=== PATIENT | female | born 1970 | race Caucasian/White ===

== ENCOUNTER 2019-05-17 04:58 | Emergency (ER) | payer OTHER ==
--- NOTE | 2019-05-17 05:00 | ED ---
Trauma HPI - General Stated Complaint: IHS injury Time Seen by Provider: 05/17/19 05:00 - History of Present Illness Initial Comments: Kristyn is a previously healthy 48-year-old female who presents to the emergency department today for required evaluation after possible injury at work. 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 During that transport vision became agitated and began fighting, he is able to stand and the stair chair lifted, the handle SIRS chair was between the patient's legs and she was lifted off the ground. Patient reports she's been fine since that time, she hasn't noticed any bruising or swelling in the groin or the genitalia. She is able to urinate she is able to ambulate. She denies any particular injury however because this was witnessed her transportation supervisor advised that she had to come to the emergency department for evaluation and IHS testing for on duty injury. Review of Systems ROS Statement: Those systems with pertinent positive or pertinent negative responses have been documented in the HPI. ROS Other: All systems not noted in ROS Statement are negative. General Exam - General Exam Comments Initial Comments: Physical Exam GENERAL: Patient is well-developed and well-nourished. Patient is nontoxic and well-hydrated and is in no distress. HENT: Normocephalic, Atraumatic. EYES: PERRL, EOMI PULMONARY: Unlabored respirations. CARDIOVASCULAR: RRR Warm and well perfused extremities ABDOMEN: Non-distended SKIN: No rashes or bruising : Deferred - patient declined NEUROLOGIC: Alert and oriented Normal speech Normal gait MUSCULOSKELETAL: Moving all extremities with no apparent injury PSYCHIATRIC: No SI/HI Course Vital Signs 05/17/19 05:16 Temperature 98.0 F Pulse Rate 83 Respiratory 18 Rate Blood Pressure 102/74 O2 Sat by Pulse 96 Oximetry Medical Decision Making - Medical Decision Making The patient was seen and evaluated history is obtained from the patient as well as EMS who were on scene, patient denies any injuries and declines any external genitalia exam or pelvic Physical exam is otherwise unremarkable Patient's ambulating without difficulty no apparent discomfort able to urinate. At this time the patient declining physical exam she is medically cleared for discharge and return to work. IHS testing was obtained per protocol. Disposition Clinical Impression: Injury of groin Disposition: HOME SELF-CARE Condition: Stable Instructions (If sedation given, give patient instructions): Contusion in Adults (ED) Is patient prescribed a controlled substance at d/c from ED?: No Referrals: Guevara George MD [Primary Care Provider] - 1-2 days
[2019-05-17 05:25] VITALS: BP 102/74; PULSE 83; RESP 18; TEMP 98
== END 2019-05-17 06:00 | disposition home or self-care (01) ==
LOC: EC 04:58
DX: S39.91XA Unspecified injury of abdomen, initial encounter (principal); F17.200 Nicotine dependence, unspecified, uncomplicated; W22.03XA Walked into furniture, initial encounter; Y93.F2 Activity, caregiving, lifting; Y92.69 Other specified industrial and construction area as the place of occurrence of the external cause; Y99.0 Civilian activity done for income or pay; Z53.20 Procedure and treatment not carried out because of patient's decision for unspecified reasons
CPT/HCPCS: 99283

== ENCOUNTER 2020-03-15 14:38 | Inpatient (IN) | payer BC, OTHER ==
[2020-03-15] MEDS ORDERED: PANTOPRAZOLE 40 MG/10 ML VIAL IVP STA (15:21)
[2020-03-15] MEDS ORDERED: SODIUM CHLORIDE 0.9% 500 ML 500 ML IV STA (15:21)
[2020-03-15 15:51] LABS: Partial Thromboplastin Time 22.4 sec (22.0-30.0); Prothrombin Time 10.3 sec (9.0-12.0)
[2020-03-15 15:55] LABS: ALT 7 U/L (4-34); AST 22 U/L (14-36); African American GFR (CKD) >90 (>60 ml/min/1.73 sqM); Albumin 2.4 g/dL (3.5-5.0); Alkaline Phosphatase 45 U/L (38-126); Anion Gap 4 mmol/L; Blood Urea Nitrogen 28 mg/dL (7-17); Calcium 7.6 mg/dL (8.4-10.2); Carbon Dioxide 20 mmol/L (22-30); Chloride 109 mmol/L (98-107); Glucose 114 mg/dL (74-99); Magnesium 1.7 mg/dL (1.6-2.3); Non-African American GFR(CKD) >90 (>60 ml/min/1.73 sqM); Potassium 4.3 mmol/L (3.5-5.1); Sodium 133 mmol/L (137-145); Total Bilirubin 0.2 mg/dL (0.2-1.3); Total Protein 4.3 g/dL (6.3-8.2)
[2020-03-15 16:11] LABS: Basophils % (A) 0 %; Eosinophils % (A) 0 %; HCT 26.3 % (34.0-46.0); HGB 8.2 gm/dL (11.4-16.0); Lymphocytes # (A) 1.3 k/uL (1.0-4.8); Lymphocytes % (A) 16 %; MCH 31.6 pg (25.0-35.0); MCHC 31.1 g/dL (31.0-37.0); MCV 101.5 fL (80.0-100.0); Mean Platelet Volume 7.9; Monocytes # (A) 0.4 k/uL (0-1.0); Monocytes % (A) 5 %; Neutrophils # (A) 6.1 k/uL (1.3-7.7); Neutrophils % (A) 77 %; Platelet Count 277 k/uL (150-450); RBC 2.59 m/uL (3.80-5.40); RDW 12.6 % (11.5-15.5); WBC 7.8 k/uL (3.8-10.6)
[2020-03-15] MEDS ORDERED: NALOXONE 0.4 MG/ML 1 ML VIAL IV PRN (16:43)
--- NOTE | 2020-03-15 16:43 | ED ---
GI Bleed HPI - General Chief complaint: GI Bleed Stated complaint: GI Bleed Time Seen by Provider: 03/15/20 14:55 Source: patient, EMS Mode of arrival: EMS Limitations: no limitations - History of Present Illness Initial comments: Patient is a 49-year-old previously healthy female who presents to emergency room with reported bright red blood and dark tarry blood per rectum. Patient states that last week she began having epigastric pain. She was concern for peptic ulcer disease as she does drink an average of 2 alcoholic drinks daily, takes Excedrin occasionally for headaches and has a significant amount of stress in her life. 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 She saw her primary care physician who placed her on Pepcid. States that she was taking medications as directed and had imp rovement in her pain. She awoke this morning with an upset stomach. Went to the bathroom and passed a moderate amount of dark stool into the toilet. She then wiped and noted bright red blood on the toilet paper. Attempted to go back to sleep however reports that she had 6 episodes total of bloody bowel movements. Called EMS to bring her to the emergency department. Patient received a liter bolus of normal saline by EMS. She arrives with a blood pressure around 90 systolic. Reports to feeling dizzy when she stands. Has never been scoped before. No history of ulcer disease in the past. No vomiting or hematemesis. Denies fevers or chills. No current abdominal pain. No other alleviating, precipitating or modifying factors - Related Data Home Medications Medication Instructions Recorded Confirmed Acetaminophen [Tylenol] 1,000 - 2,000 mg PO DAILY PRN 03/15/20 03/15/20 Vyypvzq-[id number] [id number] 2 tab PO DAILY PRN 03/15/20 03/15/20 [Excedrin] Famotidine [Pepcid] 20 mg PO DAILY PRN 03/15/20 03/15/20 Allergies Allergy/AdvReac Type Severity Reaction Status Date / Time No Known Allergies Allergy Verified 03/15/20 19:05 Review of Systems ROS Statement: Those systems with pertinent positive or pertinent negative responses have been documented in the HPI. ROS Other: All systems not noted in ROS Statement are negative. Past Medical History Past Medical History: GERD/Reflux History of Any Multi-Drug Resistant Organisms: None Reported Past Surgical History: Tubal Ligation Additional Past Surgical History / Comment(s): tubal ligation 2009, rhinoplasty Past Psychological History: Anxiety Smoking Status: Current every day smoker Past Alcohol Use History: Daily Past Drug Use History: None Reported - Past Family History Mother Family Medical History: Hypertension Additional Family Medical History / Comment(s): Aortic aneurysm Father Additional Family Medical History / Comment(s): no significant hx General Exam Limitations: no limitations General appearance: alert, in no apparent distress Head exam: Present: atraumatic, normocephalic, normal inspection Eye exam: Present: normal appearance, PERRL, EOMI. Absent: scleral icterus, conjunctival injection, periorbital swelling ENT exam: Present: normal exam, mucous membranes moist Neck exam: Present: normal inspection. Absent: tenderness, meningismus, lymphadenopathy Respiratory exam: Present: normal lung sounds bilaterally. Absent: respiratory distress, wheezes, rales, rhonchi, stridor Cardiovascular Exam: Present: normal rhythm, tachycardia, normal heart sounds. Absent: systolic murmur, diastolic murmur, rubs, gallop, clicks GI/Abdominal exam: Present: soft, normal bowel sounds. Absent: distended, tenderness, guarding, rebound, rigid Rectal exam: Present: heme (+) stool, black stool (few red-black flecks of stool obtained on rectal ), mass (large condyloma ) Extremities exam: Present: normal inspection, full ROM, normal capillary refill. Absent: tenderness, pedal edema, joint swelling, calf tenderness Back exam: Present: normal inspection Neurological exam: Present: alert, oriented X3, CN II-XII intact Psychiatric exam: Present: normal affect, normal mood Skin exam: Present: warm, dry, intact, diaphoretic, pallor. Absent: rash Course Vital Signs 03/15/20 03/15/20 03/15/20 14:54 15:13 15:38 Temperature 98 F Pulse Rate 93 99 93 Respiratory 18 18 18 Rate Blood Pressure 132/84 94/57 94/57 O2 Sat by Pulse 99 99 99 Oximetry 03/15/20 03/15/20 03/15/20 16:47 17:04 17:50 Temperature 97.7 F Pulse Rate 91 79 Respiratory 16 18 Rate Blood Pressure 91/55 84/55 O2 Sat by Pulse 99 100 Oximetry 03/15/20 03/15/20 03/15/20 18:00 18:10 18:15 Temperature 97.4 F L 97.7 F 97.7 F Pulse Rate 81 63 66 Respiratory 16 16 16 Rate Blood Pressure 82/47 75/44 76/46 O2 Sat by Pulse 100 100 99 Oximetry 03/15/20 03/15/20 18:19 18:22 Temperature Pulse Rate 76 Respiratory 18 Rate Blood Pressure 83/50 108/40 O2 Sat by Pulse 99 98 Oximetry - Reevaluation(s) Reevaluation #1: Spoke with Dr. Welch regarding patients care 03/15/20 18:24 Medical Decision Making - Medical Decision Making Upon arrival the patient is placed into room 2. A thorough history and physical exam is performed. Rectal exam is performed and demonstrates a few flecks of dark brown. Peripheral IV was established. Laboratory studies were conducted. Patient's hemoglobin is 8.2. She is occult blood positive. Patient has no pain at this time. She is made nothing by mouth. Repetitive blood checks demonstrates that the patient's blood pressure remains around 90 systolic. Heart rate around 100. Because the patient's low blood pressure I did request a transfused with 1 unit of blood for which she did agree to. I called and discussed the case with Dr. De La Cruz who agreed to admission. Requested an additional liter of saline to be given. I will consult GI - spoke with Dr. Welch in regards to the patients hypotension and blood transfusion. Discussed case with Dr. Madrid who accepted admission into the ICU. Patient remained in stable condition awaiting a bed - Lab Data Result diagrams: 03/19/20 04:38 03/19/20 04:38 Lab Results 03/15/20 03/15/20 03/15/20 Range/Units 15:33 15:33 15:33 WBC 7.8 (3.8-10.6) k/uL RBC 2.59 L (3.80-5.40) m/uL Hgb 8.2 L (11.4-16.0) gm/dL Hct 26.3 L (34.0-46.0) % MCV 101.5 H (80.0-100.0) fL MCH 31.6 (25.0-35.0) pg MCHC 31.1 (31.0-37.0) g/dL RDW 12.6 (11.5-15.5) % Plt Count 277 (150-450) k/uL Neutrophils % 77 % Lymphocytes % 16 % Monocytes % 5 % Eosinophils % 0 % Basophils % 0 % Neutrophils # 6.1 (1.3-7.7) k/uL Lymphocytes # 1.3 (1.0-4.8) k/uL Monocytes # 0.4 (0-1.0) k/uL Eosinophils # 0.0 (0-0.7) k/uL Basophils # 0.0 (0-0.2) k/uL PT 10.3 (9.0-12.0) sec INR 1.0 (<1.2) APTT 22.4 (22.0-30.0) sec Sodium (137-145) mmol/L Potassium (3.5-5.1) mmol/L Chloride (98-107) mmol/L Carbon Dioxide (22-30) mmol/L Anion Gap mmol/L BUN (7-17) mg/dL Creatinine (0.52-1.04) mg/dL Est GFR (CKD-EPI)AfAm (>60 ml/min/1.73 sqM) Est GFR (CKD-EPI)NonAf (>60 ml/min/1.73 sqM) Glucose (74-99) mg/dL Plasma Lactic Acid Ap (0.7-2.0) mmol/L Calcium (8.4-10.2) mg/dL Magnesium (1.6-2.3) mg/dL Total Bilirubin (0.2-1.3) mg/dL AST (14-36) U/L ALT (4-34) U/L Alkaline Phosphatase (38-126) U/L Troponin I (0.000-0.034) ng/mL Total Protein (6.3-8.2) g/dL Albumin (3.5-5.0) g/dL Lipase (23-300) U/L Stool Occult Blood Positive H (Negative) Blood Type Blood Type Recheck Bld Type Recheck Status Antibody Screen Crossmatch Spec Expiration Date 03/15/20 03/15/20 03/15/20 Range/Units 15:33 15:33 15:33 WBC (3.8-10.6) k/uL RBC (3.80-5.40) m/uL Hgb (11.4-16.0) gm/dL Hct (34.0-46.0) % MCV (80.0-100.0) fL MCH (25.0-35.0) pg MCHC (31.0-37.0) g/dL RDW (11.5-15.5) % Plt Count (150-450) k/uL Neutrophils % % Lymphocytes % % Monocytes % % Eosinophils % % Basophils % % Neutrophils # (1.3-7.7) k/uL Lymphocytes # (1.0-4.8) k/uL Monocytes # (0-1.0) k/uL Eosinophils # (0-0.7) k/uL Basophils # (0-0.2) k/uL PT (9.0-12.0) sec INR (<1.2) APTT (22.0-30.0) sec Sodium 133 L (137-145) mmol/L Potassium 4.3 (3.5-5.1) mmol/L Chloride 109 H (98-107) mmol/L Carbon Dioxide 20 L (22-30) mmol/L Anion Gap 4 mmol/L BUN 28 H (7-17) mg/dL Creatinine 0.40 L (0.52-1.04) mg/dL Est GFR (CKD-EPI)AfAm >90 (>60 ml/min/1.73 sqM) Est GFR (CKD-EPI)NonAf >90 (>60 ml/min/1.73 sqM) Glucose 114 H (74-99) mg/dL Plasma Lactic Acid Ap 1.0 (0.7-2.0) mmol/L Calcium 7.6 L (8.4-10.2) mg/dL Magnesium 1.7 (1.6-2.3) mg/dL Total Bilirubin 0.2 (0.2-1.3) mg/dL AST 22 (14-36) U/L ALT 7 (4-34) U/L Alkaline Phosphatase 45 (38-126) U/L Troponin I <0.012 (0.000-0.034) ng/mL Total Protein 4.3 L (6.3-8.2) g/dL Albumin 2.4 L (3.5-5.0) g/dL Lipase 80 (23-300) U/L Stool Occult Blood (Negative) Blood Type Blood Type Recheck Bld Type Recheck Status Antibody Screen Crossmatch Spec Expiration Date 03/15/20 Range/Units 15:33 WBC (3.8-10.6) k/uL RBC (3.80-5.40) m/uL Hgb (11.4-16.0) gm/dL Hct (34.0-46.0) % MCV (80.0-100.0) fL MCH (25.0-35.0) pg MCHC (31.0-37.0) g/dL RDW (11.5-15.5) % Plt Count (150-450) k/uL Neutrophils % % Lymphocytes % % Monocytes % % Eosinophils % % Basophils % % Neutrophils # (1.3-7.7) k/uL Lymphocytes # (1.0-4.8) k/uL Monocytes # (0-1.0) k/uL Eosinophils # (0-0.7) k/uL Basophils # (0-0.2) k/uL PT (9.0-12.0) sec INR (<1.2) APTT (22.0-30.0) sec Sodium (137-145) mmol/L Potassium (3.5-5.1) mmol/L Chloride (98-107) mmol/L Carbon Dioxide (22-30) mmol/L Anion Gap mmol/L BUN (7-17) mg/dL Creatinine (0.52-1.04) mg/dL Est GFR (CKD-EPI)AfAm (>60 ml/min/1.73 sqM) Est GFR (CKD-EPI)NonAf (>60 ml/min/1.73 sqM) Glucose (74-99) mg/dL Plasma Lactic Acid Ap (0.7-2.0) mmol/L Calcium (8.4-10.2) mg/dL Magnesium (1.6-2.3) mg/dL Total Bilirubin (0.2-1.3) mg/dL AST (14-36) U/L ALT (4-34) U/L Alkaline Phosphatase (38-126) U/L Troponin I (0.000-0.034) ng/mL Total Protein (6.3-8.2) g/dL Albumin (3.5-5.0) g/dL Lipase (23-300) U/L Stool Occult Blood (Negative) Blood Type A Positive Blood Type Recheck No Previous Record Bld Type Recheck Status CABO Indicated Antibody Screen NEGATIVE Crossmatch See Detail Spec Expiration Date 03/18/2020 - 9925 - EKG Data EKG Comments: EKG demonstrates a normal sinus rhythm with a ventricular rate of 89. CT interval 146. QRS 78. QTC of 435. No acute ST segment elevations or depressions concerning for ischemic changes Critical Care Time Critical Care Time: Yes Critical Care Time: 40 minutes Disposition Clinical Impression: Hematochezia, Anemia, Upper GI bleed, Hypotension Disposition: ADMITTED IP TO THIS [facility] Condition: Serious Is patient prescribed a controlled substance at d/c from ED?: No Decision to Admit Reason: Admit from EC Decision Date: 03/15/20 Decision Time: 16:41
[2020-03-15] MEDS ORDERED: SODIUM CHLORIDE 0.9% 1,000 ML IV ONE (17:29)
[2020-03-15] MEDS: SODIUM CHLORIDE 0.9% 1,000 ML IV SCH (18:10)
[2020-03-15 18:44] LABS: Glucose,Whole Blood 93 mg/dL (75-99)
[2020-03-15] MEDS: NICOTINE 14MG/24HR PATCH TRANSDERM SCH (19:47)
[2020-03-15 21:26] LABS: HCT 24.9 % (34.0-46.0); HGB 7.7 gm/dL (11.4-16.0); Hypochromasia Slight; MCH 30.4 pg (25.0-35.0); MCHC 30.8 g/dL (31.0-37.0); MCV 98.7 fL (80.0-100.0); Mean Platelet Volume 7.5; Platelet Count 208 k/uL (150-450); RBC 2.53 m/uL (3.80-5.40); RDW 14.5 % (11.5-15.5); WBC 5.9 k/uL (3.8-10.6)
[2020-03-16 02:19] LABS: HCT 29.3 % (34.0-46.0); Hypochromasia Slight; MCH 30.3 pg (25.0-35.0); MCHC 30.7 g/dL (31.0-37.0); MCV 98.7 fL (80.0-100.0); Mean Platelet Volume 7.4; Platelet Count 170 k/uL (150-450); RBC 2.96 m/uL (3.80-5.40); RDW 14.6 % (11.5-15.5); WBC 6.3 k/uL (3.8-10.6)
[2020-03-16] MEDS: SODIUM CHLORIDE 0.9% 1,000 ML IV SCH ×2 (04:30→15:51)
[2020-03-16] MEDS: ONDANSETRON 4 MG/2 ML VIAL IVP PRN (04:31)
[2020-03-16 04:33] LABS: Basophils % (A) 0 %; Eosinophils # (A) 0.1 k/uL (0-0.7); Eosinophils % (A) 1 %; HGB 9.9 gm/dL (11.4-16.0); Hypochromasia Marked; Lymphocytes # (A) 2.4 k/uL (1.0-4.8); Lymphocytes % (A) 33 %; MCH 31.3 pg (25.0-35.0); MCV 100.8 fL (80.0-100.0); Macrocytosis Slight; Mean Platelet Volume 7.5; Monocytes # (A) 0.4 k/uL (0-1.0); Monocytes % (A) 5 %; Neutrophils # (A) 4.2 k/uL (1.3-7.7); Neutrophils % (A) 59 %; Platelet Count 182 k/uL (150-450); RBC 3.18 m/uL (3.80-5.40); RDW 14.7 % (11.5-15.5); WBC 7.2 k/uL (3.8-10.6)
[2020-03-16 04:42] LABS: African American GFR (CKD) >90 (>60 ml/min/1.73 sqM); Anion Gap 2 mmol/L; Blood Urea Nitrogen 19 mg/dL (7-17); Calcium 7.9 mg/dL (8.4-10.2); Carbon Dioxide 19 mmol/L (22-30); Chloride 115 mmol/L (98-107); Glucose 79 mg/dL (74-99); Non-African American GFR(CKD) >90 (>60 ml/min/1.73 sqM); Potassium 3.9 mmol/L (3.5-5.1); Sodium 136 mmol/L (137-145)
[2020-03-16 05:00] LABS: Glucose,Whole Blood 149 mg/dL (75-99)
[2020-03-16 05:11] LABS: Basophils % (A) 0 %; Eosinophils # (A) 0.1 k/uL (0-0.7); Eosinophils % (A) 1 %; HCT 23.4 % (34.0-46.0); Hypochromasia Moderate; Lymphocytes # (A) 2.6 k/uL (1.0-4.8); Lymphocytes % (A) 31 %; MCH 31.1 pg (25.0-35.0); MCHC 31.4 g/dL (31.0-37.0); MCV 98.8 fL (80.0-100.0); Macrocytosis Slight; Mean Platelet Volume 7.4; Monocytes # (A) 0.7 k/uL (0-1.0); Monocytes % (A) 8 %; Neutrophils # (A) 5.1 k/uL (1.3-7.7); Neutrophils % (A) 59 %; Platelet Count 203 k/uL (150-450); RBC 2.37 m/uL (3.80-5.40); RDW 14.9 % (11.5-15.5); WBC 8.6 k/uL (3.8-10.6)
[2020-03-16 05:17] LABS: HGB 7.4 gm/dL (11.4-16.0)
[2020-03-16] MEDS ORDERED: SODIUM CHLORIDE 0.9% 1,000 ML IV ONE ×4 (05:34→11:45)
[2020-03-16] MEDS ORDERED: METOCLOPRAMIDE 5 MG/ML 2 ML VIAL IVP STA (07:52)
[2020-03-16 07:56] LABS: INR 1.1 (<1.2); Prothrombin Time 11.6 sec (9.0-12.0)
[2020-03-16 07:57] LABS: Partial Thromboplastin Time 25.3 sec (22.0-30.0)
[2020-03-16 07:58] LABS: HCT 24.7 % (34.0-46.0); Hypochromasia Slight; MCH 30.8 pg (25.0-35.0); MCHC 32.3 g/dL (31.0-37.0); MCV 95.3 fL (80.0-100.0); Mean Platelet Volume 7.9; Platelet Count 119 k/uL (150-450); RBC 2.59 m/uL (3.80-5.40); RDW 14.2 % (11.5-15.5); WBC 8.6 k/uL (3.8-10.6)
[2020-03-16] MEDS ORDERED: NOREPINEPHRIN 4 MG-0.9% NS PMX 4 MG/250 ML ML IV ONE (08:06)
[2020-03-16] MEDS ORDERED: FUROSEMIDE 10 MG/ML 2 ML VIAL ONE (08:31)
[2020-03-16] MEDS ORDERED: PANTOPRAZOLE 40 MG/10 ML VIAL IV SCH (09:00)
--- NOTE | 2020-03-16 09:19 | P.CONS ---
History of Present Illness - Reason for Consult Consult date: 03/16/20 GI bleed Requesting physician: Chaka Mora - Chief Complaint GI bleed - History of Present Illness 49-year-old female who denies any significant past medical history who presented to the hospital due to complaints of bleeding per rectum. The patient reports episodes of dark tarry bowel movements occurring over the past few days. She had associated epigastric pain during this time. The patient denies any history of GI bleed. She denies any nausea or vomiting. Patient reports that over the past 1 year she has drank approximately 3 alcoholic beverages per day but denies any heavy alcohol use outside of this. She also reports occasional use of Excedrin approximately one time per week. Patient had associated weakness and dizziness with her symptoms. On presentation to the hospital she was found to have a hemoglobin of 9.0 but because of her symptoms and continue GI bleed she was transfused 2 units of PRBCs. Patient admitted to the ICU where she elizabeth nued to pass blood per rectum. The patient was transfused an additional 1 unit of PRBCs. Review of Systems REVIEW OF SYSTEMS: CONSTITUTIONAL: Denies any fevers, chills, weight change but she does report fatigue and weakness CARDIOVASCULAR: Denies any chest pain, palpitations high or low blood pressures at baseline but has been hypotensive after presentation RESPIRATORY: Denies any shortness of breath, hemoptysis or cough. GENITOURINARY: No dysuria or hematuria. MUSCULOSKELETAL: No weakness reported. SKIN: Denies any new rashes or lesions, jaundice or pallor. PSYCHIATRIC: Denies any depression or anxiety. NEUROLOGY: Denies headache, denies any new focal deficits. EARS/NOSE/THROAT: No recent hearing change, congestion, nasal discharge or sore throat. EYES: No pain in eyes, discharge or change in vision. GASTROINTESTINAL: As per HPI. Past Medical History Past Medical History: GERD/Reflux History of Any Multi-Drug Resistant Organisms: None Reported Past Surgical History: Tubal Ligation Additional Past Surgical History / Comment(s): tubal ligation 2008, rhinoplasty Past Anesthesia/Blood Transfusion Reactions: No Reported Reaction Smoking Status: Current every day smoker - Past Family History Mother Family Medical History: Hypertension Additional Family Medical History / Comment(s): Aortic aneurysm Father Additional Family Medical History / Comment(s): no significant hx Medications and Allergies Home Medications Medication Instructions Recorded Confirmed Type Acetaminophen [Tylenol] 1,000 - 2,000 mg PO DAILY PRN 03/15/20 03/15/20 History Fwykhag-Xjlu-Nhyk [id number] 2 tab PO DAILY PRN 03/15/20 03/15/20 History [Excedrin] Famotidine [Pepcid] 20 mg PO DAILY PRN 03/15/20 03/15/20 History Allergies Allergy/AdvReac Type Severity Reaction Status Date / Time No Known Allergies Allergy Verified 03/15/20 19:05 Physical Exam Vitals: Vital Signs Temp Pulse Resp BP Pulse Ox 03/16/20 08:55 97.6 F 103 H 12 96/61 100 03/16/20 08:45 97.5 F L 80 10 L 112/57 100 03/16/20 08:44 97.5 F L 85 16 116/60 03/16/20 08:37 98.1 F 79 19 94/49 100 03/16/20 08:36 98.1 F 81 18 95/47 100 03/16/20 08:30 85 12 68/33 100 03/16/20 08:23 98 F 85 19 91/44 100 03/16/20 08:15 74 14 68/33 97 03/16/20 08:13 97 F L 76 16 68/33 98 03/16/20 08:00 86 17 88/74 98 03/16/20 07:45 80 9 L 98/83 97 03/16/20 07:30 73 18 72/45 100 03/16/20 07:15 88 16 67/45 99 03/16/20 07:00 106 H 14 83/49 99 03/16/20 06:45 98 15 90/60 98 03/16/20 06:30 83 15 83/47 99 03/16/20 06:15 89 16 84/55 99 03/16/20 06:00 98 F 69 15 79/47 100 03/16/20 05:57 98.2 F 71 16 79/47 100 03/16/20 05:47 98 F 76 18 89/55 99 03/16/20 05:45 85 17 83/49 98 03/16/20 05:37 71 16 87/44 98 03/16/20 05:35 72 16 80/44 97 03/16/20 05:30 98 F 74 16 78/39 99 03/16/20 05:15 81 16 89/44 98 03/16/20 05:00 89 15 87/47 95 03/16/20 04:45 99 21 93/59 96 03/16/20 04:30 94 16 98 03/16/20 04:15 84 16 115/74 99 03/16/20 04:00 98 F 80 16 100/65 98 03/16/20 03:00 66 16 106/62 98 03/16/20 02:00 66 16 101/63 98 03/16/20 01:00 63 18 100/60 99 03/16/20 00:20 98.6 F 60 15 99/65 100 03/16/20 00:00 98.9 F 57 L 16 93/52 98 03/15/20 23:10 98 F 62 16 81/56 99 03/15/20 23:00 63 20 96/55 98 03/15/20 22:40 98.5 F 64 16 96/55 100 03/15/20 22:30 98.6 F 66 18 88/52 99 03/15/20 22:00 76 20 90/56 98 03/15/20 21:00 76 18 111/94 99 03/15/20 20:00 99.3 F 80 16 96/58 100 03/15/20 19:30 97.5 F L 79 17 100/48 100 03/15/20 19:00 91 15 100/48 100 03/15/20 18:57 98.4 F 03/15/20 18:45 97.6 F 72 18 89/40 99 03/15/20 18:42 86 107/60 98 03/15/20 18:22 76 18 108/40 98 03/15/20 18:19 83/50 99 03/15/20 18:15 97.7 F 66 16 76/46 99 03/15/20 18:10 97.7 F 63 16 75/44 100 03/15/20 18:00 97.4 F L 81 16 82/47 100 03/15/20 17:50 97.7 F 79 18 100 03/15/20 17:04 84/55 03/15/20 16:47 91 16 91/55 99 03/15/20 15:38 93 18 94/57 99 03/15/20 15:13 99 18 94/57 99 03/15/20 14:54 98 F 93 18 132/84 99 Intake and Output 03/15/20 03/16/20 03/16/20 22:59 06:59 14:59 Intake Total 685 1455 2695 Output Total 200 1750 385 Balance 485 -295 2310 Intake: IV 244 096 1191 Sodium Chloride 0.9% 1, 375 525 75 000 ml @ 75 mls/hr IV . [id number] ALEKSANDRA Rx#:[id number] Sodium Chloride 0.9% 1, 1000 000 ml @ 999 mls/hr IV . Q1H1M ONE Rx#:[id number] Sodium Chloride 0.9% 1, 1000 000 ml @ 999 mls/hr IV . Q1H1M ONE Rx#:[id number] Blood Product 310 930 620 Rc As-1 Unit 310 [id number] Rc As-1 Unit 0 310 [id number] Rc As-1 Unit 310 [id number] Rc As-1 Unit 0 [id number] Rc As-1 Unit 310 [id number] Rc As-1 Unit 310 [id number] Rc As-1 Unit 310 [id number] Output: Urine 200 450 85 Stool 1100 300 Emesis 200 Other: Voiding Method Toilet Toilet Indwelling Catheter # Voids 1 # Bowel Movements 2 Weight 48.534 kg 54.5 kg ABP, PAP, CO, CI - Last 8 Hours Arterial Blood Pressure 112/56 Arterial Blood Pressure 86/48 On physical examination, patient appears comfortable in no apparent distress. HEAD: Normocephalic, atraumatic. EYES: No scleral icterus. No conjunctival injection. MOUTH: No lesions, tongue midline. NECK: Trachea midline, no gross abnormalities. CHEST: Clear to auscultation with no wheezing or rhonchi appreciated. HEART: Regular rate and rhythm. ABDOMEN: Soft, thin and mildly tender. Bowel sounds are positive. No or ganomegaly. No guarding or rigidity. EXTREMITIES: No pedal edema. SKIN: No rashes, no jaundice. NEUROLOGIC: Alert and oriented x3. No focal deficits. Results CBC & Chem 7: 03/16/20 07:25 03/16/20 04:12 Labs: Abnormal Lab Results - Last 24 Hours (Table) 03/15/20 03/15/2020 Range/Units 15:33 15:33 15:33 RBC 2.59 L (3.80-5.40) m/uL Hgb 8.2 L (11.4-16.0) gm/dL Hct 26.3 L (34.0-46.0) % MCV 101.5 H (80.0-100.0) fL MCHC (31.0-37.0) g/dL Plt Count (150-450) k/uL Sodium 133 L (137-145) mmol/L Chloride 109 H (98-107) mmol/L Carbon Dioxide 20 L (22-30) mmol/L BUN 28 H (7-17) mg/dL Creatinine 0.40 L (0.52-1.04) mg/dL Glucose 114 H (74-99) mg/dL POC Glucose (mg/dL) (75-99) mg/dL Calcium 7.6 L (8.4-10.2) mg/dL Total Protein 4.3 L (6.3-8.2) g/dL Albumin 2.4 L (3.5-5.0) g/dL Stool Occult Blood Positive H (Negative) Crossmatch 03/15/20 03/15/20 03/16/20 Range/Units 15:33 21:10 01:56 RBC 2.53 L 2.96 L (3.80-5.40) m/uL Hgb 7.7 L 9.0 L (11.4-16.0) gm/dL Hct 24.9 L 29.3 L (34.0-46.0) % MCV (80.0-100.0) fL MCHC 30.8 L 30.7 L (31.0-37.0) g/dL Plt Count (150-450) k/uL Sodium (137-145) mmol/L Chloride (98-107) mmol/L Carbon Dioxide (22-30) mmol/L BUN (7-17) mg/dL Creatinine (0.52-1.04) mg/dL Glucose (74-99) mg/dL POC Glucose (mg/dL) (75-99) mg/dL Calcium (8.4-10.2) mg/dL Total Protein (6.3-8.2) g/dL Albumin (3.5-5.0) g/dL Stool Occult Blood (Negative) Crossmatch See Detail 03/16/20 03/16/20 03/16/20 Range/Units 04:12 04:12 04:58 RBC 3.18 L (3.80-5.40) m/uL Hgb 9.9 L (11.4-16.0) gm/dL Hct 32.0 L (34.0-46.0) % MCV 100.8 H (80.0-100.0) fL MCHC (31.0-37.0) g/dL Plt Count (150-450) k/uL Sodium 136 L (137-145) mmol/L Chloride 115 H (98-107) mmol/L Carbon Dioxide 19 L (22-30) mmol/L BUN 19 H (7-17) mg/dL Creatinine 0.46 L (0.52-1.04) mg/dL Glucose (74-99) mg/dL POC Glucose (mg/dL) 149 H (75-99) mg/dL Calcium 7.9 L (8.4-10.2) mg/dL Total Protein (6.3-8.2) g/dL Albumin (3.5-5.0) g/dL Stool Occult Blood (Negative) Crossmatch 03/16/20 03/16/20 Range/Units 05:01 07:25 RBC 2.37 L 2.59 L (3.80-5.40) m/uL Hgb 7.4 L D 8.0 L (11.4-16.0) gm/dL Hct 23.4 L 24.7 L (34.0-46.0) % MCV (80.0-100.0) fL MCHC (31.0-37.0) g/dL Plt Count 119 L (150-450) k/uL Sodium (137-145) mmol/L Chloride (98-107) mmol/L Carbon Dioxide (22-30) mmol/L BUN (7-17) mg/dL Creatinine (0.52-1.04) mg/dL Glucose (74-99) mg/dL POC Glucose (mg/dL) (75-99) mg/dL Calcium (8.4-10.2) mg/dL Total Protein (6.3-8.2) g/dL Albumin (3.5-5.0) g/dL Stool Occult Blood (Negative) Crossmatch Assessment and Plan (1) Anemia associated with acute blood loss Narrative/Plan: 49-year-old female presenting with acute symptomatic anemia secondary to acute blood loss. Denies any prior history. Denies heavy alcohol use in the past but does report drinking 3 alcoholic beverages daily over the past year. Denies any history of GI bleed. She is been having multiple melanotic bowel movements over the past week. Found to have a hemoglobin of 9.0 on presentation. She is continued to have GI bleeding and was admitted to the ICU. Unknown etiology, differential includes peptic ulcer disease, Dieulafoy lesion, AVM, or other etiology. Current Visit: Yes Status: Acute Code(s): D62 - ACUTE POSTHEMORRHAGIC ANEMIA SNOMED Code(s): 609230538 (2) Melena Current Visit: Yes Status: Acute Code(s): K92.1 - MELENA SNOMED Code(s): 9489010 Plan: Supportive care Nothing by mouth Patient transfused 3 units of packed red blood cells Continue IV Protonix therapy Continue to monitor hemoglobin and hematocrit and transfuse as needed Continue ICU care Plan for EGD today for further evaluation Avoid NSAID use Avoid anticoagulation therapy at this time Thank you for allowing us to participate in the care of the patient
[2020-03-16] MEDS ORDERED: IV FLUID CONTINUATION 200 ML IV ONE (09:20)
[2020-03-16] MEDS ORDERED: LIDOCAINE 1% INJ 10MG/ML (20 ML MDV) ONE (09:30)
[2020-03-16] MEDS ORDERED: SUCCINYLCHOLINE CHLORIDE 100 MG/5 ML SYR IV ONE (09:30)
[2020-03-16] MEDS ORDERED: fentaNYL (PF) 50 MCG/ML 2 ML AMP ONE ×2 (09:30→11:24)
[2020-03-16] MEDS ORDERED: ETOMIDATE 2 MG/ML 10 ML VIAL ONE (09:30)
[2020-03-16] MEDS ORDERED: PROPOFOL 10 MG/ML 20 ML VIAL IV ONE (09:30)
[2020-03-16] MEDS: NOREPINEPHRINE 32 MG in SODIUM CHLORIDE 0.9% 218 ML IV SCH (10:05)
[2020-03-16] MEDS ORDERED: EPINEPHrine 10 ML SYRINGE (0.1 MG/ML) ONE (10:09)
[2020-03-16] MEDS ORDERED: EPINEPHrine 1 MG/ML 1 ML AMP INTRATRACH ONE (10:24)
[2020-03-16] MEDS ORDERED: propofoL 100 ML IV ONE (10:39)
--- NOTE | 2020-03-16 10:50 | P.PCN ---
Date of Procedure: 03/16/20 Description of Procedure: BRIEF HISTORY: 49-year-old female who denies any significant past medical history who presented to the hospital due to complaints of bleeding per rectum. The patient reports episodes of dark tarry bowel movements occurring over the past few days. She had associated epigastric pain during this time. The patient denies any history of GI bleed. She denies any nausea or vomiting. Patient reports that over the past 1 year she has drank approximately 3 alcoholic beverages per day but denies any heavy alcohol use outside of this. She also reports occasional use of Excedrin approximately one time per week. Patient had associated weakness and dizziness with her symptoms. On presentation to the hospital she was found to have a hemoglobin of 9.0 but because of her symptoms and continue GI bleed she was transfused 2 units of PRBCs. Patient admitted to the ICU where she continued to pass blood per rectum. The patient continued to pass blood per rectum and required a total of 7 units of PRBCs. PROCEDURE PERFORMED: Esophagogastroduodenoscopy with epinephrine injection. PREOPERATIVE DIAGNOSIS: Anemia acute blood loss, upper GI bleed. ESTIMATED BLOOD LOSS: Minimal. IV sedation per anesthesia. PROCEDURE: After informed consent was obtained, the patient was brought into the endoscopy unit. IV sedation was administered by Anesthesia under continuous monitoring. Initially the Olympus GIF-190 video endoscope was inserted into the mouth. Esophagus intubated without any difficulty. It was gradually advanced into the stomach and duodenum and carefully examined. The duodenum was significant for a large amount of fresh red blood and a large clot covering cratered 2.5 cm ulcer with active bleeding. Extensive lavage as well as injection of 30 mL of epinephrine injected in a circumferential manner around the ulcer as well as placement of 2 endoclips with continued bleeding from this site. The scope at this time was withdrawn to the stomach, adequately insufflated with air, and upon careful examination, mucosa of the antrum, body, cardia and the fundus appeared normal, except for fresh blood and clots noted from the bleeding duodenal ulcer. The scope was then withdrawn into the esophagus. The GE junction was located at 39 cm from the incisors. The esophagus appeared normal. There were no erosions or ulcerations seen and the patient tolerated the procedure well. IMPRESSION: 1. Large actively bleeding duodenal ulcer treated with epinephrine injection and Endo Clip placement with continued bleeding from the ulcer site. 2. Large amount of old blood and clots in the stomach. RECOMMENDATIONS: The findings of this examination were discussed with the patients father as per her last. Case discussed with the surgical service and plan is for definitive surgical intervention. We'll defer further management to their service. Continue ICU care.
--- NOTE | 2020-03-16 11:12 | P.GSCN ---
History of Present Illness Consult date: 03/16/20 History of present illness: CHIEF COMPLAINT: This is a 49-year-old female with a known history of GERD. She also has a history of drinking 3 alcoholic beverages per day over the past year. Patient presented to the emergency room with complaints of bleeding per rectum. She also is having dark tarry bowel movements over the last few days. She is complaining of epigastric abdominal pain. She was seen by GI service and underwent EGD which revealed a large actively bleeding duodenal ulcer treated with epinephrine injection and Endo Clip placement with continued bleeding from the ulcer site. Large amount of old blood and clots in the stomach. Patient is currently in the ICU and intubated. Dr. Rosales was notified and patient will be going to the OR for emergent repair of blood in the ulcer. Patient has received 9 units of packed red blood cells. And is scheduled for platelet transfusion. Patient denies any fever, chills or sweats. HISTORY OF PRESENT ILLNESS: PAST MEDICAL HISTORY: See list. PAST SURGICAL HISTORY: See list. MEDICATIONS: See list. ALLERGIES: See list. SOCIAL HISTORY: No illicit drug use. REVIEW OF SYSTEMS: CONSTITUTIONAL: Denies fever or chills. HEENT: Denies blurred vision, vision changes, or eye pain. Denies hemoptysis CARDIOVASCULAR: Denies chest pain or pressure. RESPIRATORY: No shortness of breath. GASTROINTESTINAL: See HPI for pertinent findings HEMATOLOGIC: Denies bleeding disorders. GENITOURINARY: Denies any blood in urine or increased urinary frequency. SKIN: Denies pruitis. Denies rash. PHYSICAL EXAM: VITAL SIGNS: Reviewed GENERAL: Well-developed in no acute distress. HEENT: No sclera icterus. Extraocular movements grossly intact. Moist buccal mucosa. Head is atraumatic, normocephalic. No nasal drainage. ABDOMEN: Soft. Epigastric tenderness nondistended NEUROLOGIC: Alert and oriented. Cranial nerves II through XII grossly intact. LABORATORY DATA: WBC 8.6 hemoglobin on admission 9 down to 7.4 and is now at 8.0 platelets 119 fecal occult blood positive IMAGING: ASSESSMENT: 1. Large duodenal ulcer with active bleeding status post EGD with epinephrine injection and Endo Clip placement. Even after intervention patient is still having bleeding at the ulcer site 2. Acute blood loss anemia secondary to acute GI bleed from the bleeding duodenal ulcer PLAN: -Patient is scheduled for emergent repair of duodenal ulcer with Dr. Rosales Physician Operations Label Clerk note has been reviewed by physician. Signing provider agrees with the documented findings, assessment, and plan of care. Past Medical History Past Medical History: GERD/Reflux History of Any Multi-Drug Resistant Organisms: None Reported Past Surgical History: Tubal Ligation Additional Past Surgical History / Comment(s): tubal ligation 2008, rhinoplasty Past Anesthesia/Blood Transfusion Reactions: No Reported Reaction Smoking Status: Current every day smoker - Past Family History Mother Family Medical History: Hypertension Additional Family Medical History / Comment(s): Aortic aneurysm Father Additional Family Medical History / Comment(s): no significant hx Medications and Allergies Home Medications Medication Instructions Recorded Confirmed Type Acetaminophen [Tylenol] 1,000 - 2,000 mg PO DAILY PRN 03/15/20 03/15/20 History Ahepkya-Dtjy-Hgym [id number] 2 tab PO DAILY PRN 03/15/20 03/15/20 History [Excedrin] Famotidine [Pepcid] 20 mg PO DAILY PRN 03/15/20 03/15/20 History Allergies Allergy/AdvReac Type Severity Reaction Status Date / Time No Known Allergies Allergy Verified 03/15/20 19:05 Surgical - Exam Vital Signs Temp Pulse Resp BP Pulse Ox 98 F 93 18 132/84 99 03/15/20 14:54 03/15/20 14:54 03/15/20 14:54 03/15/20 14:54 03/15/20 14:54 Results - Labs 03/16/20 07:25 03/16/20 04:12 Abnormal Lab Results - Last 24 Hours (Table) 03/15/20 03/15/20 03/15/20 Range/Units 15:33 15:33 15:33 RBC 2.59 L (3.80-5.40) m/uL Hgb 8.2 L (11.4-16.0) gm/dL Hct 26.3 L (34.0-46.0) % MCV 101.5 H (80.0-100.0) fL MCHC (31.0-37.0) g/dL Plt Count (150-450) k/uL Sodium 133 L (137-145) mmol/L Chloride 109 H (98-107) mmol/L Carbon Dioxide 20 L (22-30) mmol/L BUN 28 H (7-17) mg/dL Creatinine 0.40 L (0.52-1.04) mg/dL Glucose 114 H (74-99) mg/dL POC Glucose (mg/dL) (75-99) mg/dL Calcium 7.6 L (8.4-10.2) mg/dL Total Protein 4.3 L (6.3-8.2) g/dL Albumin 2.4 L (3.5-5.0) g/dL Stool Occult Blood Positive H (Negative) Crossmatch 03/15/20 03/15/20 03/16/20 Range/Units 15:33 21:10 01:56 RBC 2.53 L 2.96 L (3.80-5.40) m/uL Hgb 7.7 L 9.0 L (11.4-16.0) gm/dL Hct 24.9 L 29.3 L (34.0-46.0) % MCV (80.0-100.0) fL MCHC 30.8 L 30.7 L (31.0-37.0) g/dL Plt Count (150-450) k/uL Sodium (137-145) mmol/L Chloride (98-107) mmol/L Carbon Dioxide (22-30) mmol/L BUN (7-17) mg/dL Creatinine (0.52-1.04) mg/dL Glucose (74-99) mg/dL POC Glucose (mg/dL) (75-99) mg/dL Calcium (8.4-10.2) mg/dL Total Protein (6.3-8.2) g/dL Albumin (3.5-5.0) g/dL Stool Occult Blood (Negative) Crossmatch See Detail 03/16/20 03/16/20 03/16/20 Range/Units 04:12 04:12 04:58 RBC 3.18 L (3.80-5.40) m/uL Hgb 9.9 L (11.4-16.0) gm/dL Hct 32.0 L (34.0-46.0) % MCV 100.8 H (80.0-100.0) fL MCHC (31.0-37.0) g/dL Plt Count (150-450) k/uL Sodium 136 L (137-145) mmol/L Chloride 115 H (98-107) mmol/L Carbon Dioxide 19 L (22-30) mmol/L BUN 19 H (7-17) mg/dL Creatinine 0.46 L (0.52-1.04) mg/dL Glucose (74-99) mg/dL POC Glucose (mg/dL) 149 H (75-99) mg/dL Calcium 7.9 L (8.4-10.2) mg/dL Total Protein (6.3-8.2) g/dL Albumin (3.5-5.0) g/dL Stool Occult Blood (Negative) Crossmatch 03/16/20 03/16/20 Range/Units 05:01 07:25 RBC 2.37 L 2.59 L (3.80-5.40) m/uL Hgb 7.4 L D 8.0 L (11.4-16.0) gm/dL Hct 23.4 L 24.7 L (34.0-46.0) % MCV (80.0-100.0) fL MCHC (31.0-37.0) g/dL Plt Count 119 L (150-450) k/uL Sodium (137-145) mmol/L Chloride (98-107) mmol/L Carbon Dioxide (22-30) mmol/L BUN (7-17) mg/dL Creatinine (0.52-1.04) mg/dL Glucose (74-99) mg/dL POC Glucose (mg/dL) (75-99) mg/dL Calcium (8.4-10.2) mg/dL Total Protein (6.3-8.2) g/dL Albumin (3.5-5.0) g/dL Stool Occult Blood (Negative) Crossmatch Diabetes panel 03/15/20 03/16/20 Range/Units 15:33 04:12 Sodium 133 L 136 L (137-145) mmol/L Potassium 4.3 3.9 (3.5-5.1) mmol/L Chloride 109 H 115 H (98-107) mmol/L Carbon Dioxide 20 L 19 L (22-30) mmol/L BUN 28 H 19 H (7-17) mg/dL Creatinine 0.40 L 0.46 L (0.52-1.04) mg/dL Glucose 114 H 79 (74-99) mg/dL Calcium 7.6 L 7.9 L (8.4-10.2) mg/dL AST 22 (14-36) U/L ALT 7 (4-34) U/L Alkaline Phosphatase 45 (38-126) U/L Total Protein 4.3 L (6.3-8.2) g/dL Albumin 2.4 L (3.5-5.0) g/dL Calcium panel 03/15/20 03/16/20 Range/Units 15:33 04:12 Calcium 7.6 L 7.9 L (8.4-10.2) mg/dL Albumin 2.4 L (3.5-5.0) g/dL Pituitary panel 03/15/20 03/16/20 Range/Units 15:33 04:12 Sodium 133 L 136 L (137-145) mmol/L Potassium 4.3 3.9 (3.5-5.1) mmol/L Chloride 109 H 115 H (98-107) mmol/L Carbon Dioxide 20 L 19 L (22-30) mmol/L BUN 28 H 19 H (7-17) mg/dL Creatinine 0.40 L 0.46 L (0.52-1.04) mg/dL Glucose 114 H 79 (74-99) mg/dL Calcium 7.6 L 7.9 L (8.4-10.2) mg/dL Adrenal panel 03/15/20 03/16/20 Range/Units 15:33 04:12 Sodium 133 L 136 L (137-145) mmol/L Potassium 4.3 3.9 (3.5-5.1) mmol/L Chloride 109 H 115 H (98-107) mmol/L Carbon Dioxide 20 L 19 L (22-30) mmol/L BUN 28 H 19 H (7-17) mg/dL Creatinine 0.40 L 0.46 L (0.52-1.04) mg/dL Glucose 114 H 79 (74-99) mg/dL Calcium 7.6 L 7.9 L (8.4-10.2) mg/dL Total Bilirubin 0.2 (0.2-1.3) mg/dL AST 22 (14-36) U/L ALT 7 (4-34) U/L Alkaline Phosphatase 45 (38-126) U/L Total Protein 4.3 L (6.3-8.2) g/dL Albumin 2.4 L (3.5-5.0) g/dL
[2020-03-16] MEDS ORDERED: ROCURONIUM BROMIDE 10 MG/ML 5 ML VIAL IV ONE (11:24)
[2020-03-16] MEDS ORDERED: SODIUM CHLORIDE 0.9% 50 ML with ceFAZolin 2,000 MG IV ONE ×2 (11:30)
[2020-03-16] MEDS ORDERED: NALOXONE 0.4 MG/ML 1 ML VIAL IV PRN (12:35)
[2020-03-16] MEDS ORDERED: LACTATED RINGERS 1,000 ML IV ONE (12:35)
[2020-03-16] MEDS ORDERED: ONDANSETRON 4 MG/2 ML VIAL IVP PRN (12:35)
[2020-03-16] MEDS: PANTOPRAZOLE 40 MG/10 ML VIAL IV SCH ×2 (13:22→20:19)
[2020-03-16] MEDS: NICOTINE 14MG/24HR PATCH TRANSDERM SCH (13:22)
--- NOTE | 2020-03-16 13:22 | P.CNPUL ---
History of Present Illness Consult date: 03/16/20 Requesting physician: Frankie De La Cruz Reason for consult: other (GI bleeding) Chief complaint: Bleeding per rectum History of present illness: This is a 49-year-old female, history of alcohol abuse, drinks on the average of 3 alcoholic beverages per day. Patient uses occasional Excedrin roughly on the average a 1 time per week, no previous history of GI bleeding no history of peptic ulcer disease. No history of diverticular disease or colitis. Patient presented to the hospital with a few days' history of intermittent episodes of epigastric discomfort, nausea, and has been noticing black tarry stools. Patient was also complaining of generalized weakness, lightheadedness, and upon her early evaluation in the ER, her hemoglobin was noted to be 9.0. Since presentation to the hospital, patient had multiple episodes of black tarry stools and she required at least 4 units of packed RBCs before I even evaluated the patient. I walked into the ICU, patient was noted to have significant rectal bleeding she was hypotensive in spite of fluids and blood products. She had one peripheral IV access and I placed a right femoral triple-lumen catheter. Also placed a left radial arterial line. Recommended immediate surgical consultation and GI consultation. And ordered more blood transfusions. I believe the patient received a total of 9 units of packed RBCs, she underwent EGD, and she was found to have a bleeding was an ulcer. Surgery evaluated the patient immediately, and she was found to have perforated duodenal ulcer and bleeding cystic artery. I was updated on her condition by Dr. Rosales/general surgeon on the case, and the patient is presently in the operating room. Review of Systems CONSTITUTIONAL: No fever no chills no weight loss. CARDIOVASCULAR: No chest pain or orthopnea palpitations. RESPIRATORY: No cough no wheezing no shortness of breath GENITOURINARY: No dysuria frequency urgency or hematuria. MUSCULOSKELETAL: No deformities no muscle weakness. SKIN: No rashes, no jaundice. PSYCHIATRIC: Denies symptoms of anxiety or depression. NEUROLOGY: Denies headache or blurred vision or dizziness. EARS/NOSE/THROAT: Denies earache or sore throat. EYES: Denies blurred vision. GASTROINTESTINAL: As noted in the HPI, mostly some epigastric discomfort, nausea, and black tarry stools. Past Medical History Past Medical History: GERD/Reflux History of Any Multi-Drug Resistant Organisms: None Reported Past Surgical History: Tubal Ligation Additional Past Surgical History / Comment(s): tubal ligation 2009, rhinoplasty Past Anesthesia/Blood Transfusion Reactions: No Reported Reaction Smoking Status: Current every day smoker - Past Family History Mother Family Medical History: Hypertension Additional Family Medical History / Comment(s): Aortic aneurysm Father Additional Family Medical History / Comment(s): no significant hx Medications and Allergies Home Medications Medication Instructions Recorded Confirmed Type Acetaminophen [Tylenol] 1,000 - 2,000 mg PO DAILY PRN 03/15/20 03/15/20 History Okhdyud-Kjah-Xgyz [id number] 2 tab PO DAILY PRN 03/15/20 03/15/20 History [Excedrin] Famotidine [Pepcid] 20 mg PO DAILY PRN 03/15/20 03/15/20 History Allergies Allergy/AdvReac Type Severity Reaction Status Date / Time No Known Allergies Allergy Verified 03/15/20 19:05 Physical Exam Vitals: Vital Signs Temp Pulse Resp BP Pulse Ox 03/16/20 11:14 97.6 F 81 20 98/60 100 03/16/20 11:04 97.6 F 82 20 112/63 100 03/16/20 11:00 97.6 F 83 21 113/65 100 03/16/20 10:31 97.8 F 84 20 116/65 100 03/16/20 10:30 75 15 100 03/16/20 10:27 97.8 F 86 14 115/64 100 03/16/20 10:13 97.6 F 97 18 84/53 100 03/16/20 10:00 108 H 11 L 100 03/16/20 09:30 107 H 13 100 03/16/20 09:15 97.5 F L 96 12 91/56 100 03/16/20 09:00 104 H 13 99 03/16/20 08:55 97.6 F 103 H 12 96/61 100 03/16/20 08:45 97.5 F L 80 10 L 112/57 100 03/16/20 08:44 97.5 F L 85 16 116/60 03/16/20 08:37 98.1 F 79 19 94/49 100 03/16/20 08:36 98.1 F 81 18 95/47 100 03/16/20 08:30 85 12 68/33 100 03/16/20 08:23 98 F 85 19 91/44 100 03/16/20 08:15 74 14 68/33 97 03/16/20 08:13 97 F L 76 16 68/33 98 03/16/20 08:00 86 17 88/74 98 03/16/20 07:45 80 9 L 98/83 97 03/16/20 07:30 73 18 72/45 100 03/16/20 07:15 88 16 67/45 99 03/16/20 07:00 106 H 14 83/49 99 03/16/20 06:45 98 15 90/60 98 03/16/20 06:30 83 15 83/47 99 03/16/20 06:15 89 16 84/55 99 03/16/20 06:00 98 F 69 15 79/47 100 03/16/20 05:57 98.2 F 71 16 79/47 100 03/16/20 05:47 98 F 76 18 89/55 99 03/16/20 05:45 85 17 83/49 98 03/16/20 05:37 71 16 87/44 98 03/16/20 05:35 72 16 80/44 97 03/16/20 05:30 98 F 74 16 78/39 99 03/16/20 05:15 81 16 89/44 98 03/16/20 05:00 89 15 87/47 95 03/16/20 04:45 99 21 93/59 96 03/16/20 04:30 94 16 98 03/16/20 04:15 84 16 115/74 99 03/16/20 04:00 98 F 80 16 100/65 98 03/16/20 03:00 66 16 106/62 98 03/16/20 02:00 66 16 101/63 98 03/16/20 01:00 63 18 100/60 99 03/16/20 00:20 98.6 F 60 15 99/65 100 03/16/20 00:00 98.9 F 57 L 16 93/52 98 03/15/20 23:10 98 F 62 16 81/56 99 03/15/20 23:00 63 20 96/55 98 03/15/20 22:40 98.5 F 64 16 96/55 100 03/15/20 22:30 98.6 F 66 18 88/52 99 03/15/20 22:00 76 20 90/56 98 03/15/20 21:00 76 18 111/94 99 03/15/20 20:00 99.3 F 80 16 96/58 100 03/15/20 19:30 97.5 F L 79 17 100/48 100 03/15/20 19:00 91 15 100/48 100 03/15/20 18:57 98.4 F 03/15/20 18:45 97.6 F 72 18 89/40 99 03/15/20 18:42 86 107/60 98 03/15/20 18:22 76 18 108/40 98 03/15/20 18:19 83/50 99 03/15/20 18:15 97.7 F 66 16 76/46 99 03/15/20 18:10 97.7 F 63 16 75/44 100 03/15/20 18:00 97.4 F L 81 16 82/47 100 03/15/20 17:50 97.7 F 79 18 100 03/15/20 17:04 84/55 03/15/20 16:47 91 16 91/55 99 03/15/20 15:38 93 18 94/57 99 03/15/20 15:13 99 18 94/57 99 03/15/20 14:54 98 F 93 18 132/84 99 Intake and Output 03/15/20 03/16/20 03/16/20 22:59 06:59 14:59 Intake Total 685 1455 4625 Output Total 200 1750 2895 Balance 485 -295 1730 Intake: IV 017 101 8123 Sodium Chloride 0.9% 1, 375 525 225 000 ml @ 75 mls/hr IV . [id number] [facility] Rx#:[id number] Sodium Chloride 0.9% 1, 1000 000 ml @ 999 mls/hr IV . Q1H1M ONE Rx#:[id number] Sodium Chloride 0.9% 1, 1000 000 ml @ 999 mls/hr IV . Q1H1M ONE Rx#:[id number] Blood Product 187 435 6145 Rc As-1 Unit 310 [id number] Rc As-1 Unit 0 310 [id number] Rc As-1 Unit 310 [id number] Rc As-1 Unit 310 [id number] Rc As-1 Unit 310 [id number] Rc As-1 Unit 310 [id number] Rc As-1 Unit 310 [id number] Rc As-1 Unit 0 [id number] Rc As-1 Unit 310 [id number] Rc As-1 Unit 310 [id number] Output: Urine 829 178 1400 Stool 1100 300 Emesis 200 Estimated Blood Loss 1410 Other: Voiding Method Toilet Toilet Indwelling Catheter # Voids 1 # Bowel Movements 2 Weight 48.534 kg 54.5 kg 54.5 kg ABP, PAP, CO, CI - Last 8 Hours Arterial Blood Pressure 107/51 Arterial Blood Pressure 118/63 Arterial Blood Pressure 81/56 Arterial Blood Pressure 81/50 Arterial Blood Pressure 98/62 Arterial Blood Pressure 112/56 Arterial Blood Pressure 86/48 Physical Exam: Revealed 49-year-old female pale looking, generally weak, in no form of respiratory distress. Head: Atraumatic, normocephalic. HEENT: Pale conjunctiva his, no icterus, [Neck is supple.] [No neck masses.] [No thyromegaly.] [No JVD.] Chest: [Symmetrical chest expansion, diminished at the bases, no rhonchi no wheezes. Cardiac Exam: [Normal S1 and S2, no S3 gallop, no murmur.] Abdomen: [Soft, nontender, no megaly, no rebound, no guarding, normal bowel sounds.] Extremities: [No clubbing, no edema, no cyanosis.] Neurological Exam: [No focal neurologic deficit.] Alert and oriented 3. Skin: No rashes. However there is poor skin turgor, and the patient looks extremely pale. No jaundice. Psychiatric: Normal mood, affect and normal mental status examination. Musculoskeletal: No deformities noted limitation in range of motion. Results - Laboratory Findings CBC and BMP: 03/16/20 07:25 03/16/20 04:12 PT/INR, D-dimer PT 11.6 sec (9.0-12.0) 03/16/20 07:25 INR 1.1 (<1.2) 03/16/20 07:25 Abnormal lab findings: Abnormal Labs 03/15/20 03/15/20 03/15/20 15:33 15:33 15:33 RBC 2.59 L Hgb 8.2 L Hct 26.3 L MCV 101.5 H MCHC Plt Count Sodium 133 L Chloride 109 H Carbon Dioxide 20 L BUN 28 H Creatinine 0.40 L Glucose 114 H POC Glucose (mg/dL) Calcium 7.6 L Total Protein 4.3 L Albumin 2.4 L Stool Occult Blood Positive H Crossmatch 03/15/20 03/15/20 03/16/20 15:33 21:10 01:56 RBC 2.53 L 2.96 L Hgb 7.7 L 9.0 L Hct 24.9 L 29.3 L MCV MCHC 30.8 L 30.7 L Plt Count Sodium Chloride Carbon Dioxide BUN Creatinine Glucose POC Glucose (mg/dL) Calcium Total Protein Albumin Stool Occult Blood Crossmatch See Detail 03/16/20 03/16/20 03/16/20 04:12 04:12 04:58 RBC 3.18 L Hgb 9.9 L Hct 32.0 L MCV 100.8 H MCHC Plt Count Sodium 136 L Chloride 115 H Carbon Dioxide 19 L BUN 19 H Creatinine 0.46 L Glucose POC Glucose (mg/dL) 149 H Calcium 7.9 L Total Protein Albumin Stool Occult Blood Crossmatch 03/16/20 03/16/20 05:01 07:25 RBC 2.37 L 2.59 L Hgb 7.4 L D 8.0 L Hct 23.4 L 24.7 L MCV MCHC Plt Count 119 L Sodium Chloride Carbon Dioxide BUN Creatinine Glucose POC Glucose (mg/dL) Calcium Total Protein Albumin Stool Occult Blood Crossmatch Assessment and Plan Assessment: Impression: Acute upper GI bleeding secondary to duodenal ulcer Status post EGD and endoclips application, but persistent active bleeding. History of alcohol abuse. Hypotension secondary to massive upper GI bleeding. Recommendation: Stat surgical consultation was obtained as soon as the patient was evaluated. Patient was seen by surgery and underwent exploratory laparotomy, and repair of duodenal ulcer as well as cholecystectomy. Continue hemodynamic support. And transfuse accordingly until hemoglobin remains stable above 7. Ventilatory support if necessary especially the patient comes back intubated and mechanically ventilated from the operating room. Continue Protonix. Alcohol withdrawal protocol. We'll continue to follow closely in the ICU. Discussed her condition with multiple consultants. Patient is considered critically ill at this point. Time with Patient: Greater than 30
--- NOTE | 2020-03-16 13:42 | P.HPIM ---
<Ana Luisa Herron A - Last Filed: 03/17/20 14:14> History of Present Illness H&P Date: 03/16/20 Chief Complaint: Rectal bleeding HISTORY OF PRESENT ILLNESS This is a 49-year-old female patient of Dr. Chaka Mora with past medical history of gastric esophageal reflux disease, tobacco use. Patient presented to [facility] emergency center due to bright red blood and dark tarry stools per rectum. She began having epigastric pain last week and was drinking an average of 2 alcoholic drinks per day as well as taking Excedrin for headaches. 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 She was seen by her PCP and placed on Pepcid but did not have any improvement of her pain. Yesterday morning she woke up and passed moderate amount of dark stool in the toilet and also noted bright red blood on the toilet paper when she wiped. She had 6 episodes total and called EMS and she was brought in the hospital. Initially blood pressure was 132/84 and heart rate 93. Initial hemoglobin was 8.2. Patient continued to have rectal bleeding and was transfused initially 4 units packed RBCs and was admitted into intensive care unit. She did have a syncopal episode while getting to the bathroom and continued to be hypotensive despite IV fluids and blood products. She has had a right femoral triple-lumen catheter, left radial arterial line placed. She has currently been transfused a total of 9 units of packed RBCs and ordered for 1 unit of platelets. She was seen by GI and underwent EGD that found large actively bleeding duodenal ulcer treated with epinephrine injection and Endo Clip placement with continued bleeding from the ulcer site. Large amount of old blood and clots in the stomach. She was found to also have bleeding cystic artery. General surgery was thus involved in the OR.she is currently on Levaquin at 20 mics and status post 8 L of IV fluid. She is intubated and on mechanical ventilation with tidal volume 500, FiO2 40, PEEP 5. REVIEW OF SYSTEMS Unable to be obtained due to intubation. Social history Patient lives at home with her who was diagnosed with cancer presently one year ago. She started drinking alcohol at that time at 2-3 glasses of wine per day. Patient is a smoker one pack per day and started in 1995. 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 Family history Mother is alive with history of abdominal aortic aneurysm with repair. No history of cancers or diabetes. Father is alive with no major medical problems. Patient has 1 brother and 1 sister with no major medical problems. Patient does not have any children. PHYSICAL EXAMINATION Gen: This is a 49-year-old female. She is intubated and on mechanical ventilation. HEENT: Head is atraumatic, normocephalic. Pupils equal, round. Sclerae is anicteric. Conjunctiva pale. NECK: Supple. No JVD. No lymphadenopathy. No thyromegaly. LUNGS: Clear to auscultation. No wheezes or rhonchi. No intercostal retractions. HEART: Regular rate and rhythm. No murmur. ABDOMEN: Soft. Bowel sounds are present. No masses. No tenderness. Dressing in place over central abdominal surgical wound and MARLEY drain was serosanguineous fluid. EXTREMITIES: No pedal edema. No calf tenderness. Dotson catheter in place. NEUROLOGICAL: Patient is intubated and sedated. ASSESSMENT AND PLAN 1. Acute blood loss anemia with acute GI bleed secondary to duodenal ulcer status post EGD, endoclips with persistent active bleedingsecondary to bleeding cystic artery. Patient is status post total of 9 units packed RBCs, continue to monitor hemoglobin closely and transfuse as necessary. Continue Protonix 40 mg IV twice daily. 2. Acute GI bleed secondary to duodenal ulcer and bleeding cystic artery status post repair of bleeding duodenal ulcer, cholecystectomy, repair of incisional hernia. 3. History of gastroesophageal reflux disease 4. Hemorrhagic shock requiring massive blood transfusion, IV fluid resuscitation and vasopressor. Continue management per Dr. Simpson. 5. Acute hypoxic respiratory failure secondary to shock. Patient is currently intubated and on mechanical ventilation, managed by annealing operator. 6. Thrombocytopenia secondary to shock. Continue to monitor. Patient is ordered for 1 unit of platelets. 7. Massive transfusion. MonitorCBC, CMP, fibrinogen, ionized calcium, PTT, PT and INR daily. 8. Severe metabolic acidosis status post 2 A of bicarb. 9. DVT prophylaxis. Lovenox subcu. 10. Tobacco use and dependence. Continue nicotine patch. 11. GI prophylaxis. Protonix. Patient will be admitted to the hospital for a minimum of 2 night stay. Discharge plan: most likely home Impression and plan of care have been directed as dictated by the signing physician. Ana Luisa Herron nurse practitioner acting as scribe for signing physician. Past Medical History Past Medical History: GERD/Reflux History of Any Multi-Drug Resistant Organisms: None Reported Past Surgical History: Tubal Ligation Additional Past Surgical History / Comment(s): tubal ligation 2009, rhinoplasty Past Anesthesia/Blood Transfusion Reactions: No Reported Reaction Smoking Status: Current every day smoker - Past Family History Mother Family Medical History: Hypertension Additional Family Medical History / Comment(s): Aortic aneurysm Father Additional Family Medical History / Comment(s): no significant hx Medications and Allergies Home Medications Medication Instructions Recorded Confirmed Type Acetaminophen [Tylenol] 1,000 - 2,000 mg PO DAILY PRN 03/15/20 03/15/20 History [id number] 2 tab PO DAILY PRN 03/15/20 03/15/20 History [Excedrin] Famotidine [Pepcid] 20 mg PO DAILY PRN 03/15/20 03/15/20 History Allergies Allergy/AdvReac Type Severity Reaction Status Date / Time No Known Allergies Allergy Verified 03/15/20 19:05 Physical Exam Vitals: Vital Signs Temp Pulse Resp BP Pulse Ox 03/16/20 11:14 97.6 F 81 20 98/60 100 03/16/20 11:04 97.6 F 82 20 112/63 100 03/16/20 11:00 97.6 F 84 20 113/65 100 03/16/20 10:31 97.8 F 84 20 116/65 100 03/16/20 10:27 97.8 F 86 14 115/64 100 03/16/20 10:13 97.6 F 97 18 84/53 100 03/16/20 09:15 97.5 F L 96 12 91/56 100 03/16/20 08:55 97.6 F 103 H 12 96/61 100 03/16/20 08:45 97.5 F L 80 10 L 112/57 100 03/16/20 08:44 97.5 F L 85 16 116/60 03/16/20 08:37 98.1 F 79 19 94/49 100 03/16/20 08:36 98.1 F 81 18 95/47 100 03/16/20 08:30 85 12 68/33 100 08/31/20 08:23 98 F 85 19 91/44 100 03/16/20 08:15 74 14 68/33 97 03/16/20 08:13 97 F L 76 16 68/33 98 03/16/20 08:00 86 17 88/74 98 03/16/20 07:45 80 9 L 98/83 97 03/16/20 07:30 73 18 72/45 100 03/16/20 07:15 88 16 67/45 99 03/16/20 07:00 106 H 14 83/49 99 03/16/20 06:45 98 15 90/60 98 03/16/20 06:30 83 15 83/47 99 03/16/20 06:15 89 16 84/55 99 03/16/20 06:00 98 F 69 15 79/47 100 03/16/20 05:57 98.2 F 71 16 79/47 100 03/16/20 05:47 98 F 76 18 89/55 99 03/16/20 05:45 85 17 83/49 98 03/16/20 05:37 71 16 87/44 98 03/16/20 05:35 72 16 80/44 97 03/16/20 05:30 98 F 74 16 78/39 99 03/16/20 05:15 81 16 89/44 98 03/16/20 05:00 89 15 87/47 95 03/16/20 04:45 99 21 93/59 96 03/16/20 04:30 94 16 98 03/16/20 04:15 84 16 115/74 99 03/16/20 04:00 98 F 80 16 100/65 98 03/16/20 03:00 66 16 106/62 98 03/16/20 02:00 66 16 101/63 98 03/16/20 01:00 63 18 100/60 99 03/16/20 00:20 98.6 F 60 15 99/65 100 03/16/20 00:00 98.9 F 57 L 16 93/52 98 03/15/20 23:10 98 F 62 16 81/56 99 03/15/20 23:00 63 20 96/55 98 03/15/20 22:40 98.5 F 64 16 96/55 100 03/15/20 22:30 98.6 F 66 18 88/52 99 03/15/20 22:00 76 20 90/56 98 03/15/20 21:00 76 18 111/94 99 03/15/20 20:00 99.3 F 80 16 96/58 100 03/15/20 19:30 97.5 F L 79 17 100/48 100 03/15/20 19:00 91 15 100/48 100 03/15/20 18:57 98.4 F 03/15/20 18:45 97.6 F 72 18 89/40 99 03/15/20 18:42 86 107/60 98 03/15/20 18:22 76 18 108/40 98 03/15/20 18:19 83/50 99 03/15/20 18:15 97.7 F 66 16 76/46 99 03/15/20 18:10 97.7 F 63 16 75/44 100 03/15/20 18:00 97.4 F L 81 16 82/47 100 03/15/20 17:50 97.7 F 79 18 100 03/15/20 17:04 84/55 03/15/20 16:47 91 16 91/55 99 03/15/20 15:38 93 18 94/57 99 03/15/20 15:13 99 18 94/57 99 03/15/20 14:54 98 F 93 18 132/84 99 Intake and Output 03/15/20 03/16/20 03/16/20 22:59 06:59 14:59 Intake Total 685 1455 3675 Output Total 200 1750 1785 Balance 485 -295 1890 Intake: IV 343 641 3851 Sodium Chloride 0.9% 1, 375 525 75 000 ml @ 75 mls/hr IV . [id number] [facility] Rx#:[id number] Sodium Chloride 0.9% 1, 1000 000 ml @ 999 mls/hr IV . Q1H1M ONE Rx#:[id number] Sodium Chloride 0.9% 1, 1000 000 ml @ 999 mls/hr IV . Q1H1M ONE Rx#:[id number] Blood Product 835 451 1959 Rc As-1 Unit 310 [id number] Rc As-1 Unit 0 310 [id number] Rc As-1 Unit 310 [id number] Rc As-1 Unit 310 [id number] Rc As-1 Unit 310 [id number] Rc As-1 Unit 310 [id number] Rc As-1 Unit 310 [id number] Rc As-1 Unit 0 [id number] Rc As-1 Unit 310 [id number] Rc As-1 Unit 310 [id number] Output: Urine 200 450 85 Stool 1100 300 Emesis 200 Estimated Blood Loss 1400 Other: Voiding Method Toilet Toilet Indwelling Catheter # Voids 1 # Bowel Movements 2 Weight 48.534 kg 54.5 kg 54.5 kg ABP, PAP, CO, CI - Last 8 Hours Arterial Blood Pressure 112/56 Arterial Blood Pressure 86/48 Results CBC & Chem 7: 03/17/20 04:10 03/17/20 04:10 Labs: Abnormal Lab Results - Last 24 Hours (Table) 03/15/20 03/15/20 03/15/20 Range/Units 15:33 15:33 15:33 RBC 2.59 L (3.80-5.40) m/uL Hgb 8.2 L (11.4-16.0) gm/dL Hct 26.3 L (34.0-46.0) % MCV 101.5 H (80.0-100.0) fL MCHC (31.0-37.0) g/dL Plt Count (150-450) k/uL Sodium 133 L (137-145) mmol/L Chloride 109 H (98-107) mmol/L Carbon Dioxide 20 L (22-30) mmol/L BUN 28 H (7-17) mg/dL Creatinine 0.40 L (0.52-1.04) mg/dL Glucose 114 H (74-99) mg/dL POC Glucose (mg/dL) (75-99) mg/dL Calcium 7.6 L (8.4-10.2) mg/dL Total Protein 4.3 L (6.3-8.2) g/dL Albumin 2.4 L (3.5-5.0) g/dL Stool Occult Blood Positive H (Negative) Crossmatch 03/15/20 03/15/20 03/16/20 Range/Units 15:33 21:10 01:56 RBC 2.53 L 2.96 L (3.80-5.40) m/uL Hgb 7.7 L 9.0 L (11.4-16.0) gm/dL Hct 24.9 L 29.3 L (34.0-46.0) % MCV (80.0-100.0) fL MCHC 30.8 L 30.7 L (31.0-37.0) g/dL Plt Count (150-450) k/uL Sodium (137-145) mmol/L Chloride (98-107) mmol/L Carbon Dioxide (22-30) mmol/L BUN (7-17) mg/dL Creatinine (0.52-1.04) mg/dL Glucose (74-99) mg/dL POC Glucose (mg/dL) (75-99) mg/dL Calcium (8.4-10.2) mg/dL Total Protein (6.3-8.2) g/dL Albumin (3.5-5.0) g/dL Stool Occult Blood (Negative) Crossmatch See Detail 03/16/20 03/16/20 03/16/20 Range/Units 04:12 04:12 04:58 RBC 3.18 L (3.80-5.40) m/uL Hgb 9.9 L (11.4-16.0) gm/dL Hct 32.0 L (34.0-46.0) % MCV 100.8 H (80.0-100.0) fL MCHC (31.0-37.0) g/dL Plt Count (150-450) k/uL Sodium 136 L (137-145) mmol/L Chloride 115 H (98-107) mmol/L Carbon Dioxide 19 L (22-30) mmol/L BUN 19 H (7-17) mg/dL Creatinine 0.46 L (0.52-1.04) mg/dL Glucose (74-99) mg/dL POC Glucose (mg/dL) 149 H (75-99) mg/dL Calcium 7.9 L (8.4-10.2) mg/dL Total Protein (6.3-8.2) g/dL Albumin (3.5-5.0) g/dL Stool Occult Blood (Negative) Crossmatch 03/16/20 03/16/20 Range/Units 05:01 07:25 RBC 2.37 L 2.59 L (3.80-5.40) m/uL Hgb 7.4 L D 8.0 L (11.4-16.0) gm/dL Hct 23.4 L 24.7 L (34.0-46.0) % MCV (80.0-100.0) fL MCHC (31.0-37.0) g/dL Plt Count 119 L (150-450) k/uL Sodium (137-145) mmol/L Chloride (98-107) mmol/L Carbon Dioxide (22-30) mmol/L BUN (7-17) mg/dL Creatinine (0.52-1.04) mg/dL Glucose (74-99) mg/dL POC Glucose (mg/dL) (75-99) mg/dL Calcium (8.4-10.2) mg/dL Total Protein (6.3-8.2) g/dL Albumin (3.5-5.0) g/dL Stool Occult Blood (Negative) Crossmatch Thrombosis Risk Factor Assmnt - Choose All That Apply Any of the Below Risk Factors Present?: Yes Each Factor Represents 1 point: Age 41-60 years Other Risk Factors: No Other congenital or acquired thrombophilia - If yes, enter type in comment: No Thrombosis Risk Factor Assessment Total Risk Factor Score: 1 Thrombosis Risk Factor Assessment Level: Low Risk <Frankie De La Cruz - Last Filed: 03/17/20 14:56> History of Present Illness 12. Hypocalcemia likely sec to citrate from massive transfusion. calcium gluconate given , repeat ionised calcium pending. Physical Exam Vitals: Vital Signs Temp Pulse Resp BP Pulse Ox 03/17/20 13:00 95 32 H 105/66 99 03/17/20 12:30 99 28 H 102/64 98 03/17/20 12:00 99.8 F H 99 20 105/73 99 03/17/20 11:30 102 H 16 102/75 98 03/17/20 11:00 101 H 8 L 98 03/17/20 10:30 104 H 25 H 98 03/17/20 10:00 108 H 22 97 03/17/20 09:30 112 H 25 H 97 03/17/20 09:00 111 H 26 H 98 03/17/20 08:30 109 H 31 H 98 03/17/20 08:00 99.8 F H 112 H 29 H 98 03/17/20 07:30 116 H 21 97 03/17/20 07:00 116 H 22 98 03/17/20 06:30 116 H 22 97 03/17/20 06:00 117 H 22 102/75 98 03/17/20 05:30 122 H 29 H 99 03/17/20 05:00 117 H 22 98 03/17/20 04:30 116 H 21 98 03/17/20 04:00 99.4 F 121 H 20 99 03/17/20 03:30 117 H 25 H 99 03/17/20 03:00 120 H 30 H 99 03/17/20 02:30 110 H 28 H 99 03/17/20 02:00 113 H 29 H 89/60 99 03/17/20 01:30 114 H 25 H 89/60 99 03/17/20 01:00 116 H 20 89/60 99 03/17/20 00:30 112 H 23 100 03/17/20 00:01 117 H 25 H 99 03/17/20 00:00 99.0 F 117 H 24 99 03/16/20 23:30 99.0 F 118 H 22 99 03/16/20 23:00 117 H 20 99 03/16/20 22:30 121 H 21 99 03/16/20 22:00 120 H 20 99 03/16/20 21:30 121 H 20 100 03/16/20 21:00 121 H 20 100 03/16/20 20:30 112 H 20 100 03/16/20 20:00 99.2 F 113 H 21 100 03/16/20 19:30 114 H 21 100 03/16/20 19:00 112 H 24 100 03/16/20 18:30 109 H 24 100 03/16/20 18:00 107 H 24 100 03/16/20 17:30 105 H 25 H 100 03/16/20 17:00 100 21 99 03/16/20 16:30 102 H 27 H 99 03/16/20 16:00 98.1 F 103 H 27 H 97 03/16/20 15:30 109 H 36 H 97 03/16/20 15:00 104 H 38 H Intake and Output 03/16/20 03/17/20 03/17/20 22:59 06:59 14:59 Intake Total 547.838 1017.147 529.670 Output Total 230 245 445 Balance 637.118 864.147 84.670 Intake: IV 700 800 475 0.9 NS 200 Dextrose 5% in Water 1, 700 800 200 000 ml @ 100 mls/hr IV . [id number] [facility] with Sodium Bicarb (1 Meq/ml) 150 ml Rx#:[id number] Dextrose 5%-0.9% NaCl 1, 75 000 ml @ 75 mls/hr IV . [id number] [facility] Rx#:[id number] Intake, IV Titration 167.118 309.147 54.670 Amount Norepinephrine 32 mg In 73.658 132.029 6.919 Sodium Chloride 0.9% 218 ml @ 0.05 MCG/KG/MIN 1. 277 mls/hr IV .Q24H [facility] Rx#:[id number] propofoL 1,000 mg In 93.460 177.118 47.751 Empty Bag 1 bag @ Titrate IV .Q0M [facility] Rx#: [id number] Output: Drainage 50 Left Abdomen 50 Urine 230 245 395 Other: Voiding Method Indwelling Catheter Indwelling Catheter Indwelling Catheter Weight 60.1 kg ABP, PAP, CO, CI - Last 8 Hours Arterial Blood Pressure 105/72 Arterial Blood Pressure 98/59 Arterial Blood Pressure 123/69 Arterial Blood Pressure 109/61 Arterial Blood Pressure 90/52 Arterial Blood Pressure 122/67 Arterial Blood Pressure 104/56 Arterial Blood Pressure 109/63 Arterial Blood Pressure 99/65 Arterial Blood Pressure 114/67 Results CBC & Chem 7: 03/17/20 04:10 03/17/20 04:10 Labs: Abnormal Lab Results - Last 24 Hours (Table) 03/16/20 03/16/20 03/16/20 Range/Units 14:15 14:15 14:27 WBC 28.7 H (3.8-10.6) k/uL Hct 48.6 H (34.0-46.0) % Plt Count 73 L (150-450) k/uL Neutrophils # 23.3 H (1.3-7.7) k/uL Monocytes # 3.0 H (0-1.0) k/uL Basophils # 0.3 H (0-0.2) k/uL PT 13.3 H (9.0-12.0) sec INR 1.3 H (<1.2) Fibrinogen 100 L (200-500) mg/dL ABG pH (7.35-7.45) ABG pO2 (83-108) mmHg ABG HCO3 (21-25) mmol/L ABG Total CO2 (19-24) mmol/L ABG O2 Saturation (94-97) % Chloride (98-107) mmol/L BUN (7-17) mg/dL Glucose (74-99) mg/dL POC Glucose (mg/dL) (75-99) mg/dL Calcium (8.4-10.2) mg/dL Ionized Calcium Robbie 3.8 L (4.5-5.3) mg/dL AST (14-36) U/L Alkaline Phosphatase (38-126) U/L Total Protein (6.3-8.2) g/dL Albumin (3.5-5.0) g/dL 03/16/20 03/16/20 03/17/20 Range/Units 15:35 23:37 04:10 WBC 20.2 H (3.8-10.6) k/uL Hct (34.0-46.0) % Plt Count 117 L D (150-450) k/uL Neutrophils # 16.6 H (1.3-7.7) k/uL Monocytes # 1.5 H (0-1.0) k/uL Basophils # (0-0.2) k/uL PT (9.0-12.0) sec INR (<1.2) Fibrinogen (200-500) mg/dL ABG pH 7.30 L (7.35-7.45) ABG pO2 (83-108) mmHg ABG HCO3 18 L (21-25) mmol/L ABG Total CO2 (19-24) mmol/L ABG O2 Saturation 97.9 H (94-97) % Chloride (98-107) mmol/L BUN (7-17) mg/dL Glucose (74-99) mg/dL POC Glucose (mg/dL) 197 H (75-99) mg/dL Calcium (8.4-10.2) mg/dL Ionized Calcium Robbie (4.5-5.3) mg/dL AST (14-36) U/L Alkaline Phosphatase (38-126) U/L Total Protein (6.3-8.2) g/dL Albumin (3.5-5.0) g/dL 03/17/20 03/17/20 03/17/20 Range/Units 04:10 07:48 11:35 WBC (3.8-10.6) k/uL Hct (34.0-46.0) % Plt Count (150-450) k/uL Neutrophils # (1.3-7.7) k/uL Monocytes # (0-1.0) k/uL Basophils # (0-0.2) k/uL PT (9.0-12.0) sec INR (<1.2) Fibrinogen (200-500) mg/dL ABG pH (7.35-7.45) ABG pO2 113 H (83-108) mmHg ABG HCO3 26 H 26 H (21-25) mmol/L ABG Total CO2 27 H 27 H (19-24) mmol/L ABG O2 Saturation 98.4 H 98.2 H (94-97) % Chloride 114 H (98-107) mmol/L BUN 19 H (7-17) mg/dL Glucose 239 H (74-99) mg/dL POC Glucose (mg/dL) (75-99) mg/dL Calcium 5.9 L* (8.4-10.2) mg/dL Ionized Calcium Robbie (4.5-5.3) mg/dL AST 38 H (14-36) U/L Alkaline Phosphatase 26 L (38-126) U/L Total Protein 2.9 L (6.3-8.2) g/dL Albumin 1.5 L (3.5-5.0) g/dL Microbiology - Last 24 Hours (Table) 03/16/20 17:00 Gram Stain - Preliminary Sputum Sputum Culture - Preliminary
[2020-03-16 13:50] LABS: ABG Base Excess -17.7 mmol/L; ABG HCO3 12 mmol/L (21-25); ABG Oxygen Saturation 99.3 % (94-97); ABG PCO2 43 mmHg (35-45); ABG PO2 >400 mmHg (83-108); ABG TCO2 14 mmol/L (19-24)
[2020-03-16 13:53] LABS: ABG PH 7.07 (7.35-7.45); Allen Test Performed? no
[2020-03-16] MEDS ORDERED: SODIUM BICARB 8.4% 50 ML SYR (1 MEQ/ML) IV STA (13:55)
--- NOTE | 2020-03-16 14:11 | P.OP ---
Date of Procedure: 03/16/20 Preoperative Diagnosis: Bleeding duodenal ulcer Postoperative Diagnosis: Bleeding duodenal ulcer with penetration into the cystic artery Incisional hernia Procedure(s) Performed: Repair of bleeding duodenal ulcer Cholecystectomy Repair of incisional hernia Anesthesia: DEO Surgeon: Christian Rosales Pathology: other (Gallbladder) Condition: stable Disposition: PACU Description of Procedure: The patient's placed on the operative table in the supine position. She received general anesthesia. Her abdomen was prepped and draped in sterile fashion. The abdomen was entered through a midline incision. A small incisional hernias located just above the umbilicus. There was some incarcerated omentum within the hernia. The abdomen was then entered and then the Bookwalter tract with wound. There was some ascites in the pleural cavities was aspirated. The stomach was evaluated and the duodenum was seen. There appeared to be evidence of significant inflammatory changes against the first part of the duodenum and the gallbladder. It was decided perform a pyloroplasty the pylorus was opened longitudinally. And the ulcer area was examined. The gallbladder was dissected off the duodenum in the ulcer. It penetrated the gallbladder and the cystic artery was the bleeding vessel. This had been clipped by the endoscopist. At this point decided perform a cholecystectomy. The gallbladder was taken down in a dome down technique. Using left cautery the gallbladder was dissected off the liver bed and then the cystic artery was ligated with 0 silk ties and then the cystic duct artery was clipped and divided. The pyloroplasty was performed by cutting the area the pylorus longitudinally and then closing it transversely. A 3-0 Vicryl sutures used to close the mucosa and submucosal layer. A 3-0 Prolene was used to close the peritoneal layer a MARLEY drain was closed placed over top the repair brought through separate stab incision. The fascia was closed with looped #1 PDS suture. Skin was closed it's. Patient was sent to the ICU in critical condition on the ventilator.
--- NOTE | 2020-03-16 14:11 | XR ---
EXAMINATION TYPE: XR chest 1V portable DATE OF EXAM: 03/16/2020 COMPARISON: NONE HISTORY: Intubated TECHNIQUE: Single frontal view of the chest is obtained. FINDINGS: Endotracheal tube is overlying the tracheal air column, patient is rotated. NG tube is ove rlying the esophagus, distal tip is not included on exam. There is no evident pneumothorax or pleural effusion. Old left-sided rib fracture at the sixth rib appears healed, possible healed rib fractures on the right at the 6 and seventh ribs. Heart is within normal limits. IMPRESSION: No evident complication status post intubation.
[2020-03-16 14:33] LABS: Basophils # (A) 0.3 k/uL (0-0.2); Basophils % (A) 1 %; Eosinophils # (A) 0.1 k/uL (0-0.7); Eosinophils % (A) 0 %; HCT 48.6 % (34.0-46.0); Lymphocytes # (A) 1.7 k/uL (1.0-4.8); Lymphocytes % (A) 6 %; MCH 29.8 pg (25.0-35.0); MCHC 32.8 g/dL (31.0-37.0); MCV 90.8 fL (80.0-100.0); Mean Platelet Volume 7.8; Monocytes % (A) 11 %; Neutrophils # (A) 23.3 k/uL (1.3-7.7); Neutrophils % (A) 81 %; RBC 5.36 m/uL (3.80-5.40); RDW 13.9 % (11.5-15.5); WBC 28.7 k/uL (3.8-10.6)
[2020-03-16 14:35] LABS: Ionized Calcium 3.8 mg/dL (4.5-5.3)
[2020-03-16 14:37] LABS: HGB 15.9 gm/dL (11.4-16.0)
[2020-03-16 14:42] LABS: ALT 16 U/L (4-34); AST 66 U/L (14-36); African American GFR (CKD) >90 (>60 ml/min/1.73 sqM); Albumin 1.1 g/dL (3.5-5.0); Alkaline Phosphatase 21 U/L (38-126); Anion Gap -2 mmol/L; Blood Urea Nitrogen 15 mg/dL (7-17); Carbon Dioxide 25 mmol/L (22-30); Chloride 120 mmol/L (98-107); Glucose 196 mg/dL (74-99); Non-African American GFR(CKD) >90 (>60 ml/min/1.73 sqM); Sodium 143 mmol/L (137-145); Total Bilirubin 0.3 mg/dL (0.2-1.3)
[2020-03-16] MEDS: DEXTROSE 5% IN WATER 1,000 ML with SODIUM BICARB (1 MEQ/ML) 150 ML IV SCH (14:43)
[2020-03-16] MEDS ORDERED: SODIUM BICARB 8.4% 50 ML SYR (1 MEQ/ML) ONE (14:48)
[2020-03-16 15:05] LABS: Platelet Count 73 k/uL (150-450)
[2020-03-16 15:33] LABS: INR 1.3 (<1.2); Partial Thromboplastin Time 26.6 sec (22.0-30.0); Prothrombin Time 13.3 sec (9.0-12.0)
[2020-03-16 15:37] LABS: ABG Base Excess -8.5 mmol/L; ABG HCO3 18 mmol/L (21-25); ABG Oxygen Saturation 97.9 % (94-97); ABG PCO2 37 mmHg (35-45); ABG PO2 99 mmHg (83-108); ABG TCO2 19 mmol/L (19-24); Allen Test Performed? Yes
[2020-03-16] MEDS: MORPHINE SULFATE 2 MG/ML SYRINGE IVP PRN ×2 (16:34→20:20)
[2020-03-16] MEDS ORDERED: FUROSEMIDE 10 MG/ML 4 ML VIAL IV STA (20:05)
[2020-03-16] MEDS: CHLORHEXIDINE GLUCONATE 15 ML CUP MUCOUS MEM SCH (20:19)
--- NOTE | 2020-03-16 23:14 | PCN ---
PROCEDURE NOTE OPERATIVE REPORT: Placement of a right femoral triple-lumen catheter. PREOPERATIVE DIAGNOSIS: Acute massive gastrointestinal bleeding and hypotension. POSTOPERATIVE DIAGNOSIS: Acute massive gastrointestinal bleeding and hypotension. ANESTHESIA USED: 2 mL of 1% lidocaine. PROCEDURE: The patient was placed in a supine position. The right groin was prepared in a sterile fashion and drapes were applied. The area was locally anesthetized with lidocaine. Then the right femoral vein was easily cannulated, and guidewire was placed. A triple- lumen catheter was inserted over the guidewire, and the guidewire was removed. Good blood flow noted in the 3 different ports of the triple-lumen catheter. The line was secured using 3.0 silk sutures. There was no evidence of any immediate complications. MMODL / IJN: [id number] /
[2020-03-16 23:39] LABS: Glucose,Whole Blood 197 mg/dL (75-99)
--- NOTE | 2020-03-17 00:05 | PCN ---
PROCEDURE NOTE OPERATIVE REPORT: Placement of the left radial arterial line. PREOPERATIVE DIAGNOSIS: Acute massive gastrointestinal bleeding and hypotension. POSTOPERATIVE DIAGNOSIS: Acute massive gastrointestinal bleeding and hypotension. ANESTHESIA USED: None deployed. PROCEDURE: The left wrist was prepared in a sterile fashion and drapes were applied. The left radial artery was palpated, cannulated, and a guidewire was placed. A Cook catheter was inserted over the guidewire and the line was secured using 3.0 silk sutures. Good blood flow, good waveform noted, no evidence of any immediate complications. MMODL / IJN: [id number] /
[2020-03-17] MEDS: DEXTROSE 5% IN WATER 1,000 ML with SODIUM BICARB (1 MEQ/ML) 150 ML IV SCH (00:55)
[2020-03-17] MEDS: MORPHINE SULFATE 2 MG/ML SYRINGE IVP PRN ×6 (04:23→23:04)
[2020-03-17 04:24] LABS: Basophils # (A) 0.2 k/uL (0-0.2); Basophils % (A) 1 %; Eosinophils # (A) 0.1 k/uL (0-0.7); Eosinophils % (A) 0 %; HCT 45.6 % (34.0-46.0); HGB 15.1 gm/dL (11.4-16.0); Lymphocytes # (A) 1.6 k/uL (1.0-4.8); Lymphocytes % (A) 8 %; MCH 29.7 pg (25.0-35.0); MCHC 33.1 g/dL (31.0-37.0); MCV 89.8 fL (80.0-100.0); Mean Platelet Volume 8.3; Monocytes # (A) 1.5 k/uL (0-1.0); Monocytes % (A) 7 %; Neutrophils # (A) 16.6 k/uL (1.3-7.7); Neutrophils % (A) 82 %; RBC 5.07 m/uL (3.80-5.40); RDW 14.6 % (11.5-15.5); WBC 20.2 k/uL (3.8-10.6)
[2020-03-17 04:27] LABS: Platelet Count 117 k/uL (150-450)
[2020-03-17 04:32] LABS: Potassium 3.7 mmol/L (3.5-5.1); Total Protein 2.9 g/dL (6.3-8.2)
[2020-03-17 04:33] LABS: Albumin 1.5 g/dL (3.5-5.0); Total Bilirubin 0.2 mg/dL (0.2-1.3)
[2020-03-17 04:41] LABS: Calcium 5.9 mg/dL (8.4-10.2)
[2020-03-17] MEDS ORDERED: FUROSEMIDE 10 MG/ML 4 ML VIAL IV STA (05:11)
[2020-03-17] MEDS: NOREPINEPHRINE 32 MG in SODIUM CHLORIDE 0.9% 218 ML IV SCH (06:37)
--- NOTE | 2020-03-17 07:41 | XR ---
EXAMINATION TYPE: XR chest 1V portable DATE OF EXAM: 03/17/2020 CLINICAL HISTORY: Tube placement TECHNIQUE: Portable upright view of the chest obtained COMPARISON: 03/16/2020 chest radiograph FINDINGS: Endotracheal tube distal to the level of the clavicular heads. Enteric tube with nonvisual ization of the distal tip. The cardiomediastinal silhouette is within normal limits for size. Pulmona ry vasculature is normal. There is no focal air space opacity, pleural effusion, or pneumothorax seen . Rib fracture deformities redemonstrated. IMPRESSION: Endotracheal tube distal tip at the level of the clavicular heads. No focal airspace opa city.
[2020-03-17 07:50] LABS: ABG HCO3 26 mmol/L (21-25); ABG Oxygen Saturation 98.4 % (94-97); ABG PCO2 39 mmHg (35-45); ABG PH 7.42 (7.35-7.45); ABG PO2 113 mmHg (83-108); ABG TCO2 27 mmol/L (19-24); Allen Test Performed? Yes
[2020-03-17] MEDS: PIPERACILLIN-TAZOBACTAM 3.375 GM in SODIUM CHLORIDE 0.9% 100 ML IVPB SCH ×3 (09:06→23:03)
[2020-03-17] MEDS: NICOTINE 14MG/24HR PATCH TRANSDERM SCH (09:08)
[2020-03-17] MEDS: ENOXAPARIN 40 MG/0.4 ML SYRINGE SQ SCH (09:08)
[2020-03-17] MEDS: PANTOPRAZOLE 40 MG/10 ML VIAL IV SCH ×2 (09:08→20:07)
[2020-03-17] MEDS: CHLORHEXIDINE GLUCONATE 15 ML CUP MUCOUS MEM SCH ×2 (09:08→20:03)
[2020-03-17] MEDS: SODIUM CHLORIDE 0.9% 1,000 ML IV SCH ×2 (09:08→23:01)
--- NOTE | 2020-03-17 09:28 | P.PN ---
Subjective Progress Note Date: 03/17/20 CHIEF COMPLAINT: Rectal bleeding HISTORY OF PRESENT ILLNESS: This is a 49-year-old female with a bleeding duodenal ulcer noted on EGD. She underwent repair of bleeding duodenal ulcer, cholecystectomy and repair of incisional hernia with Dr. Rosales yesterday. Patient is currently in the ICU and intubated. She is undergoing weaning trial today. She is on a small amount of Levophed. Hemoglobin is up to 15.1 white count 28.7. PHYSICAL EXAM: VITAL SIGNS: Reviewed. GENERAL: Well-developed in no acute distress. HEENT: No sclera icterus. Extraocular movements grossly intact. Moist buccal mucosa. Head is atraumatic, normocephalic. ABDOMEN: Soft. Nondistended. Nontender. NEUROLOGIC: Alert and oriented. Cranial nerves II through XII grossly intact. ASSESSMENT: 1. Bleeding duodenal ulcer 2. Status post Repair of bleeding duodenal ulcer, Cholecystectomy and Repair of incisional hernia POD #1 3. Acute GI bleed secondary to bleeding duodenal ulcer 4. Acute blood loss anemia secondary to bleeding duodenal ulcer PLAN: -Continue IV antibiotics -Continue IV Protonix -Continue ICU management Physician Podiatry Assistant note has been reviewed by physician. Signing provider agrees with the documented findings, assessment, and plan of care. Objective - Vital Signs Vital signs: Vital Signs Temp 99.8 F H 03/17/20 08:00 Pulse 112 H 03/17/20 08:00 Resp 29 H 03/17/20 08:00 BP 102/75 03/17/20 06:00 Pulse Ox 98 03/17/20 08:00 Intake & Output 03/16/20 03/17/20 03/17/20 18:59 06:59 18:59 Intake Total 5658.658 1509.147 254.670 Output Total 3025 390 225 Balance 2633.658 1119.147 29.670 Weight 54.5 kg 60.1 kg Intake: IV 3625 1200 200 Dextrose 5% in Water 1, 400 1200 200 000 ml @ 100 mls/hr IV . [id number] [facility] with Sodium Bicarb (1 Meq/ml) 150 ml Rx#:[id number] Sodium Chloride 0.9% 1, 375 000 ml @ 75 mls/hr IV . [id number] [facility] Rx#:[id number] Sodium Chloride 0.9% 1, 1000 000 ml @ 999 mls/hr IV . Q1H1M ONE Rx#:[id number] Sodium Chloride 0.9% 1, 1000 000 ml @ 999 mls/hr IV . Q1H1M ONE Rx#:[id number] Intake, IV Titration 173.658 309.147 54.670 Amount Norepinephrine 32 mg In 73.658 132.029 6.919 Sodium Chloride 0.9% 218 ml @ 0.05 MCG/KG/MIN 1. 277 mls/hr IV .Q24H [facility] Rx#:[id number] propofoL 1,000 mg In 100.000 177.118 47.751 Empty Bag 1 bag @ Titrate IV .Q0M [facility] Rx#: [id number] Blood Product 1860 Rc As-1 Unit 310 [id number] Rc As-1 Unit 310 [id number] Rc As-1 Unit 310 [id number] Rc As-1 Unit 310 [id number] Rc As-1 Unit 310 [id number] Rc As-1 Unit 310 [id number] Output: Drainage 50 Left Abdomen 50 Urine 1315 390 175 Stool 300 Estimated Blood Loss 1410 Other: Voiding Method Indwelling Catheter Indwelling Catheter ABP, PAP, CO, CI - Last Documented Arterial Blood Pressure 109/63 - Labs CBC & Chem 7: 03/17/20 04:10 03/17/20 04:10 Labs: Abnormal Lab Results - Last 24 Hours (Table) 03/15/20 03/16/20 03/16/20 Range/Units 15:33 13:43 14:15 WBC 28.7 H (3.8-10.6) k/uL Hct 48.6 H (34.0-46.0) % Plt Count 73 L (150-450) k/uL Neutrophils # 23.3 H (1.3-7.7) k/uL Monocytes # 3.0 H (0-1.0) k/uL Basophils # 0.3 H (0-0.2) k/uL PT (9.0-12.0) sec INR (<1.2) Fibrinogen (200-500) mg/dL ABG pH 7.07 L* (7.35-7.45) ABG pO2 >400 H (83-108) mmHg ABG HCO3 12 L (21-25) mmol/L ABG Total CO2 14 L (19-24) mmol/L ABG O2 Saturation 99.3 H (94-97) % Chloride (98-107) mmol/L BUN (7-17) mg/dL Creatinine (0.52-1.04) mg/dL Glucose (74-99) mg/dL POC Glucose (mg/dL) (75-99) mg/dL Calcium (8.4-10.2) mg/dL Ionized Calcium Robbie (4.5-5.3) mg/dL AST (14-36) U/L Alkaline Phosphatase (38-126) U/L Total Protein (6.3-8.2) g/dL Albumin (3.5-5.0) g/dL Crossmatch See Detail 03/16/20 03/16/20 03/16/20 Range/Units 14:15 14:27 15:35 WBC (3.8-10.6) k/uL Hct (34.0-46.0) % Plt Count (150-450) k/uL Neutrophils # (1.3-7.7) k/uL Monocytes # (0-1.0) k/uL Basophils # (0-0.2) k/uL PT 13.3 H (9.0-12.0) sec INR 1.3 H (<1.2) Fibrinogen 100 L (200-500) mg/dL ABG pH 7.30 L (7.35-7.45) ABG pO2 (83-108) mmHg ABG HCO3 18 L (21-25) mmol/L ABG Total CO2 (19-24) mmol/L ABG O2 Saturation 97.9 H (94-97) % Chloride 120 H (98-107) mmol/L BUN (7-17) mg/dL Creatinine 0.42 L (0.52-1.04) mg/dL Glucose 196 H (74-99) mg/dL POC Glucose (mg/dL) (75-99) mg/dL Calcium 5.0 L* (8.4-10.2) mg/dL Ionized Calcium Robbie 3.8 L (4.5-5.3) mg/dL AST 66 H (14-36) U/L Alkaline Phosphatase 21 L (38-126) U/L Total Protein 2.0 L (6.3-8.2) g/dL Albumin 1.1 L (3.5-5.0) g/dL Crossmatch 03/16/20 03/17/20 03/17/20 Range/Units 23:37 04:10 04:10 WBC 20.2 H (3.8-10.6) k/uL Hct (34.0-46.0) % Plt Count 117 L D (150-450) k/uL Neutrophils # 16.6 H (1.3-7.7) k/uL Monocytes # 1.5 H (0-1.0) k/uL Basophils # (0-0.2) k/uL PT (9.0-12.0) sec INR (<1.2) Fibrinogen (200-500) mg/dL ABG pH (7.35-7.45) ABG pO2 (83-108) mmHg ABG HCO3 (21-25) mmol/L ABG Total CO2 (19-24) mmol/L ABG O2 Saturation (94-97) % Chloride 114 H (98-107) mmol/L BUN 19 H (7-17) mg/dL Creatinine (0.52-1.04) mg/dL Glucose 239 H (74-99) mg/dL POC Glucose (mg/dL) 197 H (75-99) mg/dL Calcium 5.9 L* (8.4-10.2) mg/dL Ionized Calcium Robbie (4.5-5.3) mg/dL AST 38 H (14-36) U/L Alkaline Phosphatase 26 L (38-126) U/L Total Protein 2.9 L (6.3-8.2) g/dL Albumin 1.5 L (3.5-5.0) g/dL Crossmatch 03/17/20 Range/Units 07:48 WBC (3.8-10.6) k/uL Hct (34.0-46.0) % Plt Count (150-450) k/uL Neutrophils # (1.3-7.7) k/uL Monocytes # (0-1.0) k/uL Basophils # (0-0.2) k/uL PT (9.0-12.0) sec INR (<1.2) Fibrinogen (200-500) mg/dL ABG pH (7.35-7.45) ABG pO2 113 H (83-108) mmHg ABG HCO3 26 H (21-25) mmol/L ABG Total CO2 27 H (19-24) mmol/L ABG O2 Saturation 98.4 H (94-97) % Chloride (98-107) mmol/L BUN (7-17) mg/dL Creatinine (0.52-1.04) mg/dL Glucose (74-99) mg/dL POC Glucose (mg/dL) (75-99) mg/dL Calcium (8.4-10.2) mg/dL Ionized Calcium Robbie (4.5-5.3) mg/dL AST (14-36) U/L Alkaline Phosphatase (38-126) U/L Total Protein (6.3-8.2) g/dL Albumin (3.5-5.0) g/dL Crossmatch Microbiology - Last 24 Hours (Table) 03/16/20 17:00 Gram Stain - Preliminary Sputum Sputum Culture - Preliminary
[2020-03-17] MEDS ORDERED: CALCIUM GLUCONATE 1 GM in SODIUM CHLORIDE 0.9% 100 ML IVPB ONE ×2 (09:30→12:24)
[2020-03-17 11:44] LABS: ABG Base Excess 1.7 mmol/L; ABG HCO3 26 mmol/L (21-25); ABG Oxygen Saturation 98.2 % (94-97); ABG PCO2 39 mmHg (35-45); ABG PH 7.43 (7.35-7.45); ABG PO2 104 mmHg (83-108); ABG TCO2 27 mmol/L (19-24); Allen Test Performed? Yes
--- NOTE | 2020-03-17 11:45 | P.PN ---
Subjective Progress Note Date: 03/17/20 Principal diagnosis: Acute massive upper GI bleeding secondary to duodenal ulcer. This is a 49-year-old female, history of alcohol abuse, drinks on the average of 3 alcoholic beverages per day. Patient uses occasional Excedrin roughly on the average a 1 time per week, no previous history of GI bleeding no history of peptic ulcer disease. No history of diverticular disease or colitis. Patient presented to the hospital with a few days' history of intermittent episodes of epigastric discomfort, nausea, and has been noticing black tarry stools. Patient was also complaining of generalized weakness, lightheadedness, and upon her early evaluation in the ER, her hemoglobin was noted to be 9.0. Since presentation to the hospital, patient had multiple episodes of black tarry stools and she required at least 4 units of packed RBCs before I even evaluated the patient. I walked into the ICU, patient was noted to have significant rectal bleeding she was hypotensive in spite of fluids and blood products. She had one peripheral IV access and I placed a right femoral triple-lumen catheter. Also placed a left radial arterial line. Recommended immediate surgical consultation and GI consultation. And ordered more blood transfusions. I believe the patient received a total of 9 units of packed RBCs, she underwent EGD, and she was found to have a bleeding was an ulcer. Surgery evaluated the patient immediately, and she was found to have perforated duodenal ulcer and bleeding cystic artery. I was updated on her condition by Dr. Rosales/general surgeon on the case, and the patient is presently in the operating room. Patient was reevaluated today on 03/17/20, remains in the ICU, intubated and mechanically ventilated. Her ventilator settings are assist control rate of 28 tidal volume of 350 FiO2 40% and PEEP of 5. Patient is on propofol 50 mcg/kg/m, norepinephrine at 0.11 mcg/kg/m, and on bicarb drip which I have discontinued. Patient is hemodynamically stable and she is on a minimal dose of norepinephrine. And this would likely be discontinued once the patient is off propofol. Patient is arousable while on propofol, waking up and following very simple instructions. She is in sinus tachycardia with a rate of 108. Today I have discontinued her bicarb and added Zosyn. And I plan to give the patient is sedation holiday, and likely switch the patient to a pressure support of 8 and CPAP, and given a weaning trial. WBC count is 20.2 hemoglobin is 15.1. ABG showed a pO2 of 113 pCO2 of 39 pH of 7.42 and this is a 40% FiO2. Bicarb is 26 and I have discontinued her bicarb. Basic metabolic profile is normal and he profile is normal. Calcium is a bit low, the patient to receive 1 amp of calcium gluconate. Objective - Vital Signs Vital signs: Vital Signs Temp 99.8 F H 03/17/20 08:00 Pulse 101 H 03/17/20 11:00 Resp 8 L 03/17/20 11:00 BP 102/75 03/17/20 06:00 Pulse Ox 98 03/17/20 11:00 Intake & Output 03/16/20 03/17/20 03/17/20 18:59 06:59 18:59 Intake Total 5658.658 1509.147 404.670 Output Total 3025 390 365 Balance 2633.658 1119.147 39.670 Weight 54.5 kg 60.1 kg Intake: IV 3625 1200 350 0.9 NS 150 Dextrose 5% in Water 1, 400 1200 200 000 ml @ 100 mls/hr IV . [id number] [facility] with Sodium Bicarb (1 Meq/ml) 150 ml Rx#:[id number] Sodium Chloride 0.9% 1, 375 000 ml @ 75 mls/hr IV . [id number] [facility] Rx#:[id number] Sodium Chloride 0.9% 1, 1000 000 ml @ 999 mls/hr IV . Q1H1M [facility] Rx#:[id number] Sodium Chloride 0.9% 1, 1000 000 ml @ 999 mls/hr IV . Q1H1M [facility] Rx#:[id number] Intake, IV Titration 173.658 309.147 54.670 Amount Norepinephrine 32 mg In 73.658 132.029 6.919 Sodium Chloride 0.9% 218 ml @ 0.05 MCG/KG/MIN 1. 277 mls/hr IV .Q24H [facility] Rx#:[id number] propofoL 1,000 mg In 100.000 177.118 47.751 Empty Bag 1 bag @ Titrate IV .Q0M [facility] Rx#: [id number] Blood Product 1860 Rc As-1 Unit 310 [id number] Rc As-1 Unit 310 [id number] Rc As-1 Unit 310 [id number] As-1 Unit 310 [id number] As-1 Unit 310 [id number] Rc As-1 Unit 310 [id number] Output: Drainage 50 Left Abdomen 50 Urine 1315 390 315 Stool 300 Estimated Blood Loss 1410 Other: Voiding Method Indwelling Catheter Indwelling Catheter Indwelling Catheter ABP, PAP, CO, CI - Last Documented Arterial Blood Pressure 98/59 - Exam Physical Exam: Revealed 49-year-old female on mechanical ventilation, sedated, but arousable, and follows simple instructions even on propofol. Head: Atraumatic, normocephalic. HEENT: Pale conjunctiva his, no icterus, [Neck is supple.] [No neck masses.] [No thyromegaly.] [No JVD.] Endotracheal tube and orogastric tubes are intact. Chest: [Symmetrical chest expansion, diminished at the bases, no rhonchi no wheezes. Cardiac Exam: [Normal S1 and S2, no S3 gallop, no murmur.] Abdomen: Postsurgical, dressing is clean and dry. [Soft, nontender, no megaly, no rebound, no guarding, diminished bowel sounds.] Extremities: [No clubbing, no edema, no cyanosis.] Neurological Exam: On propofol, arousable, and follows simple instructions.. Skin: No rashes. Psychiatric: Could not be fully assessed. Musculoskeletal: No deformities noted moves all extremities, follows simple instructions - Labs CBC & Chem 7: 03/17/20 04:10 03/17/20 04:10 Labs: Abnormal Lab Results - Last 24 Hours (Table) 03/15/20 03/16/20 03/16/20 Range/Units 15:33 13:43 14:15 WBC 28.7 H (3.8-10.6) k/uL Hct 48.6 H (34.0-46.0) % Plt Count 73 L (150-450) k/uL Neutrophils # 23.3 H (1.3-7.7) k/uL Monocytes # 3.0 H (0-1.0) k/uL Basophils # 0.3 H (0-0.2) k/uL PT (9.0-12.0) sec INR (<1.2) Fibrinogen (200-500) mg/dL ABG pH 7.07 L* (7.35-7.45) ABG pO2 >400 H (83-108) mmHg ABG HCO3 12 L (21-25) mmol/L ABG Total CO2 14 L (19-24) mmol/L ABG O2 Saturation 99.3 H (94-97) % Chloride (98-107) mmol/L BUN (7-17) mg/dL Creatinine (0.52-1.04) mg/dL Glucose (74-99) mg/dL POC Glucose (mg/dL) (75-99) mg/dL Calcium (8.4-10.2) mg/dL Ionized Calcium Robbie (4.5-5.3) mg/dL AST (14-36) U/L Alkaline Phosphatase (38-126) U/L Total Protein (6.3-8.2) g/dL Albumin (3.5-5.0) g/dL Crossmatch See Detail 03/16/20 03/16/20 03/16/20 Range/Units 14:15 14:27 15:35 WBC (3.8-10.6) k/uL Hct (34.0-46.0) % Plt Count (150-450) k/uL Neutrophils # (1.3-7.7) k/uL Monocytes # (0-1.0) k/uL Basophils # (0-0.2) k/uL PT 13.3 H (9.0-12.0) sec INR 1.3 H (<1.2) Fibrinogen 100 L (200-500) mg/dL ABG pH 7.30 L (7.35-7.45) ABG pO2 (83-108) mmHg ABG HCO3 18 L (21-25) mmol/L ABG Total CO2 (19-24) mmol/L ABG O2 Saturation 97.9 H (94-97) % Chloride 120 H (98-107) mmol/L BUN (7-17) mg/dL Creatinine 0.42 L (0.52-1.04) mg/dL Glucose 196 H (74-99) mg/dL POC Glucose (mg/dL) (75-99) mg/dL Calcium 5.0 L* (8.4-10.2) mg/dL Ionized Calcium Robbie 3.8 L (4.5-5.3) mg/dL AST 66 H (14-36) U/L Alkaline Phosphatase 21 L (38-126) U/L Total Protein 2.0 L (6.3-8.2) g/dL Albumin 1.1 L (3.5-5.0) g/dL Crossmatch 03/16/20 03/17/20 03/17/20 Range/Units 23:37 04:10 04:10 WBC 20.2 H (3.8-10.6) k/uL Hct (34.0-46.0) % Plt Count 117 L D (150-450) k/uL Neutrophils # 16.6 H (1.3-7.7) k/uL Monocytes # 1.5 H (0-1.0) k/uL Basophils # (0-0.2) k/uL PT (9.0-12.0) sec INR (<1.2) Fibrinogen (200-500) mg/dL ABG pH (7.35-7.45) ABG pO2 (83-108) mmHg ABG HCO3 (21-25) mmol/L ABG Total CO2 (19-24) mmol/L ABG O2 Saturation (94-97) % Chloride 114 H (98-107) mmol/L BUN 19 H (7-17) mg/dL Creatinine (0.52-1.04) mg/dL Glucose 239 H (74-99) mg/dL POC Glucose (mg/dL) 197 H (75-99) mg/dL Calcium 5.9 L* (8.4-10.2) mg/dL Ionized Calcium Robbie (4.5-5.3) mg/dL AST 38 H (14-36) U/L Alkaline Phosphatase 26 L (38-126) U/L Total Protein 2.9 L (6.3-8.2) g/dL Albumin 1.5 L (3.5-5.0) g/dL Crossmatch 03/17/20 Range/Units 07:48 WBC (3.8-10.6) k/uL Hct (34.0-46.0) % Plt Count (150-450) k/uL Neutrophils # (1.3-7.7) k/uL Monocytes # (0-1.0) k/uL Basophils # (0-0.2) k/uL PT (9.0-12.0) sec INR (<1.2) Fibrinogen (200-500) mg/dL ABG pH (7.35-7.45) ABG pO2 113 H (83-108) mmHg ABG HCO3 26 H (21-25) mmol/L ABG Total CO2 27 H (19-24) mmol/L ABG O2 Saturation 98.4 H (94-97) % Chloride (98-107) mmol/L BUN (7-17) mg/dL Creatinine (0.52-1.04) mg/dL Glucose (74-99) mg/dL POC Glucose (mg/dL) (75-99) mg/dL Calcium (8.4-10.2) mg/dL Ionized Calcium Robbie (4.5-5.3) mg/dL AST (14-36) U/L Alkaline Phosphatase (38-126) U/L Total Protein (6.3-8.2) g/dL Albumin (3.5-5.0) g/dL Crossmatch Microbiology - Last 24 Hours (Table) 03/16/20 17:00 Gram Stain - Preliminary Sputum Sputum Culture - Preliminary Assessment and Plan Assessment: Impression: Status post exploratory laparotomy and repair of bleeding duodenal ulcer, cholecystectomy and repair of incisional hernia postoperative day #1. Acute upper GI bleeding secondary to duodenal ulcer Status post EGD and endoclips application, but persistent active bleeding. History of alcohol abuse. Hypovolemic shock on presentation secondary to GI bleeding/hemorrhagic shock Recommendation: Continue ventilatory support. Hold sedation and assess patient for possible weaning today. Taper and discontinue norepinephrine. One amp of calcium gluconate given for low calcium. Continue Protonix. Alcohol withdrawal protocol. Consider placing the patient on pressure support and CPAP , assuming the patient has good weaning parameters once of sedation. Discussed her condition with general surgery on the case. Prognosis remains guarded. Patient remains critically ill. We'll continue to follow, critical care time is 34 minutes. Time with Patient: Greater than 30
[2020-03-17] MEDS ORDERED: LORazepam 2 MG/ML INJ IV PRN ×3 (12:29)
[2020-03-17] MEDS: DEXTROSE 5%-0.9% NACL 1,000 ML IV SCH (12:31)
--- NOTE | 2020-03-17 14:14 | P.PN ---
Subjective Progress Note Date: 03/17/20 HISTORY OF PRESENT ILLNESS This is a 49-year-old female patient of Dr. Chaka Mora with past medical history of gastric esophageal reflux disease, tobacco use. Patient presented to [facility] emergency center due to bright red blood and dark tarry stools per rectum. She began having epigastric pain last week and was drinking an average of 2 alcoholic drinks per day as well as taking Excedrin for headaches. 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 She was seen by her PCP and placed on Pepcid but did not have any improvement of her pain. Yesterday morning she woke up and passed moderate amount of dark stool in the toilet and also noted bright red blood on the toilet paper when she wiped. She had 6 episodes total and called EMS and she was brought in the hospital. Initially blood pressure was 132/84 and heart rate 93. Initial hemoglobin was 8.2. Patient continued to have rectal bleeding and was transfused initially 4 units packed RBCs and was admitted into intensive care unit. She did have a syncopal episode while getting to the bathroom and continued to be hypotensive despite IV fluids and blood products. She has had a right femoral triple-lumen catheter, left radial arterial line placed. She has currently been transfused a total of 9 units of packed RBCs and ordered for 1 unit of platelets. She was seen by GI and underwent EGD that found large actively bleeding duodenal ulcer treated with epinephrine injection and Endo Clip placement with continued bleeding from the ulcer site. Large amount of old blood and clots in the stomach. She was found to also have bleeding cystic artery. General surgery was thus involved in the OR.she is currently on Levaquin at 20 mics and status post 8 L of IV fluid. She is intubated and on mechanical ventilation with tidal volume 500, FiO2 40, PEEP 5. /: Patient remains in the intensive care unit, intubated and on mechanical ventilation with tidal volume 350, FiO2 40, PEEP of 5 and successfully extubated. She is complaining of aching in her abdomen. She is not passing any gas. She has a very low dose of levothyroid. She did have low urine output during the night and received 2 doses of Lasix has been running at least 50 mL per hour. Patient received 1 g of calcium and we will repeat a second gram today.Patient has been afebrile, heart rate in the low 100s, respiratory rate 25, blood pressure 90/52, child monitor sinus tachycardia. Blood work this morning reveals WBC 20.2, hemoglobin 15.1, platelet count 117. Sodium 138, potassium 3.7, chloride 114, CO2 22, BUN 19 and creatinine 0.93. Blood sugar 239. Calcium 5.9, AST 38, ALT 13, alkaline phosphatase 26, albumin 1.5. Sputum for Gram stain and culture has been obtained. Patient has been transfused a total of 10 units of packed RBCs. Chest x-ray this morning reveals endotracheal tube distal tip at the level of the clavicle heads. No focal airspace opacities. Patient's has been updated. Patient has history that she has been drinking 2-3 glasses of wine daily for the past 1 year. REVIEW OF SYSTEMS Constitutional: No fever, no chills. Reports generalized weakness. Reports d aytime sleepiness. EENT: No headache. No blurred vision or double vision, no loss of vision. No dizziness. No nasal drainage or congestion. No epistaxis. Lungs: No shortness of breath, cough, no sputum production. No wheezing. Cardiovascular: No chest pain, no lower extremity edema. No palpitations. No paroxysmal nocturnal dyspnea. No orthopnea. No lightheadedness or dizziness. No syncopal episodes. Abdominal: Reports epigastric and upper quadrants abdominal pain. Reports nausea denies vomiting. No diarrhea. Reports no bowel movement. Reports no flatulence. Genitourinary: No dysuria, increased frequency, urgency. No urinary retention. Musculoskeletal: No myalgias. No muscle weakness, no gait dysfunction, no frequent falls. No back pain. No neck pain. Integumentary: No wounds, no lesions. No rash or pruritus. No unusual bruising. No change in hair or nails. Neurologic: No aphasia. No facial droop. No change in mentation. No head injury. No headache. No paralysis. No paresthesia. Psychiatric: No depression. No anxiety. No mood swings. Endocrine: No abnormal blood sugars. No weight change. No excessive sweating or thirst. No cold intolerance. PHYSICAL EXAMINATION Gen: This is a 49-year-old female. She is intubated and on mechanical ventilation. HEENT: Head is atraumatic, normocephalic. Pupils equal, round. Sclerae is anicteric. Conjunctiva pale. NECK: Supple. No JVD. No lymphadenopathy. No thyromegaly. LUNGS: Clear to auscultation. No wheezes or rhonchi. No intercostal retractions. HEART: Regular rate and rhythm. No murmur. ABDOMEN: Soft. Bowel sounds are hypoactive No masses. Mild epigastric tenderness. Dressing in place over central abdominal surgical wound and MARLEY drain was serosanguineous fluid. EXTREMITIES: No pedal edema. No calf tenderness. Dotson catheter in place draining clear luis miguel urine. NEUROLOGICAL: Patient is awake and alert, moving all extremities, answering questions appropriately but slow, follow simple commands. ASSESSMENT AND PLAN 1. Acute blood loss anemia with acute GI bleed secondary to duodenal ulcer status post EGD, endoclips with persistent active bleeding secondary to bleeding cystic artery. Patient is status post total of 10 units packed RBCs, continue to monitor hemoglobin closely and transfuse as necessary. Continue Protonix 40 mg IV twice daily. Continue Zosyn. 2. Acute GI bleed secondary to duodenal ulcer and bleeding cystic artery status post repair of bleeding duodenal ulcer, cholecystectomy, repair of incisional hernia. 3. History of gastroesophageal reflux disease 4. Hemorrhagic shock requiring massive blood transfusion, IV fluid resuscitation and vasopressor. Continue management per Dr. Simpson. 5. Acute hypoxic respiratory failure secondary to shock, successfully extubated. Managed by taker off. 6. Thrombocytopenia secondary to shock. Continue to monitor. Patient is ordered for 1 unit of platelets. 7. Massive transfusion. Monitor CBC, CMP, fibrinogen, ionized calcium, PTT, PT and INR daily. 8. Severe metabolic acidosis status post 2 A of bicarb. 9. DVT prophylaxis. Lovenox subcu. 10. Tobacco use and dependence. Continue nicotine patch. 11. GI prophylaxis. Protonix. 12. Hypocalcemia. Replacement. Continue to monitor. 13. Hyperchloremia. IV fluids changed to D5 with normal saline at 75 mL per hour. 14. History of alcohol abuse. Patient started on CIWA protocol. Discharge plan: most likely home Impression and plan of care have been directed as dictated by the signing physician. Ana Luisa Herron nurse practitioner acting as scribe for signing physician. Objective - Vital Signs Vital signs: Vital Signs Temp 99.8 F H 03/17/20 08:00 Pulse 112 H 03/17/20 09:30 Resp 25 H 03/17/20 09:30 BP 102/75 03/17/20 06:00 Pulse Ox 97 03/17/20 09:30 Intake & Output 03/16/20 03/17/20 03/17/20 18:59 06:59 18:59 Intake Total 5658.658 1509.147 254.670 Output Total 3025 390 225 Balance 2633.658 1119.147 29.670 Weight 54.5 kg 60.1 kg Intake: IV 3625 1200 200 Dextrose 5% in Water 1, 400 1200 200 000 ml @ 100 mls/hr IV . [id number] [facility] with Sodium Bicarb (1 Meq/ml) 150 ml Rx#:[id number] Sodium Chloride 0.9% 1, 375 000 ml @ 75 mls/hr IV . [id number] [facility] Rx#:[id number] Sodium Chloride 0.9% 1, 1000 000 ml @ 999 mls/hr IV . Q1H1M ONE Rx#:[id number] Sodium Chloride 0.9% 1, 1000 000 ml @ 999 mls/hr IV . Q1H1M ONE Rx#:[id number] Intake, IV Titration 173.658 309.147 54.670 Amount Norepinephrine 32 mg In 73.658 132.029 6.919 Sodium Chloride 0.9% 218 ml @ 0.05 MCG/KG/MIN 1. 277 mls/hr IV .Q24H [facility] Rx#:[id number] propofoL 1,000 mg In 100.000 177.118 47.751 Empty Bag 1 bag @ Titrate IV .[facility]0M [facility] Rx#: [id number] Blood Product 1860 Rc As-1 Unit 310 [id number] Rc As-1 Unit 310 [id number] Rc As-1 Unit 310 [id number] Rc As-1 Unit 310 [id number] Rc As-1 Unit 310 [id number] Rc As-1 Unit 310 [id number] Output: Drainage 50 Left Abdomen 50 Urine 1315 390 175 Stool 300 Estimated Blood Loss 1410 Other: Voiding Method Indwelling Catheter Indwelling Catheter Indwelling Catheter ABP, PAP, CO, CI - Last Documented Arterial Blood Pressure 90/52 - Labs CBC & Chem 7: 03/17/20 04:10 03/17/20 04:10 Labs: Abnormal Lab Results - Last 24 Hours (Table) 03/15/20 03/16/20 03/16/20 Range/Units 15:33 13:43 14:15 WBC 28.7 H (3.8-10.6) k/uL Hct 48.6 H (34.0-46.0) % Plt Count 73 L (150-450) k/uL Neutrophils # 23.3 H (1.3-7.7) k/uL Monocytes # 3.0 H (0-1.0) k/uL Basophils # 0.3 H (0-0.2) k/uL PT (9.0-12.0) sec INR (<1.2) Fibrinogen (200-500) mg/dL ABG pH 7.07 L* (7.35-7.45) ABG pO2 >400 H (83-108) mmHg ABG HCO3 12 L (21-25) mmol/L ABG Total CO2 14 L (19-24) mmol/L ABG O2 Saturation 99.3 H (94-97) % Chloride (98-107) mmol/L BUN (7-17) mg/dL Creatinine (0.52-1.04) mg/dL Glucose (74-99) mg/dL POC Glucose (mg/dL) (75-99) mg/dL Calcium (8.4-10.2) mg/dL Ionized Calcium Robbie (4.5-5.3) mg/dL AST (14-36) U/L Alkaline Phosphatase (38-126) U/L Total Protein (6.3-8.2) g/dL Albumin (3.5-5.0) g/dL Crossmatch See Detail 03/16/20 03/16/20 03/16/20 Range/Units 14:15 14:27 15:35 WBC (3.8-10.6) k/uL Hct (34.0-46.0) % Plt Count (150-450) k/uL Neutrophils # (1.3-7.7) k/uL Monocytes # (0-1.0) k/uL Basophils # (0-0.2) k/uL PT 13.3 H (9.0-12.0) sec INR 1.3 H (<1.2) Fibrinogen 100 L (200-500) mg/dL ABG pH 7.30 L (7.35-7.45) ABG pO2 (83-108) mmHg ABG HCO3 18 L (21-25) mmol/L ABG Total CO2 (19-24) mmol/L ABG O2 Saturation 97.9 H (94-97) % Chloride 120 H (98-107) mmol/L BUN (7-17) mg/dL Creatinine 0.42 L (0.52-1.04) mg/dL Glucose 196 H (74-99) mg/dL POC Glucose (mg/dL) (75-99) mg/dL Calcium 5.0 L* (8.4-10.2) mg/dL Ionized Calcium Robbie 3.8 L (4.5-5.3) mg/dL AST 66 H (14-36) U/L Alkaline Phosphatase 21 L (38-126) U/L Total Protein 2.0 L (6.3-8.2) g/dL Albumin 1.1 L (3.5-5.0) g/dL Crossmatch 03/16/20 03/17/20 03/17/20 Range/Units 23:37 04:10 04:10 WBC 20.2 H (3.8-10.6) k/uL Hct (34.0-46.0) % Plt Count 117 L D (150-450) k/uL Neutrophils # 16.6 H (1.3-7.7) k/uL Monocytes # 1.5 H (0-1.0) k/uL Basophils # (0-0.2) k/uL PT (9.0-12.0) sec INR (<1.2) Fibrinogen (200-500) mg/dL ABG pH (7.35-7.45) ABG pO2 (83-108) mmHg ABG HCO3 (21-25) mmol/L ABG Total CO2 (19-24) mmol/L ABG O2 Saturation (94-97) % Chloride 114 H (98-107) mmol/L BUN 19 H (7-17) mg/dL Creatinine (0.52-1.04) mg/dL Glucose 239 H (74-99) mg/dL POC Glucose (mg/dL) 197 H (75-99) mg/dL Calcium 5.9 L* (8.4-10.2) mg/dL Ionized Calcium Robbie (4.5-5.3) mg/dL AST 38 H (14-36) U/L Alkaline Phosphatase 26 L (38-126) U/L Total Protein 2.9 L (6.3-8.2) g/dL Albumin 1.5 L (3.5-5.0) g/dL Crossmatch 03/17/20 Range/Units 07:48 WBC (3.8-10.6) k/uL Hct (34.0-46.0) % Plt Count (150-450) k/uL Neutrophils # (1.3-7.7) k/uL Monocytes # (0-1.0) k/uL Basophils # (0-0.2) k/uL PT (9.0-12.0) sec INR (<1.2) Fibrinogen (200-500) mg/dL ABG pH (7.35-7.45) ABG pO2 113 H (83-108) mmHg ABG HCO3 26 H (21-25) mmol/L ABG Total CO2 27 H (19-24) mmol/L ABG O2 Saturation 98.4 H (94-97) % Chloride (98-107) mmol/L BUN (7-17) mg/dL Creatinine (0.52-1.04) mg/dL Glucose (74-99) mg/dL POC Glucose (mg/dL) (75-99) mg/dL Calcium (8.4-10.2) mg/dL Ionized Calcium Robbie (4.5-5.3) mg/dL AST (14-36) U/L Alkaline Phosphatase (38-126) U/L Total Protein (6.3-8.2) g/dL Albumin (3.5-5.0) g/dL Crossmatch Microbiology - Last 24 Hours (Table) 03/16/20 17:00 Gram Stain - Preliminary Sputum Sputum Culture - Preliminary
[2020-03-17] MEDS: THIAMINE 100 MG TAB PO SCH (15:52)
[2020-03-17] MEDS: ONDANSETRON 4 MG/2 ML VIAL IVP PRN ×2 (17:26→23:04)
[2020-03-18] MEDS: DEXTROSE 5%-0.9% NACL 1,000 ML IV SCH ×2 (01:18→15:27)
[2020-03-18 05:03] LABS: Basophils % (A) 0 %; Eosinophils # (A) 0.1 k/uL (0-0.7); Eosinophils % (A) 1 %; HCT 31.8 % (34.0-46.0); Lymphocytes # (A) 1.1 k/uL (1.0-4.8); Lymphocytes % (A) 10 %; MCH 30.4 pg (25.0-35.0); MCHC 33.3 g/dL (31.0-37.0); MCV 91.4 fL (80.0-100.0); Monocytes # (A) 0.9 k/uL (0-1.0); Monocytes % (A) 8 %; Neutrophils # (A) 8.8 k/uL (1.3-7.7); Neutrophils % (A) 79 %; Platelet Count 110 k/uL (150-450); RBC 3.48 m/uL (3.80-5.40); WBC 11.1 k/uL (3.8-10.6)
[2020-03-18 05:07] LABS: African American GFR (CKD) >90 (>60 ml/min/1.73 sqM); Anion Gap -4 mmol/L; Blood Urea Nitrogen 19 mg/dL (7-17); Calcium 6.6 mg/dL (8.4-10.2); Carbon Dioxide 30 mmol/L (22-30); Chloride 114 mmol/L (98-107); Glucose 123 mg/dL (74-99); Non-African American GFR(CKD) >90 (>60 ml/min/1.73 sqM); Phosphorus 2.7 mg/dL (2.5-4.5); Potassium 3.1 mmol/L (3.5-5.1); Sodium 140 mmol/L (137-145)
[2020-03-18 05:12] LABS: Ionized Calcium 4.7 mg/dL (4.5-5.3)
[2020-03-18 05:17] LABS: HGB 10.6 gm/dL (11.4-16.0)
[2020-03-18] MEDS: POTASSIUM CHLORIDE ER 20 MEQ TAB.ER PO SCH ×2 (05:29→06:25)
[2020-03-18] MEDS: THIAMINE 100 MG TAB PO SCH (05:29)
[2020-03-18 06:10] LABS: INR 0.9 (<1.2); Partial Thromboplastin Time 27.9 sec (22.0-30.0); Prothrombin Time 9.4 sec (9.0-12.0)
--- NOTE | 2020-03-18 08:11 | P.PN ---
Subjective Progress Note Date: 03/17/20 Principal diagnosis: GI bleed This is a 49-year-old male who was seen and examined in the ICU, she is intubated and sedated. She is status post EGD yesterday with a large actively bleeding duodenal ulcer treated with epinephrine injection and Endo clip placment with continuation of bleeding. General surgery was then consulted and the patient was taken to the operating room which they performed a repair of a bleeding duodenal ulcer with penetration into the cystic artery, c holecystectomy, and repair of incisional hernia. The patient is status post 10 units of packed red cells. Her hemoglobin is stable this morning at 15.1, WBC 20.2. She does have an NG tube with intermittent suction for maroon colored drainage. Objective - Vital Signs Vital signs: Vital Signs Temp 99.8 F H 03/17/20 12:00 Pulse 95 03/17/20 13:00 Resp 32 H 03/17/20 13:00 BP 105/66 03/17/20 13:00 Pulse Ox 99 03/17/20 13:00 Intake & Output 03/16/20 03/17/20 03/17/20 18:59 06:59 18:59 Intake Total 5658.658 1509.147 529.670 Output Total 3025 390 445 Balance 2633.658 1119.147 84.670 Weight 54.5 kg 60.1 kg Intake: IV 3625 1200 475 0.9 NS 200 Dextrose 5% in Water 1, 400 1200 200 000 ml @ 100 mls/hr IV . [id number] [facility] with Sodium Bicarb (1 Meq/ml) 150 ml Rx#:[id number] Dextrose 5%-0.9% NaCl 1, 75 000 ml @ 75 mls/hr IV . [id number] [facility] Rx#:[id number] Sodium Chloride 0.9% 1, 375 000 ml @ 75 mls/hr IV . [id number] [facility] Rx#:[id number] Sodium Chloride 0.9% 1, 1000 000 ml @ 999 mls/hr IV . Q1H1M ONE Rx#:[id number] Sodium Chloride 0.9% 1, 1000 000 ml @ 999 mls/hr IV . Q1H1M ONE Rx#:[id number] Intake, IV Titration 173.658 309.147 54.670 Amount Norepinephrine 32 mg In 73.658 132.029 6.919 Sodium Chloride 0.9% 218 ml @ 0.05 MCG/KG/MIN 1. 277 mls/hr IV .Q24H [facility] Rx#:[id number] propofoL 1,000 mg In 100.000 177.118 47.751 Empty Bag 1 bag @ Titrate IV .Q0M [facility] Rx#: [id number] Blood Product 1860 Rc As-1 Unit 310 [id number] Rc As-1 Unit 310 [id number] Rc As-1 Unit 310 [id number] Rc As-1 Unit 310 [id number] Rc As-1 Unit 310 [id number] Rc As-1 Unit 310 [id number] Output: Drainage 50 Left Abdomen 50 Urine 1315 390 395 Stool 300 Estimated Blood Loss 1410 Other: Voiding Method Indwelling Catheter Indwelling Catheter Indwelling Catheter ABP, PAP, CO, CI - Last Documented Arterial Blood Pressure 105/72 - Exam General appearance: Intubated and sedated. HET: Head is normocephalic and atraumatic. Neck: Supple Heart: S1 S2. Regular rate and rhythm. Lungs: No crackles or wheezes are heard. Abdomen: Soft, nondistended with bowel sounds. No peritoneal signs. No palpable organomegaly or masses. Extremities: Normal skin color and turgor. Neurological: intubated and sedated. - Labs CBC & Chem 7: 03/18/20 04:30 03/18/20 04:30 Labs: Abnormal Lab Results - Last 24 Hours (Table) 03/16/20 03/16/20 03/16/20 Range/Units 13:43 14:15 14:15 WBC 28.7 H (3.8-10.6) k/uL Hct 48.6 H (34.0-46.0) % Plt Count 73 L (150-450) k/uL Neutrophils # 23.3 H (1.3-7.7) k/uL Monocytes # 3.0 H (0-1.0) k/uL Basophils # 0.3 H (0-0.2) k/uL PT (9.0-12.0) sec INR (<1.2) Fibrinogen (200-500) mg/dL ABG pH 7.07 L* (7.35-7.45) ABG pO2 >400 H (83-108) mmHg ABG HCO3 12 L (21-25) mmol/L ABG Total CO2 14 L (19-24) mmol/L ABG O2 Saturation 99.3 H (94-97) % Chloride 120 H (98-107) mmol/L BUN (7-17) mg/dL Creatinine 0.42 L (0.52-1.04) mg/dL Glucose 196 H (74-99) mg/dL POC Glucose (mg/dL) (75-99) mg/dL Calcium 5.0 L* (8.4-10.2) mg/dL Ionized Calcium Robbie 3.8 L (4.5-5.3) mg/dL AST 66 H (14-36) U/L Alkaline Phosphatase 21 L (38-126) U/L Total Protein 2.0 L (6.3-8.2) g/dL Albumin 1.1 L (3.5-5.0) g/dL 03/16/20 03/16/20 03/16/20 Range/Units 14:27 15:35 23:37 WBC (3.8-10.6) k/uL Hct (34.0-46.0) % Plt Count (150-450) k/uL Neutrophils # (1.3-7.7) k/uL Monocytes # (0-1.0) k/uL Basophils # (0-0.2) k/uL PT 13.3 H (9.0-12.0) sec INR 1.3 H (<1.2) Fibrinogen 100 L (200-500) mg/dL ABG pH 7.30 L (7.35-7.45) ABG pO2 (83-108) mmHg ABG HCO3 18 L (21-25) mmol/L ABG Total CO2 (19-24) mmol/L ABG O2 Saturation 97.9 H (94-97) % Chloride (98-107) mmol/L BUN (7-17) mg/dL Creatinine (0.52-1.04) mg/dL Glucose (74-99) mg/dL POC Glucose (mg/dL) 197 H (75-99) mg/dL Calcium (8.4-10.2) mg/dL Ionized Calcium Robbie (4.5-5.3) mg/dL AST (14-36) U/L Alkaline Phosphatase (38-126) U/L Total Protein (6.3-8.2) g/dL Albumin (3.5-5.0) g/dL 03/17/20 03/17/20 03/17/20 Range/Units 04:10 04:10 07:48 WBC 20.2 H (3.8-10.6) k/uL Hct (34.0-46.0) % Plt Count 117 L D (150-450) k/uL Neutrophils # 16.6 H (1.3-7.7) k/uL Monocytes # 1.5 H (0-1.0) k/uL Basophils # (0-0.2) k/uL PT (9.0-12.0) sec INR (<1.2) Fibrinogen (200-500) mg/dL ABG pH (7.35-7.45) ABG pO2 113 H (83-108) mmHg ABG HCO3 26 H (21-25) mmol/L ABG Total CO2 27 H (19-24) mmol/L ABG O2 Saturation 98.4 H (94-97) % Chloride 114 H (98-107) mmol/L BUN 19 H (7-17) mg/dL Creatinine (0.52-1.04) mg/dL Glucose 239 H (74-99) mg/dL POC Glucose (mg/dL) (75-99) mg/dL Calcium 5.9 L* (8.4-10.2) mg/dL Ionized Calcium Robbie (4.5-5.3) mg/dL AST 38 H (14-36) U/L Alkaline Phosphatase 26 L (38-126) U/L Total Protein 2.9 L (6.3-8.2) g/dL Albumin 1.5 L (3.5-5.0) g/dL 03/17/20 Range/Units 11:35 WBC (3.8-10.6) k/uL Hct (34.0-46.0) % Plt Count (150-450) k/uL Neutrophils # (1.3-7.7) k/uL Monocytes # (0-1.0) k/uL Basophils # (0-0.2) k/uL PT (9.0-12.0) sec INR (<1.2) Fibrinogen (200-500) mg/dL ABG pH (7.35-7.45) ABG pO2 (83-108) mmHg ABG HCO3 26 H (21-25) mmol/L ABG Total CO2 27 H (19-24) mmol/L ABG O2 Saturation 98.2 H (94-97) % Chloride (98-107) mmol/L BUN (7-17) mg/dL Creatinine (0.52-1.04) mg/dL Glucose (74-99) mg/dL POC Glucose (mg/dL) (75-99) mg/dL Calcium (8.4-10.2) mg/dL Ionized Calcium Robbie (4.5-5.3) mg/dL AST (14-36) U/L Alkaline Phosphatase (38-126) U/L Total Protein (6.3-8.2) g/dL Albumin (3.5-5.0) g/dL Microbiology - Last 24 Hours (Table) 03/16/20 17:00 Gram Stain - Preliminary Sputum Sputum Culture - Preliminary Assessment and Plan Assessment: (1) Anemia associated with acute blood loss Narrative/Plan: 49-year-old female presenting with acute symptomatic anemia secondary to acute blood loss. Denies any prior history. Denies heavy alcohol use in the past but does report drinking 3 alcoholic beverages daily over the past year. Denies any history of GI bleed. She is been having multiple melanotic bowel movements over the past week. Found to have a hemoglobin of 9.0 on presentation. She is continued to have GI bleeding and was admitted to the ICU. Unknown etiology, differential includes peptic ulcer disease, Dieulafoy lesion, AVM, or other etiology. Current Visit: Yes Status: Acute Code(s): D62 - ACUTE POSTHEMORRHAGIC ANEMIA SNOMED Code(s): 227866014 (2) Melena Current Visit: Yes Status: Acute Code(s): K92.1 - MELENA SNOMED Code(s): 8860828 (1) Duodenal ulcer Narrative/Plan: The patient underwent EGD yesterday and was found to have a large actively bleeding duodenal ulcer that was treated with epinephrine injection and Endo Clip placement with continued bleeding from the ulcer site. There was noted to be large amounts of old blood and clots in the stomach. Gen. surgery was subsequently consult and the patient was taken to the operating room which they found a bleeding duodenal ulcer with penetration into the cystic artery which was repaired, also a cholecystectomy and repair of an incisional hernia was completed. Current Visit: Yes Status: Acute Code(s): K26.9 - DUODENAL ULCER, UNSP ACUTE OR CHRONIC, W/O HEMOR OR PERF SNOMED Code(s): 65074608 Plan: Plan: Supportive care Patient is status post EGD the large actively bleeding duodenal ulcer treated with epinephrine injection and Endo Clip with continuation of bleeding Patient is status post repair of bleeding duodenal ulcer with penetration into the cystic artery and cholecystectomy as well as repair of incisional hernia. Patient transfused 10 units of packed red blood cells Continue IV Protonix therapy Continue to monitor hemoglobin and hematocrit and transfuse as needed Continue ICU care Avoid NSAID use Avoid anticoagulation therapy at this time Continue with surgical recommendations Thank you for allowing us to participate in the care of the patient The impression and plan of care has been dictated as directed. Dr. Laz Calloway I performed a history and examination of this patient, discussed the same with the dictator. I agree with the dictator's note ,documented as a scribe. Any additional findings or plans will be noted.
[2020-03-18] MEDS: ENOXAPARIN 40 MG/0.4 ML SYRINGE SQ SCH (08:47)
[2020-03-18] MEDS: NICOTINE 14MG/24HR PATCH TRANSDERM SCH (08:47)
[2020-03-18] MEDS: PIPERACILLIN-TAZOBACTAM 3.375 GM in SODIUM CHLORIDE 0.9% 100 ML IVPB SCH ×2 (08:47→15:27)
[2020-03-18] MEDS: MORPHINE SULFATE 2 MG/ML SYRINGE IVP PRN ×3 (08:48→16:47)
[2020-03-18] MEDS: PANTOPRAZOLE 40 MG/10 ML VIAL IV SCH ×2 (08:48→21:03)
--- NOTE | 2020-03-18 10:40 | XR ---
EXAMINATION TYPE: XR chest 1V portable DATE OF EXAM: 03/18/2020 CLINICAL HISTORY: Tube placement TECHNIQUE: Semiupright portable view of the chest obtained COMPARISON: 03/17/2020 chest radiograph FINDINGS: Interval removal of endotracheal tube and enteric tube. The cardiomediastinal silhouette i s within normal limits for size. Pulmonary vasculature is normal. There is haziness of the bilateral lung bases and silhouetting of the left hemidiaphragm. No pneumothorax. Redemonstrated rib fracture d eformities. IMPRESSION: 1. Interval removal of endotracheal tube and enteric tube. 2. Bibasilar airspace opacities and haziness of the left hemidiaphragm may represent atelectasis vers us developing airspace disease.
[2020-03-18] MEDS: ONDANSETRON 4 MG/2 ML VIAL IVP PRN (11:55)
--- NOTE | 2020-03-18 12:21 | P.PN ---
Subjective Progress Note Date: 03/18/20 CHIEF COMPLAINT: Rectal bleeding HISTORY OF PRESENT ILLNESS: This is a 49-year-old female with a bleeding duodenal ulcer noted on EGD. She underwent repair of bleeding duodenal ulcer, cholecystectomy and repair of incisional hernia with Dr. Rosales. Patient is extubated today. She is allowed to have oral swabs. Gallbladder pathology showed chronic cholecystitis with subserosal abscess fibrosis and inflammatory fat necrosis. WBC is 11.1 hemoglobin 10.6 potassium 3.1 PHYSICAL EXAM: VITAL SIGNS: Reviewed. GENERAL: Well-developed in no acute distress. HEENT: No sclera icterus. Extraocular movements grossly intact. Moist buccal mucosa. Head is atraumatic, normocephalic. ABDOMEN: Soft. Nondistended. Nontender. NEUROLOGIC: Alert and oriented. Cranial nerves II through XII grossly intact. ASSESSMENT: 1. Bleeding duodenal ulcer 2. Status post Repair of bleeding duodenal ulcer, Cholecystectomy and Repair of incisional hernia POD #2 3. Acute GI bleed secondary to bleeding duodenal ulcer 4. Acute blood loss anemia secondary to bleeding duodenal ulcer 5. Hypokalemia PLAN: -Continue IV antibiotics -Continue IV Protonix -Continue ICU management -Oral swabs only. Keep patient nothing by mouth -Switch oral thiamine to IV -Supplement potassium Physician Sport Intern note has been reviewed by physician. Signing provider agrees with the documented findings, assessment, and plan of care. Objective - Vital Signs Vital signs: Vital Signs Temp 99.0 F 03/18/20 04:00 Pulse 80 03/18/20 09:00 Resp 20 03/18/20 09:00 BP 97/51 03/18/20 09:00 Pulse Ox 99 03/18/20 09:00 Intake & Output 03/17/20 03/18/20 03/18/20 18:59 06:59 18:59 Intake Total 5196.531 0863 150 Output Total 735 550 105 Balance 292.091 450 45 Weight 63 kg Intake: IV 850 900 150 0.9 NS 200 Dextrose 5% in Water 1, 200 000 ml @ 100 mls/hr IV . [id number] [facility] with Sodium Bicarb (1 Meq/ml) 150 ml Rx#:[id number] Dextrose 5%-0.9% NaCl 1, 450 900 150 000 ml @ 75 mls/hr IV . [id number] [facility] Rx#:[id number] Intake, IV Titration 177.091 100 Amount Norepinephrine 32 mg In 29.340 Sodium Chloride 0.9% 218 ml @ 0.05 MCG/KG/MIN 1. 277 mls/hr IV .Q24H [facility] Rx#:[id number] Piperacillin-Tazobactam 3 100 100 .375 gm In Sodium Chloride 0.9% 100 ml @ 25 mls/hr IVPB Q8HR [facility] Rx# :[id number] propofoL 1,000 mg In 47.751 Empty Bag 1 bag @ Titrate IV .Q0M [facility] Rx#: [id number] Output: Drainage 50 Left Abdomen 50 Urine 685 550 105 Other: Voiding Method Indwelling Catheter Indwelling Catheter Indwelling Catheter ABP, PAP, CO, CI - Last Documented Arterial Blood Pressure 105/72 - Labs CBC & Chem 7: 03/18/20 04:30 03/18/20 04:30 Labs: Abnormal Lab Results - Last 24 Hours (Table) 03/17/20 03/18/20 03/18/20 Range/Units 11:35 04:30 04:30 WBC 11.1 H (3.8-10.6) k/uL RBC 3.48 L (3.80-5.40) m/uL Hgb 10.6 L D (11.4-16.0) gm/dL Hct 31.8 L (34.0-46.0) % Plt Count 110 L (150-450) k/uL Neutrophils # 8.8 H (1.3-7.7) k/uL ABG HCO3 26 H (21-25) mmol/L ABG Total CO2 27 H (19-24) mmol/L ABG O2 Saturation 98.2 H (94-97) % Potassium 3.1 L (3.5-5.1) mmol/L Chloride 114 H (98-107) mmol/L BUN 19 H (7-17) mg/dL Glucose 123 H (74-99) mg/dL Calcium 6.6 L (8.4-10.2) mg/dL
--- NOTE | 2020-03-18 13:02 | P.PN ---
Subjective Progress Note Date: 03/18/20 Principal diagnosis: Acute massive upper GI bleeding secondary to duodenal ulcer. This is a 49-year-old female, history of alcohol abuse, drinks on the average of 3 alcoholic beverages per day. Patient uses occasional Excedrin roughly on the average a 1 time per week, no previous history of GI bleeding no history of peptic ulcer disease. No history of diverticular disease or colitis. Patient presented to the hospital with a few days' history of intermittent episodes of epigastric discomfort, nausea, and has been noticing black tarry stools. Patient was also complaining of generalized weakness, lightheadedness, and upon her early evaluation in the ER, her hemoglobin was noted to be 9.0. Since presentation to the hospital, patient had multiple episodes of black tarry stools and she required at least 4 units of packed RBCs before I even evaluated the patient. I walked into the ICU, patient was noted to have significant rectal bleeding she was hypotensive in spite of fluids and blood products. She had one peripheral IV access and I placed a right femoral triple-lumen catheter. Also placed a left radial arterial line. Recommended immediate surgical consultation and GI consultation. And ordered more blood transfusions. I believe the patient received a total of 9 units of packed RBCs, she underwent EGD, and she was found to have a bleeding was an ulcer. Surgery evaluated the patient immediately, and she was found to have perforated duodenal ulcer and bleeding cystic artery. I was updated on her condition by Dr. Rosales/general surgeon on the case, and the patient is presently in the operating room. Patient was reevaluated today on 03/17/20, remains in the ICU, intubated and mechanically ventilated. Her ventilator settings are assist control rate of 28 tidal volume of 350 FiO2 40% and PEEP of 5. Patient is on propofol 50 mcg/kg/m, norepinephrine at 0.11 mcg/kg/m, and on bicarb drip which I have discontinued. Patient is hemodynamically stable and she is on a minimal dose of norepinephrine. And this would likely be discontinued once the patient is off propofol. Patient is arousable while on propofol, waking up and following very simple instructions. She is in sinus tachycardia with a rate of 108. Today I have discontinued her bicarb and added Zosyn. And I plan to give the patient is sedation holiday, and likely switch the patient to a pressure support of 8 and CPAP, and given a weaning trial. WBC count is 20.2 hemoglobin is 15.1. ABG showed a pO2 of 113 pCO2 of 39 pH of 7.42 and this is a 40% FiO2. Bicarb is 26 and I have discontinued her bicarb. Basic metabolic profile is normal and he profile is normal. Calcium is a bit low, the patient to receive 1 amp of calcium gluconate. Patient was reevaluated today on 03/18/20, patient tolerated the extubation well. Presently on few liters nasal cannula, and she is doing great. Hemodynamically stable, in no distress. Hemoglobin today is 10.6. WBC count is 11.1. *Normal except for low potassium being corrected as per protocol. Remains nothing by mouth. And there is no gastric tube in place Objective - Vital Signs Vital signs: Vital Signs Temp 99.0 F 03/18/20 04:00 Pulse 78 03/18/20 12:00 Resp 19 03/18/20 12:00 BP 94/52 03/18/20 12:00 Pulse Ox 94 L 03/18/20 12:00 Intake & Output 03/17/20 03/18/20 03/18/20 18:59 06:59 18:59 Intake Total 3874.199 9063 150 Output Total 735 550 205 Balance 292.091 450 -55 Weight 63 kg Intake: IV 850 900 150 0.9 NS 200 Dextrose 5% in Water 1, 200 000 ml @ 100 mls/hr IV . [id number] ALEKSANDRA with Sodium Bicarb (1 Meq/ml) 150 ml Rx#:[id number] Dextrose 5%-0.9% NaCl 1, 450 900 150 000 ml @ 75 mls/hr IV . [id number] ALEKSANDRA Rx#:[id number] Intake, IV Titration 177.091 100 Amount Norepinephrine 32 mg In 29.340 Sodium Chloride 0.9% 218 ml @ 0.05 MCG/KG/MIN 1. 277 mls/hr IV .Q24H ALEKSANDRA Rx#:[id number] Piperacillin-Tazobactam 3 100 100 .375 gm In Sodium Chloride 0.9% 100 ml @ 25 mls/hr IVPB Q8HR ALEKSANDRA Rx# :[id number] propofoL 1,000 mg In 47.751 Empty Bag 1 bag @ Titrate IV .Q0M ALEKSANDRA Rx#: [id number] Output: Drainage 50 100 Left Abdomen 50 100 Urine 685 550 105 Other: Voiding Method Indwelling Catheter Indwelling Catheter Indwelling Catheter ABP, PAP, CO, CI - Last Documented Arterial Blood Pressure 105/72 - Exam Physical Exam: Revealed 49-year-old female awake, alert, in no distress, on few liters nasal cannula. Head: Atraumatic, normocephalic. HEENT: [Neck is supple.] [No neck masses.] [No thyromegaly.] [No JVD.] Chest: [Symmetrical chest expansion, diminished at the bases, no rhonchi no wheezes. Cardiac Exam: [Normal S1 and S2, no S3 gallop, no murmur.] Abdomen: Postsurgical, dressing is clean and dry. [Soft, slightly tender., no megaly, no rebound, no guarding, diminished bowel sounds.] Extremities: [No clubbing, no edema, no cyanosis.] Neurological Exam: Alert and oriented 3 focal deficits. Skin: No rashes. Psychiatric: Normal mood, affect and normal mental status examination Musculoskeletal: No limitations in range of motion and no deformities - Labs CBC & Chem 7: 03/18/20 04:30 03/18/20 04:30 Labs: Abnormal Lab Results - Last 24 Hours (Table) 03/18/20 03/18/20 Range/Units 04:30 04:30 WBC 11.1 H (3.8-10.6) k/uL RBC 3.48 L (3.80-5.40) m/uL Hgb 10.6 L D (11.4-16.0) gm/dL Hct 31.8 L (34.0-46.0) % Plt Count 110 L (150-450) k/uL Neutrophils # 8.8 H (1.3-7.7) k/uL Potassium 3.1 L (3.5-5.1) mmol/L Chloride 114 H (98-107) mmol/L BUN 19 H (7-17) mg/dL Glucose 123 H (74-99) mg/dL Calcium 6.6 L (8.4-10.2) mg/dL Assessment and Plan Assessment: Impression: Status post exploratory laparotomy and repair of bleeding duodenal ulcer, cholecystectomy and repair of incisional hernia postoperative day #2 Acute upper GI bleeding secondary to duodenal ulcer Status post EGD and endoclips application, but persistent active bleeding. History of alcohol abuse. Hypovolemic shock on presentation secondary to GI bleeding/hemorrhagic shock, resolved. Recommendation: Patient tolerated extubation in the last 24 hours, and she seems to be doing very well. Continue pain control. Continue Protonix. Alcohol withdrawal protocol. Continue incentive spirometry. Early ambulation. Continue GI and DVT prophylaxis. Transfer possibly to a regular medical floor today. Discussed her condition with surgery on the case Time with Patient: Less than 30
--- NOTE | 2020-03-18 14:18 | P.PN ---
Subjective Progress Note Date: 03/18/20 HISTORY OF PRESENT ILLNESS This is a 49-year-old female patient of Dr. Chaka Mora with past medical history of gastric esophageal reflux disease, tobacco use. Patient presented to [facility] emergency center due to bright red blood and dark tarry stools per rectum. She began having epigastric pain last week and was drinking an average of 2 alcoholic drinks per day as well as taking Excedrin for headaches. 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 She was seen by her PCP and placed on Pepcid but did not have any improvement of her pain. Yesterday morning she woke up and passed moderate amount of dark stool in the toilet and also noted bright red blood on the toilet paper when she wiped. She had 6 episodes total and called EMS and she was brought in the hospital. Initially blood pressure was 132/84 and heart rate 93. Initial hemoglobin was 8.2. Patient continued to have rectal bleeding and was transfused initially 4 units packed RBCs and was admitted into intensive care unit. She did have a syncopal episode while getting to the bathroom and continued to be hypotensive despite IV fluids and blood products. She has had a right femoral triple-lumen catheter, left radial arterial line placed. She has currently been transfused a total of 9 units of packed RBCs and ordered for 1 unit of platelets. She was seen by GI and underwent EGD that found large actively bleeding duodenal ulcer treated with epinephrine injection and Endo Clip placement with continued bleeding from the ulcer site. Large amount of old blood and clots in the stomach. She was found to also have bleeding cystic artery. General surgery was thus involved in the OR.she is currently on Levaquin at 20 mics and status post 8 L of IV fluid. She is intubated and on mechanical ventilation with tidal volume 500, FiO2 40, PEEP 5. /: Patient remains in the intensive care unit, intubated and on mechanical ventilation with tidal volume 350, FiO2 40, PEEP of 5 and successfully extubated. She is complaining of aching in her abdomen. She is not passing any gas. She has a very low dose of levothyroid. She did have low urine output during the night and received 2 doses of Lasix has been running at least 50 mL per hour. 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 Blood work this morning reveals WBC 20.2, hemoglobin 15.1, platelet count 117. Sodium 138, potassium 3.7, chloride 114, CO2 22, BUN 19 and creatinine 0.93. Blood sugar 239. Calcium 5.9, AST 38, ALT 13, alkaline phosphatase 26, albumin 1.5. Sputum for Gram stain and culture has been obtained. Patient has been transfused a total of 10 units of packed RBCs. Chest x-ray this morning reveals endotracheal tube distal tip at the level of the clavicle heads. No focal airspace opacities. Patient's has been updated. Patient has history that she has been drinking 2-3 glasses of wine daily for the past 1 year. 03/18: Patient remains in the intensive care unit, she is pulse ox 93-98% on room air. Blood pressure 102/59, heart rate 84, afebrile. She is off norepinephrine. Repeat blood work reveals WBC 11.1, hemoglobin 10.6, platelet count 110. PT 9.4, INR 0.9, PTT 27.9, fibrinogen 404. Sodium 140, potassium 3.1 replaced, chloride 114, CO2 UN 19 and creatinine 0.59. Blood sugar 123. Calcium 6.6, ionized calcium 4.7, phosphorus 2.7. Sputum cultures in progress. Repeat chest x-ray reveals bibasilar airspace opacities and haziness of the left hemidiaphragm may represent atelectasis versus developing airspace disease. Ga llbladder pathology report reveals chronic cholecystitis with subserosal abscess, fibrosis, inflammation and fat necrosis. Patient complains of right upper quadrant abdominal pain. She states she slept off and on but there was a loud patient on the unit and kept her awake. She denies having any shortness of breath. She feels she has gas in her abdomen but not passing any gas no bowel movement. She denies having any nausea. She denies having any hallucinations and mental status is improving. She states she is reaching a 1000 mL on incentive spirometry and utilizing every other hour. Brother is at bedside. Patient is planning for outpatient physical therapy. REVIEW OF SYSTEMS Constitutional: No fever, no chills. Reports generalized weakness. Reports daytime sleepiness. EENT: No headache. No blurred vision or double vision, no loss of vision. No dizziness. No nasal drainage or congestion. No epistaxis. Lungs: No shortness of breath, cough, no sputum production. No wheezing. Cardiovascular: No chest pain, no lower extremity edema. No palpitations. No paroxysmal nocturnal dyspnea. No orthopnea. No lightheadedness or dizziness. No syncopal episodes. Abdominal: Reports epigastric and upper quadrants abdominal pain. Denies nausea denies vomiting. No diarrhea. Reports no bowel movement. Reports no flatulence. Genitourinary: No dysuria, increased frequency, urgency. No urinary retention. Musculoskeletal: No myalgias. No muscle weakness, no gait dysfunction, no frequent falls. No back pain. No neck pain. Integumentary: No wounds, no lesions. No rash or pruritus. No unusual bruising. No change in hair or nails. Neurologic: No aphasia. No facial droop. No change in mentation. No head injury. No headache. No paralysis. No paresthesia. Psychiatric: No depression. No anxiety. No mood swings. Endocrine: No abnormal blood sugars. No weight change. No excessive sweating or thirst. No cold intolerance. PHYSICAL EXAMINATION Gen: This is a 49-year-old female. She is intubated and on mechanical ventilation. HEENT: Head is atraumatic, normocephalic. Pupils equal, round. Sclerae is an icteric. Conjunctiva pale. NECK: Supple. No JVD. No lymphadenopathy. No thyromegaly. LUNGS: Clear to auscultation. No wheezes or rhonchi. No intercostal retractions. HEART: Regular rate and rhythm. No murmur. ABDOMEN: Soft. Bowel sounds are hypoactive No masses. Right upper quadrant tenderness. Dressing in place over central abdominal surgical wound and MARLEY drain was serosanguineous fluid. EXTREMITIES: No pedal edema. No calf tenderness. Dotson catheter in place draining clear luis miguel urine. NEUROLOGICAL: Patient is awake and alert, moving all extremities, answering questions appropriately but slow, follow simple commands. ASSESSMENT AND PLAN 1. Acute blood loss anemia with acute GI bleed secondary to duodenal ulcer status post EGD, endoclips with persistent active bleeding secondary to bleeding cystic artery. Patient is status post total of 10 units packed RBCs, continue to monitor hemoglobin closely and transfuse as necessary. Continue Protonix 40 mg IV twice daily. Continue Zosyn. 2. Acute GI bleed secondary to duodenal ulcer and bleeding cystic artery status post repair of bleeding duodenal ulcer, cholecystectomy, repair of incisional hernia. 3. History of gastroesophageal reflux disease 4. Hemorrhagic shock requiring massive blood transfusion, IV fluid resuscitation and vasopressor. Continue management per Dr. Simpson. Patient is off vasopressor. 5. Acute hypoxic respiratory failure secondary to shock, successfully extubated. Managed by jack tamp operator. 6. Thrombocytopenia secondary to shock. Continue to monitor. Patient did not receive platelets. 7. Massive transfusion. Monitor CBC, CMP, ionized calcium daily. 8. Severe metabolic acidosis status post 2 A of bicarb. 9. DVT prophylaxis. Lovenox subcu. 10. Tobacco use and dependence. Continue nicotine patch. 11. GI prophylaxis. Protonix. 12. Hypocalcemia. Replacement. Continue to monitor. 13. Hyperchloremia. IV fluids changed to D5 with normal saline at 75 mL per hour. 14. History of alcohol abuse. Patient started on CIWA protocol. 15. Coagulopathy secondary to massive GI bleed and transfusion, stable Discharge plan: most likely home with outpatient physical therapy Impression and plan of care have been directed as dictated by the signing physician. Ana Luisa Herron nurse practitioner acting as scribe for signing physician. Objective - Vital Signs Vital signs: Vital Signs Temp 99.0 F 03/18/20 04:00 Pulse 84 03/18/20 07:00 Resp 15 03/18/20 07:00 BP 102/59 03/18/20 07:00 Pulse Ox 93 L 03/18/20 07:00 Intake & Output 03/17/20 03/18/20 03/18/20 18:59 06:59 18:59 Intake Total 2402.465 1600 75 Output Total 735 550 50 Balance 292.091 450 25 Weight 63 kg Intake: IV 850 900 75 0.9 NS 200 Dextrose 5% in Water 1, 200 000 ml @ 100 mls/hr IV . [id number] ALEKSANDRA with Sodium Bicarb (1 Meq/ml) 150 ml Rx#:[id number] Dextrose 5%-0.9% NaCl 1, 450 900 75 000 ml @ 75 mls/hr IV . [id number] ALEKSANDRA Rx#:[id number] Intake, IV Titration 177.091 100 Amount Norepinephrine 32 mg In 29.340 Sodium Chloride 0.9% 218 ml @ 0.05 MCG/KG/MIN 1. 277 mls/hr IV .Q24H ALEKSANDRA Rx#:[id number] Piperacillin-Tazobactam 3 100 100 .375 gm In Sodium Chloride 0.9% 100 ml @ 25 mls/hr IVPB Q8HR ALEKSANDRA Rx# :[id number] propofoL 1,000 mg In 47.751 Empty Bag 1 bag @ Titrate IV .Q0M ALEKSANDRA Rx#: [id number] Output: Drainage 50 Left Abdomen 50 Urine 685 550 50 Other: Voiding Method Indwelling Catheter Indwelling Catheter ABP, PAP, CO, CI - Last Documented Arterial Blood Pressure 105/72 - Labs CBC & Chem 7: 03/18/20 04:30 03/18/20 04:30 Labs: Abnormal Lab Results - Last 24 Hours (Table) 03/17/20 03/18/20 03/18/20 Range/Units 11:35 04:30 04:30 WBC 11.1 H (3.8-10.6) k/uL RBC 3.48 L (3.80-5.40) m/uL Hgb 10.6 L D (11.4-16.0) gm/dL Hct 31.8 L (34.0-46.0) % Plt Count 110 L (150-450) k/uL Neutrophils # 8.8 H (1.3-7.7) k/uL ABG HCO3 26 H (21-25) mmol/L ABG Total CO2 27 H (19-24) mmol/L ABG O2 Saturation 98.2 H (94-97) % Potassium 3.1 L (3.5-5.1) mmol/L Chloride 114 H (98-107) mmol/L BUN 19 H (7-17) mg/dL Glucose 123 H (74-99) mg/dL Calcium 6.6 L (8.4-10.2) mg/dL
[2020-03-18] MEDS: POTASSIUM CHLORIDE 20 MEQ in WATER FOR INJECTION 1 100ML.BAG IVPB SCH ×2 (15:23→15:28)
--- NOTE | 2020-03-18 15:31 | P.PN ---
Subjective Progress Note Date: 03/18/20 Principal diagnosis: GI bleed This is a 49-year-old male who was seen and examined in the ICU. She is status post EGD with a large actively bleeding duodenal ulcer treated with epinephrine injection and Endo clip placment with continuation of bleeding. General surgery was then consulted and the patient was taken to the operating room which they performed a repair of a bleeding duodenal ulcer with penetration into the cystic artery, cholecystectomy, and repair of incisional hernia. The patient is status post 10 units of packed red cells. Her hemoglobin is stable this morning is 10.6, WBC 11.1. She was extubated yesterday and is doing well. NG tube has been discontinued. Levophed has been discontinued. Patient denies any signs of GI bleed. She denies any bowel movement. She states she has incisional abdominal pain. She denies any nausea or vomiting. Objective - Vital Signs Vital signs: Vital Signs Temp 99.0 F 03/18/20 04:00 Pulse 78 03/18/20 12:00 Resp 19 03/18/20 12:00 BP 94/52 03/18/20 12:00 Pulse Ox 94 L 03/18/20 12:00 Intake & Output 03/17/20 03/18/20 03/18/20 18:59 06:59 18:59 Intake Total 6313.781 6588 150 Output Total 735 550 205 Balance 292.091 450 -55 Weight 63 kg Intake: IV 850 900 150 0.9 NS 200 Dextrose 5% in Water 1, 200 000 ml @ 100 mls/hr IV . [id number] ALEKSANDRA with Sodium Bicarb (1 Meq/ml) 150 ml Rx#:[id number] Dextrose 5%-0.9% NaCl 1, 450 900 150 000 ml @ 75 mls/hr IV . [id number] ALEKSANDRA Rx#:[id number] Intake, IV Titration 177.091 100 Amount Norepinephrine 32 mg In 29.340 Sodium Chloride 0.9% 218 ml @ 0.05 MCG/KG/MIN 1. 277 mls/hr IV .Q24H ALEKSANDRA Rx#:[id number] Piperacillin-Tazobactam 3 100 100 .375 gm In Sodium Chloride 0.9% 100 ml @ 25 mls/hr IVPB Q8HR ALEKSANDRA Rx# :[id number] propofoL 1,000 mg In 47.751 Empty Bag 1 bag @ Titrate IV .Q0M [facility] Rx#: [id number] Output: Drainage 50 100 Left Abdomen 50 100 Urine 685 550 105 Other: Voiding Method Indwelling Catheter Indwelling Catheter Indwelling Catheter ABP, PAP, CO, CI - Last Documented Arterial Blood Pressure 105/72 - Exam General appearance: Alert, oriented, in no acute distress. HET: Head is normocephalic and atraumatic. Neck: Supple Heart: S1 S2. Regular rate and rhythm. Lungs: No crackles or wheezes are heard. Abdomen: Soft, nondistended with bowel sounds. No peritoneal signs. No palpable organomegaly or masses. Extremities: Normal skin color and turgor. Neurological: Alert and oriented 3. No focal deficits. - Labs CBC & Chem 7: 03/18/20 04:30 03/18/20 04:30 Labs: Abnormal Lab Results - Last 24 Hours (Table) 03/18/20 03/18/20 Range/Units 04:30 04:30 WBC 11.1 H (3.8-10.6) k/uL RBC 3.48 L (3.80-5.40) m/uL Hgb 10.6 L D (11.4-16.0) gm/dL Hct 31.8 L (34.0-46.0) % Plt Count 110 L (150-450) k/uL Neutrophils # 8.8 H (1.3-7.7) k/uL Potassium 3.1 L (3.5-5.1) mmol/L Chloride 114 H (98-107) mmol/L BUN 19 H (7-17) mg/dL Glucose 123 H (74-99) mg/dL Calcium 6.6 L (8.4-10.2) mg/dL Assessment and Plan Assessment: (1) Anemia associated with acute blood loss Narrative/Plan: 49-year-old female presenting with acute symptomatic anemia secondary to acute blood loss. Denies any prior history. Denies heavy alcohol use in the past but does report drinking 3 alcoholic beverages daily over the past year. Denies any history of GI bleed. She is been having multiple melanotic bowel movements over the past week. Found to have a hemoglobin of 9.0 on presentation. She is continued to have GI bleeding and was admitted to the ICU. Unknown etiology, differential includes peptic ulcer disease, Dieulafoy lesion, AVM, or other etiology. Current Visit: Yes Status: Acute Code(s): D62 - ACUTE POSTHEMORRHAGIC ANEMIA SNOMED Code(s): 949018767 (2) Melena Current Visit: Yes Status: Acute Code(s): K92.1 - MELENA SNOMED Code(s): 7259230 (1) Duodenal ulcer Narrative/Plan: The patient underwent EGD yesterday and was found to have a large actively bleeding duodenal ulcer that was treated with epinephrine injection and Endo Clip placement with continued bleeding from the ulcer site. There was noted to be large amounts of old blood and clots in the stomach. Gen. surgery was subsequently consult and the patient was taken to the operating room which they found a bleeding duodenal ulcer with penetration into the cystic artery which was repaired, also a cholecystectomy and repair of an incisional hernia was completed. Current Visit: Yes Status: Acute Code(s): K26.9 - DUODENAL ULCER, UNSP ACUTE OR CHRONIC, W/O HEMOR OR PERF SNOMED Code(s): 75505663 Plan: Supportive care Patient is status post EGD the large actively bleeding duodenal ulcer treated with epinephrine injection and Endo Clip with continuation of bleeding Patient is status post repair of bleeding duodenal ulcer with penetration into the cystic artery and cholecystectomy as well as repair of incisional hernia. Patient transfused 10 units of packed red blood cells Continue IV Protonix therapy Continue to monitor hemoglobin and hematocrit and transfuse as needed Continue ICU care Avoid NSAID use Avoid anticoagulation therapy at this time Continue with surgical recommendations Thank you for allowing us to participate in the care of the patient. We will be on standby at this time, please do not hesitate to call us with any questions or concerns. The impression and plan of care has been dictated as directed. Dr. Laz Calloway I performed a history and examination of this patient, discussed the same with the dictator. I agree with the dictator's note ,documented as a scribe. Any additional findings or plans will be noted.
[2020-03-18] MEDS: THIAMINE 100 MG in SODIUM CHLORIDE 0.9% 50 ML IVPB SCH (21:03)
[2020-03-19] MEDS: MORPHINE SULFATE 2 MG/ML SYRINGE IVP PRN ×5 (00:05→20:06)
[2020-03-19] MEDS: PIPERACILLIN-TAZOBACTAM 3.375 GM in SODIUM CHLORIDE 0.9% 100 ML IVPB SCH ×3 (00:07→17:19)
[2020-03-19] MEDS: DEXTROSE 5%-0.9% NACL 1,000 ML IV SCH ×2 (04:12→18:40)
[2020-03-19 05:16] LABS: HCT 30.6 % (34.0-46.0); MCH 30.6 pg (25.0-35.0); MCHC 32.8 g/dL (31.0-37.0); MCV 93.3 fL (80.0-100.0); Mean Platelet Volume 7.7; RBC 3.28 m/uL (3.80-5.40); WBC 7.5 k/uL (3.8-10.6)
[2020-03-19 05:19] LABS: Platelet Count 171 k/uL (150-450)
[2020-03-19 06:06] LABS: ALT 10 U/L (4-34); AST 35 U/L (14-36); African American GFR (CKD) >90 (>60 ml/min/1.73 sqM); Albumin 1.6 g/dL (3.5-5.0); Alkaline Phosphatase 40 U/L (38-126); Anion Gap 0 mmol/L; Blood Urea Nitrogen 13 mg/dL (7-17); Calcium 7.2 mg/dL (8.4-10.2); Carbon Dioxide 29 mmol/L (22-30); Chloride 114 mmol/L (98-107); Glucose 94 mg/dL (74-99); Non-African American GFR(CKD) >90 (>60 ml/min/1.73 sqM); Potassium 3.1 mmol/L (3.5-5.1); Sodium 143 mmol/L (137-145); Total Bilirubin 0.6 mg/dL (0.2-1.3); Total Protein 3.2 g/dL (6.3-8.2)
[2020-03-19] MEDS: POTASSIUM CHLORIDE 10 MEQ in WATER FOR INJECTION 1 100ML.BAG IVPB SCH ×4 (06:27→11:10)
--- NOTE | 2020-03-19 07:34 | XR ---
EXAMINATION TYPE: XR chest 1V portable DATE OF EXAM: 03/19/2020 COMPARISON: Prior chest x-ray 03/18/2020 HISTORY: Abnormal chest x-ray TECHNIQUE: Single frontal view of the chest is obtained. FINDINGS: Bibasilar increased attenuation again noted. No evident pneumothorax. Patient is rotated. Heart is stable. Pulmonary vascularity and renato are unchanged. No significant interval change. IMPRESSION: Stable findings. Correlate for pneumonia, atelectasis, possible effusions
[2020-03-19] MEDS: PANTOPRAZOLE 40 MG/10 ML VIAL IV SCH ×2 (08:53→20:06)
[2020-03-19] MEDS: NICOTINE 14MG/24HR PATCH TRANSDERM SCH (08:54)
[2020-03-19] MEDS: THIAMINE 100 MG in SODIUM CHLORIDE 0.9% 50 ML IVPB SCH (09:15)
[2020-03-19] MEDS: ENOXAPARIN 40 MG/0.4 ML SYRINGE SQ SCH (09:18)
[2020-03-19 11:15] VITALS: BMI 23.5
--- NOTE | 2020-03-19 11:37 | P.PN ---
Subjective Progress Note Date: 03/19/20 Principal diagnosis: Acute massive upper GI bleeding secondary to duodenal ulcer. This is a 49-year-old female, history of alcohol abuse, drinks on the average of 3 alcoholic beverages per day. Patient uses occasional Excedrin roughly on the average a 1 time per week, no previous history of GI bleeding no history of peptic ulcer disease. No history of diverticular disease or colitis. Patient presented to the hospital with a few days' history of intermittent episodes of epigastric discomfort, nausea, and has been noticing black tarry stools. Patient was also complaining of generalized weakness, lightheadedness, and upon her early evaluation in the ER, her hemoglobin was noted to be 9.0. Since presentation to the hospital, patient had multiple episodes of black tarry stools and she required at least 4 units of packed RBCs before I even evaluated the patient. I walked into the ICU, patient was noted to have significant rectal bleeding she was hypotensive in spite of fluids and blood products. She had one peripheral IV access and I placed a right femoral triple-lumen catheter. Also placed a left radial arterial line. Recommended immediate surgical consultation and GI consultation. And ordered more blood transfusions. I believe the patient received a total of 9 units of packed RBCs, she underwent EGD, and she was found to have a bleeding was an ulcer. Surgery evaluated the patient immediately, and she was found to have perforated duodenal ulcer and bleeding cystic artery. I was updated on her condition by Dr. Rosales/general surgeon on the case, and the patient is presently in the operating room. Patient was reevaluated today on 03/17/20, remains in the ICU, intubated and mechanically ventilated. Her ventilator settings are assist control rate of 28 tidal volume of 350 FiO2 40% and PEEP of 5. Patient is on propofol 50 mcg/kg/m, norepinephrine at 0.11 mcg/kg/m, and on bicarb drip which I have discontinued. Patient is hemodynamically stable and she is on a minimal dose of norepinephrine. And this would likely be discontinued once the patient is off propofol. Patient is arousable while on propofol, waking up and following very simple instructions. She is in sinus tachycardia with a rate of 108. Today I have discontinued her bicarb and added Zosyn. And I plan to give the patient is sedation holiday, and likely switch the patient to a pressure support of 8 and CPAP, and given a weaning trial. WBC count is 20.2 hemoglobin is 15.1. ABG showed a pO2 of 113 pCO2 of 39 pH of 7.42 and this is a 40% FiO2. Bicarb is 26 and I have discontinued her bicarb. Basic metabolic profile is normal and he profile is normal. Calcium is a bit low, the patient to receive 1 amp of calcium gluconate. Patient was reevaluated today on 03/18/20, patient tolerated the extubation well. Presently on few liters nasal cannula, and she is doing great. Hemodynamically stable, in no distress. Hemoglobin today is 10.6. WBC count is 11.1. *Normal except for low potassium being corrected as per protocol. Remains nothing by mouth. And there is no gastric tube in place Reevaluated today on 03/19/20, patient remains in the ICU as an overflow. Patient has no further episodes of GI bleeding, she is now on room air, her hemoglobin is 10. Remains nothing by mouth, no bowel movements so far. Continues to have tender abdomen. But overall the patient is doing much better and she is hemodynamically stable. Still doing poorly with incentive spirometry. Chest x- ray is basically unremarkable. WBC count is 7.5 hemoglobin is 10 Sub-normal except for low potassium 3.1 being corrected as per protocol. Objective - Vital Signs Vital signs: Vital Signs Temp 98.1 F 03/19/20 04:00 Pulse 71 03/19/20 08:00 Resp 18 03/19/20 08:00 BP 105/63 03/19/20 08:00 Pulse Ox 96 03/19/20 08:00 Intake & Output 03/18/20 03/19/20 03/19/20 18:59 06:59 18:59 Intake Total 600 1050 Output Total 875 890 Balance -275 160 Weight 64.1 kg 64.1 kg Intake: IV 500 1050 Dextrose 5%-0.9% NaCl 1, 500 900 000 ml @ 75 mls/hr IV . [id number] ALE[facility]ANDR[facility] Rx#:[id number] Piperacillin-Tazobactam 3 100 .375 gm In Sodium Chloride 0.9% 100 ml @ 25 mls/hr IVPB Q8HR [facility] Rx# :[id number] Thiamine 100 mg In Sodium 50 Chloride 0.9% 50 ml @ 100 mls/hr IVPB Q12HR [facility] Rx#:[id number] Intake, IV Titration 100 Amount Potassium Chloride 20 meq 100 In Water For Injection 1 100ml.bag @ 50 mls/hr IVPB Q2H [facility] Rx#: [id number] Output: Drainage 170 340 Left Abdomen 170 340 Urine 705 550 Other: Voiding Method Indwelling Catheter Indwelling Catheter Indwelling Catheter ABP, PAP, CO, CI - Last Documented Arterial Blood Pressure 105/72 - Exam Physical Exam: Revealed 49-year-old female awake, alert, in no distress, on room air. Head: Atraumatic, normocephalic. HEENT: [Neck is supple.] [No neck masses.] [No thyromegaly.] [No JVD.] Chest: [Symmetrical chest expansion, diminished at the bases, no rhonchi no wheezes. Cardiac Exam: [Normal S1 and S2, no S3 gallop, no murmur.] Abdomen: Postsurgical, dressing is clean and dry. [Soft, slightly tender., no megaly, no rebound, no guarding, diminished bowel sounds.] MARYELLEN drain is noted. Serosanguineous drainage noted in the maryellen drain. Extremities: [No clubbing, no edema, no cyanosis.] Neurological Exam: Alert and oriented 3 focal deficits. Skin: No rashes. Psychiatric: Normal mood, affect and normal mental status examination Musculoskeletal: No limitations in range of motion and no deformities - Labs CBC & Chem 7: 03/19/20 04:38 03/19/20 04:38 Labs: Abnormal Lab Results - Last 24 Hours (Table) 03/19/20 03/19/20 Range/Units 04:38 04:38 RBC 3.28 L (3.80-5.40) m/uL Hgb 10.0 L (11.4-16.0) gm/dL Hct 30.6 L (34.0-46.0) % Potassium 3.1 L (3.5-5.1) mmol/L Chloride 114 H (98-107) mmol/L Creatinine 0.48 L (0.52-1.04) mg/dL Calcium 7.2 L (8.4-10.2) mg/dL Total Protein 3.2 L (6.3-8.2) g/dL Albumin 1.6 L (3.5-5.0) g/dL Microbiology - Last 24 Hours (Table) 03/16/20 17:00 Gram Stain - Final Sputum Sputum Culture - Final Assessment and Plan Assessment: Impression: Status post exploratory laparotomy and repair of bleeding duodenal ulcer, cholecystectomy and repair of incisional hernia postoperative day #3 Acute upper GI bleeding secondary to duodenal ulcer Status post EGD and endoclips application, but persistent active bleeding. History of alcohol abuse. Hypovolemic shock on presentation secondary to GI bleeding/hemorrhagic shock, resolved. Recommendation: Continue Protonix. Continue Alcohol withdrawal protocol. Continue incentive spirometry. Continue nothing by mouth, until cleared by surgery for starting enteral feeding or diet. Ambulate as tolerated. Continue GI and DVT prophylaxis. We'll continue to follow. Time with Patient: Less than 30
[2020-03-19 12:10] LABS: Magnesium 1.7 mg/dL (1.6-2.3); Phosphorus 2.2 mg/dL (2.5-4.5)
[2020-03-19] MEDS: MAGNESIUM SULFATE-D5W PMX 1 GM in DEXTROSE/WATER 1 100ML.BAG IVPB SCH ×2 (13:33→15:11)
[2020-03-19] MEDS ORDERED: MVI, ADULT NO.4 WITH VIT K 10 ML, TRACE (CONC-1ML/DOSE) 1 ML in AMINO ACID 4.25%-D10W+L... IV ONE ×3 (14:00)
[2020-03-19] MEDS ORDERED: SODIUM PHOSPHATE 10 MMOL in SODIUM CHLORIDE 0.9% 250 ML IVPB ONE (14:00)
--- NOTE | 2020-03-19 14:11 | P.PN ---
Subjective Progress Note Date: 03/19/20 HISTORY OF PRESENT ILLNESS This is a 49-year-old female patient of Dr. Chaka Mora with past medical history of gastric esophageal reflux disease, tobacco use. Patient presented to [facility] emergency center due to bright red blood and dark tarry stools per rectum. She began having epigastric pain last week and was drinking an average of 2 alcoholic drinks per day as well as taking Excedrin for headaches. 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 She was seen by her PCP and placed on Pepcid but did not have any improvement of her pain. Yesterday morning she woke up and passed moderate amount of dark stool in the toilet and also noted bright red blood on the toilet paper when she wiped. She had 6 episodes total and called EMS and she was brought in the hospital. Initially blood pressure was 132/84 and heart rate 93. Initial hemoglobin was 8.2. Patient continued to have rectal bleeding and was transfused initially 4 units packed RBCs and was admitted into intensive care unit. She did have a syncopal episode while getting to the bathroom and continued to be hypotensive despite IV fluids and blood products. She has had a right femoral triple-lumen catheter, left radial arterial line placed. She has currently been transfused a total of 9 units of packed RBCs and ordered for 1 unit of platelets. She was seen by GI and underwent EGD that found large actively bleeding duodenal ulcer treated with epinephrine injection and Endo Clip placement with continued bleeding from the ulcer site. Large amount of old blood and clots in the stomach. She was found to also have bleeding cystic artery. General surgery was thus involved in the OR.she is currently on Levaquin at 20 mics and status post 8 L of IV fluid. She is intubated and on mechanical ventilation with tidal volume 500, FiO2 40, PEEP 5. /: Patient remains in the intensive care unit, intubated and on mechanical ventilation with tidal volume 350, FiO2 40, PEEP of 5 and successfully extubated. She is complaining of aching in her abdomen. She is not passing any gas. She has a very low dose of levothyroid. She did have low urine output during the night and received 2 doses of Lasix has been running at least 50 mL per hour. Patient received 1 g of calcium and we will repeat a second gram today.Patient has been afebrile, heart rate in the low 100s, respiratory rate 25, blood pressure 90/52, practice physician sinus tachycardia. Blood work this morning reveals WBC 20.2, hemoglobin 15.1, platelet count 117. Sodium 138, potassium 3.7, chloride 114, CO2 22, BUN 19 and creatinine 0.93. Blood sugar 239. Calcium 5.9, AST 38, ALT 13, alkaline phosphatase 26, albumin 1.5. Sputum for Gram stain and culture has been obtained. Patient has been transfused a total of 10 units of packed RBCs. Chest x-ray this morning reveals endotracheal tube distal tip at the level of the clavicle heads. No focal airspace opacities. Patient's has been updated. Patient has history that she has been drinking 2-3 glasses of wine daily for the past 1 year. 03/18: Patient remains in the intensive care unit, she is pulse ox 93-98% on room air. Blood pressure 102/59, heart rate 84, afebrile. She is off norepinephrine. Repeat blood work reveals WBC 11.1, hemoglobin 10.6, platelet count 110. PT 9.4, INR 0.9, PTT 27.9, fibrinogen 404. Sodium 140, potassium 3.1 replaced, chloride 114, CO2 UN 19 and creatinine 0.59. Blood sugar 123. Calcium 6.6, ionized calcium 4.7, phosphorus 2.7. Sputum cultures in progress. Repeat chest x-ray reveals bibasilar airspace opacities and haziness of the left hemidiaphragm may represent atelectasis versus developing airspace disease. Ga llbladder pathology report reveals chronic cholecystitis with subserosal abscess, fibrosis, inflammation and fat necrosis. Patient complains of right upper quadrant abdominal pain. She states she slept off and on but there was a loud patient on the unit and kept her awake. She denies having any shortness of breath. She feels she has gas in her abdomen but not passing any gas no bowel movement. She denies having any nausea. She denies having any hallucinations and mental status is improving. She states she is reaching a 1000 mL on incentive spirometry and utilizing every other hour. Brother is at bedside. Patient is planning for outpatient physical therapy. 03/19: Patient is waiting for a [facility] bed without telemetry and remains in the intensive care unit. She has been afebrile, heart rate 71, blood pressure 105/63, pulse ox 96% on room air. Hemoglobin this morning is at 10.0. Potassium 3.1 and was replaced, chloride 114. Ionized calcium 5.0. Albumin 1.6. Sputum culture finalized with normal respiratory srinath. Chest x-ray reveals stable findings. Correlate for pneumonia, atelectasis, possible effusions. Patient continues to have abdominal pain. The incision site to the right running between 4-6. MARLEY drain remains intact with serosanguineous drainage. She is using incentive spirometry up to 1500 ML's. Dotson catheter removed. She has not had a bowel movement yet. Patient states that she is feeling tired. She does complain of pain with coughing. She states she has belching with minimal flatulence. REVIEW OF SYSTEMS Constitutional: No fever, no chills. Reports generalized weakness. Denies daytime sleepiness. EENT: No headache. No blurred vision or double vision, no loss of vision. No dizziness. No nasal drainage or congestion. No epistaxis. Lungs: No shortness of breath, cough, no sputum production. No wheezing. Cardiovascular: No chest pain, no lower extremity edema. No palpitations. No paroxysmal nocturnal dyspnea. No orthopnea. No lightheadedness or dizziness. No syncopal episodes. Abdominal: Reports epigastric and upper quadrants abdominal pain. Denies nausea denies vomiting. No diarrhea. Reports no bowel movement. Reports no flatulence. Genitourinary: No dysuria, increased frequency, urgency. No urinary retention. Musculoskeletal: No myalgias. No muscle weakness, no gait dysfunction, no f requent falls. No back pain. No neck pain. Integumentary: No wounds, no lesions. No rash or pruritus. No unusual bruising. No change in hair or nails. Neurologic: No aphasia. No facial droop. No change in mentation. No head injury. No headache. No paralysis. No paresthesia. Psychiatric: No depression. No anxiety. No mood swings. Endocrine: No abnormal blood sugars. No weight change. No excessive sweating or thirst. No cold intolerance. PHYSICAL EXAMINATION Gen: This is a 49-year-old female. She is awake and alert, speech is clear. HEENT: Head is atraumatic, normocephalic. Pupils equal, round. Sclerae is anicteric. Conjunctiva pale. NECK: Supple. No JVD. No lymphadenopathy. No thyromegaly. LUNGS: Clear to auscultation. No wheezes or rhonchi. No intercostal retractions. HEART: Regular rate and rhythm. No murmur. ABDOMEN: Soft. Bowel sounds are hypoactive. No masses. Right upper quadrant tenderness. Dressing in place over central abdominal surgical wound and MARLEY drain was serosanguineous fluid. EXTREMITIES: No pedal edema. No calf tenderness. NEUROLOGICAL: Patient is awake and alert, moving all extremities, answering questions appropriately but slow, follow simple commands. ASSESSMENT AND PLAN 1. Acute blood loss anemia with acute GI bleed secondary to duodenal ulcer status post EGD, endoclips with persistent active bleeding secondary to bleeding cystic artery. Patient is status post total of 10 units packed RBCs, continue to monitor hemoglobin closely and transfuse as necessary. Continue Protonix 40 mg IV twice daily. 2. Acute GI bleed secondary to duodenal ulcer and bleeding cystic artery status post repair of bleeding duodenal ulcer, cholecystectomy, repair of incisional hernia. 3. History of gastroesophageal reflux disease 4. Hemorrhagic shock requiring massive blood transfusion, IV fluid resuscitation and vasopressor. Continue management per Dr. Simpson. Patient is off vasopressor. 5. Acute hypoxic respiratory failure secondary to shock, successfully extubated. Managed by thoracic medicine specialist. 6. Thrombocytopenia secondary to shock. Continue to monitor. Patient did not receive platelets. 7. Massive transfusion. Monitor CBC, CMP, ionized calcium daily. 8. Severe metabolic acidosis status post 2 A of bicarb. 9. DVT prophylaxis. Lovenox subcu. 10. Tobacco use and dependence. Continue nicotine patch. 11. GI prophylaxis. Protonix. 12. Hypocalcemia. Replacement. Continue to monitor. 13. Hyperchloremia. IV fluids changed to D5 with normal saline at 75 mL per hour. 14. History of alcohol abuse. Patient started on CIWA protocol. 15. Coagulopathy secondary to massive GI bleed and transfusion, stable 16. Possible aspiration pneumonitis. Patient is on Zosyn per pulmonary medicine. Discharge plan: most likely home with outpatient physical therapy Impression and plan of care have been directed as dictated by the signing physician. Ana Luisa Herron nurse practitioner acting as scribe for signing physician. Objective - Vital Signs Vital signs: Vital Signs Temp 98.1 F 03/19/20 04:00 Pulse 71 03/19/20 08:00 Resp 18 03/19/20 08:00 BP 105/63 03/19/20 08:00 Pulse Ox 96 03/19/20 08:00 Intake & Output 03/18/20 03/19/20 03/19/20 18:59 06:59 18:59 Intake Total 600 1050 Output Total 875 890 Balance -275 160 Weight 64.1 kg Intake: IV 500 1050 Dextrose 5%-0.9% NaCl 1, 500 900 000 ml @ 75 mls/hr IV . [id number] ALEKSANDRA Rx#:[id number] Piperacillin-Tazobactam 3 100 .375 gm In Sodium Chloride 0.9% 100 ml @ 25 mls/hr IVPB Q8HR ALEKSANDRA Rx# :[id number] Thiamine 100 mg In Sodium 50 Chloride 0.9% 50 ml @ 100 mls/hr IVPB Q12HR ALEKSANDRA Rx#:[id number] Intake, IV Titration 100 Amount Potassium Chloride 20 meq 100 In Water For Injection 1 100ml.bag @ 50 mls/hr IVPB Q2H ALEKSANDRA Rx#: [id number] Output: Drainage 170 340 Left Abdomen 170 340 Urine 705 550 Other: Voiding Method Indwelling Catheter Indwelling Catheter ABP, PAP, CO, CI - Last Documented Arterial Blood Pressure 105/72 - Labs CBC & Chem 7: 03/19/20 04:38 03/19/20 13:14 Labs: Abnormal Lab Results - Last 24 Hours (Table) 03/19/20 03/19/20 Range/Units 04:38 04:38 RBC 3.28 L (3.80-5.40) m/uL Hgb 10.0 L (11.4-16.0) gm/dL Hct 30.6 L (34.0-46.0) % Potassium 3.1 L (3.5-5.1) mmol/L Chloride 114 H (98-107) mmol/L Creatinine 0.48 L (0.52-1.04) mg/dL Calcium 7.2 L (8.4-10.2) mg/dL Total Protein 3.2 L (6.3-8.2) g/dL Albumin 1.6 L (3.5-5.0) g/dL Microbiology - Last 24 Hours (Table) 03/16/20 17:00 Gram Stain - Final Sputum Sputum Culture - Final
--- NOTE | 2020-03-19 14:41 | P.PN ---
Subjective Progress Note Date: 03/19/20 CHIEF COMPLAINT: Rectal bleeding HISTORY OF PRESENT ILLNESS: This is a 49-year-old female with a bleeding duodenal ulcer noted on EGD. She underwent repair of bleeding duodenal ulcer, cholecystectomy and repair of incisional hernia with Dr. Rosales. Patient remains in the ICU. She's sitting in bedside chair. She is currently nothing by mouth. She is afebrile. WBC is 7.5 hemoglobin 10 potassium 3.1 and being replaced PHYSICAL EXAM: VITAL SIGNS: Reviewed. GENERAL: Well-developed in no acute distress. HEENT: No sclera icterus. Extraocular movements grossly intact. Moist buccal mucosa. Head is atraumatic, normocephalic. ABDOMEN: Soft. Nondistended. Nontender. NEUROLOGIC: Alert and oriented. Cranial nerves II through XII grossly intact. ASSESSMENT: 1. Bleeding duodenal ulcer 2. Status post Repair of bleeding duodenal ulcer, Cholecystectomy and Repair of incisional hernia POD #2 3. Acute GI bleed secondary to bleeding duodenal ulcer 4. Acute blood loss anemia secondary to bleeding duodenal ulcer 5. Hypokalemia PLAN: -Consult dietitian and start PPN -Continue IV antibiotics -Continue IV Protonix -Continue ICU management -Oral swabs only. Keep patient nothing by mouth -DVT prophylaxis Lovenox Physician Systems Navigator note has been reviewed by physician. Signing provider agrees with the documented findings, assessment, and plan of care. Objective - Vital Signs Vital signs: Vital Signs Temp 98.4 F 03/19/20 12:00 Pulse 73 03/19/20 12:00 Resp 23 03/19/20 12:00 BP 110/62 03/19/20 12:00 Pulse Ox 95 03/19/20 12:00 Intake & Output 03/18/20 03/19/20 03/19/20 18:59 06:59 18:59 Intake Total 600 1050 550 Output Total 875 890 Balance -275 160 550 Weight 64.1 kg 64.1 kg Intake: IV 500 1050 550 Dextrose 5%-0.9% NaCl 1, 500 900 300 000 ml @ 75 mls/hr IV . [id number] ALEKSANDRA Rx#:[id number] Piperacillin-Tazobactam 3 100 100 .375 gm In Sodium Chloride 0.9% 100 ml @ 25 mls/hr IVPB Q8HR ALEKSANDRA Rx# :[id number] Potassium Chloride 10 meq 100 In Water For Injection 1 100ml.bag @ 100 mls/hr IVPB Q1HR [facility] Rx#: [id number] Thiamine 100 mg In Sodium 50 50 Chloride 0.9% 50 ml @ 100 mls/hr IVPB Q12HR [facility] Rx#:[id number] Intake, IV Titration 100 Amount Potassium Chloride 20 meq 100 In Water For Injection 1 100ml.bag @ 50 mls/hr IVPB Q2H ALEKSANDRA Rx#: [id number] Output: Drainage 170 340 Left Abdomen 170 340 Urine 705 550 Other: Voiding Method Indwelling Catheter Indwelling Catheter Indwelling Catheter ABP, PAP, CO, CI - Last Documented Arterial Blood Pressure 105/72 - Labs CBC & Chem 7: 03/19/20 04:38 03/19/20 13:14 Labs: Abnormal Lab Results - Last 24 Hours (Table) 03/19/20 03/19/20 03/19/20 Range/Units 04:38 04:38 04:38 RBC 3.28 L (3.80-5.40) m/uL Hgb 10.0 L (11.4-16.0) gm/dL Hct 30.6 L (34.0-46.0) % Potassium 3.1 L (3.5-5.1) mmol/L Chloride 114 H (98-107) mmol/L Creatinine 0.48 L (0.52-1.04) mg/dL Calcium 7.2 L (8.4-10.2) mg/dL Phosphorus 2.2 L (2.5-4.5) mg/dL Total Protein 3.2 L (6.3-8.2) g/dL Albumin 1.6 L (3.5-5.0) g/dL Microbiology - Last 24 Hours (Table) 03/16/20 17:00 Gram Stain - Final Sputum Sputum Culture - Final
--- NOTE | 2020-03-19 15:34 | PN ---
PROGRESS NOTE DATE OF SERVICE: 03/19/2020 Patient is a 49-year-old pleasant white female, remains in the intensive care unit, doing well. Remains n.p.o. Complains of some abdominal pain. No bleeding. No bowel movements. PHYSICAL EXAMINATION: Appears comfortable. Vital signs are stable, blood pressure 110/62, pulse rate 73, temperature 98.4. HEENT: Examination unremarkable. Conjunctivae are pink. Sclerae nonicteric. Oral cavity no lesions. NECK: No JVD. CHEST: Clear to auscultation. HEART: Regular rate and rhythm. ABDOMEN: Slightly distended at the site of recent scar from surgical scar. No organomegaly. EXTREMITIES: No pedal edema. NEURO: She is awake, oriented to name and place. LABS: WBC 7.5, hemoglobin 10, platelets 171. BUN and creatinine normal at 13 and 0.48 respectively. IMPRESSION: 1. Acute upper gastrointestinal bleed secondary to large duodenal ulcer, status post EGD by Dr. Welch 3 days ago, followed by exploratory laparotomy by Dr. Rosales for controlling of bleeding. Patient doing well. Currently, no further bleeding. Hemoglobin stable at 10.10 g/dL. She received a total of 10 units of PRBC transfusion during this hospitalization. 2. Anemia. Hemoglobin is stable. RECOMMENDATION: 1. Continue with Protonix 40 mg twice daily. 2. Continue broad-spectrum antibiotics. 3. Continue with . 4. Keep her n.p.o. for now as per surgical recommendations. 5. Will follow with you closely. Thank you for this consultation. MMODL / IJN: [id number] /
[2020-03-19] MEDS: FAT EMULSION 20% 250 ML in EMPTY BAG 1 BAG IV SCH (17:19)
[2020-03-19 18:07] LABS: Glucose,Whole Blood 116 mg/dL (75-99)
[2020-03-20] MEDS: THIAMINE 100 MG in SODIUM CHLORIDE 0.9% 50 ML IVPB SCH ×3 (01:18→14:14)
[2020-03-20] MEDS: PIPERACILLIN-TAZOBACTAM 3.375 GM in SODIUM CHLORIDE 0.9% 100 ML IVPB SCH ×4 (01:18→23:51)
[2020-03-20 01:37] LABS: Glucose,Whole Blood 113 mg/dL (75-99)
[2020-03-20] MEDS: MORPHINE SULFATE 2 MG/ML SYRINGE IVP PRN ×6 (02:53→23:52)
[2020-03-20 05:58] LABS: Ionized Calcium 4.8 mg/dL (4.5-5.3)
[2020-03-20 06:10] LABS: ALT 31 U/L (4-34); AST 115 U/L (14-36); African American GFR (CKD) >90 (>60 ml/min/1.73 sqM); Albumin 1.9 g/dL (3.5-5.0); Alkaline Phosphatase 67 U/L (38-126); Anion Gap 2 mmol/L; Blood Urea Nitrogen 10 mg/dL (7-17); Calcium 7.6 mg/dL (8.4-10.2); Carbon Dioxide 26 mmol/L (22-30); Chloride 112 mmol/L (98-107); Glucose 114 mg/dL (74-99); Magnesium 2.1 mg/dL (1.6-2.3); Non-African American GFR(CKD) >90 (>60 ml/min/1.73 sqM); Phosphorus 2.9 mg/dL (2.5-4.5); Sodium 140 mmol/L (137-145); Total Bilirubin 0.8 mg/dL (0.2-1.3)
[2020-03-20 06:16] LABS: HCT 34.1 % (34.0-46.0); HGB 11.2 gm/dL (11.4-16.0); MCH 30.6 pg (25.0-35.0); MCHC 32.8 g/dL (31.0-37.0); MCV 93.5 fL (80.0-100.0); Mean Platelet Volume 7.9; Platelet Count 257 k/uL (150-450); RBC 3.65 m/uL (3.80-5.40); RDW 14.6 % (11.5-15.5)
[2020-03-20 06:36] LABS: Potassium 3.2 mmol/L (3.5-5.1)
[2020-03-20 06:53] LABS: Glucose,Whole Blood 136 mg/dL (75-99)
--- NOTE | 2020-03-20 08:33 | XR ---
EXAMINATION TYPE: XR chest 1V portable DATE OF EXAM: 03/20/2020 COMPARISON: Prior chest x-ray 03/19/2020 HISTORY: Abnormal chest x-ray TECHNIQUE: Single frontal view of the chest is obtained. FINDINGS: Bibasilar increased attenuation is noted which obscures the hemidiaphragms. No evident pne umothorax. Heart size is stable. Old healed left-sided posterior left sixth rib fracture is stable. P ulmonary vascularity and renato are unchanged. IMPRESSION: Correlate for basilar atelectasis, pneumonia, edema and effusions.
[2020-03-20] MEDS: POTASSIUM CHLORIDE 10 MEQ in WATER FOR INJECTION 1 100ML.BAG IVPB SCH ×6 (08:56→22:46)
[2020-03-20] MEDS: PANTOPRAZOLE 40 MG/10 ML VIAL IV SCH ×2 (08:59→20:13)
[2020-03-20] MEDS: ENOXAPARIN 40 MG/0.4 ML SYRINGE SQ SCH (08:59)
[2020-03-20] MEDS: NICOTINE 14MG/24HR PATCH TRANSDERM SCH (08:59)
[2020-03-20] MEDS: SODIUM CHLORIDE 0.9% 1,000 ML IV SCH (10:06)
--- NOTE | 2020-03-20 11:31 | P.PN ---
Subjective Progress Note Date: 03/20/20 HISTORY OF PRESENT ILLNESS This is a 49-year-old female patient of Dr. Chaka Mora with past medical history of gastric esophageal reflux disease, tobacco use. Patient presented to [facility] emergency center due to bright red blood and dark tarry stools per rectum. She began having epigastric pain last week and was drinking an average of 2 alcoholic drinks per day as well as taking Excedrin for headaches. 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 She was seen by her PCP and placed on Pepcid but did not have any improvement of her pain. Yesterday morning she woke up and passed moderate amount of dark stool in the toilet and also noted bright red blood on the toilet paper when she wiped. She had 6 episodes total and called EMS and she was brought in the hospital. Initially blood pressure was 132/84 and heart rate 93. Initial hemoglobin was 8.2. Patient continued to have rectal bleeding and was transfused initially 4 units packed RBCs and was admitted into intensive care unit. She did have a syncopal episode while getting to the bathroom and continued to be hypotensive despite IV fluids and blood products. She has had a right femoral triple-lumen catheter, left radial arterial line placed. She has currently been transfused a total of 9 units of packed RBCs and ordered for 1 unit of platelets. She was seen by GI and underwent EGD that found large actively bleeding duodenal ulcer treated with epinephrine injection and Endo Clip placement with continued bleeding from the ulcer site. Large amount of old blood and clots in the stomach. She was found to also have bleeding cystic artery. General surgery was thus involved in the OR.she is currently on Levaquin at 20 mics and status post 8 L of IV fluid. She is intubated and on mechanical ventilation with tidal volume 500, FiO2 40, PEEP 5. /: Patient remains in the intensive care unit, intubated and on mechanical ventilation with tidal volume 350, FiO2 40, PEEP of 5 and successfully extubated. She is complaining of aching in her abdomen. She is not passing any gas. She has a very low dose of levothyroid. She did have low urine output during the night and received 2 doses of Lasix has been running at least 50 mL per hour. Patient received 1 g of calcium and we will repeat a second gram today.Patient has been afebrile, heart rate in the low 100s, respiratory rate 25, blood pressure 90/52, surveillance system monitor sinus tachycardia. Blood work this morning reveals WBC 20.2, hemoglobin 15.1, platelet count 117. Sodium 138, potassium 3.7, chloride 114, CO2 22, BUN 19 and creatinine 0.93. Blood sugar 239. Calcium 5.9, AST 38, ALT 13, alkaline phosphatase 26, albumin 1.5. Sputum for Gram stain and culture has been obtained. Patient has been transfused a total of 10 units of packed RBCs. Chest x-ray this morning reveals endotracheal tube distal tip at the level of the clavicle heads. No focal airspace opacities. Patient's has been updated. Patient has history that she has been drinking 2-3 glasses of wine daily for the past 1 year. 03/18: Patient remains in the intensive care unit, she is pulse ox 93-98% on room air. Blood pressure 102/59, heart rate 84, afebrile. She is off norepinephrine. Repeat blood work reveals WBC 11.1, hemoglobin 10.6, platelet count 110. PT 9.4, INR 0.9, PTT 27.9, fibrinogen 404. Sodium 140, potassium 3.1 replaced, chloride 114, CO2 UN 19 and creatinine 0.59. Blood sugar 123. Calcium 6.6, ionized calcium 4.7, phosphorus 2.7. Sputum cultures in progress. Repeat chest x-ray reveals bibasilar airspace opacities and haziness of the left hemidiaphragm may represent atelectasis versus developing airspace disease. Ga llbladder pathology report reveals chronic cholecystitis with subserosal abscess, fibrosis, inflammation and fat necrosis. Patient complains of right upper quadrant abdominal pain. She states she slept off and on but there was a loud patient on the unit and kept her awake. She denies having any shortness of breath. She feels she has gas in her abdomen but not passing any gas no bowel movement. She denies having any nausea. She denies having any hallucinations and mental status is improving. She states she is reaching a 1000 mL on incentive spirometry and utilizing every other hour. Brother is at bedside. Patient is planning for outpatient physical therapy. 03/19: Patient is waiting for a [facility] bed without telemetry and remains in the intensive care unit. She has been afebrile, heart rate 71, blood pressure 105/63, pulse ox 96% on room air. Hemoglobin this morning is at 10.0. Potassium 3.1 and was replaced, chloride 114. Ionized calcium 5.0. Albumin 1.6. Sputum culture finalized with normal respiratory srinath. Chest x-ray reveals stable findings. Correlate for pneumonia, atelectasis, possible effusions. Patient continues to have abdominal pain. The incision site to the right running between 4-6. MARLEY drain remains intact with serosanguineous drainage. She is using incentive spirometry up to 1500 ML's. Dotson catheter removed. She has not had a bowel movement yet. Patient states that she is feeling tired. She does complain of pain with coughing. She states she has belching with minimal flatulence. 03/20: Patient remains in intensive care unit waiting for a [facility] bed. Her hemoglobin today is 11.2. WBC 7.0. Sodium 140, potassium 3.2 and replaced, ch loride 112, CO2 26, BUN 10 and creatinine 0.41. Calcium 7.6 and ionized calcium 4.8. AST 115. Albumin 1.9. She states she had a small amount of stool output yesterday and passing gas. She states she is using incentive spirometry and getting up in a chair and a regular basis. She has occasional cough with sputum production. MARLEY drain remains in place serosanguineous drainage minimal. Patient has been afebrile, heart rate 83, blood pressure 123/76, pulse ox 97% on room air. She remains nothing by mouth. Await surgical input regarding advancement of diet. REVIEW OF SYSTEMS Constitutional: No fever, no chills. Reports generalized weakness. Denies daytime sleepiness. EENT: No headache. No blurred vision or double vision, no loss of vision. No dizziness. No nasal drainage or congestion. No epistaxis. Lungs: No shortness of breath, reports cough, reports sputum production. No wheezing. Cardiovascular: No chest pain, no lower extremity edema. No palpitations. No paroxysmal nocturnal dyspnea. No orthopnea. No lightheadedness or dizziness. No syncopal episodes. Abdominal: Reports abdominal pain. Denies nausea denies vomiting. No diarrhea. Reports small bowel movement. Reports flatulence. Genitourinary: No dysuria, increased frequency, urgency. No urinary retention. Musculoskeletal: No myalgias. No muscle weakness, no gait dysfunction, no frequent falls. No back pain. No neck pain. Integumentary: No wounds, no lesions. No rash or pruritus. No unusual bruising. No change in hair or nails. Neurologic: No aphasia. No facial droop. No change in mentation. No head injury. No headache. No paralysis. No paresthesia. Psychiatric: No depression. No anxiety. No mood swings. Endocrine: No abnormal blood sugars. No weight change. No excessive sweating or thirst. No cold intolerance. PHYSICAL EXAMINATION Gen: This is a 49-year-old female. She is awake and alert, speech is clear. She is resting in ICU bed. HEENT: Head is atraumatic, normocephalic. Pupils equal, round. Sclerae is anict aidan. Conjunctiva pale. NECK: Supple. No JVD. No lymphadenopathy. No thyromegaly. LUNGS: Clear to auscultation. No wheezes or rhonchi. No intercostal retractions. HEART: Regular rate and rhythm. No murmur. ABDOMEN: Soft. Bowel sounds are hypoactive. No masses. Right upper quadrant tenderness along dressing. Dressing in place over central abdominal surgical wound and MARLEY drain with minimal serosanguineous fluid. EXTREMITIES: No pedal edema. No calf tenderness. Dorsalis pedis +2 bilaterally . NEUROLOGICAL: Patient is awake and alert, moving all extremities, answering questions appropriately but slow, follow simple commands. ASSESSMENT AND PLAN 1. Acute blood loss anemia with acute GI bleed secondary to duodenal ulcer status post EGD, endoclips with persistent active bleeding secondary to bleeding cystic artery. Patient is status post total of 10 units packed RBCs, continue to monitor hemoglobin closely and transfuse as necessary. Continue Protonix 40 mg IV twice daily. 2. Acute GI bleed secondary to duodenal ulcer and bleeding cystic artery status post repair of bleeding duodenal ulcer, cholecystectomy, repair of incisional hernia. Patient is currently nothing by mouth. 3. History of gastroesophageal reflux disease 4. Hemorrhagic shock requiring massive blood transfusion, IV fluid resuscitation and vasopressor. Continue management per Dr. Simpson. Patient is off vasopressor. 5. Acute hypoxic respiratory failure secondary to shock, successfully extubated. Managed by powerplant operator. 6. Thrombocytopenia secondary to shock. Continue to monitor. Patient did not receive platelets. 7. Massive transfusion. 8. Severe metabolic acidosis status post 2 A of bicarb. 9. DVT prophylaxis. Lovenox subcu. 10. Tobacco use and dependence. Continue nicotine patch. 11. GI prophylaxis. Protonix. 12. Hypocalcemia. Replacement. Continue to monitor. 13. Hyperchloremia. 14. History of alcohol abuse. Patient started on CIWA protocol. 15. Coagulopathy secondary to massive GI bleed and transfusion, stable 16. Possible aspiration pneumonitis. Patient is on Zosyn per pulmonary medicine. Discharge plan: home with outpatient physical therapy (prescription for outpatient physical therapy on patient's chart). Impression and plan of care have been directed as dictated by the signing physician. Ana Luisa Herron nurse practitioner acting as scribe for signing physician. Objective - Vital Signs Vital signs: Vital Signs Temp 98.2 F 03/20/20 07:00 Pulse 83 03/20/20 07:00 Resp 21 03/20/20 07:00 BP 123/76 03/20/20 07:00 Pulse Ox 97 03/20/20 07:00 Intake & Output 03/19/20 03/20/20 03/20/20 18:59 06:59 18:59 Intake Total 1507 1020 866.667 Output Total 75 21 Balance 1432 999 866.667 Weight 64.1 kg Intake: IV 865 310 Dextrose 5%-0.9% NaCl 1, 415 260 000 ml @ 75 mls/hr IV . [id number] [facility] Rx#:[id number] Piperacillin-Tazobactam 3 100 .375 gm In Sodium Chloride 0.9% 100 ml @ 25 mls/hr IVPB Q8HR [facility] Rx# :[id number] Potassium Chloride 10 meq 300 In Water For Injection 1 100ml.bag @ 100 mls/hr IVPB Q1HR [facility] Rx#: [id number] Thiamine 100 mg In Sodium 50 50 Chloride 0.9% 50 ml @ 100 mls/hr IVPB Q12HR [facility] Rx#:[id number] Intake, IV Titration 642 710 866.667 Amount Fat Emulsion 20% 250 ml 42 210 In Empty Bag 1 bag @ 21 mls/hr IV Q24H [facility] Rx#: [id number] Magnesium Sulfate-D5w Pmx 200 1 gm In Dextrose/Water 1 100ml.bag @ 100 mls/hr IVPB Q1H [facility] Rx#: [id number] Mvi, Adult No.4 with Vit 150 500 866.667 K 10 ml Trace (Conc-1Ml/ Dose) 1 ml In Amino Acid 4.25%-D10w+Lytes*E* 1,000 ml @ 50 mls/hr IV . [id number] [facility] Rx#:[id number] Sodium Phosphate 10 mmol 250 In Sodium Chloride 0.9% 250 ml @ 125 mls/hr IVPB ONCE ONE Rx#:[id number] Output: Drainage 75 20 Left Abdomen 75 20 Urine 0 1 Other: Voiding Method Indwelling Catheter # Voids 1 2 # Bowel Movements 1 ABP, PAP, CO, CI - Last Documented Arterial Blood Pressure 105/72 - Labs CBC & Chem 7: 03/20/20 05:24 03/20/20 05:24 Labs: Abnormal Lab Results - Last 24 Hours (Table) 03/19/20 03/19/20 03/20/20 Range/Units 04:38 18:04 01:35 RBC (3.80-5.40) m/uL Hgb (11.4-16.0) gm/dL Potassium (3.5-5.1) mmol/L Chloride (98-107) mmol/L Creatinine (0.52-1.04) mg/dL Glucose (74-99) mg/dL POC Glucose (mg/dL) 116 H 113 H (75-99) mg/dL Calcium (8.4-10.2) mg/dL Phosphorus 2.2 L (2.5-4.5) mg/dL AST (14-36) U/L Total Protein (6.3-8.2) g/dL Albumin (3.5-5.0) g/dL 03/20/20 03/20/20 03/20/20 Range/Units 05:24 05:24 06:52 RBC 3.65 L (3.80-5.40) m/uL Hgb 11.2 L (11.4-16.0) gm/dL Potassium 3.2 L (3.5-5.1) mmol/L Chloride 112 H (98-107) mmol/L Creatinine 0.41 L (0.52-1.04) mg/dL Glucose 114 H (74-99) mg/dL POC Glucose (mg/dL) 136 H (75-99) mg/dL Calcium 7.6 L (8.4-10.2) mg/dL Phosphorus (2.5-4.5) mg/dL AST 115 H (14-36) U/L Total Protein 4.0 L (6.3-8.2) g/dL Albumin 1.9 L (3.5-5.0) g/dL Microbiology - Last 24 Hours (Table) 03/16/20 17:00 Gram Stain - Final Sputum Sputum Culture - Final
[2020-03-20] MEDS: 1: MVI, ADULT NO.4 WITH VIT K 10 ML, TRACE (CONC-1ML/DOSE) 1 ML in AMINO ACID 4.25%-D10W IV SCH ×6 (11:34→23:52)
--- NOTE | 2020-03-20 12:16 | P.PN ---
Subjective Progress Note Date: 03/20/20 Principal diagnosis: Acute massive upper GI bleeding secondary to duodenal ulcer. This is a 49-year-old female, history of alcohol abuse, drinks on the average of 3 alcoholic beverages per day. Patient uses occasional Excedrin roughly on the average a 1 time per week, no previous history of GI bleeding no history of peptic ulcer disease. No history of diverticular disease or colitis. Patient presented to the hospital with a few days' history of intermittent episodes of epigastric discomfort, nausea, and has been noticing black tarry stools. Patient was also complaining of generalized weakness, lightheadedness, and upon her early evaluation in the ER, her hemoglobin was noted to be 9.0. Since presentation to the hospital, patient had multiple episodes of black tarry stools and she required at least 4 units of packed RBCs before I even evaluated the patient. I walked into the ICU, patient was noted to have significant rectal bleeding she was hypotensive in spite of fluids and blood products. She had one peripheral IV access and I placed a right femoral triple-lumen catheter. Also placed a left radial arterial line. Recommended immediate surgical consultation and GI consultation. And ordered more blood transfusions. I believe the patient received a total of 9 units of packed RBCs, she underwent EGD, and she was found to have a bleeding was an ulcer. Surgery evaluated the patient immediately, and she was found to have perforated duodenal ulcer and bleeding cystic artery. I was updated on her condition by Dr. Rosales/general surgeon on the case, and the patient is presently in the operating room. Patient was reevaluated today on 03/17/20, remains in the ICU, intubated and mechanically ventilated. Her ventilator settings are assist control rate of 28 tidal volume of 350 FiO2 40% and PEEP of 5. Patient is on propofol 50 mcg/kg/m, norepinephrine at 0.11 mcg/kg/m, and on bicarb drip which I have discontinued. Patient is hemodynamically stable and she is on a minimal dose of norepinephrine. And this would likely be discontinued once the patient is off propofol. Patient is arousable while on propofol, waking up and following very simple instructions. She is in sinus tachycardia with a rate of 108. Today I have discontinued her bicarb and added Zosyn. And I plan to give the patient is sedation holiday, and likely switch the patient to a pressure support of 8 and CPAP, and given a weaning trial. WBC count is 20.2 hemoglobin is 15.1. ABG showed a pO2 of 113 pCO2 of 39 pH of 7.42 and this is a 40% FiO2. Bicarb is 26 and I have discontinued her bicarb. Basic metabolic profile is normal and he profile is normal. Calcium is a bit low, the patient to receive 1 amp of calcium gluconate. Patient was reevaluated today on 03/18/20, patient tolerated the extubation well. Presently on few liters nasal cannula, and she is doing great. Hemodynamically stable, in no distress. Hemoglobin today is 10.6. WBC count is 11.1. *Normal except for low potassium being corrected as per protocol. Remains nothing by mouth. And there is no gastric tube in place Reevaluated today on 03/19/20, patient remains in the ICU as an overflow. Patient has no further episodes of GI bleeding, she is now on room air, her hemoglobin is 10. Remains nothing by mouth, no bowel movements so far. Continues to have tender abdomen. But overall the patient is doing much better and she is hemodynamically stable. Still doing poorly with incentive spirometry. Chest x- ray is basically unremarkable. WBC count is 7.5 hemoglobin is 10 Sub-normal except for low potassium 3.1 being corrected as per protocol. Reevaluated today on 03/20/20, patient remains in the ICU waiting for a medical surgical bed. Patient is doing well except for some vague abdominal pain and discomfort. She had small bowel movement yesterday and she is passing gas. Patient is doing well with incentive spirometry, she does have occasional cough, MARYELLEN drain remains in place, with minimal drainage. Patient is afebrile, vital signs are stable, and she is to be seen by surgery regarding her abdominal discomfort. Objective - Vital Signs Vital signs: Vital Signs Temp 98.2 F 03/20/20 07:00 Pulse 83 03/20/20 07:00 Resp 21 03/20/20 07:00 BP 123/76 03/20/20 07:00 Pulse Ox 97 03/20/20 07:00 Intake & Output 03/19/20 03/20/20 03/20/20 18:59 06:59 18:59 Intake Total 1507 1020 866.667 Output Total 75 21 40 Balance 1432 999 826.667 Weight 64.1 kg 64.1 kg Intake: IV 865 310 Dextrose 5%-0.9% NaCl 1, 415 260 000 ml @ 75 mls/hr IV . [id number] [facility] Rx#:[id number] Piperacillin-Tazobactam 3 100 .375 gm In Sodium Chloride 0.9% 100 ml @ 25 mls/hr IVPB Q8HR [facility] Rx# :[id number] Potassium Chloride 10 meq 300 In Water For Injection 1 100ml.bag @ 100 mls/hr IVPB Q1HR [facility] Rx#: [id number] Thiamine 100 mg In Sodium 50 50 Chloride 0.9% 50 ml @ 100 mls/hr IVPB Q12HR [facility] Rx#:[id number] Intake, IV Titration 642 710 866.667 Amount Fat Emulsion 20% 250 ml 42 210 In Empty Bag 1 bag @ 21 mls/hr IV Q24H [facility] Rx#: [id number] Magnesium Sulfate-D5w Pmx 200 1 gm In Dextrose/Water 1 100ml.bag @ 100 mls/hr IVPB Q1H [facility] Rx#: [id number] Mvi, Adult No.4 with Vit 150 500 866.667 K 10 ml Trace (Conc-1Ml/ Dose) 1 ml In Amino Acid 4.25%-D10w+Lytes*E* 1,000 ml @ 50 mls/hr IV . [id number] [facility] Rx#:[id number] Sodium Phosphate 10 mmol 250 In Sodium Chloride 0.9% 250 ml @ 125 mls/hr IVPB ONCE [facility] Rx#:[id number] Output: Drainage 75 20 40 Left Abdomen 75 20 40 Urine 0 1 Other: Voiding Method Indwelling Catheter # Voids 1 2 # Bowel Movements 1 ABP, PAP, CO, CI - Last Documented Arterial Blood Pressure 105/72 - Exam Physical Exam: Revealed 49-year-old female awake, alert, in no distress, on room air. Head: Atraumatic, normocephalic. HEENT: [Neck is supple.] [No neck masses.] [No thyromegaly.] [No JVD.] Chest: [Symmetrical chest expansion, diminished at the bases, no rhonchi no wheezes. Cardiac Exam: [Normal S1 and S2, no S3 gallop, no murmur.] Abdomen: Postsurgical, dressing is clean and dry. [Soft, slightly tender., no megaly, no rebound, no guarding, diminished bowel sounds.] MARYELLEN drain is noted. Serosanguineous drainage noted in the maryellen drain. Extremities: [No clubbing, no edema, no cyanosis.] Neurological Exam: Alert and oriented 3 focal deficits. Skin: No rashes. Psychiatric: Normal mood, affect and normal mental status examination Musculoskeletal: No limitations in range of motion and no deformities - Labs CBC & Chem 7: 03/20/20 05:24 03/20/20 05:24 Labs: Abnormal Lab Results - Last 24 Hours (Table) 03/19/20 03/19/20 03/20/20 Range/Units 04:38 18:04 01:35 RBC (3.80-5.40) m/uL Hgb (11.4-16.0) gm/dL Potassium (3.5-5.1) mmol/L Chloride (98-107) mmol/L Creatinine (0.52-1.04) mg/dL Glucose (74-99) mg/dL POC Glucose (mg/dL) 116 H 113 H (75-99) mg/dL Calcium (8.4-10.2) mg/dL Phosphorus 2.2 L (2.5-4.5) mg/dL AST (14-36) U/L Total Protein (6.3-8.2) g/dL Albumin (3.5-5.0) g/dL 03/20/20 03/20/20 03/20/20 Range/Units 05:24 05:24 06:52 RBC 3.65 L (3.80-5.40) m/uL Hgb 11.2 L (11.4-16.0) gm/dL Potassium 3.2 L (3.5-5.1) mmol/L Chloride 112 H (98-107) mmol/L Creatinine 0.41 L (0.52-1.04) mg/dL Glucose 114 H (74-99) mg/dL POC Glucose (mg/dL) 136 H (75-99) mg/dL Calcium 7.6 L (8.4-10.2) mg/dL Phosphorus (2.5-4.5) mg/dL AST 115 H (14-36) U/L Total Protein 4.0 L (6.3-8.2) g/dL Albumin 1.9 L (3.5-5.0) g/dL Microbiology - Last 24 Hours (Table) 03/16/20 17:00 Gram Stain - Final Sputum Sputum Culture - Final Assessment and Plan Assessment: Impression: Status post exploratory laparotomy and repair of bleeding duodenal ulcer, cholecystectomy and repair of incisional hernia postoperative day #4 Acute upper GI bleeding secondary to duodenal ulcer Status post EGD and endoclips application, but persistent active bleeding. History of alcohol abuse. Hypovolemic shock on presentation secondary to GI bleeding/hemorrhagic shock, resolved. Postoperative abdominal pain. Expected. Recommendation: Continue Protonix. Continue Alcohol withdrawal protocol. Continue incentive spirometry. Surgery to decide on oral intake if any. Ambulate as tolerated. Continue GI and DVT prophylaxis. Pain control and surgery to assess her abdominal pain today. We'll continue to follow. Time with Patient: Less than 30
[2020-03-20 12:19] LABS: Glucose,Whole Blood 108 mg/dL (75-99)
--- NOTE | 2020-03-20 15:29 | P.PN ---
Subjective Progress Note Date: 03/20/20 CHIEF COMPLAINT: Rectal bleeding HISTORY OF PRESENT ILLNESS: This is a 49-year-old female with a bleeding duodenal ulcer noted on EGD. She underwent repair of bleeding duodenal ulcer, cholecystectomy and repair of incisional hernia with Dr. Rosales. Patient remains in the ICU. She's sitting in bedside chair. She is currently nothing by mouth. She is afebrile. WBC is 7.0 hemoglobin 11.2 potassium 3.2 and being replaced. Mg2.0 PHYSICAL EXAM: VITAL SIGNS: Reviewed. GENERAL: Well-developed in no acute distress. HEENT: No sclera icterus. Extraocular movements grossly intact. Moist buccal mucosa. Head is atraumatic, normocephalic. ABDOMEN: Soft. Nondistended. Nontender. NEUROLOGIC: Alert and oriented. Cranial nerves II through XII grossly intact. ASSESSMENT: 1. Bleeding duodenal ulcer 2. Status post Repair of bleeding duodenal ulcer, Cholecystectomy and Repair of incisional hernia POD #3 3. Acute GI bleed secondary to bleeding duodenal ulcer 4. Acute blood loss anemia secondary to bleeding duodenal ulcer 5. Hypokalemia PLAN: -Start patient on diet with sips of clears -Continue PPN -Continue IV antibiotics -Continue IV Protonix -Continue ICU management -DVT prophylaxis Lovenox Physician Electric Engine Mechanic note has been reviewed by physician. Signing provider agrees with the documented findings, assessment, and plan of care. Objective - Vital Signs Vital signs: Vital Signs Temp 98.2 F 03/20/20 07:00 Pulse 83 03/20/20 07:00 Resp 21 03/20/20 07:00 BP 123/76 03/20/20 07:00 Pulse Ox 97 03/20/20 07:00 Intake & Output 03/19/20 03/20/20 03/20/20 18:59 06:59 18:59 Intake Total 1507 1020 1686.667 Output Total 75 21 40 Balance 0019 338 6703.667 Weight 64.1 kg 64.1 kg Intake: IV 865 310 820 Dextrose 5%-0.9% NaCl 1, 415 260 000 ml @ 20 mls/hr IV . Q24H [facility] Rx#:[id number] Mvi, Adult No.4 with Vit 720 K 10 ml Trace (Conc-1Ml/ Dose) 1 ml In Amino Acid 4.25%-D10w+Lytes*E* 1,000 ml @ 90 mls/hr IV .BY DURATION [facility] Rx#: [id number] Piperacillin-Tazobactam 3 100 100 .375 gm In Sodium Chloride 0.9% 100 ml @ 25 mls/hr IVPB Q8HR [facility] Rx# :[id number] Potassium Chloride 10 meq 300 In Water For Injection 1 100ml.bag @ 100 mls/hr IVPB Q1HR [facility] Rx#: [id number] Thiamine 100 mg In Sodium 50 50 Chloride 0.9% 50 ml @ 100 mls/hr IVPB Q12HR [facility] Rx#:[id number] Intake, IV Titration 642 710 866.667 Amount Fat Emulsion 20% 250 ml 42 210 In Empty Bag 1 bag @ 21 mls/hr IV Q24H [facility] Rx#: [id number] Magnesium Sulfate-D5w Pmx 200 1 gm In Dextrose/Water 1 100ml.bag @ 100 mls/hr IVPB Q1H [facility] Rx#: [id number] Mvi, Adult No.4 with Vit 150 500 866.667 K 10 ml Trace (Conc-1Ml/ Dose) 1 ml In Amino Acid 4.25%-D10w+Lytes*E* 1,000 ml @ 50 mls/hr IV . [id number] [facility] Rx#:[id number] Sodium Phosphate 10 mmol 250 In Sodium Chloride 0.9% 250 ml @ 125 mls/hr IVPB ONCE [facility] Rx#:[id number] Output: Drainage 75 20 40 Left Abdomen 75 20 40 Urine 0 1 Other: Voiding Method Indwelling Catheter Toilet # Voids 1 2 3 # Bowel Movements 1 2 ABP, PAP, CO, CI - Last Documented Arterial Blood Pressure 105/72 - Labs CBC & Chem 7: 03/20/20 05:24 03/20/20 05:24 Labs: Abnormal Lab Results - Last 24 Hours (Table) 03/19/20 03/20/20 03/20/20 Range/Units 18:04 01:35 05:24 RBC (3.80-5.40) m/uL Hgb (11.4-16.0) gm/dL Potassium 3.2 L (3.5-5.1) mmol/L Chloride 112 H (98-107) mmol/L Creatinine 0.41 L (0.52-1.04) mg/dL Glucose 114 H (74-99) mg/dL POC Glucose (mg/dL) 116 H 113 H (75-99) mg/dL Calcium 7.6 L (8.4-10.2) mg/dL AST 115 H (14-36) U/L Total Protein 4.0 L (6.3-8.2) g/dL Albumin 1.9 L (3.5-5.0) g/dL 03/20/20 03/20/20 03/20/20 Range/Units 05:24 06:52 12:17 RBC 3.65 L (3.80-5.40) m/uL Hgb 11.2 L (11.4-16.0) gm/dL Potassium (3.5-5.1) mmol/L Chloride (98-107) mmol/L Creatinine (0.52-1.04) mg/dL Glucose (74-99) mg/dL POC Glucose (mg/dL) 136 H 108 H (75-99) mg/dL Calcium (8.4-10.2) mg/dL AST (14-36) U/L Total Protein (6.3-8.2) g/dL Albumin (3.5-5.0) g/dL
[2020-03-20] MEDS: FAT EMULSION 20% 250 ML in EMPTY BAG 1 BAG IV SCH (15:54)
--- NOTE | 2020-03-20 16:07 | PN ---
PROGRESS NOTE DATE OF DICTATION: 03/20/2020 This patient is a 49-year-old pleasant white female admitted to the hospital with a bleeding duodenal ulcer, for which she underwent initial upper endoscopy followed by exploratory laparotomy by Dr. Rosales and over-sewing of the duodenal ulcer. On Protonix 40 mg twice daily, she is feeling better. Still has abdominal pain. Had 2 bowel movements this morning. No nausea, no vomiting. Remains n.p.o. PHYSICAL EXAMINATION: Vital signs are stable. Blood pressure 112/76, pulse rate 83, temperature 98.2. HEENT examination unremarkable. Conjunctivae pink. Sclerae anicteric. Oral cavity no lesions. NECK: No JVD or lymph node enlargement. CHEST: Clear to auscultation. HEART: Regular rate and rhythm. ABDOMEN: Slightly distended. Mild tenderness. EXTREMITIES: No pedal edema. NEUROLOGIC: Alert and oriented x3. No focal deficits. LABS: WBC 7, hemoglobin 11.2, platelets normal. BUN and creatinine are within normal limits. IMPRESSION: Severe upper gastrointestinal bleed secondary to bleeding duodenal ulcer, status post esophagogastroduodenoscopy followed by surgery by Dr. Rosales with over-sewing of the ulcer, status post 10 units of blood transfusion. Hemoglobin currently stable. She remains n.p.o., remains in the intensive care unit. Overall doing better. RECOMMENDATIONS: 1. Continue Protonix 40 mg twice daily. 2. Avoid NSAIDs. 3. Further management per Surgery. 4. Will sign off at this time. Please call us if needed. Thank you for this consultation. MMODL / IJN: [id number] /
[2020-03-20] MEDS ORDERED: Potassium Replacement Protocol 1 EACH MISC MISCELLANE PRN (19:58)
[2020-03-20 20:19] LABS: Glucose,Whole Blood 128 mg/dL (75-99)
[2020-03-21] MEDS: POTASSIUM CHLORIDE 10 MEQ in WATER FOR INJECTION 1 100ML.BAG IVPB SCH ×7 (04:04→23:08)
[2020-03-21] MEDS: MORPHINE SULFATE 2 MG/ML SYRINGE IVP PRN ×5 (04:05→20:25)
[2020-03-21 04:57] LABS: HCT 32.1 % (34.0-46.0); HGB 10.6 gm/dL (11.4-16.0); MCH 30.8 pg (25.0-35.0); MCHC 32.9 g/dL (31.0-37.0); MCV 93.9 fL (80.0-100.0); Mean Platelet Volume 7.3; Platelet Count 309 k/uL (150-450); RBC 3.42 m/uL (3.80-5.40); RDW 14.4 % (11.5-15.5); WBC 6.6 k/uL (3.8-10.6)
[2020-03-21] MEDS: THIAMINE 100 MG in SODIUM CHLORIDE 0.9% 50 ML IVPB SCH ×2 (05:03→15:23)
[2020-03-21 05:29] LABS: ALT 23 U/L (4-34); AST 53 U/L (14-36); African American GFR (CKD) >90 (>60 ml/min/1.73 sqM); Albumin 1.9 g/dL (3.5-5.0); Alkaline Phosphatase 59 U/L (38-126); Anion Gap 1 mmol/L; Blood Urea Nitrogen 10 mg/dL (7-17); Calcium 7.7 mg/dL (8.4-10.2); Carbon Dioxide 27 mmol/L (22-30); Chloride 107 mmol/L (98-107); Glucose 119 mg/dL (74-99); Magnesium 2.1 mg/dL (1.6-2.3); Non-African American GFR(CKD) >90 (>60 ml/min/1.73 sqM); Phosphorus 3.8 mg/dL (2.5-4.5); Potassium 2.9 mmol/L (3.5-5.1); Sodium 135 mmol/L (137-145); Total Bilirubin 0.3 mg/dL (0.2-1.3); Total Protein 3.8 g/dL (6.3-8.2)
--- NOTE | 2020-03-21 08:05 | XR ---
EXAMINATION TYPE: XR chest 1V portable DATE OF EXAM: 03/21/2020 Comparison: 03/20/2020 Clinical History: 49-year-old female Tube placement Findings: Old bilateral rib fracture deformities with callus. Heart upper limits of normal in size. Continued h azy bibasilar opacities, minimally improved from prior. Impression: Continued bibasilar hazy opacities, likely small effusions with adjacent atelectasis and/or consolida tion. Slightly improved from prior.
[2020-03-21 08:08] LABS: Glucose,Whole Blood 119 mg/dL (75-99)
--- NOTE | 2020-03-21 08:49 | P.PN ---
Subjective Progress Note Date: 03/21/20 This is a 49-year-old female patient of Dr. Chaka Mora with past medical history of gastric esophageal reflux disease, tobacco use. Patient presented to [facility] emergency center due to bright red blood and dark tarry stools per rectum. She began having epigastric pain last week and was drinking an average of 2 alcoholic drinks per day as well as taking Excedrin for headaches. 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 She was seen by her PCP and placed on Pepcid but did not have any improvement of her pain. Yesterday morning she woke up and passed moderate amount of dark stool in the toilet and also noted bright red blood on the toilet paper when she wiped. She had 6 episodes total and called EMS and she was brought in the hospital. Initially blood pressure was 132/84 and heart rate 93. Initial hemoglobin was 8.2. Patient continued to have rectal bleeding and was transfused initially 4 units packed RBCs and was admitted into intensive care unit. She did have a syncopal episode while getting to the bathroom and continued to be hypotensive despite IV fluids and blood products. She has had a right femoral triple-lumen catheter, left radial arterial line placed. She has currently been transfused a total of 9 units of packed RBCs and ordered for 1 unit of platelets. She was seen by GI and underwent EGD that found large actively bleeding duodenal ulcer treated with epinephrine injection and Endo Clip placement with continued bleeding from the ulcer site. Large amount of old blood and clots in the stomach. She was found to also have bleeding cystic artery. General surgery was thus involved in the OR.she is currently on Levaquin at 20 mics and status post 8 L of IV fluid. She is intubated and on mechanical ventilation with tidal volume 500, FiO2 40, PEEP 5. 03/17: Patient remains in the intensive care unit, intubated and on mechanical ventilation with tidal volume 350, FiO2 40, PEEP of 5 and successfully extubated. She is complaining of aching in her abdomen. She is not passing any gas. She has a very low dose of levothyroid. She did have low urine output during the night and received 2 doses of Lasix has been running at least 50 mL per hour. Patient received 1 g of calcium and we will repeat a second gram today.Patient has been afebrile, heart rate in the low 100s, respiratory rate 25, blood pressure 90/52, radiation monitor sinus tachycardia. Blood work this morning reveals WBC 20.2, hemoglobin 15.1, platelet count 117. Sodium 138, potassium 3.7, chloride 114, CO2 22, BUN 19 and creatinine 0.93. Blood sugar 239. Calcium 5.9, AST 38, ALT 13, alkaline phosphatase 26, albumin 1.5. Sputum for Gram stain and culture has been obtained. Patient has been transfused a total of 10 units of packed RBCs. Chest x-ray this morning reveals endotracheal tube distal tip at the level of the clavicle heads. No focal airspace opacities. Patient's has been updated. Patient has history that she has been drinking 2-3 glasses of wine daily for the past 1 year. 03/18: Patient remains in the intensive care unit, she is pulse ox 93-98% on room air. Blood pressure 102/59, heart rate 84, afebrile. She is off norepinephrine. Repeat blood work reveals WBC 11.1, hemoglobin 10.6, platelet count 110. PT 9.4, INR 0.9, PTT 27.9, fibrinogen 404. Sodium 140, potassium 3.1 replaced, chloride 114, CO2 UN 19 and creatinine 0.59. Blood sugar 123. Calcium 6.6, ionized calcium 4.7, phosphorus 2.7. Sputum cultures in progress. Repeat chest x-ray reveals bibasilar airspace opacities and haziness of the left hemidiaphragm may represent atelectasis versus developing airspace disease. Gallbladder pathology report reveals chronic cholecystitis with subserosal abscess, fibrosis, inflammation and fat necrosis. Patient complains of right up per quadrant abdominal pain. She states she slept off and on but there was a loud patient on the unit and kept her awake. She denies having any shortness of breath. She feels she has gas in her abdomen but not passing any gas no bowel movement. She denies having any nausea. She denies having any hallucinations and mental status is improving. She states she is reaching a 1000 mL on incentive spirometry and utilizing every other hour. Brother is at bedside. Patient is planning for outpatient physical therapy. 03/19: Patient is waiting for a [facility] bed without telemetry and remains in the intensive care unit. She has been afebrile, heart rate 71, blood pressure 105/63, pulse ox 96% on room air. Hemoglobin this morning is at 10.0. Potassium 3.1 and was replaced, chloride 114. Ionized calcium 5.0. Albumin 1.6. Sputum culture finalized with normal respiratory srinath. Chest x-ray reveals stable findings. Correlate for pneumonia, atelectasis, possible effusions. Patient continues to have abdominal pain. The incision site to the right running between 4-6. MARLEY drain remains intact with serosanguineous drainage. She is using incentive spirometry up to 1500 ML's. Dotson catheter removed. She has not had a bowel movement yet. Patient states that she is feeling tired. She does complain of pain with coughing. She states she has belching with minimal flatulence. 03/20: Patient remains in intensive care unit waiting for a [facility] bed. Her hemoglobin today is 11.2. WBC 7.0. Sodium 140, potassium 3.2 and replaced, chloride 112, CO2 26, BUN 10 and creatinine 0.41. Calcium 7.6 and ionized calcium 4.8. AST 115. Albumin 1.9. She states she had a small amount of stool output yesterday and passing gas. She states she is using incentive spirometry and getting up in a chair and a regular basis. She has occasional cough with sputum production. MARLEY drain remains in place serosanguineous drainage minimal. Patient has been afebrile, heart rate 83, blood pressure 123/76, pulse ox 97% on room air. She remains nothing by mouth. Await surgical input regarding advanc ement of diet. 03/21: Patient is resting comfortably in bed in the intensive care unit waiting for a [facility] bed. Her potassium was 3.1. Potassium per protocol ordered. Patient states that she has not been able to sleep well. She has been 23 years on the night and is found that the noise continues to keep her up. Patient is continuing to be on clear liquids. Her albumin is 1.9. We will supplement with ensure clear. Patient denies any pain or discomfort. MARLEY drain remains in place with serosanguineous drainage at 15 ML. Patient continues utilizing her incentive spirometer. She has been afebrile with a heart rate 75, respirations 15, blood pressure 131/86. REVIEW OF SYSTEMS Constitutional: No fever, no chills. Reports generalized weakness. Reports daytime sleepiness. EENT: No headache. No blurred vision or double vision, no loss of vision. No dizziness. No nasal drainage or congestion. No epistaxis. Lungs: No shortness of breath, reports cough, reports sputum production. No wheezing. Cardiovascular: No chest pain, no lower extremity edema. No palpitations. No paroxysmal nocturnal dyspnea. No orthopnea. No lightheadedness or dizziness. No syncopal episodes. Abdominal: Reports abdominal pain improving. Denies nausea denies vomiting. No diarrhea. Reports small bowel movement. Reports flatulence. Genitourinary: No dysuria, increased frequency, urgency. No urinary retention. Musculoskeletal: No myalgias. No muscle weakness, no gait dysfunction, no frequent falls. No back pain. No neck pain. Integumentary: No wounds, no lesions. No rash or pruritus. No unusual bruising. No change in hair or nails. Neurologic: No aphasia. No facial droop. No change in mentation. No head injury. No headache. No paralysis. No paresthesia. Psychiatric: No depression. No anxiety. No mood swings. Endocrine: No abnormal blood sugars. No weight change. No excessive sweating or thirst. No cold intolerance. PHYSICAL EXAMINATION Gen: This is a 49-year-old female. She is awake and alert, speech is clear. She is resting in ICU bed. HEENT: Head is atraumatic, normocephalic. Pupils equal, round. Sclerae is anicteric. Conjunctiva pale. NECK: Supple. No JVD. No lymphadenopathy. No thyromegaly. LUNGS: Clear to auscultation. No wheezes or rhonchi. No intercostal retractions. HEART: Regular rate and rhythm. No murmur. ABDOMEN: Soft. Bowel sounds are hypoactive. No masses. Right upper quadrant tenderness along dressing. Dressing in place over central abdominal surgical wound and MARLEY drain with minimal serosanguineous fluid. EXTREMITIES: No pedal edema. No calf tenderness. Dorsalis pedis +2 bilaterally. NEUROLOGICAL: Patient is awake and alert, moving all extremities, answering questions appropriately but slow, follow simple commands. ASSESSMENT AND PLAN 1. Acute blood loss anemia with acute GI bleed secondary to duodenal ulcer status post EGD, endoclips with persistent active bleeding secondary to bleeding cystic artery. Patient is status post total of 10 units packed RBCs, continue to monitor hemoglobin closely and transfuse as necessary. Continue Protonix 40 mg IV twice daily. 2. Acute GI bleed secondary to duodenal ulcer and bleeding cystic artery status post repair of bleeding duodenal ulcer, cholecystectomy, repair of incisional hernia. Patient is currently nothing by mouth. 3. History of gastroesophageal reflux disease 4. Hemorrhagic shock requiring massive blood transfusion, IV fluid resuscitation and vasopressor. Continue management per Dr. Simpson. Patient is off vasopressor. 5. Acute hypoxic respiratory failure secondary to shock, successfully extubated. 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 6. Thrombocytopenia secondary to shock. Continue to monitor. Patient did not receive platelets. 7. Massive transfusion. 8. Severe metabolic acidosis status post 2 A of bicarb. 9. DVT prophylaxis. Lovenox subcu. 10. Tobacco use and dependence. Continue nicotine patch. 11. GI prophylaxis. Protonix. 12. Hypocalcemia. Replacement. Continue to monitor. 13. Hyperchloremia. 14. History of alcohol abuse. Patient started on CIWA protocol. 15. Coagulopathy secondary to massive GI bleed and transfusion, stable 16. Possible aspiration pneumonitis. Patient is on Zosyn per pulmonary medicine. 17. Hypokalemia. Potassium replacement protocol. Discharge plan: home with outpatient physical therapy (prescription for outpatient physical therapy on patient's chart). Impression and plan of care have been directed as dictated by the signing physician. Michelle Nicholson nurse practitioner acting as scribe for signing physician. Objective - Vital Signs Vital signs: Vital Signs Temp 97.7 F 03/21/20 07:00 Pulse 75 03/21/20 07:00 Resp 15 03/21/20 07:00 BP 131/86 03/21/20 07:00 Pulse Ox 97 03/21/20 07:00 Intake & Output 03/20/20 03/21/20 03/21/20 18:59 06:59 18:59 Intake Total 9658.007 1007 Output Total 40 50 Balance 6199.022 9208 Weight 64.1 kg Intake: IV 820 1790 0.9 NS 200 Mvi, Adult No.4 with Vit 720 1440 K 10 ml Trace (Conc-1Ml/ Dose) 1 ml In Amino Acid 4.25%-D10w+Lytes*E* 1,000 ml @ 90 mls/hr IV .BY DURATION [facility] Rx#: [id number] Piperacillin-Tazobactam 3 100 100 .375 gm In Sodium Chloride 0.9% 100 ml @ 25 mls/hr IVPB Q8HR [facility] Rx# :[id number] Thiamine 100 mg In Sodium 50 Chloride 0.9% 50 ml @ 100 mls/hr IVPB Q12HR [facility] Rx#:[id number] Intake, IV Titration 530.805 2998 Amount Mvi, Adult No.4 with Vit 866.667 K 10 ml Trace (Conc-1Ml/ Dose) 1 ml In Amino Acid 4.25%-D10w+Lytes*E* 1,000 ml @ 50 mls/hr IV . [id number] [facility] Rx#:[id number] Mvi, Adult No.4 with Vit 1011 K 10 ml Trace (Conc-1Ml/ Dose) 1 ml In Amino Acid 4.25%-D10w+Lytes*E* 1,000 ml @ 90 mls/hr IV .BY DURATION [facility] Rx#: [id number] Potassium Chloride 10 meq 400 In Water For Injection 1 100ml.bag @ 100 mls/hr IVPB Q1HR [facility] Rx#: [id number] Oral 240 Output: Drainage 40 50 Left Abdomen 40 50 Other: Voiding Method Toilet # Voids 3 3 # Bowel Movements 2 2 ABP, PAP, CO, CI - Last Documented Arterial Blood Pressure 105/72 - Labs CBC & Chem 7: 03/21/20 04:40 03/21/20 10:08 Labs: Abnormal Lab Results - Last 24 Hours (Table) 03/20/20 03/20/20 03/20/20 Range/Units 12:17 18:28 20:18 RBC (3.80-5.40) m/uL Hgb (11.4-16.0) gm/dL Hct (34.0-46.0) % Sodium (137-145) mmol/L Potassium 3.2 L (3.5-5.1) mmol/L Creatinine (0.52-1.04) mg/dL Glucose (74-99) mg/dL POC Glucose (mg/dL) 108 H 128 H (75-99) mg/dL Calcium (8.4-10.2) mg/dL AST (14-36) U/L Total Protein (6.3-8.2) g/dL Albumin (3.5-5.0) g/dL 03/21/20 03/21/20 03/21/20 Range/Units 04:40 04:40 08:07 RBC 3.42 L (3.80-5.40) m/uL Hgb 10.6 L (11.4-16.0) gm/dL Hct 32.1 L (34.0-46.0) % Sodium 135 L (137-145) mmol/L Potassium 2.9 L (3.5-5.1) mmol/L Creatinine 0.41 L (0.52-1.04) mg/dL Glucose 119 H (74-99) mg/dL POC Glucose (mg/dL) 119 H (75-99) mg/dL Calcium 7.7 L (8.4-10.2) mg/dL AST 53 H (14-36) U/L Total Protein 3.8 L (6.3-8.2) g/dL Albumin 1.9 L (3.5-5.0) g/dL
[2020-03-21] MEDS ORDERED: POTASSIUM CHLORIDE 10 MEQ in WATER FOR INJECTION 1 100ML.BAG IVPB SCH (10:00)
[2020-03-21] MEDS: ENOXAPARIN 40 MG/0.4 ML SYRINGE SQ SCH (10:14)
[2020-03-21] MEDS: PIPERACILLIN-TAZOBACTAM 3.375 GM in SODIUM CHLORIDE 0.9% 100 ML IVPB SCH ×3 (10:14→23:16)
[2020-03-21] MEDS: NICOTINE 14MG/24HR PATCH TRANSDERM SCH (10:14)
[2020-03-21] MEDS: PANTOPRAZOLE 40 MG/10 ML VIAL IV SCH ×2 (10:16→20:24)
--- NOTE | 2020-03-21 11:01 | P.PN ---
Subjective Progress Note Date: 03/21/20 Principal diagnosis: Bleeding duodenal ulcer Patient doing fairly well. Complaining of some abdominal cramps. Having some loose liquid brown stools. Tolerating sips of clears. MARLEY drain sterile saline was. White blood cell count normal. She is afebrile. Objective - Vital Signs Vital signs: Vital Signs Temp 97.7 F 03/21/20 07:00 Pulse 75 03/21/20 07:00 Resp 15 03/21/20 07:00 BP 131/86 03/21/20 07:00 Pulse Ox 97 03/21/20 07:00 Intake & Output 03/20/20 03/21/20 03/21/20 18:59 06:59 18:59 Intake Total 4109.221 0871 Output Total 40 50 Balance 7859.731 2606 Weight 64.1 kg Intake: IV 820 1790 0.9 NS 200 Mvi, Adult No.4 with Vit 720 1440 K 10 ml Trace (Conc-1Ml/ Dose) 1 ml In Amino Acid 4.25%-D10w+Lytes*E* 1,000 ml @ 90 mls/hr IV .BY DURATION [facility] Rx#: [id number] Piperacillin-Tazobactam 3 100 100 .375 gm In Sodium Chloride 0.9% 100 ml @ 25 mls/hr IVPB Q8HR [facility] Rx# :[id number] Thiamine 100 mg In Sodium 50 Chloride 0.9% 50 ml @ 100 mls/hr IVPB Q12HR [facility] Rx#:[id number] Intake, IV Titration 964.571 2479 Amount Mvi, Adult No.4 with Vit 866.667 K 10 ml Trace (Conc-1Ml/ Dose) 1 ml In Amino Acid 4.25%-D10w+Lytes*E* 1,000 ml @ 50 mls/hr IV . [id number] [facility] Rx#:[id number] Mvi, Adult No.4 with Vit 1011 K 10 ml Trace (Conc-1Ml/ Dose) 1 ml In Amino Acid 4.25%-D10w+Lytes*E* 1,000 ml @ 90 mls/hr IV .BY DURATION [facility] Rx#: [id number] Potassium Chloride 10 meq 400 In Water For Injection 1 100ml.bag @ 100 mls/hr IVPB Q1HR [facility] Rx#: [id number] Oral 240 Output: Drainage 40 50 Left Abdomen 40 50 Other: Voiding Method Toilet Toilet # Voids 3 3 # Bowel Movements 2 2 ABP, PAP, CO, CI - Last Documented Arterial Blood Pressure 105/72 - Exam Abdomen: Soft, nondistended, incision clean and dry, MARLEY serosanguineous - Labs CBC & Chem 7: 03/21/20 04:40 03/21/20 10:08 Labs: Abnormal Lab Results - Last 24 Hours (Table) 03/20/20 03/20/20 03/20/20 Range/Units 12:17 18:28 20:18 RBC (3.80-5.40) m/uL Hgb (11.4-16.0) gm/dL Hct (34.0-46.0) % Sodium (137-145) mmol/L Potassium 3.2 L (3.5-5.1) mmol/L Creatinine (0.52-1.04) mg/dL Glucose (74-99) mg/dL POC Glucose (mg/dL) 108 H 128 H (75-99) mg/dL Calcium (8.4-10.2) mg/dL AST (14-36) U/L Total Protein (6.3-8.2) g/dL Albumin (3.5-5.0) g/dL 03/21/20 03/21/20 03/21/20 Range/Units 04:40 04:40 08:07 RBC 3.42 L (3.80-5.40) m/uL Hgb 10.6 L (11.4-16.0) gm/dL Hct 32.1 L (34.0-46.0) % Sodium 135 L (137-145) mmol/L Potassium 2.9 L (3.5-5.1) mmol/L Creatinine 0.41 L (0.52-1.04) mg/dL Glucose 119 H (74-99) mg/dL POC Glucose (mg/dL) 119 H (75-99) mg/dL Calcium 7.7 L (8.4-10.2) mg/dL AST 53 H (14-36) U/L Total Protein 3.8 L (6.3-8.2) g/dL Albumin 1.9 L (3.5-5.0) g/dL 03/21/20 Range/Units 10:08 RBC (3.80-5.40) m/uL Hgb (11.4-16.0) gm/dL Hct (34.0-46.0) % Sodium (137-145) mmol/L Potassium 3.1 L (3.5-5.1) mmol/L Creatinine (0.52-1.04) mg/dL Glucose (74-99) mg/dL POC Glucose (mg/dL) (75-99) mg/dL Calcium (8.4-10.2) mg/dL AST (14-36) U/L Total Protein (6.3-8.2) g/dL Albumin (3.5-5.0) g/dL Assessment and Plan (1) Duodenal ulcer Narrative/Plan: Patient doing fairly well. Continue sips of clears for now. Increase activity. Monitor drain site. May transfer out of ICU. Current Visit: Yes Status: Acute Code(s): K26.9 - DUODENAL ULCER, UNSP ACUTE OR CHRONIC, W/O HEMOR OR PERF SNOMED Code(s): 09182210
[2020-03-21] MEDS ORDERED: Potassium Replacement Protocol 1 EACH MISC MISCELLANE PRN (11:23)
--- NOTE | 2020-03-21 11:25 | P.PN ---
Subjective Progress Note Date: 03/21/20 Principal diagnosis: Acute massive upper GI bleeding secondary to duodenal ulcer. This is a 49-year-old female, history of alcohol abuse, drinks on the average of 3 alcoholic beverages per day. Patient uses occasional Excedrin roughly on the average a 1 time per week, no previous history of GI bleeding no history of peptic ulcer disease. No history of diverticular disease or colitis. Patient presented to the hospital with a few days' history of intermittent episodes of epigastric discomfort, nausea, and has been noticing black tarry stools. Patient was also complaining of generalized weakness, lightheadedness, and upon her early evaluation in the ER, her hemoglobin was noted to be 9.0. Since presentation to the hospital, patient had multiple episodes of black tarry stools and she required at least 4 units of packed RBCs before I even evaluated the patient. I walked into the ICU, patient was noted to have significant rectal bleeding she was hypotensive in spite of fluids and blood products. She had one peripheral IV access and I placed a right femoral triple-lumen catheter. Also placed a left radial arterial line. Recommended immediate surgical consultation and GI consultation. And ordered more blood transfusions. I believe the patient received a total of 9 units of packed RBCs, she underwent EGD, and she was found to have a bleeding was an ulcer. Surgery evaluated the patient immediately, and she was found to have perforated duodenal ulcer and bleeding cystic artery. I was updated on her condition by Dr. Rosales/general surgeon on the case, and the patient is presently in the operating room. Patient was reevaluated today on 03/17/20, remains in the ICU, intubated and mechanically ventilated. Her ventilator settings are assist control rate of 28 tidal volume of 350 FiO2 40% and PEEP of 5. Patient is on propofol 50 mcg/kg/m, norepinephrine at 0.11 mcg/kg/m, and on bicarb drip which I have discontinued. Patient is hemodynamically stable and she is on a minimal dose of norepinephrine. And this would likely be discontinued once the patient is off propofol. Patient is arousable while on propofol, waking up and following very simple instructions. She is in sinus tachycardia with a rate of 108. Today I have discontinued her bicarb and added Zosyn. And I plan to give the patient is sedation holiday, and likely switch the patient to a pressure support of 8 and CPAP, and given a weaning trial. WBC count is 20.2 hemoglobin is 15.1. ABG showed a pO2 of 113 pCO2 of 39 pH of 7.42 and this is a 40% FiO2. Bicarb is 26 and I have discontinued her bicarb. Basic metabolic profile is normal and he profile is normal. Calcium is a bit low, the patient to receive 1 amp of calcium gluconate. Patient was reevaluated today on 03/18/20, patient tolerated the extubation well. Presently on few liters nasal cannula, and she is doing great. Hemodynamically stable, in no distress. Hemoglobin today is 10.6. WBC count is 11.1. *Normal except for low potassium being corrected as per protocol. Remains nothing by mouth. And there is no gastric tube in place Reevaluated today on 03/19/20, patient remains in the ICU as an overflow. Patient has no further episodes of GI bleeding, she is now on room air, her hemoglobin is 10. Remains nothing by mouth, no bowel movements so far. Continues to have tender abdomen. But overall the patient is doing much better and she is hemodynamically stable. Still doing poorly with incentive spirometry. Chest x- ray is basically unremarkable. WBC count is 7.5 hemoglobin is 10 Sub-normal except for low potassium 3.1 being corrected as per protocol. Reevaluated today on 03/20/20, patient remains in the ICU waiting for a medical surgical bed. Patient is doing well except for some vague abdominal pain and discomfort. She had small bowel movement yesterday and she is passing gas. Patient is doing well with incentive spirometry, she does have occasional cough, MARLEY drain remains in place, with minimal drainage. Patient is afebrile, vital signs are stable, and she is to be seen by surgery regarding her abdominal discomfort. Reevaluated today on 03/21/20, patient remains in the ICU as an overflow, she is doing great. No cough no wheezing no shortness of breath, patient is on room ai r. She is now on TPN and remains nothing by mouth. Potassium is a bit low, however will arrange for higher potassium and the TPN and we'll correct the low potassium accordingly. Chest x-ray showed minimal bibasilar atelectasis. Patient is compliant with her incentive spirometer. Patient remains as an overflow and once a bed becomes available on the medical surgical floor the patient could be transferred. Objective - Vital Signs Vital signs: Vital Signs Temp 97.7 F 03/21/20 07:00 Pulse 75 03/21/20 07:00 Resp 15 03/21/20 07:00 BP 131/86 03/21/20 07:00 Pulse Ox 97 03/21/20 07:00 Intake & Output 03/20/20 03/21/20 03/21/20 18:59 06:59 18:59 Intake Total 7488.566 9801 450 Output Total 40 50 1 Balance 4577.213 5744 449 Weight 64.1 kg Intake: IV 820 1790 450 0.9 NS 200 Mvi, Adult No.4 with Vit 720 1440 450 K 10 ml Trace (Conc-1Ml/ Dose) 1 ml In Amino Acid 4.25%-D10w+Lytes*E* 1,000 ml @ 90 mls/hr IV .BY DURATION [facility] Rx#: [id number] Piperacillin-Tazobactam 3 100 100 .375 gm In Sodium Chloride 0.9% 100 ml @ 25 mls/hr IVPB Q8HR [facility] Rx# :[id number] Thiamine 100 mg In Sodium 50 Chloride 0.9% 50 ml @ 100 mls/hr IVPB Q12HR [facility] Rx#:[id number] Intake, IV Titration 604.421 2640 Amount Mvi, Adult No.4 with Vit 866.667 K 10 ml Trace (Conc-1Ml/ Dose) 1 ml In Amino Acid 4.25%-D10w+Lytes*E* 1,000 ml @ 50 mls/hr IV . [id number] [facility] Rx#:[id number] Mvi, Adult No.4 with Vit 1011 K 10 ml Trace (Conc-1Ml/ Dose) 1 ml In Amino Acid 4.25%-D10w+Lytes*E* 1,000 ml @ 90 mls/hr IV .BY DURATION [facility] Rx#: [id number] Potassium Chloride 10 meq 400 In Water For Injection 1 100ml.bag @ 100 mls/hr IVPB Q1HR [facility] Rx#: [id number] Oral 240 Output: Drainage 40 50 Left Abdomen 40 50 Urine 1 Other: Voiding Method Toilet Toilet # Voids 3 3 3 # Bowel Movements 2 2 ABP, PAP, CO, CI - Last Documented Arterial Blood Pressure 105/72 - Exam Physical Exam: Revealed 49-year-old female awake, alert, in no distress, on room air. Head: Atraumatic, normocephalic. HEENT: [Neck is supple.] [No neck masses.] [No thyromegaly.] [No JVD.] Chest: [Symmetrical chest expansion, diminished at the bases, no rhonchi no wheezes. Cardiac Exam: [Normal S1 and S2, no S3 gallop, no murmur.] Abdomen: Postsurgical, dressing is clean and dry. [Soft, slightly tender., no megaly, no rebound, no guarding, diminished bowel sounds.] Extremities: [No clubbing, no edema, no cyanosis.] Neurological Exam: Alert and oriented 3 focal deficits. Skin: No rashes. Psychiatric: Normal mood, affect and normal mental status examination Musculoskeletal: No limitations in range of motion and no deformities - Labs CBC & Chem 7: 03/21/20 04:40 03/21/20 10:08 Labs: Abnormal Lab Results - Last 24 Hours (Table) 03/20/20 03/20/20 03/20/20 Range/Units 12:17 18:28 20:18 RBC (3.80-5.40) m/uL Hgb (11.4-16.0) gm/dL Hct (34.0-46.0) % Sodium (137-145) mmol/L Potassium 3.2 L (3.5-5.1) mmol/L Creatinine (0.52-1.04) mg/dL Glucose (74-99) mg/dL POC Glucose (mg/dL) 108 H 128 H (75-99) mg/dL Calcium (8.4-10.2) mg/dL AST (14-36) U/L Total Protein (6.3-8.2) g/dL Albumin (3.5-5.0) g/dL 03/21/20 03/21/20 03/21/20 Range/Units 04:40 04:40 08:07 RBC 3.42 L (3.80-5.40) m/uL Hgb 10.6 L (11.4-16.0) gm/dL Hct 32.1 L (34.0-46.0) % Sodium 135 L (137-145) mmol/L Potassium 2.9 L (3.5-5.1) mmol/L Creatinine 0.41 L (0.52-1.04) mg/dL Glucose 119 H (74-99) mg/dL POC Glucose (mg/dL) 119 H (75-99) mg/dL Calcium 7.7 L (8.4-10.2) mg/dL AST 53 H (14-36) U/L Total Protein 3.8 L (6.3-8.2) g/dL Albumin 1.9 L (3.5-5.0) g/dL 03/21/20 Range/Units 10:08 RBC (3.80-5.40) m/uL Hgb (11.4-16.0) gm/dL Hct (34.0-46.0) % Sodium (137-145) mmol/L Potassium 3.1 L (3.5-5.1) mmol/L Creatinine (0.52-1.04) mg/dL Glucose (74-99) mg/dL POC Glucose (mg/dL) (75-99) mg/dL Calcium (8.4-10.2) mg/dL AST (14-36) U/L Total Protein (6.3-8.2) g/dL Albumin (3.5-5.0) g/dL Assessment and Plan Assessment: Impression: Status post exploratory laparotomy and repair of bleeding duodenal ulcer, cholecystectomy and repair of incisional hernia postoperative day #5 Acute upper GI bleeding secondary to duodenal ulcer Acute blood loss anemia, resolved, hemoglobin today is 10.6 Status post EGD and endoclips application, but persistent active bleeding. History of alcohol abuse. Hypovolemic shock on presentation secondary to GI bleeding/hemorrhagic shock, resolved. Postoperative abdominal pain. Expected. Recommendation: Continue Protonix. Continue Alcohol withdrawal protocol. Continue incentive spirometry. Continue TPN and address low potassium by increasing potassium in TPN. Ambulate as tolerated. Continue GI and DVT prophylaxis. Continue pain control Transfer to a regular medical floor hopefully today We'll continue to follow. Time with Patient: Less than 30
[2020-03-21 11:28] LABS: Glucose,Whole Blood 367 mg/dL (75-99)
[2020-03-21 11:31] LABS: Glucose,Whole Blood 118 mg/dL (75-99)
[2020-03-21] MEDS: 1: MVI, ADULT NO.4 WITH VIT K 10 ML, TRACE (CONC-1ML/DOSE) 1 ML, POTASSIUM CHLORIDE 20 M IV SCH ×4 (12:29)
[2020-03-21] MEDS: 1: MVI, ADULT NO.4 WITH VIT K 10 ML, TRACE (CONC-1ML/DOSE) 1 ML in AMINO ACID 4.25%-D10W IV SCH ×3 (12:29)
[2020-03-21] MEDS: SODIUM CHLORIDE 0.9% 1,000 ML IV SCH (12:30)
[2020-03-21 16:38] LABS: Glucose,Whole Blood 106 mg/dL (75-99)
[2020-03-21] MEDS: FAT EMULSION 20% 250 ML in EMPTY BAG 1 BAG IV SCH (17:28)
[2020-03-21] MEDS: MELATONIN 3 MG TABLET PO SCH ×2 (20:25→20:28)
[2020-03-21 20:53] LABS: Glucose,Whole Blood 111 mg/dL (75-99)
[2020-03-22] MEDS: MORPHINE SULFATE 2 MG/ML SYRINGE IVP PRN ×4 (00:11→11:46)
[2020-03-22] MEDS: POTASSIUM CHLORIDE 10 MEQ in WATER FOR INJECTION 1 100ML.BAG IVPB SCH ×3 (00:11→02:17)
[2020-03-22] MEDS: THIAMINE 100 MG in SODIUM CHLORIDE 0.9% 50 ML IVPB SCH ×2 (02:13→14:26)
[2020-03-22 05:01] LABS: African American GFR (CKD) >90 (>60 ml/min/1.73 sqM); Anion Gap 1 mmol/L; Blood Urea Nitrogen 9 mg/dL (7-17); Carbon Dioxide 24 mmol/L (22-30); Chloride 109 mmol/L (98-107); Glucose 108 mg/dL (74-99); Magnesium 2.1 mg/dL (1.6-2.3); Non-African American GFR(CKD) >90 (>60 ml/min/1.73 sqM); Phosphorus 4.4 mg/dL (2.5-4.5); Potassium 4.3 mmol/L (3.5-5.1); Sodium 134 mmol/L (137-145)
[2020-03-22 05:23] LABS: HCT 30.7 % (34.0-46.0); HGB 10.3 gm/dL (11.4-16.0); MCH 31.3 pg (25.0-35.0); MCHC 33.5 g/dL (31.0-37.0); MCV 93.6 fL (80.0-100.0); Mean Platelet Volume 7.6; Platelet Count 355 k/uL (150-450); RBC 3.28 m/uL (3.80-5.40); RDW 14.7 % (11.5-15.5); WBC 6.8 k/uL (3.8-10.6)
[2020-03-22] MEDS: 1: MVI, ADULT NO.4 WITH VIT K 10 ML, TRACE (CONC-1ML/DOSE) 1 ML, POTASSIUM CHLORIDE 20 M IV SCH ×13 (06:39→13:49)
--- NOTE | 2020-03-22 08:08 | XR ---
EXAMINATION TYPE: XR chest 1V portable DATE OF EXAM: 03/22/2020 CLINICAL HISTORY: Tube placement TECHNIQUE: Portable upright view of the chest obtained COMPARISON: 03/21/2020 chest radiograph FINDINGS: The cardiomediastinal silhouette is within normal limits for size. Pulmonary vasculature i s normal. Bibasilar airspace opacities unchanged. Likely small bilateral pleural effusions. No pneumo thorax. Redemonstrated old rib fracture deformities. IMPRESSION: Likely small bilateral pleural effusions with bibasilar atelectasis and/or consolidation, unchanged versus 03/21/2020.
--- NOTE | 2020-03-22 08:32 | P.PN ---
Subjective Progress Note Date: 03/22/20 This is a 49-year-old female patient of Dr. Chaka Mora with past medical history of gastric esophageal reflux disease, tobacco use. Patient presented to [facility] emergency center due to bright red blood and dark tarry stools per rectum. She began having epigastric pain last week and was drinking an average of 2 alcoholic drinks per day as well as taking Excedrin for headaches. 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 She was seen by her PCP and placed on Pepcid but did not have any improvement of her pain. Yesterday morning she woke up and passed moderate amount of dark stool in the toilet and also noted bright red blood on the toilet paper when she wiped. She had 6 episodes total and called EMS and she was brought in the hospital. Initially blood pressure was 132/84 and heart rate 93. Initial hemoglobin was 8.2. Patient continued to have rectal bleeding and was transfused initially 4 units packed RBCs and was admitted into intensive care unit. She did have a syncopal episode while getting to the bathroom and continued to be hypotensive despite IV fluids and blood products. She has had a right femoral triple-lumen catheter, left radial arterial line placed. She has currently been transfused a total of 9 units of packed RBCs and ordered for 1 unit of platelets. She was seen by GI and underwent EGD that found large actively bleeding duodenal ulcer treated with epinephrine injection and Endo Clip placement with continued bleeding from the ulcer site. Large amount of old blood and clots in the stomach. She was found to also have bleeding cystic artery. General surgery was thus involved in the OR.she is currently on Levaquin at 20 mics and status post 8 L of IV fluid. She is intubated and on mechanical ventilation with tidal volume 500, FiO2 40, PEEP 5. 03/17: Patient remains in the intensive care unit, intubated and on mechanical ventilation with tidal volume 350, FiO2 40, PEEP of 5 and successfully extubated. She is complaining of aching in her abdomen. She is not passing any gas. She has a very low dose of levothyroid. She did have low urine output during the night and received 2 doses of Lasix has been running at least 50 mL per hour. 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 Blood work this morning reveals WBC 20.2, hemoglobin 15.1, platelet count 117. Sodium 138, potassium 3.7, chloride 114, CO2 22, BUN 19 and creatinine 0.93. Blood sugar 239. Calcium 5.9, AST 38, ALT 13, alkaline phosphatase 26, albumin 1.5. Sputum for Gram stain and culture has been obtained. Patient has been transfused a total of 10 units of packed RBCs. Chest x-ray this morning reveals endotracheal tube distal tip at the level of the clavicle heads. No focal airspace opacities. Patient's has been updated. Patient has history that she has been drinking 2-3 glasses of wine daily for the past 1 year. 03/18: Patient remains in the intensive care unit, she is pulse ox 93-98% on room air. Blood pressure 102/59, heart rate 84, afebrile. She is off norepinephrine. Repeat blood work reveals WBC 11.1, hemoglobin 10.6, platelet count 110. PT 9.4, INR 0.9, PTT 27.9, fibrinogen 404. Sodium 140, potassium 3.1 replaced, chloride 114, CO2 UN 19 and creatinine 0.59. Blood sugar 123. Calcium 6.6, ionized calcium 4.7, phosphorus 2.7. Sputum cultures in progress. Repeat chest x-ray reveals bibasilar airspace opacities and haziness of the left hemidiaphragm may represent atelectasis versus developing airspace disease. Gallbladder pathology report reveals chronic cholecystitis with subserosal abscess, fibrosis, inflammation and fat necrosis. Patient complains of right up per quadrant abdominal pain. She states she slept off and on but there was a loud patient on the unit and kept her awake. She denies having any shortness of breath. She feels she has gas in her abdomen but not passing any gas no bowel movement. She denies having any nausea. She denies having any hallucinations and mental status is improving. She states she is reaching a 1000 mL on incentive spirometry and utilizing every other hour. Brother is at bedside. Patient is planning for outpatient physical therapy. 03/19: Patient is waiting for a [facility] bed without telemetry and remains in the intensive care unit. She has been afebrile, heart rate 71, blood pressure 105/63, pulse ox 96% on room air. Hemoglobin this morning is at 10.0. Potassium 3.1 and was replaced, chloride 114. Ionized calcium 5.0. Albumin 1.6. Sputum culture finalized with normal respiratory srinath. Chest x-ray reveals stable findings. Correlate for pneumonia, atelectasis, possible effusions. Patient continues to have abdominal pain. The incision site to the right running between 4-6. MARLEY drain remains intact with serosanguineous drainage. She is using incentive spirometry up to 1500 ML's. Dotson catheter removed. She has not had a bowel movement yet. Patient states that she is feeling tired. She does complain of pain with coughing. She states she has belching with minimal flatulence. 03/20: Patient remains in intensive care unit waiting for a [facility] bed. Her hemoglobin today is 11.2. WBC 7.0. Sodium 140, potassium 3.2 and replaced, chloride 112, CO2 26, BUN 10 and creatinine 0.41. Calcium 7.6 and ionized calcium 4.8. AST 115. Albumin 1.9. She states she had a small amount of stool output yesterday and passing gas. She states she is using incentive spirometry and getting up in a chair and a regular basis. She has occasional cough with sputum production. MARLEY drain remains in place serosanguineous drainage minimal. Patient has been afebrile, heart rate 83, blood pressure 123/76, pulse ox 97% on room air. She remains nothing by mouth. Await surgical input regarding advanc ement of diet. 03/21: Patient is resting comfortably in bed in the intensive care unit waiting for a [facility] bed. Her potassium was 3.1. Potassium per protocol ordered. Patient states that she has not been able to sleep well. She has been 23 years on the night and is found that the noise continues to keep her up. Patient is continuing to be on clear liquids. Her albumin is 1.9. We will supplement with ensure clear. Patient denies any pain or discomfort. MARLEY drain remains in place with serosanguineous drainage at 15 ML. Patient continues utilizing her incentive spirometer. She has been afebrile with a heart rate 75, respirations 15, blood pressure 131/86. 03/22: Patient is resting currently sitting up in bed in the intensive daily and [facility] Her potassium today was 4.2. Patient states that she continues to not sleep well. She did not use a sleep agent because she is still not on solid foods. Patient has been advanced to full liquids at this time. Patient was up throughout the night due to needing to urinate. MARLEY drain is in place with serosanguineous drainage. She is continuing to use her incentive spirometer. Patient has been afebrile. Pulse rate 71, respirations 16, blood pressure 122/68, 98% on room air. WC 6.8, hemoglobin 10.3, sodium 134, BUN 9 creatinine 0.4 REVIEW OF SYSTEMS Constitutional: No fever, no chills. Reports generalized weakness. Reports daytime sleepiness. EENT: No headache. No blurred vision or double vision, no loss of vision. No dizziness. No nasal drainage or congestion. No epistaxis. Lungs: No shortness of breath, reports cough, reports sputum production. No wheezing. Cardiovascular: No chest pain, no lower extremity edema. No palpitations. No paroxysmal nocturnal dyspnea. No orthopnea. No lightheadedness or dizziness. No syncopal episodes. Abdominal: Reports abdominal pain improving. Denies nausea denies vomiting. No diarrhea. Reports small bowel movement. Reports flatulence. Genitourinary: No dysuria, increased frequency, urgency. No urinary retention. Musculoskeletal: No myalgias. No muscle weakness, no gait dysfunction, no frequent falls. No back pain. No neck pain. Integumentary: No wounds, no lesions. No rash or pruritus. No unusual bruising. No change in hair or nails. Neurologic: No aphasia. No facial droop. No change in mentation. No head injury. No headache. No paralysis. No paresthesia. Psychiatric: No depression. No anxiety. No mood swings. Endocrine: No abnormal blood sugars. No weight change. No excessive sweating or thirst. No cold intolerance. PHYSICAL EXAMINATION Gen: This is a 49-year-old female. She is awake and alert, speech is clear. She is resting in ICU bed. HEENT: Head is atraumatic, normocephalic. Pupils equal, round. Sclerae is anicteric. Conjunctiva pale. NECK: Supple. No JVD. No lymphadenopathy. No thyromegaly. LUNGS: Clear to auscultation. No wheezes or rhonchi. No intercostal retractions. HEART: Regular rate and rhythm. No murmur. ABDOMEN: Soft. Bowel sounds are hypoactive. No masses. Right upper quadrant tenderness along dressing. Dressing in place over central abdominal surgical wound and MARLEY drain with minimal serosanguineous fluid. EXTREMITIES: No pedal edema. No calf tenderness. Dorsalis pedis +2 bilaterally. NEUROLOGICAL: Patient is awake and alert, moving all extremities, answering questions appropriately but slow, follow simple commands. ASSESSMENT AND PLAN 1. Acute blood loss anemia with acute GI bleed secondary to duodenal ulcer status post EGD, endoclips with persistent active bleeding secondary to bleeding cystic artery. Patient is status post total of 10 units packed RBCs, continue to monitor hemoglobin closely and transfuse as necessary. Continue Protonix 40 mg IV twice daily. 2. Acute GI bleed secondary to duodenal ulcer and bleeding cystic artery status post repair of bleeding duodenal ulcer, cholecystectomy, repair of incisional hernia. Patient advanced to clear liquids 3. History of gastroesophageal reflux disease 4. Hemorrhagic shock requiring massive blood transfusion, IV fluid resuscitation and vasopressor. Continue management per Dr. Simpson. Patient is off vasopressor. 5. Acute hypoxic respiratory failure secondary to shock, successfully extubated. Managed by out of town collection clerk. 6. Thrombocytopenia secondary to shock. Continue to monitor. Patient did not receive platelets. 7. Massive transfusion. 8. Severe metabolic acidosis status post 2 A of bicarb. 9. DVT prophylaxis. Lovenox subcu. 10. Tobacco use and dependence. Continue nicotine patch. 11. GI prophylaxis. Protonix. 12. Hypocalcemia. Replacement. Continue to monitor. 13. Hyperchloremia. 14. History of alcohol abuse. Patient started on CIWA protocol. 15. Coagulopathy secondary to massive GI bleed and transfusion, stable 16. Possible aspiration pneumonitis. Patient is on Zosyn per pulmonary medicine. 17. Hypokalemia. Potassium replacement protocol. Discharge plan: home with outpatient physical therapy (prescription for outpatient physical therapy on patient's chart). Impression and plan of care have been directed as dictated by the signing physician. Michelle Nicholson nurse practitioner acting as scribe for signing physician. Objective - Vital Signs Vital signs: Vital Signs Temp 98.8 F 03/22/20 07:00 Pulse 71 03/22/20 07:00 Resp 17 03/22/20 07:00 BP 122/68 03/22/20 07:00 Pulse Ox 98 03/22/20 07:00 Intake & Output 03/21/20 03/22/20 03/22/20 18:59 06:59 18:59 Intake Total 1160 1145 Output Total 1 80 Balance 1159 1065 Intake: IV 760 1145 0.9 NS 320 Dextrose 5%-0.9% NaCl 1, 80 000 ml @ 20 mls/hr IV . Q24H [facility] Rx#:[id number] Fat Emulsion 20% 250 ml 105 In Empty Bag 1 bag @ 21 mls/hr IV Q24H [facility] Rx#: [id number] Mvi, Adult No.4 with Vit 680 720 K 10 ml Trace (Conc-1Ml/ Dose) 1 ml In Amino Acid 4.25%-D10w+Lytes*E* 1,000 ml @ 90 mls/hr IV .BY DURATION [facility] Rx#: [id number] Intake, IV Titration 200 Amount Potassium Chloride 10 meq 200 In Water For Injection 1 100ml.bag @ 100 mls/hr IVPB Q1HR [facility] Rx#: [id number] Oral 200 Output: Drainage 80 Left Abdomen 80 Urine 1 Other: Voiding Method Toilet Toilet # Voids 2 2 ABP, PAP, CO, CI - Last Documented Arterial Blood Pressure 105/72 - Labs CBC & Chem 7: 03/22/20 04:23 03/22/20 04:23 Labs: Abnormal Lab Results - Last 24 Hours (Table) 03/21/20 03/21/20 03/21/20 Range/Units 10:08 11:26 11:29 RBC (3.80-5.40) m/uL Hgb (11.4-16.0) gm/dL Hct (34.0-46.0) % Sodium (137-145) mmol/L Potassium 3.1 L (3.5-5.1) mmol/L Chloride (98-107) mmol/L Creatinine (0.52-1.04) mg/dL Glucose (74-99) mg/dL POC Glucose (mg/dL) 367 H 118 H (75-99) mg/dL Calcium (8.4-10.2) mg/dL 03/21/20 03/21/20 03/21/20 Range/Units 16:37 20:52 22:10 RBC (3.80-5.40) m/uL Hgb (11.4-16.0) gm/dL Hct (34.0-46.0) % Sodium (137-145) mmol/L Potassium 3.2 L (3.5-5.1) mmol/L Chloride (98-107) mmol/L Creatinine (0.52-1.04) mg/dL Glucose (74-99) mg/dL POC Glucose (mg/dL) 106 H 111 H (75-99) mg/dL Calcium (8.4-10.2) mg/dL 03/22/20 03/22/20 Range/Units 04:23 04:23 RBC 3.28 L (3.80-5.40) m/uL Hgb 10.3 L (11.4-16.0) gm/dL Hct 30.7 L (34.0-46.0) % Sodium 134 L (137-145) mmol/L Potassium (3.5-5.1) mmol/L Chloride 109 H (98-107) mmol/L Creatinine 0.41 L (0.52-1.04) mg/dL Glucose 108 H (74-99) mg/dL POC Glucose (mg/dL) (75-99) mg/dL Calcium 8.0 L (8.4-10.2) mg/dL
[2020-03-22] MEDS: NICOTINE 14MG/24HR PATCH TRANSDERM SCH (08:38)
[2020-03-22] MEDS: PANTOPRAZOLE 40 MG/10 ML VIAL IV SCH ×2 (08:38→21:05)
[2020-03-22] MEDS: PIPERACILLIN-TAZOBACTAM 3.375 GM in SODIUM CHLORIDE 0.9% 100 ML IVPB SCH ×2 (08:38→17:38)
[2020-03-22] MEDS: SODIUM CHLORIDE 0.9% 1,000 ML IV SCH (08:39)
[2020-03-22] MEDS: ENOXAPARIN 40 MG/0.4 ML SYRINGE SQ SCH (08:39)
--- NOTE | 2020-03-22 09:33 | P.PN ---
Subjective Progress Note Date: 03/22/20 Principal diagnosis: Bleeding duodenal ulcer Patient doing well today. Says her pain is about the same. She has been more active. White blood cell count normal at 6.8. No fevers. Tolerating clears. She is hungry. Objective - Vital Signs Vital signs: Vital Signs Temp 98.8 F 03/22/20 07:00 Pulse 71 03/22/20 07:00 Resp 17 03/22/20 07:00 BP 122/68 03/22/20 07:00 Pulse Ox 98 03/22/20 07:00 Intake & Output 03/21/20 03/22/20 03/22/20 18:59 06:59 18:59 Intake Total 1160 1145 Output Total 1 80 Balance 1159 1065 Intake: IV 760 1145 0.9 NS 320 Dextrose 5%-0.9% NaCl 1, 80 000 ml @ 20 mls/hr IV . Q24H ALEKSANDRA Rx#:[id number] Fat Emulsion 20% 250 ml 105 In Empty Bag 1 bag @ 21 mls/hr IV Q24H ALEKSANDRA Rx#: [id number] Mvi, Adult No.4 with Vit 680 720 K 10 ml Trace (Conc-1Ml/ Dose) 1 ml In Amino Acid 4.25%-D10w+Lytes*E* 1,000 ml @ 90 mls/hr IV .BY DURATION ALEKSANDRA Rx#: [id number] Intake, IV Titration 200 Amount Potassium Chloride 10 meq 200 In Water For Injection 1 100ml.bag @ 100 mls/hr IVPB Q1HR ALEKSANDRA Rx#: [id number] Oral 200 Output: Drainage 80 Left Abdomen 80 Urine 1 Other: Voiding Method Toilet Toilet # Voids 2 2 ABP, PAP, CO, CI - Last Documented Arterial Blood Pressure 105/72 - Exam Abdomen: Soft, nondistended, incision clean and dry, MARLEY drain serosanguineous - Labs CBC & Chem 7: 03/22/20 04:23 03/22/20 04:23 Labs: Abnormal Lab Results - Last 24 Hours (Table) 03/21/20 03/21/20 03/21/20 Range/Units 10:08 11:26 11:29 RBC (3.80-5.40) m/uL Hgb (11.4-16.0) gm/dL Hct (34.0-46.0) % Sodium (137-145) mmol/L Potassium 3.1 L (3.5-5.1) mmol/L Chloride (98-107) mmol/L Creatinine (0.52-1.04) mg/dL Glucose (74-99) mg/dL POC Glucose (mg/dL) 367 H 118 H (75-99) mg/dL Calcium (8.4-10.2) mg/dL 03/21/20 03/21/20 03/21/20 Range/Units 16:37 20:52 22:10 RBC (3.80-5.40) m/uL Hgb (11.4-16.0) gm/dL Hct (34.0-46.0) % Sodium (137-145) mmol/L Potassium 3.2 L (3.5-5.1) mmol/L Chloride (98-107) mmol/L Creatinine (0.52-1.04) mg/dL Glucose (74-99) mg/dL POC Glucose (mg/dL) 106 H 111 H (75-99) mg/dL Calcium (8.4-10.2) mg/dL 03/22/20 03/22/20 Range/Units 04:23 04:23 RBC 3.28 L (3.80-5.40) m/uL Hgb 10.3 L (11.4-16.0) gm/dL Hct 30.7 L (34.0-46.0) % Sodium 134 L (137-145) mmol/L Potassium (3.5-5.1) mmol/L Chloride 109 H (98-107) mmol/L Creatinine 0.41 L (0.52-1.04) mg/dL Glucose 108 H (74-99) mg/dL POC Glucose (mg/dL) (75-99) mg/dL Calcium 8.0 L (8.4-10.2) mg/dL Assessment and Plan (1) Duodenal ulcer Narrative/Plan: Overall patient gradually improving. Will increase diet to full liquids for now. Continue ambulation. Continue antibiotics. Continue antacid therapy. Monitor drain. Current Visit: Yes Status: Acute Code(s): K26.9 - DUODENAL ULCER, UNSP ACUTE OR CHRONIC, W/O HEMOR OR PERF SNOMED Code(s): 03200827
--- NOTE | 2020-03-22 12:29 | P.PN ---
Subjective Progress Note Date: 03/22/20 Principal diagnosis: Acute massive upper GI bleeding secondary to duodenal ulcer. This is a 49-year-old female, history of alcohol abuse, drinks on the average of 3 alcoholic beverages per day. Patient uses occasional Excedrin roughly on the average a 1 time per week, no previous history of GI bleeding no history of peptic ulcer disease. No history of diverticular disease or colitis. Patient presented to the hospital with a few days' history of intermittent episodes of epigastric discomfort, nausea, and has been noticing black tarry stools. Patient was also complaining of generalized weakness, lightheadedness, and upon her early evaluation in the ER, her hemoglobin was noted to be 9.0. Since presentation to the hospital, patient had multiple episodes of black tarry stools and she required at least 4 units of packed RBCs before I even evaluated the patient. I walked into the ICU, patient was noted to have significant rectal bleeding she was hypotensive in spite of fluids and blood products. She had one peripheral IV access and I placed a right femoral triple-lumen catheter. Also placed a left radial arterial line. Recommended immediate surgical consultation and GI consultation. And ordered more blood transfusions. I believe the patient received a total of 9 units of packed RBCs, she underwent EGD, and she was found to have a bleeding was an ulcer. Surgery evaluated the patient immediately, and she was found to have perforated duodenal ulcer and bleeding cystic artery. I was updated on her condition by Dr. Rosales/general surgeon on the case, and the patient is presently in the operating room. Patient was reevaluated today on 03/17/20, remains in the ICU, intubated and mechanically ventilated. Her ventilator settings are assist control rate of 28 tidal volume of 350 FiO2 40% and PEEP of 5. Patient is on propofol 50 mcg/kg/m, norepinephrine at 0.11 mcg/kg/m, and on bicarb drip which I have discontinued. Patient is hemodynamically stable and she is on a minimal dose of norepinephrine. And this would likely be discontinued once the patient is off propofol. Patient is arousable while on propofol, waking up and following very simple instructions. She is in sinus tachycardia with a rate of 108. Today I have discontinued her bicarb and added Zosyn. And I plan to give the patient is sedation holiday, and likely switch the patient to a pressure support of 8 and CPAP, and given a weaning trial. WBC count is 20.2 hemoglobin is 15.1. ABG showed a pO2 of 113 pCO2 of 39 pH of 7.42 and this is a 40% FiO2. Bicarb is 26 and I have discontinued her bicarb. Basic metabolic profile is normal and he profile is normal. Calcium is a bit low, the patient to receive 1 amp of calcium gluconate. Patient was reevaluated today on 03/18/20, patient tolerated the extubation well. Presently on few liters nasal cannula, and she is doing great. Hemodynamically stable, in no distress. Hemoglobin today is 10.6. WBC count is 11.1. *Normal except for low potassium being corrected as per protocol. Remains nothing by mouth. And there is no gastric tube in place Reevaluated today on 03/19/20, patient remains in the ICU as an overflow. Patient has no further episodes of GI bleeding, she is now on room air, her hemoglobin is 10. Remains nothing by mouth, no bowel movements so far. Continues to have tender abdomen. But overall the patient is doing much better and she is hemodynamically stable. Still doing poorly with incentive spirometry. Chest x- ray is basically unremarkable. WBC count is 7.5 hemoglobin is 10 Sub-normal except for low potassium 3.1 being corrected as per protocol. Reevaluated today on 03/20/20, patient remains in the ICU waiting for a medical surgical bed. Patient is doing well except for some vague abdominal pain and discomfort. She had small bowel movement yesterday and she is passing gas. Patient is doing well with incentive spirometry, she does have occasional cough, MARLEY drain remains in place, with minimal drainage. Patient is afebrile, vital signs are stable, and she is to be seen by surgery regarding her abdominal discomfort. Reevaluated today on 03/21/20, patient remains in the ICU as an overflow, she is doing great. No cough no wheezing no shortness of breath, patient is on room ai r. She is now on TPN and remains nothing by mouth. Potassium is a bit low, however will arrange for higher potassium and the TPN and we'll correct the low potassium accordingly. Chest x-ray showed minimal bibasilar atelectasis. Patient is compliant with her incentive spirometer. Patient remains as an overflow and once a bed becomes available on the medical surgical floor the patient could be transferred. Reevaluated today on 03/22/20, remains as overflow in the ICU. Patient continues to have some pain and discomfort, but it is fairly well controlled. She is already having bowel movements, and she is wondering if she could be started on advanced diet. Recommended that she discusses this with the surgeon on the case. She is now on clear liquids. And she is hungry. Remains on TPN, r ecommended that we discontinue TPN once she starts tolerating regular diet. Patient will be seen by surgery shortly, and decisions will be made regarding her diet. And possibly regarding her TPN. CBC is normal lites are normal renal profile is normal and the patient is hemodynamically stable no further episodes of GI bleeding Objective - Vital Signs Vital signs: Vital Signs Temp 97.6 F 03/22/20 11:42 Pulse 70 03/22/20 11:42 Resp 15 03/22/20 11:42 BP 105/64 03/22/20 11:42 Pulse Ox 97 03/22/20 11:42 Intake & Output 03/21/20 03/22/20 03/22/20 18:59 06:59 18:59 Intake Total 1160 1145 Output Total 1 80 Balance 1159 1065 Intake: IV 760 1145 0.9 NS 320 Dextrose 5%-0.9% NaCl 1, 80 000 ml @ 20 mls/hr IV . Q24H ALEKSANDRA Rx#:[id number] Fat Emulsion 20% 250 ml 105 In Empty Bag 1 bag @ 21 mls/hr IV Q24H ALEKSANDRA Rx#: [id number] Mvi, Adult No.4 with Vit 680 720 K 10 ml Trace (Conc-1Ml/ Dose) 1 ml In Amino Acid 4.25%-D10w+Lytes*E* 1,000 ml @ 90 mls/hr IV .BY DURATION ALEKSANDRA Rx#: [id number] Intake, IV Titration 200 Amount Potassium Chloride 10 meq 200 In Water For Injection 1 100ml.bag @ 100 mls/hr IVPB Q1HR ALEKSANDRA Rx#: [id number] Oral 200 Output: Drainage 80 Left Abdomen 80 Urine 1 Other: Voiding Method Toilet Toilet Toilet # Voids 2 2 ABP, PAP, CO, CI - Last Documented Arterial Blood Pressure 105/72 - Exam Physical Exam: Revealed 49-year-old female awake, alert, in no distress, on room air. Head: Atraumatic, normocephalic. HEENT: [Neck is supple.] [No neck masses.] [No thyromegaly.] [No JVD.] Chest: [Symmetrical chest expansion, diminished at the bases, no rhonchi no wheezes. Cardiac Exam: [Normal S1 and S2, no S3 gallop, no murmur.] Abdomen: Postsurgical, dressing is clean and dry. [Soft, slightly tender., no megaly, no rebound, no guarding, diminished bowel sounds.] MARLEY drain is noted, serosanguineous fluid noted, minimal. Extremities: [No clubbing, no edema, no cyanosis.] Neurological Exam: Alert and oriented 3 focal deficits. Skin: No rashes. Psychiatric: Normal mood, affect and normal mental status examination Musculoskeletal: No limitations in range of motion and no deformities - Labs CBC & Chem 7: 03/22/20 04:23 03/22/20 04:23 Labs: Abnormal Lab Results - Last 24 Hours (Table) 03/21/20 03/21/20 03/21/20 Range/Units 16:37 20:52 22:10 RBC (3.80-5.40) m/uL Hgb (11.4-16.0) gm/dL Hct (34.0-46.0) % Sodium (137-145) mmol/L Potassium 3.2 L (3.5-5.1) mmol/L Chloride (98-107) mmol/L Creatinine (0.52-1.04) mg/dL Glucose (74-99) mg/dL POC Glucose (mg/dL) 106 H 111 H (75-99) mg/dL Calcium (8.4-10.2) mg/dL 03/22/20 03/22/20 Range/Units 04:23 04:23 RBC 3.28 L (3.80-5.40) m/uL Hgb 10.3 L (11.4-16.0) gm/dL Hct 30.7 L (34.0-46.0) % Sodium 134 L (137-145) mmol/L Potassium (3.5-5.1) mmol/L Chloride 109 H (98-107) mmol/L Creatinine 0.41 L (0.52-1.04) mg/dL Glucose 108 H (74-99) mg/dL POC Glucose (mg/dL) (75-99) mg/dL Calcium 8.0 L (8.4-10.2) mg/dL Assessment and Plan Assessment: Impression: Status post exploratory laparotomy and repair of bleeding duodenal ulcer, ch olecystectomy and repair of incisional hernia postoperative day #6 Acute upper GI bleeding secondary to duodenal ulcer Acute blood loss anemia, resolved, hemoglobin has been stable. History of alcohol abuse. Hypovolemic shock on presentation secondary to GI bleeding/hemorrhagic shock, resolved. Postoperative abdominal pain. Expected. Recommendation: Continue Protonix. Continue Alcohol withdrawal protocol. Continue incentive spirometry. Continue TPN, until cleared to have advanced diet by surgery. Ambulate as tolerated. Continue GI and DVT prophylaxis. Continue pain control Will follow. Time with Patient: Less than 30
[2020-03-22] MEDS: NOREPINEPHRINE 32 MG in SODIUM CHLORIDE 0.9% 218 ML IV SCH (12:32)
[2020-03-22] MEDS: DEXTROSE 5%-0.9% NACL 1,000 ML IV SCH (12:33)
[2020-03-22] MEDS: FAT EMULSION 20% 250 ML in EMPTY BAG 1 BAG IV SCH (13:47)
[2020-03-22] MEDS: HYDROcodone/APAP 5-325MG 1 EACH TAB PO PRN ×2 (14:48→21:06)
[2020-03-22 16:40] LABS: % Iron Saturation 12.26 (12.00-45.00)
[2020-03-22] MEDS: MELATONIN 3 MG TABLET PO SCH (21:05)
[2020-03-23] MEDS: PIPERACILLIN-TAZOBACTAM 3.375 GM in SODIUM CHLORIDE 0.9% 100 ML IVPB SCH ×2 (00:05→08:21)
[2020-03-23] MEDS: THIAMINE 100 MG in SODIUM CHLORIDE 0.9% 50 ML IVPB SCH (02:07)
[2020-03-23] MEDS: HYDROcodone/APAP 5-325MG 1 EACH TAB PO PRN ×3 (04:14→21:40)
[2020-03-23] MEDS: 1: MVI, ADULT NO.4 WITH VIT K 10 ML, TRACE (CONC-1ML/DOSE) 1 ML, POTASSIUM CHLORIDE 20 M IV SCH ×10 (04:29→15:49)
[2020-03-23 07:05] LABS: Basophils % (A) 0 %; Eosinophils # (A) 0.2 k/uL (0-0.7); Eosinophils % (A) 3 %; HCT 30.5 % (34.0-46.0); HGB 9.8 gm/dL (11.4-16.0); Hypochromasia Slight; Lymphocytes % (A) 14 %; MCH 30.7 pg (25.0-35.0); Mean Platelet Volume 7.6; Monocytes # (A) 0.5 k/uL (0-1.0); Monocytes % (A) 7 %; Neutrophils # (A) 5.2 k/uL (1.3-7.7); Neutrophils % (A) 72 %; Platelet Count 459 k/uL (150-450); RBC 3.17 m/uL (3.80-5.40); RDW 14.7 % (11.5-15.5); WBC 7.3 k/uL (3.8-10.6)
[2020-03-23 07:35] LABS: ALT 21 U/L (4-34); AST 37 U/L (14-36); African American GFR (CKD) >90 (>60 ml/min/1.73 sqM); Albumin 2.1 g/dL (3.5-5.0); Alkaline Phosphatase 73 U/L (38-126); Anion Gap 3 mmol/L; Blood Urea Nitrogen 7 mg/dL (7-17); Calcium 8.1 mg/dL (8.4-10.2); Carbon Dioxide 26 mmol/L (22-30); Chloride 107 mmol/L (98-107); Glucose 82 mg/dL (74-99); Magnesium 2.1 mg/dL (1.6-2.3); Non-African American GFR(CKD) >90 (>60 ml/min/1.73 sqM); Phosphorus 4.5 mg/dL (2.5-4.5); Potassium 4.1 mmol/L (3.5-5.1); Sodium 136 mmol/L (137-145); Total Bilirubin 0.5 mg/dL (0.2-1.3); Total Protein 4.2 g/dL (6.3-8.2)
[2020-03-23] MEDS: PANTOPRAZOLE 40 MG/10 ML VIAL IV SCH ×2 (08:22→21:31)
[2020-03-23] MEDS: NICOTINE 14MG/24HR PATCH TRANSDERM SCH (08:22)
[2020-03-23] MEDS: ENOXAPARIN 40 MG/0.4 ML SYRINGE SQ SCH (08:22)
[2020-03-23] MEDS: MORPHINE SULFATE 2 MG/ML SYRINGE IVP PRN ×2 (08:37→19:02)
[2020-03-23] MEDS ORDERED: SODIUM FERRIC GLUCONAT-SUCROSE 125 MG in SODIUM CHLORIDE 0.9% 100 ML IVPB ONE (09:15)
--- NOTE | 2020-03-23 11:58 | P.PN ---
Subjective Progress Note Date: 03/23/20 Principal diagnosis: Bleeding duodenal ulcer Patient doing quite well today. Tolerating full liquids. MARLEY drain sterile saline was. She did have a bowel movement. White blood cell count normal. Objective - Vital Signs Vital signs: Vital Signs Temp 97.6 F 03/23/20 06:20 Pulse 66 03/23/20 06:20 Resp 18 03/23/20 06:20 BP 97/60 03/23/20 06:20 Pulse Ox 99 03/23/20 06:20 Intake & Output 03/22/20 03/23/20 03/23/20 18:59 06:59 18:59 Intake Total 570 Output Total 25 30 Balance -25 540 Intake: IV 340 Dextrose 5%-0.9% NaCl 1, 240 000 ml @ 20 mls/hr IV . Q24H ALEKSANDRA Rx#:[id number] Piperacillin-Tazobactam 3 100 .375 gm In Sodium Chloride 0.9% 100 ml @ 25 mls/hr IVPB Q8HR ALEKSANDRA Rx# :[id number] Intake, IV Titration 50 Amount Thiamine 100 mg In Sodium 50 Chloride 0.9% 50 ml @ 100 mls/hr IVPB Q12H ALEKSANDRA Rx#:[id number] Oral 180 Output: Drainage 25 30 Left Abdomen 25 30 Other: Voiding Method Toilet Toilet Toilet # Voids 2 1 ABP, PAP, CO, CI - Last Documented Arterial Blood Pressure 105/72 - Exam Abdomen: Soft, nondistended, incision clean and dry, MARLEY serosanguineous - Labs CBC & Chem 7: 03/23/20 06:30 03/23/20 06:30 Labs: Abnormal Lab Results - Last 24 Hours (Table) 03/22/20 03/23/20 03/23/20 Range/Units 04:23 06:30 06:30 RBC 3.17 L (3.80-5.40) m/uL Hgb 9.8 L (11.4-16.0) gm/dL Hct 30.5 L (34.0-46.0) % Plt Count 459 H (150-450) k/uL Sodium 136 L (137-145) mmol/L Creatinine 0.51 L (0.52-1.04) mg/dL Calcium 8.1 L (8.4-10.2) mg/dL Iron 26 L (50-170) ug/dL TIBC 212 L (228-460) ug/dL AST 37 H (14-36) U/L Total Protein 4.2 L (6.3-8.2) g/dL Albumin 2.1 L (3.5-5.0) g/dL Assessment and Plan (1) Duodenal ulcer Narrative/Plan: Patient doing well. Continue full liquid diet. Continue antiacids and antibiotics. Anticipate discharge tomorrow. Current Visit: Yes Status: Acute Code(s): K26.9 - DUODENAL ULCER, UNSP ACUTE OR CHRONIC, W/O HEMOR OR PERF SNOMED Code(s): 58806756
[2020-03-23 12:55] VITALS: RESP 16
--- NOTE | 2020-03-23 13:17 | P.PN ---
Subjective Progress Note Date: 03/23/20 This is a 49-year-old female patient of Dr. Chaka Mora with past medical history of gastric esophageal reflux disease, tobacco use. Patient presented to [facility] emergency center due to bright red blood and dark tarry stools per rectum. She began having epigastric pain last week and was drinking an average of 2 alcoholic drinks per day as well as taking Excedrin for headaches. 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 She was seen by her PCP and placed on Pepcid but did not have any improvement of her pain. Yesterday morning she woke up and passed moderate amount of dark stool in the toilet and also noted bright red blood on the toilet paper when she wiped. She had 6 episodes total and called EMS and she was brought in the hospital. Initially blood pressure was 132/84 and heart rate 93. Initial hemoglobin was 8.2. Patient continued to have rectal bleeding and was transfused initially 4 units packed RBCs and was admitted into intensive care unit. She did have a syncopal episode while getting to the bathroom and continued to be hypotensive despite IV fluids and blood products. She has had a right femoral triple-lumen catheter, left radial arterial line placed. She has currently been transfused a total of 9 units of packed RBCs and ordered for 1 unit of platelets. She was seen by GI and underwent EGD that found large actively bleeding duodenal ulcer treated with epinephrine injection and Endo Clip placement with continued bleeding from the ulcer site. Large amount of old blood and clots in the stomach. She was found to also have bleeding cystic artery. General surgery was thus involved in the OR.she is currently on Levaquin at 20 mics and status post 8 L of IV fluid. She is intubated and on mechanical ventilation with tidal volume 500, FiO2 40, PEEP 5. 03/17: Patient remains in the intensive care unit, intubated and on mechanical ventilation with tidal volume 350, FiO2 40, PEEP of 5 and successfully extubated. She is complaining of aching in her abdomen. She is not passing any gas. She has a very low dose of levothyroid. She did have low urine output during the night and received 2 doses of Lasix has been running at least 50 mL per hour. Patient received 1 g of calcium and we will repeat a second gram today.Patient has been afebrile, heart rate in the low 100s, respiratory rate 25, blood pressure 90/52, night monitor sinus tachycardia. Blood work this morning reveals WBC 20.2, hemoglobin 15.1, platelet count 117. Sodium 138, potassium 3.7, chloride 114, CO2 22, BUN 19 and creatinine 0.93. Blood sugar 239. Calcium 5.9, AST 38, ALT 13, alkaline phosphatase 26, albumin 1.5. Sputum for Gram stain and culture has been obtained. Patient has been transfused a total of 10 units of packed RBCs. Chest x-ray this morning reveals endotracheal tube distal tip at the level of the clavicle heads. No focal airspace opacities. Patient's has been updated. Patient has history that she has been drinking 2-3 glasses of wine daily for the past 1 year. 03/18: Patient remains in the intensive care unit, she is pulse ox 93-98% on room air. Blood pressure 102/59, heart rate 84, afebrile. She is off norepinephrine. Repeat blood work reveals WBC 11.1, hemoglobin 10.6, platelet count 110. PT 9.4, INR 0.9, PTT 27.9, fibrinogen 404. Sodium 140, potassium 3.1 replaced, chloride 114, CO2 UN 19 and creatinine 0.59. Blood sugar 123. Calcium 6.6, ionized calcium 4.7, phosphorus 2.7. Sputum cultures in progress. Repeat chest x-ray reveals bibasilar airspace opacities and haziness of the left hemidiaphragm may represent atelectasis versus developing airspace disease. Gallbladder pathology report reveals chronic cholecystitis with subserosal abscess, fibrosis, inflammation and fat necrosis. Patient complains of right up per quadrant abdominal pain. She states she slept off and on but there was a loud patient on the unit and kept her awake. She denies having any shortness of breath. She feels she has gas in her abdomen but not passing any gas no bowel movement. She denies having any nausea. She denies having any hallucinations and mental status is improving. She states she is reaching a 1000 mL on incentive spirometry and utilizing every other hour. Brother is at bedside. Patient is planning for outpatient physical therapy. 03/19: Patient is waiting for a [facility] bed without telemetry and remains in the intensive care unit. She has been afebrile, heart rate 71, blood pressure 105/63, pulse ox 96% on room air. Hemoglobin this morning is at 10.0. Potassium 3.1 and was replaced, chloride 114. Ionized calcium 5.0. Albumin 1.6. Sputum culture finalized with normal respiratory srinath. Chest x-ray reveals stable findings. Correlate for pneumonia, atelectasis, possible effusions. Patient continues to have abdominal pain. The incision site to the right running between 4-6. MARLEY drain remains intact with serosanguineous drainage. She is using incentive spirometry up to 1500 ML's. Dotson catheter removed. She has not had a bowel movement yet. Patient states that she is feeling tired. She does complain of pain with coughing. She states she has belching with minimal flatulence. 03/20: Patient remains in intensive care unit waiting for a [facility] bed. Her hemoglobin today is 11.2. WBC 7.0. Sodium 140, potassium 3.2 and replaced, chloride 112, CO2 26, BUN 10 and creatinine 0.41. Calcium 7.6 and ionized calcium 4.8. AST 115. Albumin 1.9. She states she had a small amount of stool output yesterday and passing gas. She states she is using incentive spirometry and getting up in a chair and a regular basis. She has occasional cough with sputum production. MARLEY drain remains in place serosanguineous drainage minimal. Patient has been afebrile, heart rate 83, blood pressure 123/76, pulse ox 97% on room air. She remains nothing by mouth. Await surgical input regarding advanc ement of diet. 03/21: Patient is resting comfortably in bed in the intensive care unit waiting for a [facility] bed. Her potassium was 3.1. Potassium per protocol ordered. Patient states that she has not been able to sleep well. She has been 23 years on the night and is found that the noise continues to keep her up. Patient is continuing to be on clear liquids. Her albumin is 1.9. We will supplement with ensure clear. Patient denies any pain or discomfort. MARLEY drain remains in place with serosanguineous drainage at 15 ML. Patient continues utilizing her incentive spirometer. She has been afebrile with a heart rate 75, respirations 15, blood pressure 131/86. 03/22: Patient is resting currently sitting up in bed in the intensive daily and awaiting a [facility] bed. Her potassium today was 4.2. Patient states that she continues to not sleep well. She did not use a sleep agent because she is still not on solid foods. Patient has been advanced to full liquids at this time. Patient was up throughout the night due to needing to urinate. MARLEY drain is in place with serosanguineous drainage. She is continuing to use her incentive spirometer. Patient has been afebrile. Pulse rate 71, respirations 16, blood pressure 122/68, 98% on room air. WC 6.8, hemoglobin 10.3, sodium 134, BUN 9 creatinine 0.4 03/23: Patient is found walking around the room without any difficulties or complaints. Patient has been transferred to [facility]. Patient states that she stopped much better yesterday evening. Her diet has been advanced to full liquids which she is tolerating well without any difficulties. Patient was able to ambulate down the hallways multiple times without any difficulties. Patient remains afebrile pulse rate 67, respirations 16, blood pressure 107/66, pulse ox 97%. WC 7.3, hemoglobin 9.8, sodium 136, potassium 4.1, BUN 7, creatinine 0.5 point REVIEW OF SYSTEMS Constitutional: No fever, no chills. Reports generalized weakness. Reports daytime sleepiness. EENT: No headache. No blurred vision or double vision, no loss of vision. No dizziness. No nasal drainage or congestion. No epistaxis. Lungs: No shortness of breath, reports cough, reports sputum production. No wheezing. Cardiovascular: No chest pain, no lower extremity edema. No palpitations. No paroxysmal nocturnal dyspnea. No orthopnea. No lightheadedness or dizziness. No syncopal episodes. Abdominal: Reports abdominal pain improving. Denies nausea denies vomiting. No diarrhea. Reports small bowel movement. Reports flatulence. Genitourinary: No dysuria, increased frequency, urgency. No urinary retention. Musculoskeletal: No myalgias. No muscle weakness, no gait dysfunction, no frequent falls. No back pain. No neck pain. Integumentary: No wounds, no lesions. No rash or pruritus. No unusual bruising. No change in hair or nails. Neurologic: No aphasia. No facial droop. No change in mentation. No head injury. No headache. No paralysis. No paresthesia. Psychiatric: No depression. No anxiety. No mood swings. Endocrine: No abnormal blood sugars. No weight change. No excessive sweating or thirst. No cold intolerance. PHYSICAL EXAMINATION Gen: This is a 49-year-old female. She is awake and alert, speech is clear. She is resting in ICU bed. HEENT: Head is atraumatic, normocephalic. Pupils equal, round. Sclerae is anicteric. Conjunctiva pale. NECK: Supple. No JVD. No lymphadenopathy. No thyromegaly. LUNGS: Clear to auscultation. No wheezes or rhonchi. No intercostal retractions. HEART: Regular rate and rhythm. No murmur. ABDOMEN: Soft. Bowel sounds are hypoactive. No masses. Right upper quadrant tenderness along dressing. Dressing in place over central abdominal surgical wound and MARLEY drain with minimal serosanguineous fluid. EXTREMITIES: No pedal edema. No calf tenderness. Dorsalis pedis +2 bilaterally. NEUROLOGICAL: Patient is awake and alert, moving all extremities, answering questions appropriately but slow, follow simple commands. ASSESSMENT AND PLAN 1. Acute blood loss anemia with acute GI bleed secondary to duodenal ulcer status post EGD, endoclips with persistent active bleeding secondary to bleeding cystic artery. Patient is status post total of 10 units packed RBCs, continue to monitor hemoglobin closely and transfuse as necessary. Continue Protonix 40 mg IV twice daily. 2. Acute GI bleed secondary to duodenal ulcer and bleeding cystic artery status post repair of bleeding duodenal ulcer, cholecystectomy, repair of incisional hernia. Patient advanced to clear liquids 3. History of gastroesophageal reflux disease 4. Hemorrhagic shock requiring massive blood transfusion, IV fluid resuscitation and vasopressor. Continue management per Dr. Simpson. Patient is off vasopressor. 5. Acute hypoxic respiratory failure secondary to shock, successfully extubated. Managed by director airport operations. 6. Thrombocytopenia secondary to shock. Continue to monitor. Patient did not receive platelets. 7. Massive transfusion. 8. Severe metabolic acidosis status post 2 A of bicarb. 9. DVT prophylaxis. Lovenox subcu. 10. Tobacco use and dependence. Continue nicotine patch. 11. GI prophylaxis. Protonix. 12. Hypocalcemia. Replacement. Continue to monitor. 13. Hyperchloremia. 14. History of alcohol abuse. Patient started on CIWA protocol. 15. Coagulopathy secondary to massive GI bleed and transfusion, stable 16. Possible aspiration pneumonitis. Patient is on Zosyn per pulmonary medicine. 17. Hypokalemia. Potassium replacement protocol. Discharge plan: home with outpatient physical therapy (prescription for outpatient physical therapy on patient's chart). Possible discharge Monday Impression and plan of care have been directed as dictated by the signing physician. Michelle Nicholson nurse practitioner acting as scribe for signing physician. Objective - Vital Signs Vital signs: Vital Signs Temp 97.8 F 03/23/20 12:54 Pulse 67 03/23/20 12:54 Resp 16 03/23/20 12:54 BP 107/66 03/23/20 12:54 Pulse Ox 97 03/23/20 12:54 Intake & Output 03/22/20 03/23/20 03/23/20 18:59 06:59 18:59 Intake Total 570 Output Total 25 30 Balance -25 540 Intake: IV 340 Dextrose 5%-0.9% NaCl 1, 240 000 ml @ 20 mls/hr IV . Q24H ALEKSANDRA Rx#:[id number] Piperacillin-Tazobactam 3 100 .375 gm In Sodium Chloride 0.9% 100 ml @ 25 mls/hr IVPB Q8HR ALEKSANDRA Rx# :[id number] Intake, IV Titration 50 Amount Thiamine 100 mg In Sodium 50 Chloride 0.9% 50 ml @ 100 mls/hr IVPB Q12H ALEKSANDRA Rx#:[id number] Oral 180 Output: Drainage 25 30 Left Abdomen 25 30 Other: Voiding Method Toilet Toilet Toilet # Voids 2 1 ABP, PAP, CO, CI - Last Documented Arterial Blood Pressure 105/72 - Labs CBC & Chem 7: 03/23/20 06:30 03/23/20 06:30 Labs: Abnormal Lab Results - Last 24 Hours (Table) 03/22/20 03/23/20 03/23/20 Range/Units 04:23 06:30 06:30 RBC 3.17 L (3.80-5.40) m/uL Hgb 9.8 L (11.4-16.0) gm/dL Hct 30.5 L (34.0-46.0) % Plt Count 459 H (150-450) k/uL Sodium 136 L (137-145) mmol/L Creatinine 0.51 L (0.52-1.04) mg/dL Calcium 8.1 L (8.4-10.2) mg/dL Iron 26 L (50-170) ug/dL TIBC 212 L (228-460) ug/dL AST 37 H (14-36) U/L Total Protein 4.2 L (6.3-8.2) g/dL Albumin 2.1 L (3.5-5.0) g/dL
[2020-03-23] MEDS: SODIUM CHLORIDE 0.9% 1,000 ML IV SCH (15:50)
[2020-03-23] MEDS: THIAMINE 100 MG TAB PO SCH (21:30)
[2020-03-23] MEDS: MELATONIN 3 MG TABLET PO SCH (21:30)
[2020-03-23] MEDS: AMOXIC-POT CLAV 875-125MG 1 EACH TAB PO SCH (21:31)
[2020-03-24] MEDS: MORPHINE SULFATE 2 MG/ML SYRINGE IVP PRN ×2 (03:16→10:48)
[2020-03-24] MEDS: HYDROcodone/APAP 5-325MG 1 EACH TAB PO PRN ×2 (06:16→13:34)
[2020-03-24] MEDS: ENOXAPARIN 40 MG/0.4 ML SYRINGE SQ SCH (07:56)
[2020-03-24] MEDS: THIAMINE 100 MG TAB PO SCH (07:57)
[2020-03-24] MEDS: NICOTINE 14MG/24HR PATCH TRANSDERM SCH (07:57)
[2020-03-24] MEDS: PANTOPRAZOLE 40 MG/10 ML VIAL IV SCH (07:57)
[2020-03-24] MEDS: AMOXIC-POT CLAV 875-125MG 1 EACH TAB PO SCH (07:57)
--- NOTE | 2020-03-24 08:23 | P.DS ---
Providers Date of admission: 03/15/20 16:43 Expected date of discharge: 03/24/20 Attending physician: Frankie De La Cruz MD Consults: 03/15/20 16:44 Consult Physician Urgent Consulting Provider: Dylan Welch Consult Reason/Comments: acute hematochezia, anemia, suspected upper gi bleed Do you want consulting provider notified?: Yes 03/15/20 16:47 Consult Physician Urgent Consulting Provider: William James Consult Reason/Comments: acute hematochezia/melena, epigsatric pain, suspected upper gi bleed Do you want consulting provider notified?: Already Contacted 03/16/20 07:51 Consult Physician Stat Consulting Provider: Christian Rosales Consult Reason/Comments: GI bleed Do you want consulting provider notified?: Already Contacted Primary care physician: Chaka Mora [facility] Course: This is a 49-year-old female patient of Dr. Chaka Mora with past medical history of gastric esophageal reflux disease, tobacco use. Patient presented to [facility] emergency center due to bright red blood and dark tarry stools per rectum. She began having epigastric pain last week and was drinking an average of 2 alcoholic drinks per day as well as taking Excedrin for headaches. 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 She was seen by her PCP and placed on Pepcid but did not have any improvement of her pain. Yesterday morning she woke up and passed moderate amount of dark stool in the toilet and also noted bright red blood on the toilet paper when she wiped. She had 6 episodes total and called EMS and she was brought in the hospital. Initially blood pressure was 132/84 and heart rate 93. Initial hemoglobin was 8.2. Patient continued to have rectal bleeding and was transfused initially 4 units packed RBCs and was admitted into intensive care unit. She did have a syncopal episode while getting to the bathroom and continued to be hypotensive despite IV fluids and blood products. She has had a right femoral triple-lumen catheter, left radial arterial line placed. She has currently been transfused a total of 9 units of packed RBCs and ordered for 1 unit of platelets. She was seen by GI and underwent EGD that found large actively bleeding duodenal ulcer treated with epinephrine injection and Endo Clip placement with continued bleeding from the ulcer site. Large amount of old blood and clots in the stomach. She was found to also have bleeding cystic artery. General surgery was thus involved in the OR.she is currently on Levaquin at 20 mics and status post 8 L of IV fluid. She is intubated and on mechanical ventilation with tidal volume 500, FiO2 40, PEEP 5. 03/17: Patient remains in the intensive care unit, intubated and on mechanical ventilation with tidal volume 350, FiO2 40, PEEP of 5 and successfully extubated. She is complaining of aching in her abdomen. She is not passing any gas. She has a very low dose of levothyroid. She did have low urine output during the night and received 2 doses of Lasix has been running at least 50 mL per hour. Patient received 1 g of calcium and we will repeat a second gram today.Patient has been afebrile, heart rate in the low 100s, respiratory rate 25, blood pressure 90/52, secured entrance monitor sinus tachycardia. Blood work this morning reveals WBC 20.2, hemoglobin 15.1, platelet count 117. Sodium 138, potassium 3.7, chloride 114, CO2 22, BUN 19 and creatinine 0.93. Blood sugar 239. Calcium 5.9, AST 38, ALT 13, alkaline phosphatase 26, albumin 1.5. Sputum for Gram stain and culture has been obtained. Patient has been transfused a total of 10 units of packed RBCs. Chest x-ray this morning reveals endotracheal tube distal tip at the level of the clavicle heads. No focal airspace opacities. Patient's has been updated. Patient has history that she has been drinking 2-3 glasses of wine daily for the past 1 year. 03/18: Patient remains in the intensive care unit, she is pulse ox 93-98% on room air. Blood pressure 102/59, heart rate 84, afebrile. She is off norepinephrine. Repeat blood work reveals WBC 11.1, hemoglobin 10.6, platelet count 110. PT 9.4, INR 0.9, PTT 27.9, fibrinogen 404. Sodium 140, potassium 3.1 replaced, chloride 114, CO2 UN 19 and creatinine 0.59. Blood sugar 123. Calcium 6.6, ionized calcium 4.7, phosphorus 2.7. Sputum cultures in progress. Repeat chest x-ray reveals bibasilar airspace opacities and haziness of the left hemidiaphragm may represent atelectasis versus developing airspace disease. Gallbladder pathology report reveals chronic cholecystitis with subserosal abscess, fibrosis, inflammation and fat necrosis. Patient complains of right upper quadrant abdominal pain. She states she slept off and on but there was a loud patient on the unit and kept her awake. She denies having any shortness of breath. She feels she has gas in her abdomen but not passing any gas no bowel movement. She denies having any nausea. She denies having any hallucinations and mental status is improving. She states she is reaching a 1000 mL on incentive spirometry and utilizing every other hour. Brother is at bedside. Patient is planning for outpatient physical therapy. 03/19: Patient is waiting for a [facility] bed without telemetry and remains in the intensive care unit. She has been afebrile, heart rate 71, blood pressure 105/63, pulse ox 96% on room air. Hemoglobin this morning is at 10.0. Potassium 3.1 and was replaced, chloride 114. Ionized calcium 5.0. Albumin 1.6. Sputum culture finalized with normal respiratory srinath. Chest x-ray reveals stable findings. Correlate for pneumonia, atelectasis, possible effusions. Patient continues to have abdominal pain. The incision site to the right running between 4-6. MARLEY drain remains intact with serosanguineous drainage. She is using incentive spirometry up to 1500 ML's. Dotson catheter removed. She has not had a bowel movement yet. Patient states that she is feeling tired. She does complain of pain with coughing. She states she has belching with minimal flatulence. 03/20: Patient remains in intensive care unit waiting for a [facility] bed. Her hemoglobin today is 11.2. WBC 7.0. Sodium 140, potassium 3.2 and replaced, chloride 112, CO2 26, BUN 10 and creatinine 0.41. Calcium 7.6 and ionized calci um 4.8. AST 115. Albumin 1.9. She states she had a small amount of stool output yesterday and passing gas. She states she is using incentive spirometry and getting up in a chair and a regular basis. She has occasional cough with sputum production. MARLEY drain remains in place serosanguineous drainage minimal. Patient has been afebrile, heart rate 83, blood pressure 123/76, pulse ox 97% on room air. She remains nothing by mouth. Await surgical input regarding advancement of diet. 03/21: Patient is resting comfortably in bed in the intensive care unit waiting for a MedSurg bed. Her potassium was 3.1. Potassium per protocol ordered. Patient states that she has not been able to sleep well. She has been 23 years on the night and is found that the noise continues to keep her up. Patient is continuing to be on clear liquids. Her albumin is 1.9. We will supplement with ensure clear. Patient denies any pain or discomfort. MARLEY drain remains in place with serosanguineous drainage at 15 ML. Patient continues utilizing her incentive spirometer. She has been afebrile with a heart rate 75, respirations 15, blood pressure 131/86. 03/22: Patient is resting currently sitting up in bed in the intensive daily and awaiting a MedSurg bed. Her potassium today was 4.2. Patient states that she continues to not sleep well. She did not use a sleep agent because she is still not on solid foods. Patient has been advanced to full liquids at this time. Patient was up throughout the night due to needing to urinate. MARLEY drain is in place with serosanguineous drainage. She is continuing to use her incentive spirometer. Patient has been afebrile. Pulse rate 71, respirations 16, blood pressure 122/68, 98% on room air. WC 6.8, hemoglobin 10.3, sodium 134, BUN 9 creatinine 0.4 9: Patient is found walking around the room without any difficulties or complaints. Patient has been transferred to [facility]. Patient states that she stopped much better yesterday evening. Her diet has been advanced to full liquids which she is tolerating well without any difficulties. Patient was able to ambulate down the hallways multiple times without any difficulties. Patient remains afebrile pulse rate 67, respirations 16, blood pressure 107/66, pulse ox 97%. WC 7.3, hemoglobin 9.8, sodium 136, potassium 4.1, BUN 7, creatinine 0.5 point 9/8: Patient states she is tolerating a full liquid diet. No nausea or vomiting. She is having bowel movements that are mushy consistency. General surgery has cleared her for discharge. patient has been afebrile, heart rate 56, blood pressure 125/72, pulse ox 99% on room air. electrolytes normal, creatinine 0.46. patient will be discharged home today in stable condition. ASSESSMENT AND PLAN 1. Acute blood loss anemia with acute GI bleed secondary to duodenal ulcer status post EGD, endoclips with persistent active bleeding secondary to bleeding cystic artery. 2. Acute GI bleed secondary to duodenal ulcer and bleeding cystic artery status post repair of bleeding duodenal ulcer, cholecystectomy, repair of incisional hernia. 3. History of gastroesophageal reflux disease 4. Hemorrhagic shock requiring massive blood transfusion, IV fluid resuscitation and vasopressor. 5. Acute hypoxic respiratory failure secondary to shock, successfully extubated. 6. Thrombocytopenia secondary to shock. 7. Massive transfusion. 8. Severe metabolic acidosis status post 2 A of bicarb. 9. DVT prophylaxis. 10. Tobacco use and dependence. 11. GI prophylaxis. 12. Hypocalcemia. 13. Hyperchloremia. 14. History of alcohol abuse. 15. Coagulopathy secondary to massive GI bleed and transfusion, stable 16. Possible aspiration pneumonitis. 17. Hypokalemia. Discharge plan: home with outpatient physical therapy (prescription for outpatient physical therapy on patient's chart). Impression and plan of care have been directed as dictated by the signing physician. Ana Luisa Herron nurse practitioner acting as scribe for signing physician. Patient Condition at Discharge: Good Plan - Discharge Summary Discharge Rx Participant: No New Discharge Prescriptions: New Multivitamin/Iron/Folic Acid [Centrum Adults Tablet] 1 each PO DAILY #30 tablet Nicotine 14Mg/24Hr Patch [Habitrol] 1 patch TRANSDERM DAILY #30 patch Pantoprazole Sodium [Protonix] 40 mg PO BID #60 tablet. HYDROcodone/APAP 5-325MG [Temple 5-325] 2 each PO Q6HR PRN #24 tab PRN Reason: Moderate To Severe Pain Amoxic-Pot Clav 875-125Mg [Augmentin 875-125] 1 each PO Q12HR #10 tab Continue Acetaminophen [Tylenol] 1,000 - 2,000 mg PO DAILY PRN PRN Reason: Pain Discontinued [id number] [Excedrin] 2 tab PO DAILY PRN PRN Reason: Migraine Headache Famotidine [Pepcid] 20 mg PO DAILY PRN PRN Reason: Gi Upset Discharge Medication List Acetaminophen [Tylenol] 1,000 - 2,000 mg PO DAILY PRN 03/15/20 [History] Amoxic-Pot Clav 875-125Mg [Augmentin 875-125] 1 each PO Q12HR #10 tab 03/24/20 [Rx] HYDROcodone/APAP 5-325MG [Temple 5-325] 2 each PO Q6HR PRN #24 tab 03/24/20 [Rx] Multivitamin/Iron/Folic Acid [Centrum Adults Tablet] 1 each PO DAILY #30 tablet 03/24/20 [Rx] Nicotine 14Mg/24Hr Patch [Habitrol] 1 patch TRANSDERM DAILY #30 patch 03/24/20 [Rx] Pantoprazole Sodium [Protonix] 40 mg PO BID #60 tablet. 03/24/20 [Rx] Follow up Appointment(s)/Referral(s): Chaka Mora MD [Primary Care Provider] - 03/31/20 11:30 am Christian Rosales MD [STAFF PHYSICIAN] - 04/02/20 2:30 pm Patient Instructions/Handouts: Hydrocodone/Acetaminophen (By mouth), Amoxicilli n/Clavulanate Potassium (By mouth), Multivitamins, Adult Formula (By mouth), Nicotine (Absorbed through the skin), Pantoprazole (By mouth), Gastrointestinal Bleeding (DC), Surgical Site Infections (DC) Activity/Diet/Wound Care/Special Instructions: No driving while taking Temple No lifting over 10 pounds You may shower. No soaking or tub baths for 2 weeks Very light activity until you are re-evaluated at your follow up appointment with your surgeon Continue a full liquid diet until she is seen by Dr. Rosales in 1 week Discharge Disposition: HOME SELF-CARE
[2020-03-24 08:29] LABS: African American GFR (CKD) >90 (>60 ml/min/1.73 sqM); Anion Gap 6 mmol/L; Blood Urea Nitrogen 6 mg/dL (7-17); Calcium 8.1 mg/dL (8.4-10.2); Carbon Dioxide 26 mmol/L (22-30); Chloride 106 mmol/L (98-107); Glucose 87 mg/dL (74-99); Non-African American GFR(CKD) >90 (>60 ml/min/1.73 sqM); Phosphorus 4.3 mg/dL (2.5-4.5); Potassium 3.8 mmol/L (3.5-5.1); Sodium 138 mmol/L (137-145)
[2020-03-24 11:41] VITALS: BP 125/72; PULSE 56; TEMP 98.2
--- NOTE | 2020-03-24 13:28 | P.PN ---
Subjective Progress Note Date: 03/24/20 CHIEF COMPLAINT: Rectal bleeding HISTORY OF PRESENT ILLNESS: This is a 49-year-old female with a bleeding duodenal ulcer noted on EGD. She underwent repair of bleeding duodenal ulcer, cholecystectomy and repair of incisional hernia with Dr. Rosales. Patient regular medical floor. Tolerating diet. Up and ambulating. Having bowel movements. She is afebrile. PHYSICAL EXAM: VITAL SIGNS: Reviewed. GENERAL: Well-developed in no acute distress. HEENT: No sclera icterus. Extraocular movements grossly intact. Moist buccal mucosa. Head is atraumatic, normocephalic. ABDOMEN: Soft. Nondistended. Nontender. NEUROLOGIC: Alert and oriented. Cranial nerves II through XII grossly intact. ASSESSMENT: 1. Bleeding duodenal ulcer 2. Status post Repair of bleeding duodenal ulcer, Cholecystectomy and Repair of incisional hernia 3. Acute GI bleed secondary to bleeding duodenal ulcer 4. Acute blood loss anemia secondary to bleeding duodenal ulcer PLAN: -Patient is surgically stable for discharge -She is to follow-up with Dr. Rosales in 1 week -MARLEY drain can be removed prior to discharge -Patient is to stay on a full liquid diet she follows up with Dr. Rosales Physician [employer] note has been reviewed by physician. Signing provider agrees with the documented findings, assessment, and plan of care. Objective - Vital Signs Vital signs: Vital Signs Temp 98.2 F 03/24/20 11:25 Pulse 56 L 03/24/20 11:25 Resp 16 03/24/20 11:25 BP 125/72 03/24/20 11:25 Pulse Ox 99 03/24/20 11:25 Intake & Output 03/23/20 03/24/20 03/24/20 18:59 06:59 18:59 Intake Total 100 0 Output Total 60 Balance 100 -60 Weight 64.1 kg Intake: IV 100 0 0.9 NS 0 Piperacillin-Tazobactam 3 100 .375 gm In Sodium Chloride 0.9% 100 ml @ 25 mls/hr IVPB Q8HR ALEKSANDRA Rx# :[id number] Output: Drainage 60 Left Abdomen 60 Urine 0 Other: Voiding Method Toilet Toilet # Voids 0 # Bowel Movements 0 ABP, PAP, CO, CI - Last Documented Arterial Blood Pressure 105/72 - Labs CBC & Chem 7: 03/23/20 06:30 03/24/20 07:32 Labs: Abnormal Lab Results - Last 24 Hours (Table) 03/24/20 Range/Units 07:32 BUN 6 L (7-17) mg/dL Creatinine 0.46 L (0.52-1.04) mg/dL Calcium 8.1 L (8.4-10.2) mg/dL
--- NOTE | 2020-03-24 13:36 | P.PN ---
Subjective Progress Note Date: 03/24/20 Principal diagnosis: Acute massive upper GI bleeding secondary to duodenal ulcer This is a 49-year-old female, history of alcohol abuse, drinks on the average of 3 alcoholic beverages per day. Patient uses occasional Excedrin roughly on the average a 1 time per week, no previous history of GI bleeding no history of peptic ulcer disease. No history of diverticular disease or colitis. Patient presented to the hospital with a few days' history of intermittent episodes of epigastric discomfort, nausea, and has been noticing black tarry stools. Patient was also complaining of generalized weakness, lightheadedness, and upon her early evaluation in the ER, her hemoglobin was noted to be 9.0. Since presentation to the hospital, patient had multiple episodes of black tarry stools and she required at least 4 units of packed RBCs before I even evaluated the patient. I walked into the ICU, patient was noted to have significant rectal bleeding she was hypotensive in spite of fluids and blood products. She had one peripheral IV access and I placed a right femoral triple-lumen catheter. Also placed a left radial arterial line. Recommended immediate surgical consultation and GI consultation. And ordered more blood transfusions. I believe the patient received a total of 9 units of packed RBCs, she underwent EGD, and she was found to have a bleeding was an ulcer. Surgery evaluated the patient immediately, and she was found to have perforated duodenal ulcer and bleeding cystic artery. I was updated on her condition by Dr. Rosales/general surgeon on the case, and the patient is presently in the operating room. Patient was reevaluated today on 03/17/20, remains in the ICU, intubated and mechanically ventilated. Her ventilator settings are assist control rate of 28 tidal volume of 350 FiO2 40% and PEEP of 5. Patient is on propofol 50 mcg/kg/m, norepinephrine at 0.11 mcg/kg/m, and on bicarb drip which I have discontinued. Patient is hemodynamically stable and she is on a minimal dose of norepinephrine. And this would likely be discontinued once the patient is off propofol. Patient is arousable while on propofol, waking up and following very simple instructions. She is in sinus tachycardia with a rate of 108. Today I have discontinued her bicarb and added Zosyn. And I plan to give the patient is sedation holiday, and likely switch the patient to a pressure support of 8 and CPAP, and given a weaning trial. WBC count is 20.2 hemoglobin is 15.1. ABG showed a pO2 of 113 pCO2 of 39 pH of 7.42 and this is a 40% FiO2. Bicarb is 26 and I have discontinued her bicarb. Basic metabolic profile is normal and he profile is normal. Calcium is a bit low, the patient to receive 1 amp of calcium gluconate. Patient was reevaluated today on 03/18/20, patient tolerated the extubation well. Presently on few liters nasal cannula, and she is doing great. Hemodynamically stable, in no distress. Hemoglobin today is 10.6. WBC count is 11.1. *Normal except for low potassium being corrected as per protocol. Remains nothing by mouth. And there is no gastric tube in place Reevaluated today on 03/19/20, patient remains in the ICU as an overflow. Patient has no further episodes of GI bleeding, she is now on room air, her hemoglobin is 10. Remains nothing by mouth, no bowel movements so far. Continues to have tender abdomen. But overall the patient is doing much better and she is hemodynamically stable. Still doing poorly with incentive spirometry. Chest x- ray is basically unremarkable. WBC count is 7.5 hemoglobin is 10 Sub-normal except for low potassium 3.1 being corrected as per protocol. Reevaluated today on 03/20/20, patient remains in the ICU waiting for a medical surgical bed. Patient is doing well except for some vague abdominal pain and discomfort. She had small bowel movement yesterday and she is passing gas. Patient is doing well with incentive spirometry, she does have occasional cough, MARLEY drain remains in place, with minimal drainage. Patient is afebrile, vital signs are stable, and she is to be seen by surgery regarding her abdominal discomfort. Reevaluated today on 03/21/20, patient remains in the ICU as an overflow, she is doing great. No cough no wheezing no shortness of breath, patient is on room ai r. She is now on TPN and remains nothing by mouth. Potassium is a bit low, however will arrange for higher potassium and the TPN and we'll correct the low potassium accordingly. Chest x-ray showed minimal bibasilar atelectasis. Patient is compliant with her incentive spirometer. Patient remains as an overflow and once a bed becomes available on the medical surgical floor the patient could be transferred. Reevaluated today on 03/22/20, remains as overflow in the ICU. Patient continues to have some pain and discomfort, but it is fairly well controlled. She is already having bowel movements, and she is wondering if she could be started on advanced diet. Recommended that she discusses this with the surgeon on the case. She is now on clear liquids. And she is hungry. Remains on TPN, r ecommended that we discontinue TPN once she starts tolerating regular diet. Patient will be seen by surgery shortly, and decisions will be made regarding her diet. And possibly regarding her TPN. CBC is normal lites are normal renal profile is normal and the patient is hemodynamically stable no further episodes of GI bleeding On 03/24/2020 patient seen in follow-up on the general medical surgical floor, she is awake and alert, in no acute distress, she is oriented 3, room air pulse ox is 99%, she is afebrile, hemodynamically stable, denies any abdominal pain, denies any chest pain, denies any shortness of breath. Patient has been tolerating ambulation, she is tolerating oral diet although she is only able to eat in small increments. No nausea or vomiting, today's hemoglobin is 9.8, electrolytes were within normal limits, B1 is 6, creatinine 0.46. No acute issues overnight, admitted abdominal incision is covered with a surgical dressing, MARLEY drain is in place, compressed and draining small amount of serous sanguinous output, surgical services are following. Objective - Vital Signs Vital signs: Vital Signs Temp 98.2 F 03/24/20 11:25 Pulse 56 L 03/24/20 11:25 Resp 16 03/24/20 11:25 BP 125/72 03/24/20 11:25 Pulse Ox 99 03/24/20 11:25 Intake & Output 03/23/20 03/24/20 03/24/20 18:59 06:59 18:59 Intake Total 100 0 Output Total 60 Balance 100 -60 Weight 64.1 kg Intake: IV 100 0 0.9 NS 0 Piperacillin-Tazobactam 3 100 .375 gm In Sodium Chloride 0.9% 100 ml @ 25 mls/hr IVPB Q8HR ALEKSANDRA Rx# :[id number] Output: Drainage 60 Left Abdomen 60 Urine 0 Other: Voiding Method Toilet Toilet # Voids 0 # Bowel Movements 0 ABP, PAP, CO, CI - Last Documented Arterial Blood Pressure 105/72 - Exam GENERAL EXAM: Alert, very pleasant, 49-year-old white female, on room air pulse ox of 99%, comfortable in no apparent distress. HEAD: Normocephalic/atraumatic. EYES: Normal reaction of pupils, equal size. Conjunctiva pink, sclera white. NOSE: Clear with pink turbinates. THROAT: No erythema or exudates. NECK: No masses, no JVD, no thyroid enlargement, no adenopathy. CHEST: No chest wall deformity. Symmetrical expansion. LUNGS: Equal air entry with minimal bibasilar crackles, but no wheeze, rhonchi or dullness. CVS: Regular rate and rhythm, normal S1 and S2, no gallops, no murmurs, no rubs ABDOMEN: Soft, nontender. No hepatosplenomegaly, normal bowel sounds, no guarding or rigidity. Midabdominal incision is clean dry and intact, MARLEY drain compressed and draining small amount of servicing this output EXTREMITIES: No clubbing, no edema, no cyanosis, 2+ pulses and upper and lower extremities. MUSCULOSKELETAL: Muscle strength and tone normal. SPINE: No scoliosis or deformity SKIN: No rashes CENTRAL NERVOUS SYSTEM: Alert and oriented -3. No focal deficits, tone is normal in all 4 extremities. PSYCHIATRIC: Alert and oriented -3. Appropriate affect. Intact judgment and insight. - Labs CBC & Chem 7: 03/23/20 06:30 03/24/20 07:32 Labs: Abnormal Lab Results - Last 24 Hours (Table) 03/24/20 Range/Units 07:32 BUN 6 L (7-17) mg/dL Creatinine 0.46 L (0.52-1.04) mg/dL Calcium 8.1 L (8.4-10.2) mg/dL Assessment and Plan Plan: Assessment: #1. Acute hemorrhagic shock related to bleeding duodenal ulcer #2. Acute GI blood loss anemia, requiring transfusion with 10 units of packed red blood cells, resolved, hemoglobin has been stable #3. Status post exploratory laparotomy and repair of bleeding duodenal ulcer, cholecystectomy and repair of incisional hernia, postoperative day number 8 #4. History of alcohol abuse #5. Postoperative abdominal pain, improved, expected Plan: Patient is doing well, hemodynamically stable, no recurrence of GI bleeding, hemoglobin is stable. No acute issues overnight, tolerating oral diet, no nausea or vomiting, vital signs have been stable, anticipate discharge home today. I performed a history & physical examination of the patient and discussed their management with my nurse practitioner, Pricilla Moya. I reviewed the nurse practitioner's note and agree with the documented findings and plan of care. Lung sounds are positive for diminished breath sounds. The findings and the impression was discussed with the patient. I attest to the documentation by the nurse practitioner. Time with Patient: Less than 30
== END 2020-03-24 14:38 | disposition home or self-care (01) | DRG 326 ==
LOC: EC 14:38 → 2SICU 16:43 → 6NMEDSUR 03-22 11:45
PROVIDERS: ADMIT Internal Medicine; ATTEND Internal Medicine
PROC: 02HV33Z Insertion of Infusion Device into Superior Vena Cava, Percutaneous Approach (ICD-10-PCS; 2020-03-16)
PROC: 4A133B1 Monitoring of Arterial Pressure, Peripheral, Percutaneous Approach (ICD-10-PCS; 2020-03-16)
PROC: 4A133J1 Monitoring of Arterial Pulse, Peripheral, Percutaneous Approach (ICD-10-PCS; 2020-03-16)
PROC: 03HY32Z Insertion of Monitoring Device into Upper Artery, Percutaneous Approach (ICD-10-PCS; 2020-03-16)
PROC: 3E0336Z Introduction of Nutritional Substance into Peripheral Vein, Percutaneous Approach (ICD-10-PCS; 2020-03-16)
PROC: 04L Lower Arteries, Occlusion (ICD-10-PCS; principal; 2020-03-16 07:50)
PROC: 0FT40ZZ Resection of Gallbladder, Open Approach (ICD-10-PCS; principal; 2020-03-16 07:50)
PROC: 0WQF0ZZ Repair Abdominal Wall, Open Approach (ICD-10-PCS; principal; 2020-03-16 07:50)
PROC: 0D870ZZ Division of Stomach, Pylorus, Open Approach (ICD-10-PCS; principal; 2020-03-16 07:50)
PROC: 30233N1 Transfusion of Nonautologous Red Blood Cells into Peripheral Vein, Percutaneous Approach (ICD-10-PCS; 2020-03-16 07:50)
PROC: 3E0G8GC Introduction of Other Therapeutic Substance into Upper GI, Via Natural or Artificial Opening Endoscopic (ICD-10-PCS; 2020-03-16 07:50)
PROC: 0W3P8ZZ Control Bleeding in Gastrointestinal Tract, Via Natural or Artificial Opening Endoscopic (ICD-10-PCS; 2020-03-16 07:50)
PROC: 5A1945Z Respiratory Ventilation, 24-96 Consecutive Hours (ICD-10-PCS; 2020-03-17)
PROC: 0BH17EZ Insertion of Endotracheal Airway into Trachea, Via Natural or Artificial Opening (ICD-10-PCS; 2020-03-17)
DX: K26.6 Chronic or unspecified duodenal ulcer with both hemorrhage and perforation (principal); J96.01 Acute respiratory failure with hypoxia; R57.8 Other shock; R57.1 Hypovolemic shock; J69.0 Pneumonitis due to inhalation of food and vomit; K43.0 Incisional hernia with obstruction, without gangrene; E87.2 Acidosis; D62 Acute posthemorrhagic anemia; D68.9 Coagulation defect, unspecified; K81.2 Acute cholecystitis with chronic cholecystitis; I77.2 Rupture of artery; F41.9 Anxiety disorder, unspecified; I95.9 Hypotension, unspecified; G89.18 Other acute postprocedural pain; F17.210 Nicotine dependence, cigarettes, uncomplicated; R00.0 Tachycardia, unspecified; D69.59 Other secondary thrombocytopenia; E87.6 Hypokalemia; E83.51 Hypocalcemia; E87.8 Other disorders of electrolyte and fluid balance, not elsewhere classified; K21.9 Gastro-esophageal reflux disease without esophagitis; Z98.51 Tubal ligation status; Z98.890 Other specified postprocedural states; Z82.49 Family history of ischemic heart disease and other diseases of the circulatory system; Z79.899 Other long term (current) drug therapy; Z79.82 Long term (current) use of aspirin
CPT/HCPCS: 36410; 36415; 36430; 43243; 43255; 71045; 76937; 80048; 80053; 82272; 82330; 82805; 83540; 83550; 83605; 83690; 83735; 84100; 84132; 84478; 84484; 85025; 85027; 85384; 85610; 85730; 86850; 86900; 86901; 86920; 87070; 87205; 88304; 93005; 94002; 96361; 96374; 99291

== ENCOUNTER 2024-05-07 05:35 | Inpatient (IN) | payer BC ==
[2024-05-07] MEDS: SODIUM CHLORIDE 0.9% 1,000 ML IV STA (06:20)
[2024-05-07 06:32] LABS: Basophils % (A) 0 %; Eosinophils % (A) 0 %; HCT 34.5 % (34.0-46.0); HGB 11.4 gm/dL (11.4-16.0); Lymphocytes # (A) 0.4 k/uL (1.0-4.8); Lymphocytes % (A) 11 %; MCH 32.2 pg (25.0-35.0); MCHC 32.9 g/dL (31.0-37.0); MCV 97.8 fL (80.0-100.0); Mean Platelet Volume 8.5; Monocytes # (A) 0.2 k/uL (0-1.0); Monocytes % (A) 6 %; Neutrophils # (A) 2.6 k/uL (1.3-7.7); Neutrophils % (A) 78 %; Platelet Count 179 k/uL (150-450); RBC 3.53 m/uL (3.80-5.40); WBC 3.3 k/uL (3.8-10.6)
[2024-05-07 06:44] LABS: ALT 12 U/L (4-34); AST 31 U/L (14-36); African American GFR (CKD) >90 (>60 ml/min/1.73 sqM); Albumin 2.7 g/dL (3.5-5.0); Alkaline Phosphatase 121 U/L (38-126); Anion Gap 13 mmol/L; Blood Urea Nitrogen 13 mg/dL (7-17); Calcium 7.8 mg/dL (8.4-10.2); Carbon Dioxide 30 mmol/L (22-30); Chloride 80 mmol/L (98-107); Glucose 110 mg/dL (74-99); Magnesium 1.5 mg/dL (1.6-2.3); Non-African American GFR(CKD) >90 (>60 ml/min/1.73 sqM); Potassium 2.9 mmol/L (3.5-5.1); Sodium 123 mmol/L (137-145); Total Bilirubin 0.8 mg/dL (0.2-1.3); Total Protein 5.1 g/dL (6.3-8.2)
[2024-05-07 06:45] LABS: Partial Thromboplastin Time 22.9 sec (22.0-30.0); Prothrombin Time 10.8 sec (10.0-12.5)
[2024-05-07] MEDS: POTASSIUM CHLORIDE ER 20 MEQ TAB.ER PO STA ×2 (07:02→12:22)
[2024-05-07] MEDS: MAGNESIUM OXIDE 400 MG TAB PO STA (07:02)
--- NOTE | 2024-05-07 07:05 | ED ---
Weakness HPI - General Chief complaint: Weakness Stated complaint: weakness Time Seen by Provider: 05/07/24 05:58 Source: patient, EMS, RN notes reviewed Mode of arrival: EMS Limitations: no limitations - History of Present Illness Initial comments: This is a 53-year-old female who presents to the emergency department for weakness. States that 2 weeks ago she had a bout of nausea and vomiting lasting about 24 hours. Since then states that she has been increasingly weak. She has generalized back discomfort and pain. This morning she went to stand up and had severe pain in her legs and she fell to the ground and felt like she was going to pass out, prompting her to call EMS. Denies any substantial pain in her legs when sitting still. Denies any chest pain or shortness of breath. MD Complaint: generalized weakness - Related Data Home Medications Medication Instructions Recorded Confirmed Fluconazole 200 mg PO DAILY 05/07/24 05/07/24 Multivitamin/Iron/Folic Acid 1 tab PO DAILY 05/07/24 05/07/24 [Centrum Adults Tablet] Pantoprazole Sodium [Protonix] 40 mg PO DAILY 05/07/24 05/07/24 Allergies Allergy/AdvReac Type Severity Reaction Status Date / Time No Known Allergies Allergy Verified 05/07/24 08:47 Review of Systems ROS Statement: Those systems with pertinent positive or pertinent negative responses have been documented in the HPI. ROS Other: All systems not noted in ROS Statement are negative. Past Medical History Past Medical History: GERD/Reflux Additional Past Medical History / Comment(s): 2 hernias History of Any Multi-Drug Resistant Organisms: None Reported Past Surgical History: Tubal Ligation Additional Past Surgical History / Comment(s): tubal ligation 2009, rhinoplasty Past Anesthesia/Blood Transfusion Reactions: No Reported Reaction Past Psychological History: Anxiety Smoking Status: Current every day smoker Past Alcohol Use History: Daily Past Drug Use History: None Reported - Past Family History Mother Family Medical History: Hypertension Additional Family Medical History / Comment(s): Aortic aneurysm Father Additional Family Medical History / Comment(s): no significant hx General Exam Limitations: no limitations General appearance: alert, in no apparent distress Head exam: Present: atraumatic, normocephalic, normal inspection Respiratory exam: Present: normal lung sounds bilaterally. Absent: respiratory distress, wheezes, rales, rhonchi, stridor Cardiovascular Exam: Present: normal rhythm, tachycardia, normal heart sounds. Absent: systolic murmur, diastolic murmur, rubs, gallop, clicks GI/Abdominal exam: Present: soft, normal bowel sounds. Absent: distended, tenderness, guarding, rebound, rigid Extremities exam: Present: other (No swelling, erythema, or tenderness to the bilateral lower extremities. 2+ DP and PT pulses bilaterally) Neurological exam: Present: alert, oriented X3, CN II-XII intact Psychiatric exam: Present: normal affect, normal mood Skin exam: Present: warm, dry, intact, normal color. Absent: rash Course Vital Signs 05/07/24 05/07/24 05/07/24 05:36 07:32 10:03 Temperature 97.8 F 98.0 F Pulse Rate 114 H 96 94 Pulse Rate [ Sitting Manager Nursing] Pulse Rate [ Standing Manager Nursing ] Pulse Rate [ Supine Manager Nursing] Respiratory 18 18 17 Rate Blood Pressure 123/64 120/74 105/63 Blood Pressure [Right Arm Sitting] Blood Pressure [Right Arm Standing] Blood Pressure [Right Arm Supine] O2 Sat by Pulse 99 100 100 Oximetry 05/07/24 05/07/24 10:05 12:25 Temperature 97.8 F Pulse Rate 92 Pulse Rate [ 91 Sitting Manager Nursing] Pulse Rate [ 95 Standing Manager Nursing ] Pulse Rate [ 88 Supine Manager Nursing] Respiratory 17 Rate Blood Pressure 102/57 Blood Pressure 99/63 [Right Arm Sitting] Blood Pressure 89/65 [Right Arm Standing] Blood Pressure 92/61 [Right Arm Supine] O2 Sat by Pulse 95 Oximetry Medical Decision Making - Medical Decision Making This is a 53-year-old female who presents to the emergency department for weakness. Was pt. sent in by a medical professional or institution? @ -No Did you speak to anyone other than the patient for history? @ -No Did you review nursing and triage notes? @ -Yes, and I agree, it is accurate with regards to the patient's symptoms. Were old charts reviewed? @ -No Differential Diagnosis? @ -Differential Weakness: Hypoglycemia, shock, sepsis, hyponatremia, anemia, infection, TX, ETOH, adverse medicine reaction, overdose, stroke, this is not meant to be an all-inclusive list. EKG interpreted by me (3pts min.)? @ -EKG interpreted by me demonstrating the following: Sinus tachycardia. Ventricular rate 112 bpm, CT interval 165 ms, QRS duration 84 ms, QTc 413 ms. X-rays interpreted by me (1pt min.)? @ -Chest x-ray obtained, my interpretation identifies no localized consolidations or infiltrates. CT interpreted by me (1pt min.)? @ -Not obtained U/S interpreted by me (1pt. min.)? @ -Not obtained What testing was considered but not performed? (CT, X-rays, U/S, labs)? Why? @ -None What meds were considered but not given? Why? @ -None Did you discuss the management of the patient with other professionals? @ -Yes, Dr. Schaffer, who accepts the patient for admission. Did you reconcile home meds? @ -Yes Was smoking cessation discussed for >3mins.? @ -No Was critical care preformed (if so, how long)? @ -No Were there social determinants of health that impacted care today? How? (Homele ssness, low income, unemployed, alcoholism, drug addiction, transportation, low edu. Level, literacy, decrease access to med. care, fpc, rehab)? @ -No Was there de-escalation of care discussed even if they declined? (Discuss DNR or withdrawal of care, Hospice)? @ -No What co-morbidities impacted this encounter? (DM, HTN, Smoking, COPD, CAD, Canc er, CVA, Hep., AIDS, mental health diagnosis, sleep apnea, morbid obesity)? @ -None Was patient admitted / discharged? @ -Admitted. Lab work demonstrates mild leukopenia with a white blood cell count of 3.3. She also has hyponatremia with a sodium of 123 and hypokalemia with a potassium of 2.9. Lactic acid elevated at 2.2. Magnesium low at 1.5. Chest x-ray reveals no acute process. She was given a liter bolus of IV fluids on arrival. 400 mg of magnesium oxide administered along with 40 mEq of K-Dur and 20 mEq of IVPB potassium chloride. Patient admitted to medicine for hyponatremia, hypokalemia, and weakness. Consult placed for nephrology. Serum and urine osmolality ordered with results pending at the time of admission. Urinalysis also pending at the time of admission. Case discussed with ED attending, Dr. Santillan. Undiagnosed new problem with uncertain prognosis? @ -None Drug Therapy requiring intensive monitoring for toxicity (Heparin, Nitro, Insulin, Cardizem)? @ -None Were any procedures done? @ -None Diagnosis/symptom? @ -Hyponatremia, hypokalemia, weakness Acute, or Chronic, or Acute on Chronic? @ -Acute Uncomplicated (without systemic symptoms) or Complicated (systemic symptoms)? @ -Complicated Side effects of treatment? @ -None Exacerbation, Progression, or Severe Exacerbation] @ -Not applicable Poses a threat to life or bodily function? @ -Yes, if electrolytes are not corrected it can become life threatening - Lab Data Result diagrams: 05/07/24 06:18 05/07/24 11:13 Lab Results 05/07/24 05/07/24 05/07/24 Range/Units 06:18 06:18 06:18 WBC 3.3 L (3.8-10.6) k/uL RBC 3.53 L (3.80-5.40) m/uL Hgb 11.4 (11.4-16.0) gm/dL Hct 34.5 (34.0-46.0) % MCV 97.8 (80.0-100.0) fL MCH 32.2 (25.0-35.0) pg MCHC 32.9 (31.0-37.0) g/dL RDW 13.0 (11.5-15.5) % Plt Count 179 (150-450) k/uL MPV 8.5 Neutrophils % 78 % Lymphocytes % 11 % Monocytes % 6 % Eosinophils % 0 % Basophils % 0 % Neutrophils # 2.6 (1.3-7.7) k/uL Lymphocytes # 0.4 L (1.0-4.8) k/uL Monocytes # 0.2 (0-1.0) k/uL Eosinophils # 0.0 (0-0.7) k/uL Basophils # 0.0 (0-0.2) k/uL Manual Slide Review Performed Dohle Bodies Present Rouleaux Present PT 10.8 (10.0-12.5) sec INR 1.0 (<1.2) APTT 22.9 (22.0-30.0) sec Sodium (137-145) mmol/L Potassium (3.5-5.1) mmol/L Chloride (98-107) mmol/L Carbon Dioxide (22-30) mmol/L Anion Gap mmol/L BUN (7-17) mg/dL Creatinine (0.52-1.04) mg/dL Est GFR (CKD-EPI)AfAm (>60 ml/min/1.73 sqM) Est GFR (CKD-EPI)NonAf (>60 ml/min/1.73 sqM) Glucose (74-99) mg/dL Lactic Ac Sepsis Rflx Plasma Lactic Acid Ap (0.7-2.0) mmol/L Calcium (8.4-10.2) mg/dL Magnesium (1.6-2.3) mg/dL Total Bilirubin (0.2-1.3) mg/dL AST (14-36) U/L ALT (4-34) U/L Alkaline Phosphatase (38-126) U/L Total Protein (6.3-8.2) g/dL Albumin (3.5-5.0) g/dL TSH (0.465-4.680) mIU/L Urine Color Dark Brown Urine Appearance Cloudy H (Clear) Urine pH 6.0 (5.0-8.0) Ur Specific [place] 1.031 (1.001-1.035) Urine Protein 1+ H (Negative) Urine Glucose (UA) Negative (Negative) Urine Ketones 2+ H (Negative) Urine Blood Negative (Negative) Urine Nitrite Negative (Negative) Urine Bilirubin 2+ H (Negative) Urine Urobilinogen 3.0 (<2.0) mg/dL Ur Leukocyte Esterase Negative (Negative) Urine RBC 1 (0-5) /hpf Urine WBC 16 H (0-5) /hpf Ur Squamous Epith Cells 15 H (0-4) /hpf Amorphous Sediment Occasional H (None) /hpf Hyaline Casts 8 H (0-2) /lpf Urine Mucus Many H (None) /hpf 05/07/24 05/07/24 05/07/24 Range/Units 06:18 06:18 06:18 WBC (3.8-10.6) k/uL RBC (3.80-5.40) m/uL Hgb (11.4-16.0) gm/dL Hct (34.0-46.0) % MCV (80.0-100.0) fL MCH (25.0-35.0) pg MCHC (31.0-37.0) g/dL RDW (11.5-15.5) % Plt Count (150-450) k/uL MPV Neutrophils % % Lymphocytes % % Monocytes % % Eosinophils % % Basophils % % Neutrophils # (1.3-7.7) k/uL Lymphocytes # (1.0-4.8) k/uL Monocytes # (0-1.0) k/uL Eosinophils # (0-0.7) k/uL Basophils # (0-0.2) k/uL Manual Slide Review Dohle Bodies Rouleaux PT (10.0-12.5) sec INR (<1.2) APTT (22.0-30.0) sec Sodium 123 L (137-145) mmol/L Potassium 2.9 L (3.5-5.1) mmol/L Chloride 80 L (98-107) mmol/L Carbon Dioxide 30 (22-30) mmol/L Anion Gap 13 mmol/L BUN 13 (7-17) mg/dL Creatinine 0.44 L (0.52-1.04) mg/dL Est GFR (CKD-EPI)AfAm >90 (>60 ml/min/1.73 sqM) Est GFR (CKD-EPI)NonAf >90 (>60 ml/min/1.73 sqM) Glucose 110 H (74-99) mg/dL Lactic Ac Sepsis Rflx Plasma Lactic Acid Ap 2.2 H* (0.7-2.0) mmol/L Calcium 7.8 L (8.4-10.2) mg/dL Magnesium 1.5 L (1.6-2.3) mg/dL Total Bilirubin 0.8 (0.2-1.3) mg/dL AST 31 (14-36) U/L ALT 12 (4-34) U/L Alkaline Phosphatase 121 (38-126) U/L Total Protein 5.1 L (6.3-8.2) g/dL Albumin 2.7 L (3.5-5.0) g/dL TSH 0.769 (0.465-4.680) mIU/L Urine Color Urine Appearance (Clear) Urine pH (5.0-8.0) Ur Specific [place] (1.001-1.035) Urine Protein (Negative) Urine Glucose (UA) (Negative) Urine Ketones (Negative) Urine Blood (Negative) Urine Nitrite (Negative) Urine Bilirubin (Negative) Urine Urobilinogen (<2.0) mg/dL Ur Leukocyte Esterase (Negative) Urine RBC (0-5) /hpf Urine WBC (0-5) /hpf Ur Squamous Epith Cells (0-4) /hpf Amorphous Sediment (None) /hpf Hyaline Casts (0-2) /lpf Urine Mucus (None) /hpf 05/07/24 Range/Units 06:46 WBC (3.8-10.6) k/uL RBC (3.80-5.40) m/uL Hgb (11.4-16.0) gm/dL Hct (34.0-46.0) % MCV (80.0-100.0) fL MCH (25.0-35.0) pg MCHC (31.0-37.0) g/dL RDW (11.5-15.5) % Plt Count (150-450) k/uL MPV Neutrophils % % Lymphocytes % % Monocytes % % Eosinophils % % Basophils % % Neutrophils # (1.3-7.7) k/uL Lymphocytes # (1.0-4.8) k/uL Monocytes # (0-1.0) k/uL Eosinophils # (0-0.7) k/uL Basophils # (0-0.2) k/uL Manual Slide Review Dohle Bodies Rouleaux PT (10.0-12.5) sec INR (<1.2) APTT (22.0-30.0) sec Sodium (137-145) mmol/L Potassium (3.5-5.1) mmol/L Chloride (98-107) mmol/L Carbon Dioxide (22-30) mmol/L Anion Gap mmol/L BUN (7-17) mg/dL Creatinine (0.52-1.04) mg/dL Est GFR (CKD-EPI)AfAm (>60 ml/min/1.73 sqM) Est GFR (CKD-EPI)NonAf (>60 ml/min/1.73 sqM) Glucose (74-99) mg/dL Lactic Ac Sepsis Rflx Y Plasma Lactic Acid Ap (0.7-2.0) mmol/L Calcium (8.4-10.2) mg/dL Magnesium (1.6-2.3) mg/dL Total Bilirubin (0.2-1.3) mg/dL AST (14-36) U/L ALT (4-34) U/L Alkaline Phosphatase (38-126) U/L Total Protein (6.3-8.2) g/dL Albumin (3.5-5.0) g/dL TSH (0.465-4.680) mIU/L Urine Color Urine Appearance (Clear) Urine pH (5.0-8.0) Ur Specific [place] (1.001-1.035) Urine Protein (Negative) Urine Glucose (UA) (Negative) Urine Ketones (Negative) Urine Blood (Negative) Urine Nitrite (Negative) Urine Bilirubin (Negative) Urine Urobilinogen (<2.0) mg/dL Ur Leukocyte Esterase (Negative) Urine RBC (0-5) /hpf Urine WBC (0-5) /hpf Ur Squamous Epith Cells (0-4) /hpf Amorphous Sediment (None) /hpf Hyaline Casts (0-2) /lpf Urine Mucus (None) /hpf - Radiology Data Radiology results: report reviewed, image reviewed Disposition Clinical Impression: Hyponatremia, Hypokalemia, Weakness Disposition: ADMITTED IP TO THIS HOSP
[2024-05-07] MEDS: MORPHINE SULFATE 4 MG/ML SYRINGE IVP STA (07:36)
[2024-05-07] MEDS: KETOROLAC 15 MG/ML 1 ML VIAL IVP STA (07:39)
[2024-05-07] MEDS: POTASSIUM CHLORIDE 20 MEQ in WATER FOR INJECTION 1 100ML.BAG IVPB STA (07:50)
[2024-05-07 07:58] LABS: Dohle Bodies Present; Rouleaux Present
[2024-05-07] MEDS ORDERED: ACETAMINOPHEN TAB 325 MG TAB PO PRN (08:08)
[2024-05-07] MEDS ORDERED: ONDANSETRON 4 MG/2 ML VIAL IVP PRN (08:08)
[2024-05-07] MEDS ORDERED: NALOXONE 0.4 MG/ML 1 ML VIAL IV PRN (08:08)
--- NOTE | 2024-05-07 08:27 | XR ---
EXAMINATION TYPE: XR chest 2V DATE OF EXAM: 05/07/2024 COMPARISON: 03/22/2020 HISTORY: 53-year-old female with weakness TECHNIQUE: PA and lateral views FINDINGS: Heart normal size. Aorta and pulmonary vasculature within normal limits. Old healed left posterolater al sixth rib fracture deformity. Hazy lower lung densities relating to overlying soft tissue. No cons olidation or pleural effusion. IMPRESSION: No acute cardiopulmonary process. [facility], , 05/07/2024 8:24 AM
[2024-05-07] MEDS: SODIUM CHLORIDE 0.9% 1,000 ML IV SCH ×2 (09:21→12:22)
[2024-05-07] MEDS: PANTOPRAZOLE 40 MG/10 ML VIAL IV SCH (09:49)
--- NOTE | 2024-05-07 11:20 | P.NPCON ---
History of Present Illness - Reason for Consult hyponatremia - History of Present Illness Reason for consultation: Hyponatremia History of present illness: Patient is a 53-year-old female seen in renal consultation for hyponatremia. Patient was seen and examined in the emergency room. Patient came to the hospital due to generalized weakness. Patient states about a week and a half ago she vomited an entire day. Since then her oral intake has been poor. Sodium level was 123 on admission. She denies use of any diuretics. Denies history of diabetes or coronary artery disease. Denies use of nonsteroidals. Patient states she has not been able to eat much but has been drinking quite a bit of fluids. Patient states she is able to drink 416 ounce bottles of water daily and also has a protein shake daily. Patient was drinking 4 glasses of wine 3-4 times a week prior to her vomiting episode. No chest pain or shortness of breath. No gross hematuria or dysuria. No history of kidney disease. Vital signs are stable. General: No acute distress. HEENT: Head exam is unremarkable. LUNGS: No audible rhonchi or wheezes. HEART: Rate and Rhythm are regular. ABDOMEN: Nontender. EXTREMITITES: No edema. Past Medical History Past Medical History: GERD/Reflux Additional Past Medical History / Comment(s): 2 hernias History of Any Multi-Drug Resistant Organisms: None Reported Past Surgical History: Tubal Ligation Additional Past Surgical History / Comment(s): tubal ligation 2008, rhinoplasty Past Anesthesia/Blood Transfusion Reactions: No Reported Reaction Past Psychological History: Anxiety Smoking Status: Current every day smoker Past Alcohol Use History: Daily Past Drug Use History: None Reported - Past Family History Mother Family Medical History: Hypertension Additional Family Medical History / Comment(s): Aortic aneurysm Father Additional Family Medical History / Comment(s): no significant hx Medications and Allergies Home Medications Medication Instructions Recorded Confirmed Type Fluconazole 200 mg PO DAILY 05/07/24 05/07/24 History Multivitamin/Iron/Folic Acid 1 tab PO DAILY 05/07/24 05/07/24 History [Centrum Adults Tablet] Pantoprazole Sodium [Protonix] 40 mg PO DAILY 05/07/24 05/07/24 History Allergies Allergy/AdvReac Type Severity Reaction Status Date / Time No Known Allergies Allergy Verified 05/07/24 08:47 Physical Exam Vitals: Vital Signs Temp Pulse Pulse Pulse Pulse Resp BP 05/07/24 10:05 91 95 88 05/07/24 10:03 94 17 105/63 05/07/24 07:32 98.0 F 96 18 120/74 05/07/24 05:36 97.8 F 114 H 18 123/64 BP BP BP Pulse Ox 05/07/24 10:05 99/63 89/65 92/61 05/07/24 10:03 100 05/07/24 07:32 100 05/07/24 05:36 99 Intake and Output 05/06/24 05/07/24 05/07/24 22:59 06:59 14:59 Other: Weight 45.359 kg Results - Lab Results Most recent lab results Calcium 7.8 mg/dL (8.4-10.2) L 05/07/24 06:18 Magnesium 1.5 mg/dL (1.6-2.3) L 05/07/24 06:18 05/07/24 06:18 05/07/24 06:18 Assessment and Plan Plan: Assessment: 1. Hypovolemic hyponatremia with component of poor solute intake. Sodium level 123 on admission. 2. Hypokalemia from poor intake. 3. Hypomagnesemia from poor intake. 4. Lactic acidosis from hypovolemia. Improved with fluids. Plan: Patient received 1 L of normal saline. Potassium and magnesium have been replaced. Repeat labs are pending. Will adjust fluids pending new labs. Check serum and urine osmolality and urine sodium level. Check TSH and cortisol level. Stop NSAIDs. Thank you for the consultation. I will continue to follow the patient with you during her hospital stay.
[2024-05-07 11:34] LABS: African American GFR (CKD) >90 (>60 ml/min/1.73 sqM); Anion Gap 5 mmol/L; Blood Urea Nitrogen 15 mg/dL (7-17); Calcium 7.4 mg/dL (8.4-10.2); Carbon Dioxide 31 mmol/L (22-30); Chloride 88 mmol/L (98-107); Glucose 85 mg/dL (74-99); Magnesium 1.6 mg/dL (1.6-2.3); Non-African American GFR(CKD) >90 (>60 ml/min/1.73 sqM); Potassium 3.7 mmol/L (3.5-5.1); Sodium 124 mmol/L (137-145)
[2024-05-07] MEDS: MAGNESIUM SULFATE-D5W PMX 1 GM in DEXTROSE/WATER 1 100ML.BAG IVPB SCH (12:22)
[2024-05-07 12:54] LABS: Amorphous Sediment,Urine Occasional /hpf; Appearance,Urine Cloudy (Clear); Bilirubin,Urine 2+ (Negative); Blood,Urine Negative (Negative); Color,Urine Dark Brown; Glucose,Urine (UA) Negative (Negative); Hyaline Casts,Urine 8 /lpf (0-2); Ketones,Urine 2+ (Negative); Leukocyte Esterase,Urine Negative (Negative); Mucus,Urine Many /hpf; Nitrite,Urine Negative (Negative); Protein,Urine 1+ (Negative); RBC,Urine 1 /hpf (0-5); Specific Gravity,Urine 1.031 (1.001-1.035); Squamous Epithelial Cell,Urine 15 /hpf (0-4); WBC,Urine 16 /hpf (0-5)
[2024-05-07] MEDS: KETOROLAC 15 MG/ML 1 ML VIAL IVP PRN (14:25)
[2024-05-07] MEDS: SODIUM CHLORIDE TAB 1 GM TAB PO SCH (21:33)
[2024-05-07] MEDS: HYDROcodone/APAP 5-325MG 1 EACH TAB PO PRN (21:33)
[2024-05-07] MEDS: MORPHINE SULFATE 4 MG/ML SYRINGE IV PRN (23:03)
[2024-05-08] MEDS: MULTIVITAMINS, THERA 1 EACH TAB PO SCH (08:20)
[2024-05-08] MEDS: FLUCONAZOLE 100 MG TAB PO SCH (08:21)
[2024-05-08 08:50] LABS: Blood Urea Nitrogen 13.7 mg/dL (9.0-27.0); Calcium 7.7 mg/dL (8.7-10.3); Carbon Dioxide 24.6 mmol/L (21.6-31.8); Chloride 89 mmol/L (96-109); Glucose 121 mg/dL (70-110); Magnesium 2.1 mg/dL (1.5-2.4); Sodium 123 mmol/L (135-145)
[2024-05-08] MEDS ORDERED: PANTOPRAZOLE 40 MG TABLET PO SCH (09:00)
--- NOTE | 2024-05-08 10:44 | P.PN ---
Subjective Patient is seen in follow-up for hyponatremia. IV fluids discontinued last night and started on sodium chloride tabs. Sodium level 123 this morning. Oral intake fair. No vomiting or diarrhea. Vital signs are stable. General: No acute distress. HEENT: Head exam is unremarkable. LUNGS: No audible rhonchi or wheezes. HEART: Rate and Rhythm are regular. ABDOMEN: Nontender. Surgical scar noted. EXTREMITITES: No edema. Objective - Vital Signs Vital signs: Vital Signs Temp 98.2 F 05/08/24 07:16 Pulse 92 05/08/24 07:16 Resp 16 05/08/24 07:16 BP 98/65 05/08/24 07:16 Pulse Ox 99 05/08/24 07:16 FiO2 Intake & Output 05/07/24 05/08/24 05/08/24 18:59 06:59 18:59 Intake Total 540 Balance 540 Weight 45.359 kg Intake: Oral 540 Other: Voiding Method Toilet # Voids 1 3 - Labs CBC & Chem 7: 05/07/24 06:18 05/08/24 05:42 Labs: Abnormal Lab Results - Last 24 Hours (Table) 05/07/24 05/07/24 05/07/24 Range/Units 06:18 06:18 11:13 Sodium 124 L (137-145) mmol/L Chloride 88 L (98-107) mmol/L Carbon Dioxide 31 H (22-30) mmol/L Creatinine 0.42 L (0.52-1.04) mg/dL BUN/Creatinine Ratio (12.00-20.00) Ratio Glucose (70-110) mg/dL Osmolality 262 L (275-295) mOsm/kg Calcium 7.4 L (8.4-10.2) mg/dL Cortisol 39.0 H (3.1-22.4) UG/DL Urine Appearance Cloudy H (Clear) Urine Protein 1+ H (Negative) Urine Ketones 2+ H (Negative) Urine Bilirubin 2+ H (Negative) Urine WBC 16 H (0-5) /hpf Ur Squamous Epith Cells 15 H (0-4) /hpf Amorphous Sediment Occasional H (None) /hpf Hyaline Casts 8 H (0-2) /lpf Urine Mucus Many H (None) /hpf 05/07/24 05/08/24 Range/Units 17:10 05:42 Sodium 121 L 123 L (137-145) mmol/L Chloride 89 L (98-107) mmol/L Carbon Dioxide (22-30) mmol/L Creatinine 0.5 L (0.52-1.04) mg/dL BUN/Creatinine Ratio 27.40 H (12.00-20.00) Ratio Glucose 121 H (70-110) mg/dL Osmolality (275-295) mOsm/kg Calcium 7.7 L (8.4-10.2) mg/dL Cortisol (3.1-22.4) UG/DL Urine Appearance (Clear) Urine Protein (Negative) Urine Ketones (Negative) Urine Bilirubin (Negative) Urine WBC (0-5) /hpf Ur Squamous Epith Cells (0-4) /hpf Amorphous Sediment (None) /hpf Hyaline Casts (0-2) /lpf Urine Mucus (None) /hpf Assessment and Plan Plan: Assessment: 1. Hypovolemic hyponatremia with component of poor solute intake. Sodium level dropped to 121 with IV fluids. 123 this morning. Urine osmolality 544. Cortisol not low. TSH normal. 2. Hypokalemia from poor intake. Replaced. Improved. 3. Hypomagnesemia from poor intake. Replaced. Improved. 4. Lactic acidosis from hypovolemia. Improved with fluids. Plan: Maintain sodium chloride tabs. Maintain fluid restriction. Encouraged oral intake, particularly protein. Avoid NSAIDs. Repeat labs in the morning. Patient requesting to see surgery due to abdominal discomfort. Surgery will be consulted.
[2024-05-08 13:39] VITALS: BMI 16.1
--- NOTE | 2024-05-08 14:14 | P.GSCN ---
History of Present Illness Consult date: 05/08/24 History of present illness: CHIEF COMPLAINT: Weakness HISTORY OF PRESENT ILLNESS: This is a 53-year-old female who presented with weakness and pain in her legs and back. She reports she felt so weak she had difficulty walking. Patient also has been having issues with nausea and vomiting intermittently over the last 3 weeks. Patient reports her oral intake is poor. She only picks at food when she eats. Patient reports after vomiting she had noticed a bulge at the top of her midline abdominal incision. She also has been having epigastric pain. She has appointments with GI service outpatient and Dr. Powell in August. Patient has a prior history of a bleeding duodenal ulcer with penetration into the cystic artery status post repair of a bleeding duodenal ulcer, cholecystectomy and repair of incisional hernia on 03/16/2020. Patient followed by GI service and they have ordered a CT scan due to patient is nausea vomiting and weight loss. Nephrology is following patient due to hyponatremia. PAST MEDICAL HISTORY: See below PAST SURGICAL HISTORY: See below MEDICATIONS: See below ALLERGIES: See below SOCIAL HISTORY: No illicit drug use. Daily alcohol use. Nicotine dependence. REVIEW OF SYSTEMS: CONSTITUTIONAL: Denies fever or chills. HEENT: Denies blurred vision, vision changes, or eye pain. Denies hemoptysis CARDIOVASCULAR: Denies chest pain or pressure. RESPIRATORY: No shortness of breath. GASTROINTESTINAL: See HPI for pertinent findings HEMATOLOGIC: Denies bleeding disorders. GENITOURINARY: Denies any blood in urine or increased urinary frequency. SKIN: Denies pruitis. Denies rash. PHYSICAL EXAM: VITAL SIGNS: Reviewed GENERAL: Well-developed in no acute distress. HEENT: No sclera icterus. Extraocular movements grossly intact. Moist buccal mucosa. Head is atraumatic, normocephalic. No nasal drainage. ABDOMEN: Soft. Nondistended. Tenderness at the top of the midline incision near the epigastric area there is a small hernia bulge noted. This is reducible. Mild tenderness with palpation NEUROLOGIC: Alert and oriented. Cranial nerves II through XII grossly intact. LABORATORY DATA: WBC 3.3 Hgb 11.4 platelets 179 Sodium 121-123 potassium 4.0 creatinine 0.5 Lactic acid 2.2 down to 1.3 Magnesium 1.5 up to 2.1 IMAGING: ASSESSMENT: 1. Small incisional hernia, reducible 2. Nausea and vomiting with weight loss 3. Hyponatremia PLAN: -Further recommendations forthcoming per surgeon -Follow-up on CT scan abdomen pelvis results -Continue regular diet Physician Route Delivery Manager note has been reviewed by physician. Signing provider agrees with the documented findings, assessment, and plan of care. I have personally seen and examined the patient, reviewed the MECHANICAL METER TESTER /PAs history, exam and MDM and agree with the assessment and plan as written. Based on total visit time, I have performed more than 50% of the visit. As above: We were consulted for the patient's abdominal pain and small incisional hernia. Underwent previous laparotomy with cholecystectomy for perforated duodenal ulcer apparently. Patient with history of alcohol use although has been cutting back she states. Patient has had a 20 pound weight loss in the last 6 months or so. CAT scan reviewed. CAT scan with multiple fluid collections within the head of the pancreas and surrounding pancreas. A few of these collections have foci of air. Patient does not appear toxic. She is walking around the room. She has mild epigastric tenderness. White blood cell count is normal. Advise tertiary care evaluation for hepatobiliary consu ltation. Can follow-up in the outpatient setting to discuss incisional hernia in the future. Check CA 19-9, amylase, lipase. Past Medical History Past Medical History: GERD/Reflux Additional Past Medical History / Comment(s): 2 hernias History of Any Multi-Drug Resistant Organisms: None Reported Past Surgical History: Tubal Ligation Additional Past Surgical History / Comment(s): tubal ligation 2008, rhinoplasty Past Anesthesia/Blood Transfusion Reactions: No Reported Reaction Past Psychological History: Anxiety Smoking Status: Current every day smoker Past Alcohol Use History: Daily Past Drug Use History: None Reported - Past Family History Mother Family Medical History: Hypertension Additional Family Medical History / Comment(s): Aortic aneurysm Father Additional Family Medical History / Comment(s): no significant hx Medications and Allergies Home Medications Medication Instructions Recorded Confirmed Type Fluconazole 200 mg PO DAILY 05/07/24 05/07/24 History Multivitamin/Iron/Folic Acid 1 tab PO DAILY 05/07/24 05/07/24 History [Centrum Adults Tablet] Pantoprazole Sodium [Protonix] 40 mg PO DAILY 05/07/24 05/07/24 History Allergies Allergy/AdvReac Type Severity Reaction Status Date / Time No Known Allergies Allergy Verified 05/07/24 08:47 Surgical - Exam Vital Signs Temp Pulse Resp BP Pulse Ox 97.8 F 114 H 18 123/64 99 05/07/24 05:36 05/07/24 05:36 05/07/24 05:36 05/07/24 05:36 05/07/24 05:36 Results - Labs 05/07/24 06:18 05/08/24 05:42 Abnormal Lab Results - Last 24 Hours (Table) 05/07/24 05/07/24 05/07/24 Range/Units 06:18 06:18 17:10 Sodium 121 L (137-145) mmol/L Chloride (96-109) mmol/L Creatinine (0.6-1.5) mg/dL BUN/Creatinine Ratio (12.00-20.00) Ratio Glucose (70-110) mg/dL Osmolality 262 L (275-295) mOsm/kg Calcium (8.7-10.3) mg/dL Cortisol 39.0 H (3.1-22.4) UG/DL Urine Appearance Cloudy H (Clear) Urine Protein 1+ H (Negative) Urine Ketones 2+ H (Negative) Urine Bilirubin 2+ H (Negative) Urine WBC 16 H (0-5) /hpf Ur Squamous Epith Cells 15 H (0-4) /hpf Amorphous Sediment Occasional H (None) /hpf Hyaline Casts 8 H (0-2) /lpf Urine Mucus Many H (None) /hpf 05/08/24 Range/Units 05:42 Sodium 123 L (137-145) mmol/L Chloride 89 L (96-109) mmol/L Creatinine 0.5 L (0.6-1.5) mg/dL BUN/Creatinine Ratio 27.40 H (12.00-20.00) Ratio Glucose 121 H (70-110) mg/dL Osmolality (275-295) mOsm/kg Calcium 7.7 L (8.7-10.3) mg/dL Cortisol (3.1-22.4) UG/DL Urine Appearance (Clear) Urine Protein (Negative) Urine Ketones (Negative) Urine Bilirubin (Negative) Urine WBC (0-5) /hpf Ur Squamous Epith Cells (0-4) /hpf Amorphous Sediment (None) /hpf Hyaline Casts (0-2) /lpf Urine Mucus (None) /hpf Diabetes panel 05/07/24 05/07/24 05/08/24 Range/Units 17:10 18:07 05:42 Sodium 121 L 123 L (137-145) mmol/L Potassium 4.0 4.0 (3.5-5.1) mmol/L Chloride 89 L (96-109) mmol/L Carbon Dioxide 24.6 (21.6-31.8) mmol/L BUN 13.7 (9.0-27.0) mg/dL Creatinine 0.5 L (0.6-1.5) mg/dL Glucose 121 H (70-110) mg/dL Calcium 7.7 L (8.7-10.3) mg/dL Calcium panel 05/08/24 Range/Units 05:42 Calcium 7.7 L (8.7-10.3) mg/dL Pituitary panel 05/07/24 05/07/24 05/08/24 Range/Units 17:10 18:07 05:42 Sodium 121 L 123 L (137-145) mmol/L Potassium 4.0 4.0 (3.5-5.1) mmol/L Chloride 89 L (96-109) mmol/L Carbon Dioxide 24.6 (21.6-31.8) mmol/L BUN 13.7 (9.0-27.0) mg/dL Creatinine 0.5 L (0.6-1.5) mg/dL Glucose 121 H (70-110) mg/dL Calcium 7.7 L (8.7-10.3) mg/dL Adrenal panel 05/07/24 05/07/24 05/08/24 Range/Units 17:10 18:07 05:42 Sodium 121 L 123 L (137-145) mmol/L Potassium 4.0 4.0 (3.5-5.1) mmol/L Chloride 89 L (96-109) mmol/L Carbon Dioxide 24.6 (21.6-31.8) mmol/L BUN 13.7 (9.0-27.0) mg/dL Creatinine 0.5 L (0.6-1.5) mg/dL Glucose 121 H (70-110) mg/dL Calcium 7.7 L (8.7-10.3) mg/dL
[2024-05-08] MEDS: IOPAMIDOL CONTRAST (ORAL USE) VIAL PO PRN (15:26)
--- NOTE | 2024-05-08 16:10 | P.CONS ---
History of Present Illness - Reason for Consult Consult date: 05/08/24 Intractable nausea, weight loss Requesting physician: Mary Ann Alfonso - Chief Complaint Weakness and pain in legs and back - History of Present Illness This is a pleasant 53-year-old female who presented to the emergency department with complaints of weakness pain in her legs and back. Apparently she felt so weak she was having difficulty walking so she came into the hospital. She states that she has intermittent nausea and vomiting. States that 04/21/2024 she had intractable nausea and vomiting. Since that time she has felt weak and has not been wanting to eat. She has been having intermittent nausea and vomiting once a week to once a month since this past November. States she has had a 22 pound weight loss since November. She denies any abdominal pain. No hematemesis or coffee-ground emesis. Past medical history includes duodenal ulcer with open repair, cholecystectomy and repair of incisional hernia, and GERD. She is a current every day smoker, she reports drinking at least 3 days a week 3 glasses of wine each time. Patient was noted to be hyponatremic on admission. She was admitted with consultations to nephrology and gastroenterology for nausea and vomiting. Review of Systems REVIEW OF SYSTEMS: CARDIOPULMONARY: No chest pain or shortness of breath. Gastrointestinal: No abdominal pain. Intermittent nausea and vomiting, none currently. No hematemesis, coffee-ground emesis. No rectal bleeding, or melena . GENITOURINARY: No dysuria or hematuria. MUSCULOSKELETAL: Reports normal range of motion., Joint pain. SKIN: No rashes. No jaundice. ENDOCRINE: No chills, fevers. No excessive weight gain or loss. No polydipsia or polyuria. PSYCHIATRIC: Unremarkable. NEUROLOGY: No change in mental status. Denies dizziness, headache. Lower extremity weakness. Back pain. ENT: Vision unremarkable. CONSTITUTIONAL: No recent weight loss. No fever, chills, night sweats. Past Medical History Past Medical History: GERD/Reflux Additional Past Medical History / Comment(s): 2 hernias History of Any Multi-Drug Resistant Organisms: None Reported Past Surgical History: Tubal Ligation Additional Past Surgical History / Comment(s): tubal ligation 2008, rhinoplasty Past Anesthesia/Blood Transfusion Reactions: No Reported Reaction Past Psychological History: Anxiety Smoking Status: Current every day smoker Past Alcohol Use History: Daily Past Drug Use History: None Reported - Past Family History Mother Family Medical History: Hypertension Additional Family Medical History / Comment(s): Aortic aneurysm Father Additional Family Medical History / Comment(s): no significant hx Medications and Allergies Home Medications Medication Instructions Recorded Confirmed Type Fluconazole 200 mg PO DAILY 05/07/24 05/07/24 History Multivitamin/Iron/Folic Acid 1 tab PO DAILY 05/07/24 05/07/24 History [Centrum Adults Tablet] Pantoprazole Sodium [Protonix] 40 mg PO DAILY 05/07/24 05/07/24 History Allergies Allergy/AdvReac Type Severity Reaction Status Date / Time No Known Allergies Allergy Verified 05/07/24 08:47 Physical Exam Vitals: Vital Signs Temp Pulse Resp BP BP BP Pulse Ox 05/08/24 12:17 98.7 F 99 16 105/66 97 05/08/24 07:16 98.2 F 92 16 98/65 99 05/07/24 21:25 97 16 05/07/24 19:42 99 F 104 H 16 90/59 98 05/07/24 13:40 97.8 F 89 16 106/66 100 Intake and Output 05/07/24 05/08/24 05/08/24 22:59 06:59 14:59 Intake Total 540 Balance 540 Intake: Oral 540 Other: Voiding Method Toilet # Voids 1 3 General appearance: The patient is alert, oriented, appears in no acute distress. HET: Head is normocephalic and atraumatic. Conjunctiva pink. Sclera anicteric. Neck: Supple without lymphadenopathy. Trachea midline. Heart: Regular. Lungs: Equal expansion, normal respiratory effort. Abdomen: Soft, nontender, midline incisional scar, nondistended. Skin: No rashes. No jaundice. Extremities: Normal skin color and turgor. No pedal edema. Neurological: No focal deficits. Alert and oriented x3. Results CBC & Chem 7: 05/07/24 06:18 05/08/24 05:42 Labs: Abnormal Lab Results - Last 24 Hours (Table) 05/07/24 05/07/24 05/08/24 Range/Units 06:18 17:10 05:42 Sodium 121 L 123 L (137-145) mmol/L Chloride 89 L (96-109) mmol/L Creatinine 0.5 L (0.6-1.5) mg/dL BUN/Creatinine Ratio 27.40 H (12.00-20.00) Ratio Glucose 121 H (70-110) mg/dL Osmolality 262 L (275-295) mOsm/kg Calcium 7.7 L (8.7-10.3) mg/dL Cortisol 39.0 H (3.1-22.4) UG/DL Assessment and Plan (1) Nausea and vomiting Narrative/Plan: 53-year-old with intermittent nausea and vomiting with unintentional weight loss since November of this year. Unclear etiology of nausea and vomiting but occurs as frequent as once a week to once a month. No associated blood in vomit. Does have history of alcoholism and could be secondary alcohol gastritis. Concerning for 22 pound weight loss since November. Will get CT abdomen and pelvis and may need to consider possible upper endoscopy. Current Visit: Yes Status: Acute Code(s): R11.2 - NAUSEA WITH VOMITING, UNSPECIFIED SNOMED Code(s): 08104423 (2) Unintentional weight loss Current Visit: Yes Status: Acute Code(s): R63.4 - ABNORMAL WEIGHT LOSS SNOMED Code(s): 430996363 (3) Hyponatremia Current Visit: Yes Status: Acute Code(s): E87.1 - HYPO-OSMOLALITY AND HYPONATREMIA SNOMED Code(s): 57246773 Plan: 1. Continue symptomatic and supportive care 2. Diet as tolerated 3. Continue with recommendations from nephrology 4. CT abdomen pelvis with contrast ordered 5. Protonix 40 mg daily for GI prophylaxis 6. Antiemetics as needed 7. Further recommendations forthcoming based on clinical course Thank you for this consultation, we will continue to follow. Dr. Laz Calloway I agree with the dictator's note, documented as a scribe by Beth Rothman.
--- NOTE | 2024-05-08 17:08 | P.HPIM ---
History of Present Illness H&P Date: 05/08/24 Patient is a 53-year-old female presenting to the ED with weakness. Recently had flu and was not eating or drinking much. She states she felt dehydrated. Got up yesterday morning to walk dog and had pain that shot up her body. States the pain was in her legs and back and she had difficulty walking. Called EMS to go to ED. Admits to nausea and vomiting. She admits to poor oral intake. She reports that 2 weeks ago she states she was vomiting for 12 hours straight. She denies any blood in her vomit. She states shes lost 22 lbs since November. Denies fevers, chills, chest pain, abdominal pain, denies acid reflux. Patient has stated that she has not had routine preventative screenings colonoscopy, Pap smear, mammograms. EKG independently interpreted displays sinus tachycardia, rate 112 bpm, QTc 413 CXR independently interpreted displays no acute cardiopulmonary process Troponin <0.012, sodium 124, potassium 3.7, chloride 88, CO2 31, anion gap 5, magnesium 1.6, BUN 15, creatinine 0.42, serum osmolarity 262, urine osmolarity 554, lactic acid 1.3, albumin 2.7, cortisol 39, TSH 0.7 UA displayed urine protein 1+, urine ketones 3+, urine bilirubin 2+ T 99 F, MI 104 RR 16, BP 90/59, O2 sat 98% on room air ED documentation reviewed. Review of systems: Pertinent positives and negatives as discussed in HPI, a complete review of systems was performed and all other systems are negative. Social history: Tobacco: 1/2 pack 25 years Alcohol: 4 glasses of wine 3x a week Recreational drugs: denies Travel: no recent travel Occupation: recently retired Physical examination: Vital signs reviewed General: non toxic, no distress, appears at stated age, anorexic Derm: no unusual rashes/lesions, warm Head: atraumatic, normocephalic, symmetric Eyes: EOMI, anicteric sclera, pupils equal round reactive to light ENT: Nose and ears atraumatic Neck: No cervical lymphadenopathy, trachea midline, supple Mouth: no lip lesion, mucus membranes moist Cardiovascular: S1S2 reg, no murmur, positive dorsalis pedis pulse bilateral, no edema Lungs: CTA bilateral, no rhonchi, no rales, no accessory muscle use Abdominal: soft, nontender to palpation, no guarding Ext: muscle strength 5 out of 5 in all 4 extremities grossly, no gross muscle atrophy Neuro: CN II-XI grossly intact, no gross focal neuro deficits Psych: Alert, oriented to person, place, and time Assessment/Plan: Patient is a 50-year-old female presenting with weakness and pain in her legs and back. Active #. Hypovolemic hyponatremia Sodium 121 Cortisol 39 (H), TSH 0.769 Osmolarity 262 (L), urine osmolarity 554 Was given 1 L of saline Was given 1 g sodium chloride tab by nephrology Fluid restriction 1500 mL TSH ordered Hold NSAIDs, hold nephrotoxic medication Nephrology consulted #. Intractable nausea and vomiting #. Unexplained weight loss #. History of hiatal hernia Protonix 40 mg daily for GI prophylax CT abdomen/pelvis with contrast ordered Antiemetics as needed Diet as tolerated GI consulted, note read. General Surgery following #. Hypokalemia Was given potassium chloride 60 mEq in ED Follow-up BMP #. Hypomagnesia Was given magnesium oxide 400 mg p.o. once by ED Follow-up magnesium Chronic #. GERD Continue with Protonix 40 mg IV daily F: N/A E: Replete electrolytes as needed N: Regular diet A: Ambulates DVT prophylaxis: Lovenox 40 SQ daily The patient is admitted with an anticipated greater than 2 midnight stay for evaluation of [] CODE STATUS: Full code Discussed with: Patient Anticipated discharge place: [facility] Past Medical History Past Medical History: GERD/Reflux Additional Past Medical History / Comment(s): 2 hernias History of Any Multi-Drug Resistant Organisms: None Reported Past Surgical History: Tubal Ligation Additional Past Surgical History / Comment(s): tubal ligation 2008, rhinoplasty Past Anesthesia/Blood Transfusion Reactions: No Reported Reaction Past Psychological History: Anxiety Smoking Status: Current every day smoker Past Alcohol Use History: Daily Past Drug Use History: None Reported - Past Family History Mother Family Medical History: Hypertension Additional Family Medical History / Comment(s): Aortic aneurysm Father Additional Family Medical History / Comment(s): no significant hx Medications and Allergies Home Medications Medication Instructions Recorded Confirmed Type Fluconazole 200 mg PO DAILY 05/07/24 05/07/24 History Multivitamin/Iron/Folic Acid 1 tab PO DAILY 05/07/24 05/07/24 History [Centrum Adults Tablet] Pantoprazole Sodium [Protonix] 40 mg PO DAILY 05/07/24 05/07/24 History Allergies Allergy/AdvReac Type Severity Reaction Status Date / Time No Known Allergies Allergy Verified 05/07/24 08:47 Physical Exam Vitals: Vital Signs Temp Pulse Pulse Pulse Pulse Pulse Resp 05/07/24 21:25 97 16 05/07/24 19:42 99 F 104 H 16 05/07/24 13:40 97.8 F 89 16 05/07/24 12:25 97.8 F 92 17 05/07/24 10:05 91 95 88 05/07/24 10:03 94 17 05/07/24 07:32 98.0 F 96 18 BP BP BP BP Pulse Ox 05/07/24 21:25 05/07/24 19:42 90/59 98 05/07/24 13:40 106/66 100 05/07/24 12:25 102/57 95 05/07/24 10:05 99/63 89/65 92/61 05/07/24 10:03 105/63 100 05/07/24 07:32 120/74 100 Intake and Output 05/07/24 05/08/24 05/08/24 22:59 06:59 14:59 Intake Total 540 Balance 540 Intake: Oral 540 Other: Voiding Method Toilet # Voids 1 3 Results CBC & Chem 7: 05/07/24 06:18 05/08/24 05:42 Labs: Abnormal Lab Results - Last 24 Hours (Table) 05/07/24 05/07/24 05/07/24 Range/Units 06:18 06:18 06:18 Lymphocytes # 0.4 L (1.0-4.8) k/uL Sodium (137-145) mmol/L Chloride (98-107) mmol/L Carbon Dioxide (22-30) mmol/L Creatinine (0.52-1.04) mg/dL Osmolality 262 L (275-295) mOsm/kg Calcium (8.4-10.2) mg/dL Cortisol 39.0 H (3.1-22.4) UG/DL Urine Appearance Cloudy H (Clear) Urine Protein 1+ H (Negative) Urine Ketones 2+ H (Negative) Urine Bilirubin 2+ H (Negative) Urine WBC 16 H (0-5) /hpf Ur Squamous Epith Cells 15 H (0-4) /hpf Amorphous Sediment Occasional H (None) /hpf Hyaline Casts 8 H (0-2) /lpf Urine Mucus Many H (None) /hpf 05/07/24 05/07/24 Range/Units 11:13 17:10 Lymphocytes # (1.0-4.8) k/uL Sodium 124 L 121 L (137-145) mmol/L Chloride 88 L (98-107) mmol/L Carbon Dioxide 31 H (22-30) mmol/L Creatinine 0.42 L (0.52-1.04) mg/dL Osmolality (275-295) mOsm/kg Calcium 7.4 L (8.4-10.2) mg/dL Cortisol (3.1-22.4) UG/DL Urine Appearance (Clear) Urine Protein (Negative) Urine Ketones (Negative) Urine Bilirubin (Negative) Urine WBC (0-5) /hpf Ur Squamous Epith Cells (0-4) /hpf Amorphous Sediment (None) /hpf Hyaline Casts (0-2) /lpf Urine Mucus (None) /hpf Thrombosis Risk Factor Assmnt - Choose All That Apply Any of the Below Risk Factors Present?: No Other Risk Factors: No Other congenital or acquired thrombophilia - If yes, enter type in comment: No Thrombosis Risk Factor Assessment Level: Very Low Risk
--- NOTE | 2024-05-08 17:29 | CT ---
EXAMINATION TYPE: CT chest wo con CT DLP: 294 mGycm, Automated exposure control for dose reduction was used. DATE OF EXAM: 05/08/2024 5:17 PM COMPARISON: CT abdomen pelvis in day. CLINICAL INDICATION: Female, 53 years old with history of smoker, looking for pulmonary nodules; PHH, Smoker, looking for pulmonary nodules. TECHNIQUE: Multiple axial images were obtained through the chest. Sagittal and coronal reformats were created for review. MIP was performed on a separate workstation. Contrast used: mL of (None if empty) Oral contrast used: (None if empty) FINDINGS: LUNGS/ PLEURA: No focal consolidation, pneumothorax or pleural effusion. Mild centrilobular emphysema changes throughout the lungs. AIRWAY: Patent and unremarkable. HEART: Size within normal limits. MEDIASTINUM: No gross evidence of adenopathy. Layering oral contrast in the esophagus. VASCULATURE: No aortic aneurysm. MUSCULOSKELETAL: No acute osseous abnormalities SOFT TISSUES/LYMPH NODES: Unremarkable. LOWER NECK: No significant findings. UPPER ABDOMEN: focal fatty infiltration of the left hepatic lobe. IMPRESSION: 1. No evidence for acute process. 2. Oral contrast in esophagus correlate for esophageal dysmotility and reflux. 3. No clinically significant pulmonary nodules. 4. Mild emphysema. 5. Geographic fatty infiltration of the left hepatic lobe. 6. Please see the CT and pelvis for findings suggesting pancreatitis. [facility], , 05/08/2024 5:27 PM
--- NOTE | 2024-05-08 17:30 | CT ---
EXAMINATION TYPE: CT abdomen pelvis w con CT DLP: 764 mGycm, Automated exposure control for dose reduction was used. DATE OF EXAM: 05/08/2024 5:17 PM COMPARISON: None. CLINICAL INDICATION: Female, 53 years old with history of Nausea and vomiting, weight loss; N/V, Abno rmal weight loss. TECHNIQUE: Axial CT abdomen pelvis w con;Sagittal and coronal reformats were created on a separate w orkstation. Contrast used:80ml mL of Isovue 370 with IV Contrast, (none if empty) Oral contrast used: with Oral Contrast (none if empty) FINDINGS: LOWER CHEST: Unremarkable ABDOMEN LIVER: Unremarkable GALLBLADDER AND BILE DUCTS: Gallbladder is surgically absent. PANCREAS: Diffusely abnormal appearance of the pancreatic bed with multiple cystic areas present. Flu id collection extending up along towards the diaphragm from also present with at least one foci of ga s series 3 image 11 Pancreatic duct is poorly visualized and thought to have a beaded appearance most pronounced in the h ead and neck region measuring up to 12 mm. SPLEEN: Unremarkable. ADRENAL GLANDS: Unremarkable. KIDNEYS AND URETERS: No evidence of hydronephrosis or renal calculus. The ureters are unremarkable. PELVIS BLADDER: Unremarkable REPRODUCTIVE: Unremarkable. ABDOMEN & PELVIS STOMACH AND BOWEL: No evidence of bowel obstruction. Mild wall thickening of the gastric antrum and t he duodenum. PERITONEUM/RETROPERITONEUM: No evidence of pneumoperitoneum . VASCULATURE: No evidence of aortic aneu rysm. No evidence for pseudoaneurysm or occlusion of the vessels of the pancreas.There is narrowing o f the main portal vein as it crosses over this region. The duct to 50% stenosis. MUSCULOSKELETAL: No acute osseous abnormalities LYMPH NODES: Multiple prominent lymph nodes around the pancreas likely reactive or other inflammation changes. SOFT TISSUE/ABDOMINAL WALL: Fat-containing umbilical hernia. IMPRESSION: Acute pancreatitis with multiple organizing fluid collections and dilated tortuous appearing main berman creatic duct. Correlate with serum lipase. Multiple organizing fluid collections are seen possibly wi thin the pancreatic parenchyma versus dilated ducts. One fluid collection extends towards the diaphra gm with foci of gas. No priors are available for comparison. No evidence for aneurysm or thrombosis. There is at least 50% stenosis of the main portal vein as it crosses over the area of an inflammation . Multiple adjacent reactive lymph nodes are present. Reactive gastritis/duodenitis also thought to b e present [facility], , 05/08/2024 5:28 PM
[2024-05-08] MEDS: PANTOPRAZOLE 40 MG/10 ML VIAL IVP SCH (20:50)
[2024-05-09 08:54] LABS: Amylase 28 U/L (23-121); BUN/Creat Ratio 19.25 Ratio (12.00-20.00); Blood Urea Nitrogen 7.7 mg/dL (9.0-27.0); Calcium 8.5 mg/dL (8.7-10.3); Carbon Dioxide 26.5 mmol/L (21.6-31.8); Chloride 92 mmol/L (96-109); Glucose 112 mg/dL (70-110); Lipase 16 U/L (14-63); Magnesium 1.8 mg/dL (1.5-2.4); Potassium 4.2 mmol/L (3.5-5.5); Sodium 128 mmol/L (135-145)
[2024-05-09] MEDS: ENOXAPARIN 40 MG/0.4 ML SYRINGE SQ SCH (09:07)
--- NOTE | 2024-05-09 11:42 | CDI ---
Documentation Clarification Form Date: 07/09/2024 From: Usha Victor RN CCDS Phone: [phone] Admit Date: 05/07/2024 09:23:00 AM Patient Name: Kristyn Araiza Visit Number: [id number] Discharge Date: ATTENTION: The Clinical Documentation Specialists (CDI) and [facility] Coding Staff appreciate your assistance in clarifying documentation. Please respond to the clarification below the line at the bottom and electronically sign. The CDI & [facility] Coding staff will review the response and follow-up if needed. Please note: Queries are made part of the Legal Health Record. If you have any questions, please contact the author of this message via ITS. Doctor/Provider: Pankaj Schaffer MD: Patient has a documented BMI of 16.1 on 05/08. Additional clarification is requested. History/Risk Factors: 53-year-old female who presents with weakness with nausea and vomiting Clinical Indicators: 05/08 RD Assessment: "Nutrition Diagnosis: Malnutrition, chronic, severe related to inadequate energy intake 2/2 diminished appetite as evidenced by consuming < 50% of EER, 18% weight loss x 5 months" 05/08 General Surgery consult, Plan: "Patient has had 20-pound weight loss in the last 6 months or so." 05/08 Patients weight is 45.359kg Patients height is 5ft 6in Calculated BMI is 16.1 05/07 Total Protein: 5.1 Treatments: RD to see, Regular Diet -patient refusing ONS (per RD Assessment), Is there an additional diagnosis that is clinically appropriate for this patient? [ x ] Severe Protein-Calorie Malnutrition [ ] No additional diagnosis/Not clinically significant [ ] Other condition, please specify [ ] Unable to Determine MTDD
--- NOTE | 2024-05-09 11:53 | P.PN ---
Subjective Progress Note Date: 05/09/24 CHIEF COMPLAINT: Weakness HISTORY OF PRESENT ILLNESS: Patient is sitting up in bed. She is eating regular diet. Denies any abdominal pain. Denies any nausea or vomiting. CT scan abdomen pelvis reported acute pancreatitis with multiple organizing fluid collections and dilated torturous appearing main pancreatic duct. Multiple organizing fluid collections are seen possibly within the pancreatic parenchyma versus dilated ducts. 1 fluid collection extends towards the diaphragm with foci of gas. Vital stable. Lipase 16 amylase 28 CA 19-9 31.6 PHYSICAL EXAM: VITAL SIGNS: Reviewed. GENERAL: no acute distress. ABDOMEN: Soft. Nondistended. Minimal epigastric discomfort with palpation. Proximal midline incisional hernia reducible NEUROLOGIC: Alert and oriented. Cranial nerves II through XII grossly intact. ASSESSMENT: 1. Reducible incisional hernia 2. Pancreatitis with multiple organizing fluid collections noted on CT scan 3. Nausea and vomiting with weight loss 4. Hyponatremia 5. 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 Signing provider agrees with the documented findings, assessment, and plan of care. I have personally seen and examined the patient, reviewed the SOCIETY REPORTER /PAs history, exam and MDM and agree with the assessment and plan as written. Based on total visit time, I have performed more than 50% of the visit. As above: Patient doing better today. She says she was able to get some rest. She is tolerating diet without abdominal pain. No fevers. Labs noted. Case discussed with GI. Apparently patient being discharged home with plans for outpatient EGD. Suggest tertiary care referral to evaluate these multiple pancr eatic cystic lesions some of which contain small foci of air. This will likely be set up as an outpatient. Patient has to return to the hospital if she develops any increasing abdominal pain, nausea vomiting, or fevers Objective - Vital Signs Vital signs: Vital Signs Temp 98.1 F 05/09/24 07:31 Pulse 96 05/09/24 07:31 Resp 18 05/09/24 07:31 BP 108/71 05/09/24 07:31 Pulse Ox 99 05/09/24 09:22 FiO2 Intake & Output 05/08/24 05/09/24 05/09/24 18:59 06:59 18:59 Intake Total 480 240 Balance 480 240 Weight 45.359 kg Intake: Oral 480 240 Other: Voiding Method Toilet Toilet # Voids 3 - Labs CBC & Chem 7: 05/07/24 06:18 05/09/24 05:28 Labs: Abnormal Lab Results - Last 24 Hours (Table) 05/09/24 Range/Units 05:28 Sodium 128 L (135-145) mmol/L Chloride 92 L (96-109) mmol/L BUN 7.7 L (9.0-27.0) mg/dL Creatinine 0.4 L (0.6-1.5) mg/dL Glucose 112 H (70-110) mg/dL Calcium 8.5 L (8.7-10.3) mg/dL
--- NOTE | 2024-05-09 11:54 | P.PN ---
Subjective Patient is seen in follow-up for hyponatremia. Sodium level better. Oral intake improved. No vomiting or diarrhea. Vital signs are stable. General: No acute distress. HEENT: Head exam is unremarkable. LUNGS: No audible rhonchi or wheezes. HEART: Rate and Rhythm are regular. ABDOMEN: Nontender. Surgical scar noted. EXTREMITITES: No edema. Objective - Vital Signs Vital signs: Vital Signs Temp 98.1 F 05/09/24 07:31 Pulse 96 05/09/24 07:31 Resp 18 05/09/24 07:31 BP 108/71 05/09/24 07:31 Pulse Ox 99 05/09/24 09:22 FiO2 Intake & Output 05/08/24 05/09/24 05/09/24 18:59 06:59 18:59 Intake Total 480 240 Balance 480 240 Weight 45.359 kg Intake: Oral 480 240 Other: Voiding Method Toilet Toilet # Voids 3 - Labs CBC & Chem 7: 05/07/24 06:18 05/09/24 05:28 Labs: Abnormal Lab Results - Last 24 Hours (Table) 05/09/24 Range/Units 05:28 Sodium 128 L (135-145) mmol/L Chloride 92 L (96-109) mmol/L BUN 7.7 L (9.0-27.0) mg/dL Creatinine 0.4 L (0.6-1.5) mg/dL Glucose 112 H (70-110) mg/dL Calcium 8.5 L (8.7-10.3) mg/dL Assessment and Plan Plan: Assessment: 1. Hypovolemic hyponatremia with component of poor solute intake. Sodium level dropped to 121 with IV fluids. 128 this morning. Urine osmolality 544. Cortisol not low. TSH normal. 2. Hypokalemia from poor intake. Replaced. Improved. 3. Hypomagnesemia from poor intake. Replaced. Improved. 4. Lactic acidosis from hypovolemia. Improved with fluids. Plan: Maintain sodium chloride tabs - decrease frequency to once daily. Maintain fluid restriction. Encouraged oral intake, particularly protein. Avoid NSAIDs. Repeat BMP and magnesium level 2 to 3 days postdischarge. Follow-up outpatient in 1 week.
[2024-05-09 12:49] VITALS: BP 115/74; PULSE 100; RESP 14; TEMP 97.9
--- NOTE | 2024-05-09 15:08 | P.DS ---
Providers Date of admission: 05/07/24 09:23 Discharge Diagnosis: Hypovolemic hyponatremia Intractable nausea and vomiting Unexplained weight loss Protein malnutrition History of hiatal hernia Hypokalemia Hypomagnesemia GERD Hospital Course: Patient is a 53-year-old female presenting to the ED with weakness. Recently had flu and was not eating or drinking much. She states she felt dehydrated. Got up yesterday morning to walk dog and had pain that shot up her body. States the pain was in her legs and back and she had difficulty walking. Called EMS to go to ED. Admits to nausea and vomiting. She admits to poor oral intake. She reports that 2 weeks ago she states she was vomiting for 12 hours straight. She denies any blood in her vomit. She states shes lost 22 lbs since November. Denies fevers, chills, chest pain, abdominal pain, denies acid reflux. Patient has stated that she has not had routine preventative screenings colonoscopy, Pap smear, mammograms. EKG independently interpreted displays sinus tachycardia, rate 112 bpm, QTc 413 CXR independently interpreted displays no acute cardiopulmonary process Troponin <0.012, sodium 124, potassium 3.7, chloride 88, CO2 31, anion gap 5, magnesium 1.6, BUN 15, creatinine 0.42, serum osmolarity 262, urine osmolarity 554, lactic acid 1.3, albumin 2.7, cortisol 39, TSH 0.7 UA displayed urine protein 1+, urine ketones 3+, urine bilirubin 2+ T 99 F, MI 104 RR 16, BP 90/59, O2 sat 98% on room air Patient admitted for further workup of for hyponatremia. While admitted patient was seen by nephrology. Patient was placed on fluid restriction and given sodium tab daily which helped improved her sodium levels. GI was consulted for unexplained weight loss. CT abdomen displayed fluid collection at the head of the pancreas. Amylase, lipase were ordered and were within normal limits. Was seen by surgery. CA 19-9 antigen was ordered and was within normal limit. Patient states that she has no abdominal pain. While admitted patient had chest CT which showed no evidence of any nodules. She is to follow-up with her PCP, GI, nephrology in the coming days. She is being discharged home. 05/09/2024: Patient seen and examined at bedside. Patient states that she is feels fine and wants to go home. No acute events overnight, no acute complaints Vital signs reviewed and stable. Physical examination: Vital signs reviewed General: non toxic, no distress, appears at stated age, anorexic, malnourished Derm: no unusual rashes/lesions, warm Head: atraumatic, normocephalic, symmetric Eyes: EOMI, anicteric sclera, pupils equal round reactive to light ENT: Nose and ears atraumatic Neck: No cervical lymphadenopathy, trachea midline, supple Mouth: no lip lesion, mucus membranes moist Cardiovascular: S1S2 reg, no murmur, positive dorsalis pedis pulse bilateral, no edema Lungs: CTA bilateral, no rhonchi, no rales, no accessory muscle use Abdominal: soft, nontender to palpation, no guarding Ext: muscle strength 5 out of 5 in all 4 extremities grossly, no gross muscle atrophy Neuro: CN II-XI grossly intact, no gross focal neuro deficits Psych: Alert, oriented to person, place, and time A total of greater than 30 minutes of time were spent preparing this complex discharge summary. Patient was discharge on May 09, 2024 at 1:52 PM. Expected date of discharge: 05/09/24 Attending physician: Pankaj Schaffer MD Consults: 05/07/24 08:08 Consult Physician Urgent Consulting Provider: Lalito Acosta Consult Reason/Comments: Hyponatremia Do you want consulting provider notified?: Yes 05/08/24 09:57 Consult Physician Routine Consulting Provider: Ton Powell Consult Reason/Comments: previous hernia repairs, upcoming appointment Do you want consulting provider notified?: Yes 05/08/24 11:40 Consult Physician Routine Consulting Provider: Alicia Calloway Consult Reason/Comments: intractable nausea, weight loss Do you want consulting provider notified?: Yes Primary care physician: Chaka Mora Plan - Discharge Summary Discharge Rx Participant: Yes New Discharge Prescriptions: Continue Pantoprazole Sodium [Protonix] 40 mg PO DAILY Multivitamin/Iron/Folic Acid [Centrum Adults Tablet] 1 tab PO DAILY Fluconazole 200 mg PO DAILY Discharge Medication List Fluconazole 200 mg PO DAILY 05/07/24 [History] Multivitamin/Iron/Folic Acid [Centrum Adults Tablet] 1 tab PO DAILY 05/07/24 [History] Pantoprazole Sodium [Protonix] 40 mg PO DAILY 05/07/24 [History] Follow up Appointment(s)/Referral(s): Alicia Calloway MD [STAFF PHYSICIAN] - 1 Week Lalito Acosta DO [STAFF PHYSICIAN] - 1 Week Chaka Mora MD [Primary Care Provider] - 1-2 days Ambulatory/Diagnostic Orders: Basic Metabolic Panel [LAB.AMB] Location: None Selected Magnesium [LAB.AMB] Location: None Selected Discharge Disposition: HOME SELF-CARE
--- NOTE | 2024-05-09 16:33 | P.PN ---
Subjective Progress Note Date: 05/09/24 Principal diagnosis: Nausea and vomiting, weight loss This is a pleasant 53-year-old female who presented to the emergency department with complaints of weakness pain in her legs and back. Apparently she felt so weak she was having difficulty walking so she came into the hospital. She states that she has intermittent nausea and vomiting. States that 04/21/2024 she had intractable nausea and vomiting. Since that time she has felt weak and has not been wanting to eat. She has been having intermittent nausea and vomiting once a week to once a month since this past November. States she has had a 22 pound weight loss since November. She denies any abdominal pain. No hem atemesis or coffee-ground emesis. Past medical history includes duodenal ulcer with open repair, cholecystectomy and repair of incisional hernia, and GERD. She is a current every day smoker, she reports drinking at least 3 days a week 3 glasses of wine each time. Patient was noted to be hyponatremic on admission. She was admitted with consultations to nephrology and gastroenterology for nausea and vomiting. 05/09/2024 Patient seen and examined this morning. She denies any abdominal pain, no nausea or vomiting. States that she is feeling good. Patient is afebrile. She had her CT of the abdomen pelvis with findings of acute pancreatitis with multiple organizing fluid collections and dilated tortuous appearing main pancreatic duct. Correlate with serum lipase. Multiple organizing fluid collections are seen possibly within the pancreatic parenchyma versus dilated ducts. One fluid collection extends towards the diaphragm with foci of gas. No priors are available for comparison. No evidence for aneurysm or thrombosis. There is at least 50% stenosis of the main portal vein as it crosses over the area of inflammation. Multiple adjacent reactive lymph nodes are present. R eactive gastritis duodenitis also thought to be present. Objective - Vital Signs Vital signs: Vital Signs Temp 98.1 F 05/09/24 07:31 Pulse 96 05/09/24 07:31 Resp 18 05/09/24 07:31 BP 108/71 05/09/24 07:31 Pulse Ox 100 05/09/24 07:31 FiO2 Intake & Output 05/08/24 05/09/24 05/09/24 18:59 06:59 18:59 Intake Total 480 240 Balance 480 240 Weight 45.359 kg Intake: Oral 480 240 Other: Voiding Method Toilet # Voids 3 - Exam General appearance: The patient is alert, oriented, appears in no acute distress. HET: Head is normocephalic and atraumatic. Conjunctiva pink. Sclera anicteric. Neck: Supple without lymphadenopathy. Abdomen: Soft, nontender, nondistended with bowel sounds. No guarding or rigidity. Extremities: Normal skin color and turgor. No pedal edema Skin: No rashes, no jaundice Neurological: No focal deficits. Alert and oriented. - Labs CBC & Chem 7: 05/07/24 06:18 05/09/24 05:28 Labs: Abnormal Lab Results - Last 24 Hours (Table) 05/08/24 Range/Units 05:42 Sodium 123 L (135-145) mmol/L Chloride 89 L (96-109) mmol/L Creatinine 0.5 L (0.6-1.5) mg/dL BUN/Creatinine Ratio 27.40 H (12.00-20.00) Ratio Glucose 121 H (70-110) mg/dL Calcium 7.7 L (8.7-10.3) mg/dL Assessment and Plan (1) Nausea and vomiting Narrative/Plan: 53-year-old with intermittent nausea and vomiting with unintentional weight loss since November of this year. Unclear etiology of nausea and vomiting but occurs as frequent as once a week to once a month. No associated blood in vomit. Does have history of alcoholism and could be secondary alcohol gastritis. Concerning for 22 pound weight loss since November. CT abdomen pelvis reviewed with patient, with concerns of pancreatitis and multiple fluid collections. Discussed with patient importance of getting upper endoscopy and we will set that up for next week, as she has been discharged from the medical group. Also discussed with patient importance of alcohol abstinence. Patient verbalizes understanding. Status: Acute Code(s): R11.2 - NAUSEA WITH VOMITING, UNSPECIFIED SNOMED Code(s): 97882026 (2) Unintentional weight loss Status: Acute Code(s): R63.4 - ABNORMAL WEIGHT LOSS SNOMED Code(s): 537652707 (3) Hyponatremia Status: Acute Code(s): E87.1 - HYPO-OSMOLALITY AND HYPONATREMIA SNOMED Code(s): 19729826 (4) Pancreatitis Status: Acute Code(s): K85.90 - ACUTE PANCREATITIS WITHOUT NECROSIS OR INFECTION, UNSP SNOMED Code(s): 43044399 Plan: 1. Continue symptomatic and supportive care 2. Diet as tolerated 3. Continue with recommendations from nephrology 4. CT abdomen pelvis with contrast ordered and reviewed with patient 5. Protonix 40 mg daily for GI prophylaxis 6. Antiemetics as needed 7. Recommend patient gets upper endoscopy for further evaluation. Patient would like to do this as an outpatient and has been discharged by the primary medical group. This will be scheduled next week. Thank you for this consultation. Dr. Laz Calloway I agree with the dictator's note, documented as a scribe by Beth Rothman.
[2024-05-10] MEDS ORDERED: SODIUM CHLORIDE TAB 1 GM TAB PO SCH (09:00)
== END 2024-05-09 15:47 | disposition home or self-care (01) | DRG 640 ==
LOC: EC 05:35 → 5NMEDONC 09:23
PROVIDERS: ADMIT Internal Medicine; ATTEND Internal Medicine
DX: E87.1 Hypo-osmolality and hyponatremia (principal); E43 Unspecified severe protein-calorie malnutrition; K85.90 Acute pancreatitis without necrosis or infection, unspecified; Z68.1 Body mass index [BMI] 19.9 or less, adult; E86.1 Hypovolemia; E83.42 Hypomagnesemia; E87.20 Acidosis, unspecified; E87.6 Hypokalemia; K44.9 Diaphragmatic hernia without obstruction or gangrene; F10.20 Alcohol dependence, uncomplicated; K29.80 Duodenitis without bleeding; F17.210 Nicotine dependence, cigarettes, uncomplicated; R00.0 Tachycardia, unspecified; R59.9 Enlarged lymph nodes, unspecified; R26.2 Difficulty in walking, not elsewhere classified; R63.0 Anorexia; F41.9 Anxiety disorder, unspecified; K21.9 Gastro-esophageal reflux disease without esophagitis; K29.70 Gastritis, unspecified, without bleeding; K43.2 Incisional hernia without obstruction or gangrene; Z91.81 History of falling; Z79.899 Other long term (current) drug therapy; Z87.11 Personal history of peptic ulcer disease
CPT/HCPCS: 36415; 51798; 71046; 71250; 74177; 80048; 80053; 81001; 82150; 82533; 83605; 83690; 83735; 83930; 83935; 84132; 84295; 84443; 84484; 85025; 85610; 85730; 86301; 93005; 94760; 96361; 96365; 96366; 96375; 99285

== ENCOUNTER 2024-06-04 15:24 | Inpatient (IN) | payer BC ==
--- NOTE | 2024-06-04 15:37 | ED ---
Abdominal Pain HPI - General Stated Complaint: Abd Pain Time Seen by Provider: 06/04/24 15:29 Source: RN notes reviewed, old records reviewed Mode of arrival: ambulatory Limitations: no limitations - History of Present Illness Initial Comments: This is a 53-year-old female to the ER for evaluation of severe abdominal pain with severe tenderness. Positive nausea no vomiting no travel history no sick contacts no fevers no cough no congestion no diarrhea no other complaints his tory of pancreatitis with recent surgery MD Complaint: abdominal pain -: days(s) Location: epigastric Radiation: epigastric Migration to: epigastric Severity: moderate Severity scale (1-10): 7 Quality: fullness, sharp Consistency: intermittent Improves With: nothing Worsens With: nothing Treatments Prior to Arrival: other (0) - Related Data Home Medications Medication Instructions Recorded Confirmed Pantoprazole Sodium [Protonix] 40 mg PO DAILY 05/07/24 06/04/24 Miralax Gummies 4 cap PO DAILY 06/04/24 06/04/24 Nje-Gldw-Ehymb Acid 1 cap PO DAILY 06/04/24 06/04/24 [-U Capsule (formulary)] Previous Rx's Medication Instructions Recorded HYDROcodone/APAP 5-325MG [[place] 1 each PO Q6HR PRN #12 tab 06/06/24 5-325] Ondansetron Odt [Zofran Odt] 4 mg PO Q8HR PRN #10 tab 06/06/24 Allergies Allergy/AdvReac Type Severity Reaction Status Date / Time No Known Allergies Allergy Verified 06/04/24 17:57 Review of Systems ROS Statement: Those systems with pertinent positive or pertinent negative responses have been documented in the HPI. ROS Other: All systems not noted in ROS Statement are negative. Past Medical History Past Medical History: GERD/Reflux Additional Past Medical History / Comment(s): 2 hernias History of Any Multi-Drug Resistant Organisms: None Reported Past Surgical History: Tubal Ligation Additional Past Surgical History / Comment(s): tubal ligation 2009, rhinoplasty Past Anesthesia/Blood Transfusion Reactions: No Reported Reaction Past Psychological History: Anxiety Smoking Status: Current every day smoker Past Alcohol Use History: Daily Past Drug Use History: None Reported - Past Family History Mother Family Medical History: Hypertension Additional Family Medical History / Comment(s): Aortic aneurysm Father Additional Family Medical History / Comment(s): no significant hx General Exam General appearance: anxious Head exam: Present: atraumatic, normocephalic, normal inspection Eye exam: Present: normal appearance, PERRL, EOMI. Absent: scleral icterus, conjunctival injection, periorbital swelling ENT exam: Present: normal exam, mucous membranes moist Neck exam: Present: normal inspection. Absent: tenderness, meningismus, lymphadenopathy Respiratory exam: Present: normal lung sounds bilaterally. Absent: respiratory distress, wheezes, rales, rhonchi, stridor Cardiovascular Exam: Present: normal rhythm, tachycardia, normal heart sounds. Absent: systolic murmur, diastolic murmur, rubs, gallop, clicks GI/Abdominal exam: Present: distended, tenderness, guarding, normal bowel sounds. Absent: rebound, rigid Extremities exam: Present: normal inspection, full ROM, normal capillary refill. Absent: tenderness, pedal edema, joint swelling, calf tenderness Back exam: Present: normal inspection Neurological exam: Present: alert, oriented X3, CN II-XII intact Psychiatric exam: Present: normal affect, normal mood Skin exam: Present: warm, dry, intact, normal color. Absent: rash Course Vital Signs 06/04/24 06/04/24 06/04/24 15:33 20:00 22:38 Temperature 98.4 F 98.5 F Pulse Rate 116 H 94 88 Pulse Rate [ Pulse Oximetery ] Respiratory 18 18 16 Rate Blood Pressure 95/66 96/56 94/50 Blood Pressure [Left Arm Sitting] Blood Pressure [Right Arm] O2 Sat by Pulse 100 98 100 Oximetry 06/05/24 06/05/24 13:19 17:18 Temperature 98.4 F 98.1 F Pulse Rate Pulse Rate [ 70 87 Pulse Oximetery ] Respiratory 16 18 Rate Blood Pressure Blood Pressure 112/73 [Left Arm Sitting] Blood Pressure 121/62 [Right Arm] O2 Sat by Pulse 95 Oximetry - Reevaluation(s) Reevaluation #1: 06/04/24 18:11 Medical records reviewed Reevaluation #2: 06/04/24 18:12 And symptoms unchanged Reevaluation #3: 06/04/24 18:12 Patient informed of results and questions answered Reevaluation #4: Was pt. sent in by a medical professional or institution (, PA, SHELTERED WORKSHOP EXECUTIVE DIRECTOR, urgent care, hospital, or senior living...) When possible be specific @ -no Did you speak to anyone other than the patient for history (EMS, parent, family, police, friend...)? What history was obtained from this source @ -no Did you review nursing and triage notes (agree or disagree)? Why? @ -agree Are old charts reviewed (outside hosp., previous admission, EMS record, old EKG, old radiological studies, urgent care reports/EKG's, senior living records)? Report findings @ -yes Differential Diagnosis (chest pain, altered mental status, abdominal pain women, abdominal pain men, vaginal bleeding, weakness, fever, dyspnea, syncope, headache, dizziness, GI bleed, back pain, seizure, CVA, palpatations, mental health, musculoskeletal)? @ -prior EKG interpreted by me (3pts min.). @ -no X-rays interpreted by me (1pt min.). @ -no CT interpreted by me (1pt min.). @ -Yes positive for pancreatitis U/S interpreted by me (1pt. min.). @ -no What testing was considered but not performed or refused? (CT, X-rays, U/S, la bs)? Why? @ -none What meds were considered but not given or refused? Why? @ -none Did you discuss the management of the patient with other professionals (professionals i.e. , PA, SHELTERED WORKSHOP EXECUTIVE DIRECTOR, lab, RT, psych nurse, social sciences instructor, director custom, teacher, traffic control officer, telehealth case manager)? Give summary @ -no Was smoking cessation discussed for >3mins.? @ -no Was critical care preformed (if so, how long)? @ -no Were there social determinants of health that impacted care today? How? (Homelessness, low income, unemployed, alcoholism, drug addiction, transportation, low edu. Level, literacy, decrease access to med. care, fci, rehab)? @ -none Was there de-escalation of care discussed even if they declined (Discuss DNR or withdrawal of care, Hospice)? DNR status @ -no What co-morbidities impacted this encounter? (DM, HTN, Smoking, COPD, CAD, Cancer, CVA, ARF, Chemo, Hep., AIDS, mental health diagnosis, sleep apnea, morbid obesity)? @ -none Was patient admitted / discharged? Hospital course, mention meds given and route, prescriptions, significant lab abnormalities, going to OR and other pertinent info. @ - 53 female will admit for acute interstitial edematous pancreatitis with history of pancreatitis known, Admitted pancreatitis Undiagnosed new problem with uncertain prognosis? @ -no Drug Therapy requiring intensive monitoring for toxicity (Heparin, Nitro, Insulin, Cardizem)? @ -no Were any procedures done? @ -no Diagnosis/symptom? @ - Acute, or Chronic, or Acute on Chronic? @ -Acute Uncomplicated (without systemic symptoms) or Complicated (systemic symptoms)? @ -Complicated Side effects of treatment? @ -no Exacerbation, Progression, or Severe Exacerbation? @ -exacerbation Poses a threat to life or bodily function? How? (Chest pain, [place], [place], pneumonia, PE, COPD, DKA, ARF, appy, cholecystitis, CVA, Diverticulitis, Homicidal, Suicidal, threat to staff... and all critical care pts) @ -Yes with pancreatitis Reevaluation #5: Differential Abdominal Pain Women: Appendicitis, Cholecystitis, diverticulosis, ischemic bowel, pancreatitis, hepatitis, UTI, gastroenteritis, AAA, incarcerated hernia, bowel obstruction, constipation, inflammatory bowel, hepatitis, peptic ulcer disease, splenic infarction, perforated viscus, vulvitis, ovarian torsion, PID, kidney stone, placenta abruption, this is not meant to be an all-inclusive list - Consultations Consultation #1: Spoke with sound who agrees to admit this patient Medical Decision Making - Medical Decision Making 53 female will admit for acute interstitial edematous pancreatitis with history of pancreatitis known, - Lab Data Result diagrams: 06/06/24 04:40 06/06/24 12:04 Lab Results 06/04/24 06/04/24 06/04/24 Range/Units 16:02 16:02 16:02 WBC 18.2 H (3.8-10.6) k/uL RBC 2.98 L (3.80-5.40) m/uL Hgb 8.6 L D (11.4-16.0) gm/dL Hct 27.6 L (34.0-46.0) % MCV 92.4 D (80.0-100.0) fL MCH 28.8 (25.0-35.0) pg MCHC 31.2 (31.0-37.0) g/dL RDW 15.1 (11.5-15.5) % Plt Count 856 H D (150-450) k/uL MPV 6.4 Neutrophils % 86 % Lymphocytes % 7 % Monocytes % 5 % Eosinophils % 0 % Basophils % 0 % Neutrophils # 15.6 H (1.3-7.7) k/uL Lymphocytes # 1.4 (1.0-4.8) k/uL Monocytes # 0.8 (0-1.0) k/uL Eosinophils # 0.1 (0-0.7) k/uL Basophils # 0.1 (0-0.2) k/uL Hypochromasia Moderate Sodium 134 L (137-145) mmol/L Potassium 3.7 (3.5-5.1) mmol/L Chloride 103 (98-107) mmol/L Carbon Dioxide 25 (22-30) mmol/L Anion Gap 6 mmol/L BUN 10 (7-17) mg/dL Creatinine 0.38 L (0.52-1.04) mg/dL Est GFR (CKD-EPI)AfAm >90 (>60 ml/min/1.73 sqM) Est GFR (CKD-EPI)NonAf >90 (>60 ml/min/1.73 sqM) Glucose 124 H (74-99) mg/dL Plasma Lactic Acid Ap 1.3 (0.7-2.0) mmol/L Calcium 8.8 (8.4-10.2) mg/dL Total Bilirubin 0.5 (0.2-1.3) mg/dL AST 15 (14-36) U/L ALT 10 (4-34) U/L Alkaline Phosphatase 96 (38-126) U/L Troponin I (0.000-0.034) ng/mL Total Protein 5.8 L (6.3-8.2) g/dL Albumin 2.9 L (3.5-5.0) g/dL Amylase 43 (30-110) U/L Lipase 60 (23-300) U/L Serum Alcohol <10 mg/dL 06/04/24 Range/Units 16:02 WBC (3.8-10.6) k/uL RBC (3.80-5.40) m/uL Hgb (11.4-16.0) gm/dL Hct (34.0-46.0) % MCV (80.0-100.0) fL MCH (25.0-35.0) pg MCHC (31.0-37.0) g/dL RDW (11.5-15.5) % Plt Count (150-450) k/uL MPV Neutrophils % % Lymphocytes % % Monocytes % % Eosinophils % % Basophils % % Neutrophils # (1.3-7.7) k/uL Lymphocytes # (1.0-4.8) k/uL Monocytes # (0-1.0) k/uL Eosinophils # (0-0.7) k/uL Basophils # (0-0.2) k/uL Hypochromasia Sodium (137-145) mmol/L Potassium (3.5-5.1) mmol/L Chloride (98-107) mmol/L Carbon Dioxide (22-30) mmol/L Anion Gap mmol/L BUN (7-17) mg/dL Creatinine (0.52-1.04) mg/dL Est GFR (CKD-EPI)AfAm (>60 ml/min/1.73 sqM) Est GFR (CKD-EPI)NonAf (>60 ml/min/1.73 sqM) Glucose (74-99) mg/dL Plasma Lactic Acid Ap (0.7-2.0) mmol/L Calcium (8.4-10.2) mg/dL Total Bilirubin (0.2-1.3) mg/dL AST (14-36) U/L ALT (4-34) U/L Alkaline Phosphatase (38-126) U/L Troponin I <0.012 (0.000-0.034) ng/mL Total Protein (6.3-8.2) g/dL Albumin (3.5-5.0) g/dL Amylase (30-110) U/L Lipase (23-300) U/L Serum Alcohol mg/dL - Radiology Data Radiology results: report reviewed (CT abdomen pelvis positive for interstitial edematous pancreatitis), image reviewed Disposition Clinical Impression: Nausea and vomiting, Weakness, Abdominal colic, Pancreatitis Disposition: ADMITTED IP TO THIS HOSP Condition: Fair Is patient prescribed a controlled substance at d/c from ED?: No Time of Disposition: 18:00
[2024-06-04 16:10] LABS: Basophils # (A) 0.1 k/uL (0-0.2); Basophils % (A) 0 %; Eosinophils # (A) 0.1 k/uL (0-0.7); Eosinophils % (A) 0 %; HCT 27.6 % (34.0-46.0); Hypochromasia Moderate; Lymphocytes # (A) 1.4 k/uL (1.0-4.8); Lymphocytes % (A) 7 %; MCH 28.8 pg (25.0-35.0); MCHC 31.2 g/dL (31.0-37.0); Mean Platelet Volume 6.4; Monocytes # (A) 0.8 k/uL (0-1.0); Monocytes % (A) 5 %; Neutrophils # (A) 15.6 k/uL (1.3-7.7); Neutrophils % (A) 86 %; RBC 2.98 m/uL (3.80-5.40); RDW 15.1 % (11.5-15.5); WBC 18.2 k/uL (3.8-10.6)
[2024-06-04 16:15] LABS: HGB 8.6 gm/dL (11.4-16.0)
[2024-06-04 16:16] LABS: MCV 92.4 fL (80.0-100.0); Platelet Count 856 k/uL (150-450)
[2024-06-04 16:20] LABS: ALT 10 U/L (4-34); AST 15 U/L (14-36); African American GFR (CKD) >90 (>60 ml/min/1.73 sqM); Albumin 2.9 g/dL (3.5-5.0); Alcohol <10 mg/dL; Alkaline Phosphatase 96 U/L (38-126); Amylase 43 U/L (30-110); Anion Gap 6 mmol/L; Blood Urea Nitrogen 10 mg/dL (7-17); Calcium 8.8 mg/dL (8.4-10.2); Carbon Dioxide 25 mmol/L (22-30); Chloride 103 mmol/L (98-107); Glucose 124 mg/dL (74-99); Lipase 60 U/L (23-300); Non-African American GFR(CKD) >90 (>60 ml/min/1.73 sqM); Potassium 3.7 mmol/L (3.5-5.1); Sodium 134 mmol/L (137-145); Total Bilirubin 0.5 mg/dL (0.2-1.3); Total Protein 5.8 g/dL (6.3-8.2)
[2024-06-04] MEDS: SODIUM CHLORIDE 0.9% 1,000 ML IV STA (16:47)
[2024-06-04] MEDS: ONDANSETRON 4 MG/2 ML VIAL IVP STA (16:48)
[2024-06-04] MEDS: MORPHINE SULFATE 4 MG/ML SYRINGE IVP STA (16:48)
--- NOTE | 2024-06-04 17:43 | CT ---
EXAMINATION TYPE: CT abdomen pelvis w con DATE OF EXAM: 06/04/2024 5:24 PM COMPARISON: CT abdomen pelvis most recent from 05/08/2024. CLINICAL INDICATION: Female, 53 years old with history of pain; N,V, LLQ pain, left flank pain, recen t problems with cysts on pancreas. Weight loss. TECHNIQUE: Axial CT abdomen pelvis w con;Sagittal and coronal reformats were created on a separate w orkstation. Contrast used:100 ml mL of Isovue 300 with IV Contrast, (none if empty) Oral contrast used: without Oral Contrast (none if empty) CT DLP: 372.9 mGycm, Automated exposure control for dose reduction was used. FINDINGS: LOWER CHEST: Unremarkable ABDOMEN LIVER: Unremarkable GALLBLADDER AND BILE DUCTS: Gallbladder surgically absent PANCREAS: Extensive Fat stranding changes around the pancreas again redemonstrated. Fingerlike extens ions of fluid extend away from the pancreas. Fluid collection in the gastric wall on prior is no long er visualized. SPLEEN: Unremarkable. ADRENAL GLANDS: Unremarkable. KIDNEYS AND URETERS: No evidence of hydronephrosis or renal calculus. The ureters are unremarkable. PELVIS BLADDER: No evidence for wall thickening or mass given limitations of exam. REPRODUCTIVE: Unremarkable. ABDOMEN & PELVIS STOMACH AND BOWEL: No evidence of bowel obstruction. Mild wall thickening of the stomach and adjacent bowel loops in the fibrous change in the upper abdomen PERITONEUM/RETROPERITONEUM: No evidence of pneumoperitoneum or free fluid. VASCULATURE: No evidence of aortic aneurysm. There is a slitlike appearance of the main portal vein i s extensive phlegmonous change series 201 image 33. MUSCULOSKELETAL: No acute osseous abnormalities, greater each of these L3 on L4 without spondylolysis . No significant spinal canal stenosis. No significant neural foraminal stenosis. LYMPH NODES: No gross evidence for lymphadenopathy. SOFT TISSUE/ABDOMINAL WALL: Unremarkable IMPRESSION: 1. Acute interstitial edematous pancreatitis. Fingerlike extensions of fluid is seen extending towar ds the stomach similar prior. Fluid clips in the stomach on prior is no longer visualized 2. No definitive acute left lower quadrant process. No obstructive uropathy or renal calculus. [facility], Workstation: [id number], 06/04/2024 5:40 PM
[2024-06-04] MEDS ORDERED: NALOXONE 0.4 MG/ML 1 ML VIAL IV PRN (18:08)
[2024-06-04] MEDS: SODIUM CHLORIDE 0.9% 1,000 ML IV SCH (18:45)
[2024-06-04] MEDS: AMPICILLIN-SULBACTAM 3 GM in SODIUM CHLORIDE 0.9% 100 ML IVPB STA (18:47)
[2024-06-04] MEDS: MORPHINE SULFATE 4 MG/ML SYRINGE IV PRN (19:53)
[2024-06-04] MEDS: ONDANSETRON 4 MG/2 ML VIAL IVP PRN (19:58)
[2024-06-05] MEDS: AMPICILLIN-SULBACTAM 3 GM in SODIUM CHLORIDE 0.9% 100 ML IVPB SCH (00:40)
[2024-06-05] MEDS: PANTOPRAZOLE 40 MG/10 ML VIAL IV SCH (08:32)
--- NOTE | 2024-06-05 10:02 | P.HPIM ---
History of Present Illness 43-year-old female came with complaints of epigastric abdominal pain andpain which is severe which resolved at this time. Patient was diagnosed with pancreatitis with resultant CT of the abdomen findings showing edema of the head of the pancreas. Although these findings were present during her last hospitalization as well patient's lipase is within normal limits. Patient pain completely resolved at this time patient was started on clear liquid by diet by gastroenterology. Patient had a recent hospitalization for similar symptoms and patient has significant weight loss was unable to tolerate diet at that time. Severe gastritis or ulcer disease was suspected at that time and patient was referred to gastroenterology as an outpatient underwent an endoscopy and a biopsy which came back normal although patient has hiatal hernia. REVIEW OF SYSTEMS: All other systems are negative except those mentioned in the HPI PHYSICAL EXAMINATION: GENERAL: The patient is alert and oriented x3, not in any acute distress. Thin built and bit malnourished HEENT: Pupils are round and equally reacting to light. EOMI. No scleral icterus. No conjunctival pallor. Normocephalic, atraumatic. No pharyngeal erythema. No thyromegaly. CARDIOVASCULAR: S1 and S2 present. No murmurs, rubs, or gallops. PULMONARY: Chest is clear to auscultation, no wheezing or crackles. ABDOMEN: Soft, nontender, nondistended, normoactive bowel sounds. No palpable organomegaly. MUSCULOSKELETAL: No joint swelling or deformity. EXTREMITIES: No cyanosis, clubbing, or pedal edema. NEUROLOGICAL: Gross neurological examination did not reveal any focal deficits. SKIN: No rashes. Assessment and plan -Abdominal pain: Etiology is not clear although my suspicion for pancreatitis is low elevated as the erythematous changes of the head of the pancreas were present during her previous hospitalization as well and lipase is within normal limits. Still suspicion of peptic ulcer disease patient will be continued Protonix patient did not drink alcohol for long time. Patient is concerned of recurrence of pain for which we will monitor her overnight advance her diet slowly. She continues to improve patient will discharge tomorrow morning -Mild to moderate malnutrition: Patient will continue on Ensure DVT prophylaxis:Lovenox low-dose Past Medical History Past Medical History: GERD/Reflux Additional Past Medical History / Comment(s): 2 hernias History of Any Multi-Drug Resistant Organisms: None Reported Past Surgical History: Tubal Ligation Additional Past Surgical History / Comment(s): tubal ligation 2008, rhinoplasty, pancreatic biopsy. Past Anesthesia/Blood Transfusion Reactions: No Reported Reaction Past Psychological History: Anxiety Smoking Status: Current every day smoker Past Alcohol Use History: Daily Past Drug Use History: None Reported - Past Family History Mother Family Medical History: Hypertension Additional Family Medical History / Comment(s): Aortic aneurysm Father Additional Family Medical History / Comment(s): no significant hx Medications and Allergies Home Medications Medication Instructions Recorded Confirmed Type Pantoprazole Sodium [Protonix] 40 mg PO DAILY 05/07/24 06/04/24 History Miralax Gummies 4 cap PO DAILY 06/04/24 06/04/24 History Umo-Jlta-Qsdxf Acid 1 cap PO DAILY 06/04/24 06/04/24 History [-U Capsule (formulary)] Allergies Allergy/AdvReac Type Severity Reaction Status Date / Time No Known Allergies Allergy Verified 06/04/24 17:57 Physical Exam Vitals: Vital Signs Temp Pulse Resp BP Pulse Ox 06/04/24 22:38 98.5 F 88 16 94/50 100 06/04/24 20:00 94 18 96/56 98 06/04/24 15:33 98.4 F 116 H 18 95/66 100 Intake and Output 06/04/24 06/05/24 06/05/24 22:59 06:59 14:59 Intake Total 715 Balance 715 Intake: Intake, IV Titration 715 Amount Sodium Chloride 0.9% 1, 715 000 ml @ 999 mls/hr IV . Q1H1M STA Rx#:[id number] Oral 0 Other: # Voids 4 Weight 43.545 kg 43.545 kg Results CBC & Chem 7: 06/04/24 16:02 06/04/24 16:02 Labs: Abnormal Lab Results - Last 24 Hours (Table) 06/04/24 06/04/24 Range/Units 16:02 16:02 WBC 18.2 H (3.8-10.6) k/uL RBC 2.98 L (3.80-5.40) m/uL Hgb 8.6 L D (11.4-16.0) gm/dL Hct 27.6 L (34.0-46.0) % Plt Count 856 H D (150-450) k/uL Neutrophils # 15.6 H (1.3-7.7) k/uL Sodium 134 L (137-145) mmol/L Creatinine 0.38 L (0.52-1.04) mg/dL Glucose 124 H (74-99) mg/dL Total Protein 5.8 L (6.3-8.2) g/dL Albumin 2.9 L (3.5-5.0) g/dL Thrombosis Risk Factor Assmnt - Choose All That Apply Any of the Below Risk Factors Present?: No Other Risk Factors: No Thrombosis Risk Factor Assessment Level: Very Low Risk
[2024-06-05 10:34] LABS: ALT 8 U/L (8-44); AST 17 U/L (13-35); Albumin 2.9 g/dL (3.8-4.9); Albumin/Globulin Ratio 1.04 Ratio (1.60-3.17); Alkaline Phosphatase 97 U/L (41-126); BUN/Creat Ratio 29.67 Ratio (12.00-20.00); Blood Urea Nitrogen 8.9 mg/dL (9.0-27.0); Calcium 8.4 mg/dL (8.7-10.3); Carbon Dioxide 20.9 mmol/L (21.6-31.8); Chloride 108 mmol/L (96-109); Globulin 2.8 g/dL (1.6-3.3); Glucose 72 mg/dL (70-110); Lipase 22 U/L (14-63); Magnesium 1.6 mg/dL (1.5-2.4); Phosphorus 3.2 mg/dL (2.4-5.1); Potassium 3.4 mmol/L (3.5-5.5); Sodium 141 mmol/L (135-145); Total Bilirubin 0.3 mg/dL (0.3-1.2); Total Protein 5.7 g/dL (6.2-8.2)
[2024-06-05 11:07] LABS: Basophils # (A) 0.06 X 10*3/uL (0.00-0.10); Basophils % (A) 0.3 %; Eosinophils # (A) 0.04 X 10*3/uL (0.04-0.35); Eosinophils % (A) 0.2 %; HCT 28.2 % (37.2-46.3); HGB 8.6 g/dL (12.0-15.0); Lymphocytes # (A) 1.57 X 10*3/uL (0.90-5.00); Lymphocytes % (A) 9.1 %; MCH 28.9 pg (27.0-32.0); MCHC 30.5 g/dL (32.0-37.0); MCV 94.6 FL (80.0-97.0); Mean Platelet Volume 8.8 FL (9.5-12.2); Monocytes # (A) 1.57 X 10*3/uL (0.20-1.00); Monocytes % (A) 9.1 %; NRBC Per 100 WBC 0 X 10*3/uL (0.00-0.01); Neutrophils # (A) 13.71 X 10*3/uL (1.80-7.70); Neutrophils % (A) 79.1 %; Platelet Count 825 X 10*3/uL (140-440); RBC 2.98 X 10*6/uL (4.10-5.20); RDW 15.3 % (11.5-14.5); WBC 17.33 X 10*3/uL (4.50-10.00)
--- NOTE | 2024-06-05 12:49 | P.CONS ---
History of Present Illness - Reason for Consult Consult date: 06/05/24 Pancreatitis Requesting physician: Roscoe Gonzalez - Chief Complaint Abdominal pain - History of Present Illness This is a 53-year-old female who was recently hospitalized and seen by gastroenterology for abdominal pain. Past medical history includes duodenal ulcer with open repair, cholecystectomy and repair of incisional hernia, and GERD. She is a current every day smoker, she reports she was a former heavy drinker. During that hospitalization she had a CAT scan that showed acute pancreatitis with multiple organizing fluid collections. Also with reactive gastritis/duodenitis. She had a recent outpatient upper endoscopy at [facility] with Dr. Calloway with findings of small hiatal hernia, duodenal folds with duodenitis and gastritis. She states pain started about 3 days ago and states it was similar in nature as to her last admission. She had a repeat CT scan that showed acute pancreatitis. Gastroenterology consulted for pancreatitis. She does have a history of frequent alcohol use and was drinking at least 3 days a week or more. She continues to smoke. States she has not had any alcohol in 10 weeks. She states abdominal pain is improved. No nausea and vomiting. She states she was doing well after discharge. Was not having any problems after her upper endoscopy. States she was eating and has been putting on weight. Amylase and lipase are normal as well as LFTs. Today's labs WBC 17.3 hemoglobin 8.6 hematocrit 28 platelet count 825,000 sodium 141 potassium 3.4 BUN 8.9 creatinine 0.3 total bilirubin 0.3 AST 17 ALT 8 alkaline phosphatase 97 lipase 22 serum alcohol was less than 10 on admission Review of Systems REVIEW OF SYSTEMS: CARDIOPULMONARY: No chest pain or shortness of breath. Gastrointestinal: Abdominal pain. No nausea or vomiting. No hematemesis, coffee-ground emesis. No rectal bleeding, or melena. GENITOURINARY: No dysuria or hematuria. MUSCULOSKELETAL: Reports normal range of motion. SKIN: No rashes. No jaundice. ENDOCRINE: No chills, fevers. No excessive weight gain or loss. No polydipsia or polyuria. PSYCHIATRIC: Unremarkable. NEUROLOGY: No change in mental status. Denies dizziness, headache. ENT: Vision unremarkable. CONSTITUTIONAL: No recent weight loss. No fever, chills, night sweats. Past Medical History Past Medical History: GERD/Reflux Additional Past Medical History / Comment(s): 2 hernias History of Any Multi-Drug Resistant Organisms: None Reported Past Surgical History: Tubal Ligation Additional Past Surgical History / Comment(s): tubal ligation 2009, rhinoplasty, pancreatic biopsy. Past Anesthesia/Blood Transfusion Reactions: No Reported Reaction Past Psychological History: Anxiety Smoking Status: Current every day smoker Past Alcohol Use History: Daily Past Drug Use History: None Reported - Past Family History Mother Family Medical History: Hypertension Additional Family Medical History / Comment(s): Aortic aneurysm Father Additional Family Medical History / Comment(s): no significant hx Medications and Allergies Home Medications Medication Instructions Recorded Confirmed Type Pantoprazole Sodium [Protonix] 40 mg PO DAILY 05/07/24 06/04/24 History Miralax Gummies 4 cap PO DAILY 06/04/24 06/04/24 History Hqw-Riql-Vehlr Acid 1 cap PO DAILY 06/04/24 06/04/24 History [-U Capsule (formulary)] Allergies Allergy/AdvReac Type Severity Reaction Status Date / Time No Known Allergies Allergy Verified 06/04/24 17:57 Physical Exam Vitals: Vital Signs Temp Pulse Resp BP Pulse Ox 06/04/24 22:38 98.5 F 88 16 94/50 100 06/04/24 20:00 94 18 96/56 98 06/04/24 15:33 98.4 F 116 H 18 95/66 100 Intake and Output 06/04/24 06/05/24 06/05/24 22:59 06:59 14:59 Intake Total 715 Balance 715 Intake: Intake, IV Titration 715 Amount Sodium Chloride 0.9% 1, 715 000 ml @ 999 mls/hr IV . Q1H1M STA Rx#:[id number] Oral 0 Other: # Voids 4 Weight 43.545 kg 43.545 kg General appearance: The patient is alert, oriented, appears in no acute distress. HET: Head is normocephalic and atraumatic. Conjunctiva pink. Sclera anicteric. Neck: Supple without lymphadenopathy. Trachea midline. Heart: Regular. Lungs: Equal expansion, normal respiratory effort. Abdomen: Soft, mid to left lower abdominal tenderness, nondistended. Skin: No rashes. No jaundice. Extremities: Normal skin color and turgor. No pedal edema. Neurological: No focal deficits. Alert and oriented x3. Results CBC & Chem 7: 06/05/24 06:38 06/05/24 06:38 Labs: Abnormal Lab Results - Last 24 Hours (Table) 06/04/24 06/04/24 Range/Units 16:02 16:02 WBC 18.2 H (3.8-10.6) k/uL RBC 2.98 L (3.80-5.40) m/uL Hgb 8.6 L D (11.4-16.0) gm/dL Hct 27.6 L (34.0-46.0) % Plt Count 856 H D (150-450) k/uL Neutrophils # 15.6 H (1.3-7.7) k/uL Sodium 134 L (137-145) mmol/L Creatinine 0.38 L (0.52-1.04) mg/dL Glucose 124 H (74-99) mg/dL Total Protein 5.8 L (6.3-8.2) g/dL Albumin 2.9 L (3.5-5.0) g/dL Comments: CT abdomen pelvis with contrast reports acute interstitial edematous pancreatitis. Fingerlike extensions of fluid is seen extending towards the stomach similar to prior. Fluid clips in the stomach and prior is no longer visualized. No definitive acute left lower quadrant process. No obstructive uropathy or renal calculus. Assessment and Plan (1) Pancreatitis Narrative/Plan: 53-year-old female with recent admission with abdominal pain and findings of pancreatitis on CT scan at the end of April. She had outpatient upper endoscopy with findings of duodenal folds with duodenitis, small hiatal hernia, and gastritis. 3 days ago patient began having abdominal pain similar to prior which brought her in. CAT scan showing acute edematous pancreatitis however likely patient has a component of chronic pancreatitis. LFTs and amylase and lipase are all within normal limits. Pancreatitis is likely secondary to alcohol pancreatitis although patient reportedly denies any alcohol for about 10 weeks. Continue with symptomatic and supportive treatment. Current Visit: Yes Status: Acute Code(s): K85.90 - ACUTE PANCREATITIS WITHOUT NECROSIS OR INFECTION, UNSP SNOMED Code(s): 49682809 (2) Abdominal pain Current Visit: Yes Status: Acute Code(s): R10.9 - UNSPECIFIED ABDOMINAL PAIN SNOMED Code(s): 97516545 Plan: 1. Continue symptomatic and supportive care 2. IV hydration 3. Protonix 40 mg daily for GI prophylaxis 4. Antiemetics as needed 5. Pain medication as needed 6. May advance to full liquid diet then advance as tolerated to low-fat diet 7. Recommend outpatient follow-up with gastroenterology 8. Continue with alcohol abstinence 9. Recommend smoking cessation Thank you for this consultation, we will continue to follow. Dr. Laz Calloway I agree with the dictator's note, documented as a scribe by Beth Rothman.
[2024-06-06 07:26] VITALS: RESP 16
[2024-06-06 08:39] LABS: HCT 27.3 % (37.2-46.3); HGB 8.5 g/dL (12.0-15.0); MCH 29.4 pg (27.0-32.0); MCHC 31.1 g/dL (32.0-37.0); MCV 94.5 FL (80.0-97.0); Mean Platelet Volume 8.7 FL (9.5-12.2); NRBC Per 100 WBC 0 X 10*3/uL (0.00-0.01); Platelet Count 743 X 10*3/uL (140-440); RBC 2.89 X 10*6/uL (4.10-5.20); RDW 15.1 % (11.5-14.5); WBC 11.87 X 10*3/uL (4.50-10.00)
[2024-06-06 08:48] LABS: BUN/Creat Ratio 10.75 Ratio (12.00-20.00); Blood Urea Nitrogen 4.3 mg/dL (9.0-27.0); Calcium 8.2 mg/dL (8.7-10.3); Carbon Dioxide 23.6 mmol/L (21.6-31.8); Chloride 103 mmol/L (96-109); Glucose 131 mg/dL (70-110); Potassium 3.3 mmol/L (3.5-5.5); Sodium 137 mmol/L (135-145)
[2024-06-06] MEDS ORDERED: Potassium Replacement Protocol 1 EACH MISC MISCELLANE PRN ×2 (08:54→14:32)
--- NOTE | 2024-06-06 09:06 | P.PN ---
Subjective Progress Note Date: 06/06/24 Principal diagnosis: Pancreatitis This is a 53-year-old female who was recently hospitalized and seen by gastroenterology for abdominal pain. Past medical history includes duodenal ulcer with open repair, cholecystectomy and repair of incisional hernia, and GERD. She is a current every day smoker, she reports she was a former heavy drinker. During that hospitalization she had a CAT scan that showed acute pancreatitis with multiple organizing fluid collections. Also with reactive gastritis/duodenitis. She had a recent outpatient upper endoscopy at [facility] with Dr. Calloway with findings of small hiatal hernia, duodenal folds with duodenitis and gastritis. She states pain started about 3 days ago and states it was similar in nature as to her last admission. She had a repeat CT scan that showed acute pancreatitis. Gastroenterology consulted for pa ncreatitis. She does have a history of frequent alcohol use and was drinking at least 3 days a week or more. She continues to smoke. States she has not had any alcohol in 10 weeks. She states abdominal pain is improved. No nausea and vomiting. She states she was doing well after discharge. Was not having any problems after her upper endoscopy. States she was eating and has been putting on weight. Amylase and lipase are normal as well as LFTs. Today's labs WBC 17.3 hemoglobin 8.6 hematocrit 28 platelet count 825,000 sodium 141 potassium 3.4 BUN 8.9 creatinine 0.3 total bilirubin 0.3 AST 17 ALT 8 alkaline phosphatase 97 lipase 22 serum alcohol was less than 10 on admission 06/06/2024 Patient is seen and examined today as a follow-up. She states abdominal pain is much better than when she presented to the hospital. She is tolerating a low- fat diet. Denies any nausea or vomiting. Potassium was 3.3. Objective - Vital Signs Vital signs: Vital Signs Temp 97.6 F 06/06/24 07:20 Pulse 83 06/06/24 07:20 Resp 16 06/06/24 07:20 BP 125/65 06/06/24 07:20 Pulse Ox 99 06/06/24 07:20 FiO2 Intake & Output 06/05/24 06/06/24 06/06/24 18:59 06:59 18:59 Intake Total 462 Balance 462 Intake: Oral 462 Other: # Voids 2 - Exam General appearance: The patient is alert, oriented, appears in no acute distress. HET: Head is normocephalic and atraumatic. Conjunctiva pink. Sclera anicteric. Neck: Supple without lymphadenopathy. Abdomen: Soft, nontender, nondistended. Extremities: Normal skin color and turgor. No pedal edema Skin: No rashes, no jaundice Neurological: No focal deficits. Alert and oriented. - Labs CBC & Chem 7: 06/06/24 04:40 06/06/24 12:04 Labs: Abnormal Lab Results - Last 24 Hours (Table) 06/05/24 06/05/24 06/06/24 Range/Units 06:38 06:38 04:40 WBC 17.33 H 11.87 H (4.50-10.00) X 10*3/uL RBC 2.98 L 2.89 L (4.10-5.20) X 10*6/uL Hgb 8.6 L 8.5 L (12.0-15.0) g/dL Hct 28.2 L 27.3 L (37.2-46.3) % MCHC 30.5 L 31.1 L (32.0-37.0) g/dL RDW 15.3 H 15.1 H (11.5-14.5) % Plt Count 825 H 743 H (140-440) X 10*3/uL MPV 8.8 L 8.7 L (9.5-12.2) FL Immature Gran # 0.38 H (0.00-0.04) X 10*3/uL Neutrophils # 13.71 H (1.80-7.70) X 10*3/uL Monocytes # 1.57 H (0.20-1.00) X 10*3/uL Potassium 3.4 L (3.5-5.5) mmol/L Carbon Dioxide 20.9 L (21.6-31.8) mmol/L Anion Gap 12.10 H (4.00-12.00) mmol/L BUN 8.9 L (9.0-27.0) mg/dL Creatinine 0.3 L (0.6-1.5) mg/dL BUN/Creatinine Ratio 29.67 H (12.00-20.00) Ratio Glucose (70-110) mg/dL Calcium 8.4 L (8.7-10.3) mg/dL Total Protein 5.7 L (6.2-8.2) g/dL Albumin 2.9 L (3.8-4.9) g/dL Albumin/Globulin Ratio 1.04 L (1.60-3.17) Ratio 06/06/24 Range/Units 04:40 WBC (4.50-10.00) X 10*3/uL RBC (4.10-5.20) X 10*6/uL Hgb (12.0-15.0) g/dL Hct (37.2-46.3) % MCHC (32.0-37.0) g/dL RDW (11.5-14.5) % Plt Count (140-440) X 10*3/uL MPV (9.5-12.2) FL Immature Gran # (0.00-0.04) X 10*3/uL Neutrophils # (1.80-7.70) X 10*3/uL Monocytes # (0.20-1.00) X 10*3/uL Potassium 3.3 L (3.5-5.5) mmol/L Carbon Dioxide (21.6-31.8) mmol/L Anion Gap (4.00-12.00) mmol/L BUN 4.3 L (9.0-27.0) mg/dL Creatinine 0.4 L (0.6-1.5) mg/dL BUN/Creatinine Ratio 10.75 L (12.00-20.00) Ratio Glucose 131 H (70-110) mg/dL Calcium 8.2 L (8.7-10.3) mg/dL Total Protein (6.2-8.2) g/dL Albumin (3.8-4.9) g/dL Albumin/Globulin Ratio (1.60-3.17) Ratio Microbiology - Last 24 Hours (Table) 06/04/24 18:29 Blood Culture - Preliminary Blood Assessment and Plan (1) Pancreatitis Narrative/Plan: 53-year-old female with recent admission with abdominal pain and findings of pancreatitis on CT scan at the end of April. She had outpatient upper endoscopy with findings of duodenal folds with duodenitis, small hiatal hernia, and gastritis. 3 days ago patient began having abdominal pain similar to prior which brought her in. CAT scan showing acute edematous pancreatitis however cathryn clark patient has a component of chronic pancreatitis. LFTs and amylase and lipase are all within normal limits. Pancreatitis is likely secondary to alcohol pancreatitis although patient reportedly denies any alcohol for about 10 weeks. Continue with symptomatic and supportive treatment. Abdominal pain improved. Diet was advanced. Likely residual chronic pancreatitis from previous episode with CT findings improving. Leukocytosis likely secondary to pancreatic inflammation. Patient has no fever, pain improved. Status: Acute Code(s): K85.90 - ACUTE PANCREATITIS WITHOUT NECROSIS OR INFECTION, UNSP SNOMED Code(s): 39187739 (2) Abdominal pain Status: Acute Code(s): R10.9 - UNSPECIFIED ABDOMINAL PAIN SNOMED Code(s): 74998527 (3) Hypokalemia Status: Acute Code(s): E87.6 - HYPOKALEMIA SNOMED Code(s): 49560659 Plan: 1. Continue symptomatic and supportive care 2. Encourage ambulation 3. Protonix 40 mg daily for GI prophylaxis 4. Antiemetics as needed 5. Pain medication as needed 6. Continue low-fat diet 7. Replace potassium per protocol 8. Continue with alcohol abstinence 9. Recommend smoking cessation 10. Recommend outpatient follow-up with gastroenterology in 1 to 2 weeks Thank you for this consultation, patient is cleared from gastroenterology for discharge following potassium replacement. Dr. Laz Calloway I agree with the dictator's note, documented as a scribe by Beth Rothman.
[2024-06-06] MEDS: POTASSIUM CHLORIDE ER 20 MEQ TAB.ER PO SCH ×2 (09:11→15:48)
[2024-06-06] MEDS: HYDROcodone/APAP 5-325MG 1 EACH TAB PO PRN (10:25)
[2024-06-06 15:17] VITALS: BMI 16.0
[2024-06-06 15:32] VITALS: BP 130/75; PULSE 75; TEMP 97.5
--- NOTE | 2024-06-07 10:56 | P.DS ---
Providers Date of admission: 06/04/24 18:08 Expected date of discharge: 06/06/24 Attending physician: Carmine Rachel Consults: 06/04/24 18:08 Consult Physician Routine Consulting Provider: Alicia Calloway Consult Reason/Comments: pancreatitis,known Do you want consulting provider notified?: Yes Primary care physician: Chaka Mora Hospital Course: Final diagnosis -Abdominal pain: Likely secondary to acute pancreatitis, suspicion of peptic ulcer disease -Moderate protein calorie malnutrition: Secondary to abdominal pain DVT prophylaxis:Lovenox low-dose GI prophylaxis Continued ongoing nicotine dependence Full code Discharge disposition Patient is being discharged in a stable condition with guarded prognosis to home. Patient will follow-up with Dr. Mora in the outpatient setting upon discharge. Patient is to continue with Protonix and outpatient follow-up with GI as scheduled. Total time taken is greater than 35 minutes. Hospital course This is a 53-year-old female who was recently admitted with abdominal pain with concerns of acute pancreatitis. Patient with decreased appetite with concerns of acute dehydration as well showing some improvements and patient is tolerating diet. Patient reports she has diffuse abdominal tenderness although nothing compared to prior to admission. Patient will continue with Protonix and close outpatient follow-up with GI. Please refer to consultation notes for further HPI as patient has been cleared by GI today. Patient extremely anxious to go home. Patient instructed to follow-up with primary care provider as well. Please refer to consultation note for further HPI. Currently no reports of chest pain, shortness of breath, or palpitations. Patient is afebrile. No reports of nausea or vomiting and patient is tolerating diet. Patient will be discharged home today. High risk for readmissions given patient's continued abdominal discomfort. Physical exam: Gen: This is a 53-year-old female who is awake, alert and oriented x 3, well- developed, thin built, appears older than stated age HEENT: Head is atraumatic, normocephalic. Pupils equal, round. Sclerae is anicteric. NECK: Supple. No JVD. No lymphadenopathy. No thyromegaly. LUNGS: Clear to auscultation. No wheezes or rhonchi. No intercostal retractions. HEART: Regular rate and rhythm. No murmur. ABDOMEN: Soft. Bowel sounds are present. No masses. No significant tenderness on palpation on exam. EXTREMITIES: No pedal edema. No calf tenderness. NEUROLOGICAL: Patient is awake, alert and oriented x3. Cranial nerves 2 through 12 are grossly intact. Please refer to medication reconciliation sheet for a list of medications. The impression and plan of care has been dictated by Clara Bowens, Nurse Practitioner as directed. Dr. Primo MD I have performed a history and examination and MDM of this patient, discussed the same with the dictator, and agree with the dictator's assessment and plan as written ,documented as a scribe. Based on total visit time, I have performed more than 50% of the visit. Patient Condition at Discharge: Fair Plan - Discharge Summary Discharge Rx Participant: Yes New Discharge Prescriptions: New HYDROcodone/APAP 5-325MG [[place] 5-325] 1 each PO Q6HR PRN #12 tab PRN Reason: Pain Ondansetron Odt [Zofran Odt] 4 mg PO Q8HR PRN #10 tab PRN Reason: Nausea Continue Ddx-Qvoc-Ymiok Acid [-U Capsule (formulary)] 1 cap PO DAILY Miralax Gummies 4 cap PO DAILY Pantoprazole Sodium [Protonix] 40 mg PO DAILY Discharge Medication List Pantoprazole Sodium [Protonix] 40 mg PO DAILY 05/07/24 [History] Miralax Gummies 4 cap PO DAILY 06/04/24 [History] Unc-Rwqn-Xltzl Acid [-U Capsule (formulary)] 1 cap PO DAILY 06/04/24 [History] HYDROcodone/APAP 5-325MG [[place] 5-325] 1 each PO Q6HR PRN #12 tab 06/06/24 [Rx] Ondansetron Odt [Zofran Odt] 4 mg PO Q8HR PRN #10 tab 06/06/24 [Rx] Follow up Appointment(s)/Referral(s): Alicia Calloway MD [STAFF PHYSICIAN] - 06/20/24 2:15 pm Chaka Mora MD [Primary Care Provider] - 1-2 days (The office was closed please call and make follow up appointment.) Patient Instructions/Handouts: Hydrocodone/Acetaminophen (By mouth), Ondansetron (By mouth) Activity/Diet/Wound Care/Special Instructions: Activity limited until follow-up Follow-up with primary care provider on discharge Follow-up with GI outpatient Continue current diet and slowly advance as tolerated Discharge Disposition: HOME SELF-CARE
== END 2024-06-06 16:54 | disposition home or self-care (01) | DRG 439 ==
LOC: EC 15:24 → 5NMEDONC 18:08
PROVIDERS: ADMIT Hospitalist; ATTEND Hospitalist
DX: K86.1 Other chronic pancreatitis (principal); E44.0 Moderate protein-calorie malnutrition; Z68.1 Body mass index [BMI] 19.9 or less, adult; E87.6 Hypokalemia; F41.9 Anxiety disorder, unspecified; K29.80 Duodenitis without bleeding; K21.9 Gastro-esophageal reflux disease without esophagitis; F17.210 Nicotine dependence, cigarettes, uncomplicated; K44.9 Diaphragmatic hernia without obstruction or gangrene; K85.90 Acute pancreatitis without necrosis or infection, unspecified; Z79.899 Other long term (current) drug therapy; Z82.49 Family history of ischemic heart disease and other diseases of the circulatory system; Z90.49 Acquired absence of other specified parts of digestive tract; Z87.11 Personal history of peptic ulcer disease; Z98.51 Tubal ligation status
CPT/HCPCS: 36415; 74177; 80048; 80053; 80320; 82150; 83605; 83690; 83735; 84100; 84132; 84484; 85025; 85027; 87040; 96361; 96365; 96366; 96375; 96376; 99285

== ENCOUNTER 2024-07-11 13:11 | Inpatient (IN) | payer BC ==
[2024-07-11] MEDS: SODIUM CHLORIDE 0.9% 1,000 ML IV STA (13:31)
--- NOTE | 2024-07-11 13:46 | ED ---
Abdominal Pain HPI - General Chief Complaint: Abdominal Pain Stated Complaint: Abd Pain Time Seen by Provider: 07/11/24 13:16 Source: patient, EMS Mode of arrival: EMS Limitations: no limitations - History of Present Illness Initial Comments: 54-year-old female presents to the emergency department reporting epigastric pain. Has a history of similar pain in the past when she was diagnosed with pancreatitis. Patient admits that she was a daily drinker. She drinks 4 glasses of wine daily. She has not drank in 16 weeks. Began having the pain on the . She has not ate or drink anything since this time. She has had several episodes of nonbilious, nonbloody vomiting. Denies any black or bloody stools. No diarrhea or constipation. She denies any fevers. Called EMS and was administered 100 mcg fentanyl, 4 mg of Zofran, 1 L of normal saline. She denies any chest pain or shortness of breath. No other alleviating, precipitating or modifying factors - Related Data Home Medications Medication Instructions Recorded Confirmed Pantoprazole Sodium [Protonix] 40 mg PO DAILY 05/07/24 07/11/24 Ferrous Sulfate [Iron (65 MG 325 mg PO DAILY 07/11/24 07/11/24 Elemental)] Multivitamins, Thera [Multivitamin 1 tab PO DAILY 07/11/24 07/11/24 (formulary)] Previous Rx's Medication Instructions Recorded Apixaban [Eliquis] 5 mg PO BID #60 tab 07/13/24 Allergies Allergy/AdvReac Type Severity Reaction Status Date / Time No Known Allergies Allergy Verified 07/11/24 15:44 Review of Systems ROS Statement: Those systems with pertinent positive or pertinent negative responses have been documented in the HPI. ROS Other: All systems not noted in ROS Statement are negative. Past Medical History Past Medical History: GERD/Reflux Additional Past Medical History / Comment(s): 2 hernias History of Any Multi-Drug Resistant Organisms: None Reported Past Surgical History: Tubal Ligation Additional Past Surgical History / Comment(s): tubal ligation 2009, rhinoplasty Past Anesthesia/Blood Transfusion Reactions: No Reported Reaction Past Psychological History: Anxiety Smoking Status: Current every day smoker Past Alcohol Use History: None Reported Past Drug Use History: None Reported - Past Family History Mother Family Medical History: Hypertension Additional Family Medical History / Comment(s): Aortic aneurysm Father Additional Family Medical History / Comment(s): no significant hx General Exam Limitations: no limitations General appearance: alert, in no apparent distress Head exam: Present: atraumatic, normocephalic, normal inspection Eye exam: Present: normal appearance, PERRL, EOMI. Absent: scleral icterus, conjunctival injection, periorbital swelling ENT exam: Present: normal exam, mucous membranes moist Neck exam: Present: normal inspection. Absent: tenderness, meningismus, lymph adenopathy Respiratory exam: Present: normal lung sounds bilaterally. Absent: respiratory distress, wheezes, rales, rhonchi, stridor Cardiovascular Exam: Present: regular rate, normal rhythm, normal heart sounds. Absent: systolic murmur, diastolic murmur, rubs, gallop, clicks GI/Abdominal exam: Present: soft, tenderness (Epigastric), normal bowel sounds. Absent: distended, guarding, rebound, rigid Extremities exam: Present: normal inspection, full ROM, normal capillary refill. Absent: tenderness, pedal edema, joint swelling, calf tenderness Back exam: Present: normal inspection Neurological exam: Present: alert, oriented X3, CN II-XII intact Psychiatric exam: Present: normal affect, normal mood Skin exam: Present: warm, dry, intact, normal color. Absent: rash Course Vital Signs 07/11/24 07/11/24 07/11/24 13:15 15:22 18:39 Temperature 98.9 F Pulse Rate 105 H 100 94 Respiratory 16 16 16 Rate Blood Pressure 112/66 100/48 101/51 O2 Sat by Pulse 97 100 96 Oximetry 07/11/24 07/11/24 07/11/24 20:43 21:51 23:22 Temperature 100.9 F H 98.4 F Pulse Rate 95 92 Respiratory 16 16 Rate Blood Pressure 101/51 89/57 O2 Sat by Pulse 99 98 Oximetry 07/12/24 07/12/24 07/12/24 00:30 01:32 01:42 Temperature 98.4 F 98.1 F Pulse Rate 73 93 92 Respiratory 17 18 Rate Blood Pressure 88/49 96/74 93/70 O2 Sat by Pulse 100 100 100 Oximetry 07/12/24 07/12/24 07/12/24 02:02 02:46 03:26 Temperature 97.9 F 98.1 F Pulse Rate 92 88 90 Respiratory 17 18 18 Rate Blood Pressure 95/54 101/60 105/59 O2 Sat by Pulse 100 100 98 Oximetry 07/12/24 07/12/24 04:49 05:29 Temperature Pulse Rate 88 90 Respiratory 16 18 Rate Blood Pressure 110/55 105/56 O2 Sat by Pulse 98 97 Oximetry Medical Decision Making - Medical Decision Making Was pt. sent in by a medical professional or institution (, PA, P[employer]ER [employer] P[employer] M[employer] WORKER, urgent care, hospital, or usp...) When possible be specific @ -No Did you speak to anyone other than the patient for history (EMS, parent, family, police, friend...)? What history was obtained from this source @ -No Did you review nursing and triage notes (agree or disagree)? Why? @ -I reviewed and agree with nursing and triage notes Were old charts reviewed (outside hosp., previous admission, EMS record, old EKG, old radiological studies, urgent care reports/EKG's, usp records)? Report findings @ -I reviewed discharge summary from June 06 Differential Diagnosis (chest pain, altered mental status, abdominal pain women, abdominal pain men, vaginal bleeding, weakness, fever, dyspnea, syncope, headache, dizziness, GI bleed, back pain, seizure, CVA, palpatations, mental health, musculoskeletal)? @ -Differential Abdominal Pain Women: Appendicitis, Cholecystitis, diverticulosis, ischemic bowel, pancreatitis, hepatitis, UTI, gastroenteritis, AAA, incarcerated hernia, bowel obstruction, constipation, inflammatory bowel, hepatitis, peptic ulcer disease, splenic infarction, perforated viscus, vulvitis, ovarian torsion, PID, kidney stone, placenta abruption, this is not meant to be an all-inclusive list EKG interpreted by me (3pts min.). @ -Yes and demonstrate sinus rhythm with rate of 93. MN interval 170. QRS 85. QTc of 385. No acute ST segment elevations or depressions X-rays interpreted by me (1pt min.). @ -None done CT interpreted by me (1pt min.). @ -Yes and demonstrates edematous pancreas U/S interpreted by me (1pt. min.). @ -None done What testing was considered but not performed or refused? (CT, X-rays, U/S, labs)? Why? @ -None What meds were considered but not given or refused? Why? @ -Heparin was considered however patient markedly anemic at this time Did you discuss the management of the patient with other professionals (professionals i.e. , PA, P[employer] P[employer] MILL WORKER, lab, RT, psych nurse, social sciences department chair, gang plank workman, teacher, field crop technical officer, case liner)? Give summary @ -Spoke with Clara from [facility] for admission Was smoking cessation discussed for >3mins.? @ -No Was critical care preformed (if so, how long)? @ -No Were there social determinants of health that impacted care today? How? (Homelessness, low income, unemployed, alcoholism, drug addiction, transportation, low edu. Level, literacy, decrease access to med. care, halfway, rehab)? @ -No Was there de-escalation of care discussed even if they declined (Discuss DNR or withdrawal of care, Hospice)? DNR status @ -No What co-morbidities impacted this encounter? (DM, HTN, Smoking, COPD, CAD, Cancer, CVA, ARF, Chemo, Hep., AIDS, mental health diagnosis, sleep apnea, morbid obesity)? @ -History of alcohol abuse, history of pancreatitis Was patient admitted / discharged? Hospital course, mention meds given and route, prescriptions, significant lab abnormalities, going to OR and other pertinent info. @ -Upon arrival patient seen and evaluated in bed 25. Thorough history and physical exam was performed. IV access was established. Laboratory studies are conducted. Patient anemic however she adamantly denies any black or bloody stools. CT is performed which demonstrates edematous pancreas. Possible splenic vein thrombosis. Anticoagulation is considered however patient is anemic at this time. I will trend the patient's hemoglobin and transfuse less than 7. Patient will be admitted for surgery consult. Patient was agreeable to this. Admitted to the floor in stable condition Undiagnosed new problem with uncertain prognosis? @ -No Drug Therapy requiring intensive monitoring for toxicity (Heparin, Nitro, Insulin, Cardizem)? @ -No Were any procedures done? @ -No Diagnosis/symptom? @ -Abdominal pain, acute on chronic pancreatitis, possible splenic vein thrombosis Acute, or Chronic, or Acute on Chronic? @ -Acute on chronic Uncomplicated (without systemic symptoms) or Complicated (systemic symptoms)? @ -Complicated Side effects of treatment? @ -No Exacerbation, Progression, or Severe Exacerbation? @ -No Poses a threat to life or bodily function? How? (Chest pain, [place], [place], pneumonia, PE, COPD, DKA, ARF, appy, cholecystitis, CVA, Diverticulitis, Homicidal, Suicidal, threat to staff... and all critical care pts) @ -No - Lab Data Result diagrams: 07/13/24 05:58 07/13/24 05:58 Lab Results 07/11/24 07/11/24 07/11/24 Range/Units 13:25 13:25 15:26 WBC 19.2 H (3.8-10.6) k/uL RBC 2.98 L (3.80-5.40) m/uL Hgb 7.3 L (11.4-16.0) gm/dL Hct 24.7 L (34.0-46.0) % MCV 82.8 D (80.0-100.0) fL MCH 24.6 L (25.0-35.0) pg MCHC 29.7 L (31.0-37.0) g/dL RDW 16.4 H (11.5-15.5) % Plt Count 666 H (150-450) k/uL MPV 7.0 Neutrophils % 87 % Lymphocytes % 5 % Monocytes % 7 % Eosinophils % 0 % Basophils % 0 % Neutrophils # 16.7 H (1.3-7.7) k/uL Lymphocytes # 1.0 (1.0-4.8) k/uL Monocytes # 1.3 H (0-1.0) k/uL Eosinophils # 0.0 (0-0.7) k/uL Basophils # 0.0 (0-0.2) k/uL Hypochromasia Marked Anisocytosis Slight Sodium 132 L (137-145) mmol/L Potassium 4.0 (3.5-5.1) mmol/L Chloride 104 (98-107) mmol/L Carbon Dioxide 22 (22-30) mmol/L Anion Gap 6 mmol/L BUN 9 (7-17) mg/dL Creatinine 0.45 L (0.52-1.04) mg/dL Est GFR (CKD-EPI)AfAm >90 (>60 ml/min/1.73 sqM) Est GFR (CKD-EPI)NonAf >90 (>60 ml/min/1.73 sqM) Glucose 114 H (74-99) mg/dL Calcium 8.5 (8.4-10.2) mg/dL Iron 8 L (50-170) UG/DL TIBC 186 L (228-460) UG/DL % Saturation 4.30 L (12.00-45.00) Transferrin 133.0 L (204.0-354.0) mg/dL Total Bilirubin 0.5 (0.2-1.3) mg/dL AST 12 L (14-36) U/L ALT <6 (4-34) U/L Alkaline Phosphatase 92 (38-126) U/L Total Protein 6.1 L (6.3-8.2) g/dL Albumin 2.9 L (3.5-5.0) g/dL Lipase 30 (23-300) U/L Serum Alcohol <10 mg/dL Disposition Clinical Impression: Abdominal pain, Pancreatitis, Anemia Disposition: ADMITTED IP TO THIS [facility] Condition: Stable Is patient prescribed a controlled substance at d/c from ED?: No Time of Disposition: 18:28 Decision to Admit Reason: Admit from EC Decision Date: 07/11/24 Decision Time: 18:28
[2024-07-11 13:47] LABS: ALT <6 U/L (4-34); AST 12 U/L (14-36); African American GFR (CKD) >90 (>60 ml/min/1.73 sqM); Albumin 2.9 g/dL (3.5-5.0); Alcohol <10 mg/dL; Alkaline Phosphatase 92 U/L (38-126); Anion Gap 6 mmol/L; Blood Urea Nitrogen 9 mg/dL (7-17); Calcium 8.5 mg/dL (8.4-10.2); Carbon Dioxide 22 mmol/L (22-30); Chloride 104 mmol/L (98-107); Glucose 114 mg/dL (74-99); Lipase 30 U/L (23-300); Non-African American GFR(CKD) >90 (>60 ml/min/1.73 sqM); Sodium 132 mmol/L (137-145); Total Bilirubin 0.5 mg/dL (0.2-1.3); Total Protein 6.1 g/dL (6.3-8.2)
[2024-07-11 14:11] LABS: Anisocytosis Slight; Basophils % (A) 0 %; Eosinophils % (A) 0 %; HCT 24.7 % (34.0-46.0); HGB 7.3 gm/dL (11.4-16.0); Hypochromasia Marked; Lymphocytes % (A) 5 %; MCH 24.6 pg (25.0-35.0); MCHC 29.7 g/dL (31.0-37.0); Monocytes # (A) 1.3 k/uL (0-1.0); Monocytes % (A) 7 %; Neutrophils # (A) 16.7 k/uL (1.3-7.7); Neutrophils % (A) 87 %; Platelet Count 666 k/uL (150-450); RBC 2.98 m/uL (3.80-5.40); RDW 16.4 % (11.5-15.5); WBC 19.2 k/uL (3.8-10.6)
[2024-07-11 14:13] LABS: MCV 82.8 fL (80.0-100.0)
[2024-07-11] MEDS: MORPHINE SULFATE 4 MG/ML SYRINGE IVP STA ×2 (14:30→18:34)
--- NOTE | 2024-07-11 14:53 | CT ---
EXAMINATION TYPE: CT abdomen pelvis w con CT DLP: 402.2 mGycm, Automated exposure control for dose reduction was used. DATE OF EXAM: 07/11/2024 2:28 PM COMPARISON: CT abdomen pelvis 06/04/2024, 05/08/2024, CT chest 05/08/2024. CLINICAL INDICATION:Female, 54 years old with history of abdominal pain; abdominal pain, nausea and v omiting. hx of pancreatic pseudo cyst TECHNIQUE: Standard CT of the abdomen and pelvis following the administration of 100 cc of Isovue 3 00 IV contrast material. Coronal and sagittal reformats were performed. FINDINGS: LOWER CHEST: Unremarkable ABDOMEN LIVER: No focal lesion. Enlarged measuring 19.4 cm in CC dimension. GALLBLADDER AND BILE DUCTS: The gallbladder is surgically absent. No biliary ductal dilatation. PANCREAS: Increased surrounding fluid and fat stranding involving the pancreas. No significant increa se in pancreatic duct and dilatation from prior exam. Patchy enhancement identified most prominently within the pancreatic head and neck. No organized fluid collection. SPLEEN: Unremarkable. ADRENAL GLANDS: Unremarkable. KIDNEYS AND URETERS: No evidence of hydronephrosis or renal calculus. The kidneys enhance symmetrical ly. Contrast is demonstrated within both collecting systems on the delayed phase. PELVIS BLADDER: Incompletely distended but grossly unremarkable. REPRODUCTIVE: Unremarkable. ABDOMEN & PELVIS STOMACH AND BOWEL: Surrounding inflammatory changes around the stomach and duodenum. No evidence of b owel obstruction. PERITONEUM: No evidence of pneumoperitoneum. Trace free fluid throughout the abdomen and pelvis. VASCULATURE: Mild atherosclerotic calcifications are present throughout the abdominal aorta and its b ranches. No evidence of aortic aneurysm. There is narrowed appearance of the portal venous confluence with poor visualization of the splenic vein. Prominent pelvic veins and left ovarian vein. MUSCULOSKELETAL: No acute osseous abnormalities LYMPH NODES: No evidence for lymphadenopathy. SOFT TISSUE/ABDOMINAL WALL: Unremarkable IMPRESSION: 1. Worsening acute interstitial edematous pancreatitis when compared to prior CT 06/04/2024. There i s marked surrounding inflammatory changes and fluid without definitive organized fluid collection. De veloping pancreatic necrosis is not excluded. 2. Narrowed appearance of the portal venous confluence with collateral prominent draining veins and probable splenic vein thrombosis. 3. Hepatomegaly. 4. Reactive inflammatory changes involving the stomach and duodenum related to #1. [facility], , 07/11/2024 2:51 PM
[2024-07-11] MEDS ORDERED: NALOXONE 0.4 MG/ML 1 ML VIAL IV PRN (18:28)
[2024-07-11] MEDS: PANTOPRAZOLE 40 MG/10 ML VIAL IVP STA (18:35)
[2024-07-11] MEDS: SODIUM CHLORIDE 0.9% 1,000 ML IV SCH (18:45)
[2024-07-11 19:20] LABS: % Iron Saturation 4.3 (12.00-45.00)
[2024-07-11] MEDS: ACETAMINOPHEN TAB 500 MG TAB PO STA (20:52)
[2024-07-11 22:13] LABS: Anisocytosis Slight; Hypochromasia Marked; MCH 24.5 pg (25.0-35.0); MCV 84.5 fL (80.0-100.0); Mean Platelet Volume 6.3; Platelet Count 678 k/uL (150-450); RBC 2.72 m/uL (3.80-5.40); RDW 16.5 % (11.5-15.5); WBC 14.2 k/uL (3.8-10.6)
[2024-07-11 22:20] LABS: HGB 6.7 gm/dL (11.4-16.0)
[2024-07-12] MEDS: MORPHINE SULFATE 4 MG/ML SYRINGE IV PRN (06:13)
[2024-07-12] MEDS: PANTOPRAZOLE 40 MG/10 ML VIAL IV SCH ×2 (08:09→20:06)
[2024-07-12 08:34] LABS: BUN/Creat Ratio 17.25 Ratio (12.00-20.00); Blood Urea Nitrogen 6.9 mg/dL (9.0-27.0); Carbon Dioxide 21.9 mmol/L (21.6-31.8); Chloride 102 mmol/L (96-109); Glucose 118 mg/dL (70-110); Potassium 3.8 mmol/L (3.5-5.5); Sodium 134 mmol/L (135-145)
[2024-07-12 08:56] LABS: Basophils # (A) 0.02 X 10*3/uL (0.00-0.10); Basophils % (A) 0.1 %; Eosinophils # (A) 0.04 X 10*3/uL (0.04-0.35); Eosinophils % (A) 0.3 %; HCT 26.8 % (37.2-46.3); HGB 7.8 g/dL (12.0-15.0); Lymphocytes # (A) 0.94 X 10*3/uL (0.90-5.00); Lymphocytes % (A) 6.7 %; MCH 24.4 pg (27.0-32.0); MCHC 29.1 g/dL (32.0-37.0); MCV 83.8 FL (80.0-97.0); Mean Platelet Volume 8.6 FL (9.5-12.2); Monocytes # (A) 1.32 X 10*3/uL (0.20-1.00); Monocytes % (A) 9.4 %; NRBC Per 100 WBC 0 X 10*3/uL (0.00-0.01); Neutrophils # (A) 11.59 X 10*3/uL (1.80-7.70); Neutrophils % (A) 82.6 %; Platelet Count 630 X 10*3/uL (140-440); RDW 17.6 % (11.5-14.5); WBC 14.04 X 10*3/uL (4.50-10.00)
[2024-07-12 13:26] VITALS: BMI 15.3
[2024-07-12] MEDS: NICOTINE 14MG/24HR PATCH TRANSDERM SCH (15:34)
[2024-07-12] MEDS: MEROPENEM 2 GM in SODIUM CHLORIDE 0.9% 100 ML IVPB SCH (15:34)
[2024-07-12 15:43] LABS: Anisocytosis Slight; Basophils % (A) 0 %; Eosinophils # (A) 0.1 k/uL (0-0.7); Eosinophils % (A) 1 %; HCT 30.2 % (34.0-46.0); Hypochromasia Marked; Lymphocytes # (A) 1.3 k/uL (1.0-4.8); Lymphocytes % (A) 10 %; MCH 24.7 pg (25.0-35.0); MCHC 29.5 g/dL (31.0-37.0); MCV 83.7 fL (80.0-100.0); Mean Platelet Volume 6.4; Monocytes # (A) 0.6 k/uL (0-1.0); Monocytes % (A) 5 %; Neutrophils # (A) 10.2 k/uL (1.3-7.7); Neutrophils % (A) 82 %; Platelet Count 666 k/uL (150-450); RBC 3.61 m/uL (3.80-5.40); RDW 16.9 % (11.5-15.5); WBC 12.5 k/uL (3.8-10.6)
[2024-07-12] MEDS: HEPARIN SODIUM,PORCINE 5,000 UNIT/ML 1 ML VIAL SQ SCH (15:45)
[2024-07-12 16:00] LABS: HGB 8.9 gm/dL (11.4-16.0)
[2024-07-12] MEDS: HEPARIN SODIUM 1,000 UN/ML (10ML VL) IV ONE (16:06)
[2024-07-12] MEDS: HYDROmorphone 0.5 MG/0.5 ML SYRINGE IVP PRN (16:06)
[2024-07-12] MEDS: HEPARIN SOD,PORK IN 0.45% NACL 25,000 UNIT in 0.45% NACL 1 250ML.BAG IV SCH (16:07)
[2024-07-12 16:25] LABS: INR 0.9 (<1.2); Partial Thromboplastin Time 23.2 sec (22.0-30.0); Prothrombin Time 10.4 sec (10.0-12.5)
[2024-07-12 19:01] LABS: % Iron Saturation 5.5 (12.00-45.00)
--- NOTE | 2024-07-12 20:21 | P.CONS ---
History of Present Illness - Reason for Consult Consult date: 07/12/24 splenic infarct Requesting physician: Carmine Rachel - Chief Complaint abd pain - History of Present Illness Patient is a 54-year-old female who presented to the emergency department reporting epigastric pain and nausea vomiting. Consult placed for suspected sple alexandr infarct. She does report history of similar pain when she was diagnosed with pancreatitis. History of ETOH abuse, and reports drinking daily, approx 4 glasses of wine, but quit drinking a couple months ago. Denies any black or bloody stools, hematemesis, diarrhea or constipation, fever and chills. Reports history of JOHN, and started oral iron a cpl weeks ago. Upon admit CBC showing WBC 19.2, hemoglobin 7.3, MCV 82.8, MCHC 29.7, platelets 666,000. Bilirubin and LFTs WNL. Lipase 30. Coags WNL. Patient was given 1 unit PRBCs for hemoglobin 6.7 with appropriate response, with repeat hemoglobin 7.8. Hemoglobin today 8.9. CT abdomen pelvis showing worsening acute interstitial edematous pancreatitis when compared to prior CT 06/04/2024. Marked surrounding inflammatory changes and fluid without definitive organized fluid collection. Developing pancreatic necrosis not excluded. Narrowed appearance of the portal venous confluence with collateral prominent draining veins and probable splenic vein thrombosis. Hepatosplenomegaly. Reactive inflammatory changes involving the stomach and duodenum. Patient has been noted with a Tmax of 100.9 last night, no fever since. General surgery has been consulted. IV antibiotics started. Blood cultures pending. Review of Systems 10 point ROS is negative except as stated in the HPI Past Medical History Past Medical History: GERD/Reflux Additional Past Medical History / Comment(s): 2 hernias History of Any Multi-Drug Resistant Organisms: None Reported Past Surgical History: Cholecystectomy, Tubal Ligation Additional Past Surgical History / Comment(s): tubal ligation 2008, rhinoplasty Pancreatic Biposy Past Anesthesia/Blood Transfusion Reactions: No Reported Reaction Smoking Status: Current every day smoker - Past Family History Mother Family Medical History: Hypertension Additional Family Medical History / Comment(s): Aortic aneurysm Father Additional Family Medical History / Comment(s): no significant hx Medications and Allergies Home Medications Medication Instructions Recorded Confirmed Type Pantoprazole Sodium [Protonix] 40 mg PO DAILY 05/07/24 07/11/24 History Ferrous Sulfate [Iron (65 MG 325 mg PO DAILY 07/11/24 07/11/24 History Elemental)] Multivitamins, Thera [Multivitamin 1 tab PO DAILY 07/11/24 07/11/24 History (formulary)] Apixaban [Eliquis] 5 mg PO BID #60 tab 07/13/24 Rx Allergies Allergy/AdvReac Type Severity Reaction Status Date / Time No Known Allergies Allergy Verified 07/11/24 15:44 Physical Exam Vitals: Vital Signs Temp Pulse Pulse Resp BP BP Pulse Ox 07/12/24 12:50 98.4 F 88 18 124/69 99 07/12/24 05:58 98.3 F 91 12 110/66 98 07/12/24 05:29 90 18 105/56 97 07/12/24 04:49 88 16 110/55 98 07/12/24 03:26 98.1 F 90 18 105/59 98 07/12/24 02:46 88 18 101/60 100 07/12/24 02:02 97.9 F 92 17 95/54 100 07/12/24 01:42 98.1 F 92 18 93/70 100 07/12/24 01:32 98.4 F 93 17 96/74 100 07/12/24 00:30 73 88/49 100 07/11/24 23:22 92 16 89/57 98 07/11/24 21:51 98.4 F 07/11/24 20:43 100.9 F H 95 16 101/51 99 Intake and Output 07/12/24 07/12/24 07/12/24 06:59 14:59 22:59 Intake Total 310 540 Balance 310 540 Intake: Oral 540 Blood Product 310 Rc As-1 Unit 310 [id number] Other: Voiding Method Toilet # Voids 1 2 Weight 41.73 kg 41.73 kg - Constitutional General appearance: average body habitus, no acute distress - EENT Eyes: anicteric sclerae, EOMI ENT: hearing grossly normal - Respiratory Respiratory: bilateral: CTA - Cardiovascular Rhythm: regular - Gastrointestinal General gastrointestinal: soft, tenderness Localized gastrointestinal: tender: LUQ, epigastric periumbilical - Integumentary Integumentary: no cyanotic, no jaundiced - Neurologic Neurologic: CNII-XII intact - Musculoskeletal Musculoskeletal: strength equal bilaterally - Psychiatric Psychiatric: A&O x's 3 Results CBC & Chem 7: 07/13/24 05:58 07/13/24 05:58 Labs: Abnormal Lab Results - Last 24 Hours (Table) 07/11/24 07/11/24 07/12/24 Range/Units 21:29 23:25 05:23 WBC 14.2 H 14.04 H (3.8-10.6) k/uL RBC 2.72 L 3.20 L (3.80-5.40) m/uL Hgb 6.7 L* 7.8 L (11.4-16.0) gm/dL Hct 23.0 L 26.8 L (34.0-46.0) % MCH 24.5 L 24.4 L (25.0-35.0) pg MCHC 29.0 L 29.1 L (31.0-37.0) g/dL RDW 16.5 H 17.6 H (11.5-15.5) % Plt Count 678 H 630 H (150-450) k/uL MPV 8.6 L (9.5-12.2) FL Immature Gran # 0.13 H (0.00-0.04) X 10*3/uL Neutrophils # 11.59 H (1.80-7.70) X 10*3/uL Monocytes # 1.32 H (0.20-1.00) X 10*3/uL Sodium (135-145) mmol/L BUN (9.0-27.0) mg/dL Creatinine (0.6-1.5) mg/dL Glucose (70-110) mg/dL Calcium (8.7-10.3) mg/dL Iron (50-170) UG/DL TIBC (228-460) UG/DL % Saturation (12.00-45.00) Transferrin (204.0-354.0) mg/dL Ferritin (10.0-291.0) ng/mL Crossmatch See Detail 07/12/24 07/12/24 07/12/24 Range/Units 05:23 15:11 15:11 WBC 12.5 H (3.8-10.6) k/uL RBC 3.61 L (3.80-5.40) m/uL Hgb 8.9 L D (11.4-16.0) gm/dL Hct 30.2 L (34.0-46.0) % MCH 24.7 L (25.0-35.0) pg MCHC 29.5 L (31.0-37.0) g/dL RDW 16.9 H (11.5-15.5) % Plt Count 666 H (150-450) k/uL MPV (9.5-12.2) FL Immature Gran # (0.00-0.04) X 10*3/uL Neutrophils # 10.2 H (1.80-7.70) X 10*3/uL Monocytes # (0.20-1.00) X 10*3/uL Sodium 134 L (135-145) mmol/L BUN 6.9 L (9.0-27.0) mg/dL Creatinine 0.4 L (0.6-1.5) mg/dL Glucose 118 H (70-110) mg/dL Calcium 8.0 L (8.7-10.3) mg/dL Iron 11 L (50-170) UG/DL TIBC 200 L (228-460) UG/DL % Saturation 5.50 L (12.00-45.00) Transferrin 143.0 L (204.0-354.0) mg/dL Ferritin 352.0 H (10.0-291.0) ng/mL Crossmatch CT scan - abdomen: report reviewed CT scan - pelvis: report reviewed Assessment and Plan (1) Abdominal pain Status: Acute Priority: High Code(s): R10.9 - UNSPECIFIED ABDOMINAL PAIN SNOMED Code(s): 59848757 (2) Anemia Status: Acute Priority: High Code(s): D64.9 - ANEMIA, UNSPECIFIED SNOMED C ode(s): 592744423 (3) Pancreatitis Status: Acute Priority: High Code(s): K85.90 - ACUTE PANCREATITIS WITHOUT NECROSIS OR INFECTION, UNSP SNOMED Code(s): 58146903 Plan: Pancreatitis, splenic vein thrombosis : Presented to the emergency department reporting epigastric pain and nausea vomiting. History of pancreatitis and ETOH abuse, and JOHN starting oral iron recently. Denies any black or bloody stools, hematemesis -Bilirubin and LFTs WNL. Lipase 30. Coags WNL. CT abdomen pelvis showing worsening acute interstitial edematous pancreatitis when compared to prior CT 06/04/2024. Marked surrounding inflammatory changes and fluid without definitive organized fluid collection. Developing pancreatic necrosis not exc luded. Narrowed appearance of the portal venous confluence with collateral prominent draining veins and probable splenic vein thrombosis. Hepatosplenomegaly. Reactive inflammatory changes involving the stomach and duodenum. -Tmax of 100.9 last night, no fever since. Blood cultures pending. -General surgery has been consulted. IV antibiotics started. -Splenic vein thrombosis likely provoked due to noted pancreatitis. Heparin drip started. Recommend 6 months anticoagulation, as long as provoking factor is resolved at that time. Once no procedures/interventions are planned, she can be transitioned to Eliquis 5mg BID Normocytic anemia: -Reports history of JOHN, and started oral iron a cpl weeks ago. Upon trending labs, anemia noted since 2019. No previous labs prior to this within EMR. Hgb in May 2024 in the 8 range -Upon admit CBC showing WBC 19.2, hemoglobin 7.3, MCV 82.8, MCHC 29.7, platelets 666,000. Coags WNL. S/p 1 unit PRBCs for hemoglobin 6.7 with appropriate response, with repeat hemoglobin 7.8. Hemoglobin improving, today 8.9. -Iron studies showing iron saturation 4.3%, and ferritin 352, however ferritin drawn after blood transfusion. Due to possible infection and fever, will hold IV iron at this time. This can be given in the outpt setting once acutely recovered. B12 low end of normal, 296. MMA and folate pending -Anemia appears multifactorial, likely from history of ETOH abuse, poor nutrition and absorption, and superimposed by acute inflammatory/infectious state. -Continue to monitor CBC and for s/s of bleeding. Transfuse for hgb < 7 or if symptomatic Doctor attests: I performed a history and physical examination of this patient, developed impression and plan of care. Discussed with dictator. I agree with dictators note, documented as a scribe.
[2024-07-12] MEDS: HEPARIN SODIUM 1,000 UN/ML (10ML VL) IV PRN (23:15)
--- NOTE | 2024-07-12 23:36 | P.CONS ---
History of Present Illness - Reason for Consult Consult date: 07/12/24 Necrotizing pancreatitis Requesting physician: Carmine Rachel - Chief Complaint Abdominal pain x few days - History of Present Illness Patient is a 54-year-old female with history significant for reflux did have a history of pancreatitis and heavy drinking, daily smoker presenting to the hospital for evaluation of epigastric pain and this patient apparently did have an admission to the hospital from 06/04/2024 to 06/06/2024 and the patient has been treated for pancreatitis every 12 cortisone the patient mention she has stopped drinking and has been dealing with abdominal pain that seem to have been getting worse over the last few days on the day of presentation to hospital and the patient was getting more excruciating mostly in the epigastric area with some radiation to the back patient was describing the pain to be sharp almost 10 out of 10 in severity without any radiation did have an episode of vomiting but denies having diarrhea patient had did have a low-grade fever 100.9 F patient was not tachycardic hypotensive or hypoxic he did have a elevated white count of 14.2 hemoglobin is 6.7 creatinine 0.4 patient did have abdominal pelvis CT that did show worsening acute interstitial edematous pancreatitis developing pancreatic necrosis not excluded patient was started on meropenem 2 g every 8 hourly infectious disease was consulted for further management of antibiotic therapy Review of Systems Positive point and negatives has been mentioned in the HPI, complete review of systems was performed and all other systems are negative Past Medical History Past Medical History: GERD/Reflux Additional Past Medical History / Comment(s): 2 hernias History of Any Multi-Drug Resistant Organisms: None Reported Past Surgical History: Cholecystectomy, Tubal Ligation Additional Past Surgical History / Comment(s): tubal ligation 2008, rhinoplasty Pancreatic Biposy Past Anesthesia/Blood Transfusion Reactions: No Reported Reaction Smoking Status: Current every day smoker - Past Family History Mother Family Medical History: Hypertension Additional Family Medical History / Comment(s): Aortic aneurysm Father Additional Family Medical History / Comment(s): no significant hx Medications and Allergies Home Medications Medication Instructions Recorded Confirmed Type Pantoprazole Sodium [Protonix] 40 mg PO DAILY 05/07/24 07/11/24 History Ferrous Sulfate [Feosol] 325 mg PO DAILY 07/11/24 07/11/24 History Multivitamins, Thera [Multivitamin 1 tab PO DAILY 07/11/24 07/11/24 History (formulary)] Allergies Allergy/AdvReac Type Severity Reaction Status Date / Time No Known Allergies Allergy Verified 07/11/24 15:44 Physical Exam Vitals: Vital Signs Temp Pulse Pulse Resp BP BP Pulse Ox 07/12/24 12:50 98.4 F 88 18 124/69 99 07/12/24 05:58 98.3 F 91 12 110/66 98 07/12/24 05:29 90 18 105/56 97 07/12/24 04:49 88 16 110/55 98 07/12/24 03:26 98.1 F 90 18 105/59 98 07/12/24 02:46 88 18 101/60 100 07/12/24 02:02 97.9 F 92 17 95/54 100 07/12/24 01:42 98.1 F 92 18 93/70 100 07/12/24 01:32 98.4 F 93 17 96/74 100 07/12/24 00:30 73 88/49 100 07/11/24 23:22 92 16 89/57 98 07/11/24 21:51 98.4 F 07/11/24 20:43 100.9 F H 95 16 101/51 99 07/11/24 18:39 94 16 101/51 96 07/11/24 15:22 100 16 100/48 100 Intake and Output 07/11/24 07/12/24 07/12/24 22:59 06:59 14:59 Intake Total 310 Balance 310 Intake: Blood Product 310 Rc As-1 Unit 310 [id number] Other: Voiding Method Toilet # Voids 1 Weight 41.73 kg 41.73 kg GENERAL DESCRIPTION: Middle-aged female lying in bed, no distress. No tachypnea or accessory muscle of respiration use. HEENT: Shows Pallor , no scleral icterus. Oral mucous membrane is dry. No pharyngeal erythema or thrush NECK: Trachea central, no thyromegaly. LUNGS: Unlabored breathing. Clear to auscultation anteriorly. No wheeze or crackle. HEART: S1, S2, regular rate and rhythm. No loud murmur ABDOMEN: Soft, epigastric tenderness ,no guarding or rigidity, no organomegaly EXTREMITIES: No edema of feet. SKIN: No rash, no masses palpable. NEUROLOGICAL: The patient is awake, alert, oriented x3, mood and affect normal. Results CBC & Chem 7: 07/12/24 15:11 07/12/24 05:23 Labs: Abnormal Lab Results - Last 24 Hours (Table) 07/11/24 07/11/24 07/11/24 Range/Units 15:26 21:29 23:25 WBC 14.2 H (3.8-10.6) k/uL RBC 2.72 L (3.80-5.40) m/uL Hgb 6.7 L* (11.4-16.0) gm/dL Hct 23.0 L (34.0-46.0) % MCH 24.5 L (25.0-35.0) pg MCHC 29.0 L (31.0-37.0) g/dL RDW 16.5 H (11.5-15.5) % Plt Count 678 H (150-450) k/uL MPV (9.5-12.2) FL Immature Gran # (0.00-0.04) X 10*3/uL Neutrophils # (1.80-7.70) X 10*3/uL Monocytes # (0.20-1.00) X 10*3/uL Sodium (135-145) mmol/L BUN (9.0-27.0) mg/dL Creatinine (0.6-1.5) mg/dL Glucose (70-110) mg/dL Calcium (8.7-10.3) mg/dL Iron 8 L (50-170) UG/DL TIBC 186 L (228-460) UG/DL % Saturation 4.30 L (12.00-45.00) Transferrin 133.0 L (204.0-354.0) mg/dL Crossmatch See Detail 07/12/24 07/12/24 Range/Units 05:23 05:23 WBC 14.04 H (3.8-10.6) k/uL RBC 3.20 L (3.80-5.40) m/uL Hgb 7.8 L (11.4-16.0) gm/dL Hct 26.8 L (34.0-46.0) % MCH 24.4 L (25.0-35.0) pg MCHC 29.1 L (31.0-37.0) g/dL RDW 17.6 H (11.5-15.5) % Plt Count 630 H (150-450) k/uL MPV 8.6 L (9.5-12.2) FL Immature Gran # 0.13 H (0.00-0.04) X 10*3/uL Neutrophils # 11.59 H (1.80-7.70) X 10*3/uL Monocytes # 1.32 H (0.20-1.00) X 10*3/uL Sodium 134 L (135-145) mmol/L BUN 6.9 L (9.0-27.0) mg/dL Creatinine 0.4 L (0.6-1.5) mg/dL Glucose 118 H (70-110) mg/dL Calcium 8.0 L (8.7-10.3) mg/dL Iron (50-170) UG/DL TIBC (228-460) UG/DL % Saturation (12.00-45.00) Transferrin (204.0-354.0) mg/dL Crossmatch Assessment and Plan (1) Necrotizing pancreatitis Current Visit: Yes Status: Acute Code(s): K85.91 - ACUTE PANCREATITIS WITH UNINFECTED NECROSIS, UNSPECIFIED SNOMED Code(s): 4835007 (2) Sepsis Current Visit: Yes Status: Acute Code(s): A41.9 - SEPSIS, UNSPECIFIED ORGANISM SNOMED Code(s): 22343963 (3) Leukocytosis Current Visit: Yes Status: Acute Code(s): D72.829 - ELEVATED WHITE BLOOD CELL COUNT, UNSPECIFIED SNOMED Code(s): 608032544 (4) Pancreatitis Current Visit: Yes Status: Acute Priority: High Code(s): K85.90 - ACUTE PANCREATITIS WITHOUT NECROSIS OR INFECTION, UNSP SNOMED Code(s): 09068341 Plan: 1patient is in the hospital with sepsis in this patient who did have fever elevated white count meeting criteria for SIRS, source likely acute necrotizing pancreatitis and need to cover for the enteric gram-negative with a likely pathogen 2-blood culture had not been taking family markers 3meropenem dose can be adjusted to 1 g every 8 hours 4bowel rest Multiple questions and concerns has been Answered We will follow on clinical condition and cultures to further adjust medication if needed Thank you for this consultation we will follow the patient along with you Dictation was produced using dragon dictation software. please excuse any grammatical, word or spelling errors.
[2024-07-13] MEDS ORDERED: MEROPENEM 1 GM in SODIUM CHLORIDE 0.9% 100 ML IVPB SCH
[2024-07-13] MEDS: MEROPENEM 1 GM in SODIUM CHLORIDE 0.9% 100 ML IVPB SCH (00:53)
--- NOTE | 2024-07-13 01:08 | HP ---
HISTORY AND PHYSICAL CHIEF COMPLAINT: Abdominal pain. HISTORY OF PRESENT ILLNESS: This is a 54-year-old woman with a past medical history of ETOH and pancreatitis, admitted with significant abdominal pain. The patient apparently drank like [address] glasses [address] The [address] scan showed evidence of pancreatitis and possible splenic vein thrombosis. The patient was admitted for further evaluation and treatment. There is no history of any fever, rigors, or chills at this time. PAST MEDICAL HISTORY: History of GERD, history of cholecystectomy. Rest of the history and rest of the chart is also reviewed. HOME MEDICATIONS: Reviewed include Protonix. Dose and rest of medications reviewed. ALLERGIES: None. FAMILY HISTORY: History of aortic aneurysm, hypertension. SOCIAL HISTORY: History of smoking. REVIEW OF SYSTEMS: Fourteen-point review of systems is negative except as mentioned earlier. PHYSICAL EXAMINATION: VITAL SIGNS: Pulse is 88, blood pressure 124/69, respirations 18. HEENT: Conjunctivae normal. NECK: No JVD. CARDIOVASCULAR: S1, S2. RESPIRATIONS: Breath sounds diminished at the bases. A few scattered rhonchi. ABDOMEN: Soft, diffuse tenderness in the epigastrium. No guarding. No rigidity. No masses. LEGS: No edema. NERVOUS SYSTEM: Nonfocal. LABORATORY DATA: WBC 14.2, hemoglobin 6.7 to 7.8. ASSESSMENT: 1. Acute severe pancreatitis, possibly necrotizing pancreatitis. 2. Anemia multifactorial for evaluation. 3. Possible splenic vein thrombosis. 4. Hyponatremia. 5. History of EtOH. 6. History of gastroesophageal reflux disease. 7. Multiple complex medical issues. RECOMMENDATIONS AND DISCUSSION: In this 54-year-old woman who was admitted with multiple complex medical issues, we will monitor the patient closely. Pain management. Keep the patient n.p.o. Surgery consultation. Hematology, Oncology evaluation. Empiric antibiotics. Infectious Disease evaluation, cultures. Prognosis extremely guarded because of multiple complex medical issues. Further recommendations to follow. Repeat amylase, lipase. MMODL / IJN: [id number] /
[2024-07-13] MEDS: HEPARIN SODIUM 1,000 UN/ML (10ML VL) MISCELLANE ONE (07:49)
[2024-07-13 09:18] LABS: Basophils # (A) 0.03 X 10*3/uL (0.00-0.10); Basophils % (A) 0.3 %; Eosinophils # (A) 0.07 X 10*3/uL (0.04-0.35); Eosinophils % (A) 0.7 %; HCT 29.2 % (37.2-46.3); HGB 8.6 g/dL (12.0-15.0); Lymphocytes % (A) 12.6 %; MCH 24.2 pg (27.0-32.0); MCHC 29.5 g/dL (32.0-37.0); MCV 82.3 FL (80.0-97.0); Mean Platelet Volume 8.6 FL (9.5-12.2); Monocytes # (A) 0.66 X 10*3/uL (0.20-1.00); Monocytes % (A) 6.9 %; NRBC Per 100 WBC 0 X 10*3/uL (0.00-0.01); Neutrophils # (A) 7.51 X 10*3/uL (1.80-7.70); Neutrophils % (A) 78.7 %; Platelet Count 632 X 10*3/uL (140-440); RBC 3.55 X 10*6/uL (4.10-5.20); RDW 17.9 % (11.5-14.5); WBC 9.55 X 10*3/uL (4.50-10.00)
[2024-07-13 09:44] LABS: ALT <5 U/L (8-44); AST 15 U/L (13-35); Albumin 2.7 g/dL (3.8-4.9); Albumin/Globulin Ratio 0.87 Ratio (1.60-3.17); Alkaline Phosphatase 76 U/L (41-126); Amylase 46 U/L (23-121); Blood Urea Nitrogen 5.8 mg/dL (9.0-27.0); Calcium 8.3 mg/dL (8.7-10.3); Carbon Dioxide 22.2 mmol/L (21.6-31.8); Chloride 104 mmol/L (96-109); Globulin 3.1 g/dL (1.6-3.3); Glucose 66 mg/dL (70-110); Lipase 11 U/L (14-63); Potassium 3.9 mmol/L (3.5-5.5); Sodium 137 mmol/L (135-145); Total Bilirubin 0.4 mg/dL (0.3-1.2); Total Protein 5.8 g/dL (6.2-8.2)
[2024-07-13 10:11] LABS: INR 0.94 sec (0.93-1.11); Prothrombin Time 10.6 sec (9.9-11.9)
--- NOTE | 2024-07-13 10:27 | P.GSCN ---
History of Present Illness Consult date: 07/13/24 Reason for Consult: Pancreatitis History of present illness: 54-year-old female known to our service. She was last seen by myself in April. At the time the patient had impressive pancreatitis by CAT scan with multiple peripancreatic fluid collections. A few of these fluid collections had possible air within them. Concern for possible active infection was present. At the time we discussed evaluation by hepatobiliary service at [facility]. Apparently she never saw them. As her pain improved she was discharged during that hospitalization. She came back apparently and late May with similar symptoms. Seen at the time I believe by GI and infectious disease. Inflammatory changes were still present. The peripancreatic cyst seemed improved. She did have outpatient follow-up with GI and underwent EGD as an outpatient. Per patient no ulcers were seen. Came back to the hospital 2 days ago because of increasing epigastric discomfort since the . She has not had any alcohol in the last 16 weeks. Patient says she has been eating very carefully. Avoids greasy foods. Eats only small amounts at a time. Starting on the she began experiencing abdominal pain and nausea. She thought she might of had a low-grade fever as well. Underwent repeat CAT scan. Films were reviewed and compared to the prior studies. Still shows significant inflammatory changes in the retroperitoneum around the pancreas. The pancreas itself is difficult delineate from the surrounding structures. There still appears to be at least 1 or 2 small foci of air within the inflammatory changes. No large abscesses seen. Possibility for splenic vein thrombosis is present per radiology. Infectious disease was again consulted. She was placed on broad-spectrum antibiotics. Hematology was consulted because of the possible s plenic vein thrombosis and she was started on IV heparin. She feels better today. Patient always seems to be anxious to go home shortly after admission and again she is asking how long she needs to stay. She says her pain is improved although she is on IV narcotics. She is hungry. Says that when she starts getting hungry it makes the pain worse. Patient concerned as she has not been able to gain weight. Patient's lipase level was normal. When she came to the hospital her white blood cell count was elevated and her hemoglobin was low at 6.7. She did receive 1 unit of blood. Hemoglobin now 8.9. White blood cell count better at 12. Review of Systems The patient denies any acute changes in vision or hearing, no dysphagia or odynophagia, no chest pain or shortness of breath, no dysuria or hematuria, no headache, no runny nose, no rectal bleeding or melena Past Medical History Past Medical History: GERD/Reflux Additional Past Medical History / Comment(s): 2 hernias History of Any Multi-Drug Resistant Organisms: None Reported Past Surgical History: Cholecystectomy, Tubal Ligation Additional Past Surgical History / Comment(s): tubal ligation 2008, rhinoplasty Pancreatic Biposy Past Anesthesia/Blood Transfusion Reactions: No Reported Reaction Smoking Status: Current every day smoker - Past Family History Mother Family Medical History: Hypertension Additional Family Medical History / Comment(s): Aortic aneurysm Father Additional Family Medical History / Comment(s): no significant hx Medications and Allergies Home Medications Medication Instructions Recorded Confirmed Type Pantoprazole Sodium [Protonix] 40 mg PO DAILY 05/07/24 07/11/24 History Ferrous Sulfate [Feosol] 325 mg PO DAILY 07/11/24 07/11/24 History Multivitamins, Thera [Multivitamin 1 tab PO DAILY 07/11/24 07/11/24 History (formulary)] Allergies Allergy/AdvReac Type Severity Reaction Status Date / Time No Known Allergies Allergy Verified 07/11/24 15:44 Surgical - Exam Vital Signs Temp Pulse Resp BP Pulse Ox 98.9 F 105 H 16 112/66 97 07/11/24 13:15 07/11/24 13:15 07/11/24 13:15 07/11/24 13:15 07/11/24 13:15 Physical exam: General: Well-developed, malnourished appearing HEENT: Normocephalic, sclerae nonicteric Abdomen: Epigastric tenderness nondistended Extremities: No edema Neuro: Alert and oriented Results - Labs 07/13/24 05:58 07/13/24 05:58 Abnormal Lab Results - Last 24 Hours (Table) 07/12/24 07/12/24 07/13/24 Range/Units 15:11 15:11 05:58 WBC 12.5 H (3.8-10.6) k/uL RBC 3.61 L 3.55 L (3.80-5.40) m/uL Hgb 8.9 L D 8.6 L (11.4-16.0) gm/dL Hct 30.2 L 29.2 L (34.0-46.0) % MCH 24.7 L 24.2 L (25.0-35.0) pg MCHC 29.5 L 29.5 L (31.0-37.0) g/dL RDW 16.9 H 17.9 H (11.5-15.5) % Plt Count 666 H 632 H (150-450) k/uL MPV 8.6 L (9.5-12.2) FL Immature Gran # 0.08 H (0.00-0.04) X 10*3/uL Neutrophils # 10.2 H (1.3-7.7) k/uL BUN (9.0-27.0) mg/dL Creatinine (0.6-1.5) mg/dL Glucose (70-110) mg/dL Calcium (8.7-10.3) mg/dL Iron 11 L (50-170) UG/DL TIBC 200 L (228-460) UG/DL % Saturation 5.50 L (12.00-45.00) Transferrin 143.0 L (204.0-354.0) mg/dL Ferritin 352.0 H (10.0-291.0) ng/mL ALT (8-44) U/L Total Protein (6.2-8.2) g/dL Albumin (3.8-4.9) g/dL Albumin/Globulin Ratio (1.60-3.17) Ratio Lipase (14-63) U/L 07/13/24 Range/Units 05:58 WBC (3.8-10.6) k/uL RBC (3.80-5.40) m/uL Hgb (11.4-16.0) gm/dL Hct (34.0-46.0) % MCH (25.0-35.0) pg MCHC (31.0-37.0) g/dL RDW (11.5-15.5) % Plt Count (150-450) k/uL MPV (9.5-12.2) FL Immature Gran # (0.00-0.04) X 10*3/uL Neutrophils # (1.3-7.7) k/uL BUN 5.8 L (9.0-27.0) mg/dL Creatinine 0.4 L (0.6-1.5) mg/dL Glucose 66 L (70-110) mg/dL Calcium 8.3 L (8.7-10.3) mg/dL Iron (50-170) UG/DL TIBC (228-460) UG/DL % Saturation (12.00-45.00) Transferrin (204.0-354.0) mg/dL Ferritin (10.0-291.0) ng/mL ALT <5 L (8-44) U/L Total Protein 5.8 L (6.2-8.2) g/dL Albumin 2.7 L (3.8-4.9) g/dL Albumin/Globulin Ratio 0.87 L (1.60-3.17) Ratio Lipase 11 L (14-63) U/L Diabetes panel 07/13/24 Range/Units 05:58 Sodium 137 (135-145) mmol/L Potassium 3.9 (3.5-5.5) mmol/L Chloride 104 (96-109) mmol/L Carbon Dioxide 22.2 (21.6-31.8) mmol/L BUN 5.8 L (9.0-27.0) mg/dL Creatinine 0.4 L (0.6-1.5) mg/dL Glucose 66 L (70-110) mg/dL Calcium 8.3 L (8.7-10.3) mg/dL AST 15 (13-35) U/L ALT <5 L (8-44) U/L Alkaline Phosphatase 76 (41-126) U/L Total Protein 5.8 L (6.2-8.2) g/dL Albumin 2.7 L (3.8-4.9) g/dL Calcium panel 07/13/24 Range/Units 05:58 Calcium 8.3 L (8.7-10.3) mg/dL Albumin 2.7 L (3.8-4.9) g/dL Pituitary panel 07/13/24 Range/Units 05:58 Sodium 137 (135-145) mmol/L Potassium 3.9 (3.5-5.5) mmol/L Chloride 104 (96-109) mmol/L Carbon Dioxide 22.2 (21.6-31.8) mmol/L BUN 5.8 L (9.0-27.0) mg/dL Creatinine 0.4 L (0.6-1.5) mg/dL Glucose 66 L (70-110) mg/dL Calcium 8.3 L (8.7-10.3) mg/dL Adrenal panel 07/13/24 Range/Units 05:58 Sodium 137 (135-145) mmol/L Potassium 3.9 (3.5-5.5) mmol/L Chloride 104 (96-109) mmol/L Carbon Dioxide 22.2 (21.6-31.8) mmol/L BUN 5.8 L (9.0-27.0) mg/dL Creatinine 0.4 L (0.6-1.5) mg/dL Glucose 66 L (70-110) mg/dL Calcium 8.3 L (8.7-10.3) mg/dL Total Bilirubin 0.4 (0.3-1.2) mg/dL AST 15 (13-35) U/L ALT <5 L (8-44) U/L Alkaline Phosphatase 76 (41-126) U/L Total Protein 5.8 L (6.2-8.2) g/dL Albumin 2.7 L (3.8-4.9) g/dL Assessment and Plan (1) Pancreatitis Narrative/Plan: 54-year-old female with recurrent pancreatitis. CAT scan findings still show impressive degree of inflammation around the pancreas and still with the possibility of extraluminal air present. Continue antibiotics per infectious disease. Still recommend hepatobiliary evaluation at [facility] or other tertiary care center. Will order MRI of the pancreas at this time. Recommend GI consult when they are back on service hopefully Monday. No surgical intervention planned at this time. May begin clears. Current Visit: Yes Status: Acute Priority: High Code(s): K85.90 - ACUTE PANCREATITIS WITHOUT NECROSIS OR INFECTION, UNSP SNOMED Code(s): 40084807
[2024-07-13] MEDS ORDERED: APIXABAN 5 MG TAB PO SCH (12:45)
[2024-07-13] MEDS: APIXABAN 5 MG TAB PO SCH (13:15)
[2024-07-13 14:06] VITALS: BP 132/75; PULSE 87; RESP 16; TEMP 98.2
--- NOTE | 2024-07-13 15:25 | P.PN ---
Subjective Progress Note Date: 07/13/24 Principal diagnosis: Splenic vein thrombosis -Afebrile, no acute events overnight -Notes having improved abdominal pain today with no new signs or symptoms -She was able to tolerate liquids without any nausea or vomiting -Primary team discharging Kristyn today Objective - Vital Signs Vital signs: Vital Signs Temp 98.2 F 07/13/24 13:42 Pulse 87 07/13/24 13:42 Resp 16 07/13/24 13:42 BP 132/75 07/13/24 13:42 Pulse Ox 100 07/13/24 13:42 FiO2 Intake & Output 07/12/24 07/13/24 07/13/24 18:59 06:59 18:59 Intake Total 540 33.971 71.405 Balance 540 33.971 71.405 Weight 41.73 kg Intake: Intake, IV Titration 33.971 71.405 Amount Heparin Sod,Pork in 0.45% 33.971 71.405 NaCl 25,000 unit In 0.45 % NaCl 1 250ml.bag @ 12 UNITS/KG/HR 5.008 mls/hr IV .Q24H [facility] Rx#: [id number] Oral 540 Other: Voiding Method Toilet Toilet Toilet # Voids 2 1 - Constitutional General appearance: Present: cooperative, no acute distress, thin - EENT Eyes: Present: EOMI - Respiratory Respiratory: bilateral: CTA - Cardiovascular Rhythm: regular - Gastrointestinal General gastrointestinal: Present: soft, tenderness. Absent: distended Localized gastrointestinal: tender: epigastric periumbilical (Decreased compared to initial exam) - Integumentary Integumentary: Present: pale. Absent: rash - Neurologic Neurologic: Present: CNII-XII intact. Absent: focal deficits - Psychiatric Psychiatric: Present: A&O x's 3, appropriate affect - Labs CBC & Chem 7: 07/13/24 05:58 07/13/24 05:58 Labs: Abnormal Lab Results - Last 24 Hours (Table) 07/12/24 07/12/24 07/13/24 Range/Units 15:11 15:11 05:58 WBC 12.5 H (3.8-10.6) k/uL RBC 3.61 L 3.55 L (3.80-5.40) m/uL Hgb 8.9 L D 8.6 L (11.4-16.0) gm/dL Hct 30.2 L 29.2 L (34.0-46.0) % MCH 24.7 L 24.2 L (25.0-35.0) pg MCHC 29.5 L 29.5 L (31.0-37.0) g/dL RDW 16.9 H 17.9 H (11.5-15.5) % Plt Count 666 H 632 H (150-450) k/uL MPV 8.6 L (9.5-12.2) FL Immature Gran # 0.08 H (0.00-0.04) X 10*3/uL Neutrophils # 10.2 H (1.3-7.7) k/uL BUN (9.0-27.0) mg/dL Creatinine (0.6-1.5) mg/dL Glucose (70-110) mg/dL Calcium (8.7-10.3) mg/dL Iron 11 L (50-170) UG/DL TIBC 200 L (228-460) UG/DL % Saturation 5.50 L (12.00-45.00) Transferrin 143.0 L (204.0-354.0) mg/dL Ferritin 352.0 H (10.0-291.0) ng/mL ALT (8-44) U/L Total Protein (6.2-8.2) g/dL Albumin (3.8-4.9) g/dL Albumin/Globulin Ratio (1.60-3.17) Ratio Lipase (14-63) U/L 07/13/24 Range/Units 05:58 WBC (3.8-10.6) k/uL RBC (3.80-5.40) m/uL Hgb (11.4-16.0) gm/dL Hct (34.0-46.0) % MCH (25.0-35.0) pg MCHC (31.0-37.0) g/dL RDW (11.5-15.5) % Plt Count (150-450) k/uL MPV (9.5-12.2) FL Immature Gran # (0.00-0.04) X 10*3/uL Neutrophils # (1.3-7.7) k/uL BUN 5.8 L (9.0-27.0) mg/dL Creatinine 0.4 L (0.6-1.5) mg/dL Glucose 66 L (70-110) mg/dL Calcium 8.3 L (8.7-10.3) mg/dL Iron (50-170) UG/DL TIBC (228-460) UG/DL % Saturation (12.00-45.00) Transferrin (204.0-354.0) mg/dL Ferritin (10.0-291.0) ng/mL ALT <5 L (8-44) U/L Total Protein 5.8 L (6.2-8.2) g/dL Albumin 2.7 L (3.8-4.9) g/dL Albumin/Globulin Ratio 0.87 L (1.60-3.17) Ratio Lipase 11 L (14-63) U/L Assessment and Plan (1) Splenic vein thrombosis Status: Acute Code(s): I82.890 - ACUTE EMBOLISM AND THROMBOSIS OF OTHER SPECIF IED VEINS SNOMED Code(s): 56040140 (2) Iron deficiency anemia Status: Acute Code(s): D50.9 - IRON DEFICIENCY ANEMIA, UNSPECIFIED SNOMED Code(s): 02716238 (3) Pancreatitis Status: Acute Priority: High Code(s): K85.90 - ACUTE PANCREATITIS WITHOUT NECROSIS OR INFECTION, UNSP SNOMED Code(s): 80909432 Plan: Pancreatitis, splenic vein thrombosis: Presented to the emergency department reporting epigastric pain and nausea vomiting. History of pancreatitis and ETOH abuse, and JOHN starting oral iron recently. Denies any black or bloody stools, hematemesis -Bilirubin and LFTs WNL. Lipase 30. Coags WNL. CT abdomen pelvis showing worsening acute interstitial edematous pancreatitis when compared to prior CT 06/04/2024. Marked surrounding inflammatory changes and fluid without definitive organized fluid collection. Developing pancreatic necrosis not excluded. Narrowed appearance of the portal venous confluence with collateral prominent draining veins and probable splenic vein thrombosis. Hepatosplenomeg emily. 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 twice daily -Recommend 6 months anticoagulation, as long as provoking factor is resolved at that time -Remainder of pancreatitis management per primary, GI, and surgery Iron deficiency anemia: -Reports history of JOHN, and started oral iron a cpl weeks ago. Upon trending labs, anemia noted since 2019. No previous labs prior to this within EMR. Hgb in May 2024 in the 8 range -Upon admit CBC showing WBC 19.2, hemoglobin 7.3, MCV 82.8, MCHC 29.7, platelets 666,000. Coags WNL. S/p 1 unit PRBCs for hemoglobin 6.7 with appropriate response, with repeat hemoglobin 7.8. Hemoglobin stable at 8.6 -We can arrange for IV iron outpatient with iron deficiency possibly being due to poor intake given alcohol use resulting in pancreatitis potentially causing impaired absorption Erika Rodriguez MD
[2024-07-14 04:44] LABS: Methylmalonic Acid 0.31 umol/L (<0.40)
--- NOTE | 2024-07-15 09:08 | DS ---
DISCHARGE SUMMARY FINAL DIAGNOSES: 1. Acute severe pancreatitis, possibly early necrotizing pancreatitis improved. 2. Anemia multifactorial. 3. Possible splenic vein thrombosis. 4. Hyponatremia. 5. History of EtOH. 6. History of gastroesophageal reflux disease. 7. Multiple complex medical issues. DISCHARGE DISPOSITION: The patient will be discharged in stable condition and guarded prognosis. HISTORY OF PRESENT ILLNESS: This is a 54-year-old woman who was admitted with acute pancreatitis empiric antibiotics . The patient symptomatically improved much better. The patient is seen by Dr. Powell as well as Hematology Oncology. Recommended Eliquis for clinical thrombosis and outpatient followup otherwise. PHYSICAL EXAMINATION: VITAL SIGNS: Stable. CARDIOVASCULAR: S1, S2. ABDOMEN: Soft. NERVOUS SYSTEM: No focal deficits. As mentioned, the patient is extremely keen on going home. Hemoglobin is 8.6. Recommend outpatient followup, so the patient discharged in a stable condition. Guarded prognosis with the following medications medication. Add Eliquis 2 b.i.d. and follow up CBC and CMP with primary physician. Follow up with Dr. Chaka Mora in 2 to 3 days, follow up with and follow up with Hematology, Oncology and Surgery as recommended. Follow up with [facility] also. MMODL / IJN: [id number] / GHADA
--- NOTE | 2024-07-16 12:33 | CDI ---
Documentation Clarification Form Date: 07/16/2024 12:23:14 PM From: Mildred Newman Admit Date: 07/11/2024 06:28:00 PM Patient Name: Kristyn Araiza Visit Number: [id number] Discharge Date: 07/13/2024 02:51:00 PM ATTENTION: The Clinical Documentation Specialists (CDI) and [facility] Coding Staff appreciate your assistance in clarifying documentation. Please respond to the clarification below the line at the bottom and electronically sign. The CDI & [facility] Coding staff will review the response and follow-up if needed. Please note: Queries are made part of the Legal Health Record. If you have any questions, please contact the author of this message via ITS. Doctor/Provider: Carmine Rachel Per ID consult patient has sepsis. Based on this information and the findings below, is there an additional diagnosis that is clinically appropriate for this patient? History/Risk Factors: Patient with pancreatitis recurrent Clinical Indicators: WBC 19.2 Lactic acid: 1.1 Blood cultures: No growth Vitals signs: 100.9 F, 105 bpm, 16, 112/66, 97% RA Treatment: ID Consult: sepsis Antibiotics: Menopenem Is there an additional diagnosis that is clinically appropriate for this patient? [ x ] Sepsis, present on admission [ ] Sepsis, developed during stay, not present on admission [ ] Sepsis ruled out [ ] SIRS, without underlying infectious process [ ] No additional diagnosis/not clinically significant [ ] Other, please specify [ ] Unable to determine SIRS Criteria: 2 or more of the following may indicate SIRS Temperature < 96.8F (36C) or > 101.0F (38.3C) Heart Rate > 90 bpm Respiratory Rate > 20 breaths/min or PaCO2 < 32 mmHg White Blood Cell Count > 12,000 or < 4,000 cells/mm3 or > 10% bands MTDD
== END 2024-07-13 14:51 | disposition home or self-care (01) | DRG 871 ==
LOC: EC 13:11 → 5NMEDONC 18:28
PROVIDERS: ADMIT Internal Medicine; ATTEND Internal Medicine
PROC: 30233N1 Transfusion of Nonautologous Red Blood Cells into Peripheral Vein, Percutaneous Approach (ICD-10-PCS; principal; 2024-07-12)
DX: A41.9 Sepsis, unspecified organism (principal); K85.81 Other acute pancreatitis with uninfected necrosis; I82.890 Acute embolism and thrombosis of other specified veins; E87.1 Hypo-osmolality and hyponatremia; K86.1 Other chronic pancreatitis; K86.2 Cyst of pancreas; D73.5 Infarction of spleen; D50.9 Iron deficiency anemia, unspecified; F17.200 Nicotine dependence, unspecified, uncomplicated; Z79.01 Long term (current) use of anticoagulants; Z79.899 Other long term (current) drug therapy; F10.11 Alcohol abuse, in remission; Z28.21 Immunization not carried out because of patient refusal; K21.9 Gastro-esophageal reflux disease without esophagitis
CPT/HCPCS: 36415; 74177; 80048; 80053; 80320; 82150; 82607; 82728; 82747; 83036; 83540; 83550; 83605; 83690; 83921; 85025; 85027; 85610; 85730; 86850; 86900; 86901; 86920; 87040; 93005; 96361; 96374; 96375; 96376; 99285